=== PATIENT | female | born 1930 | race African-American/Black ===

== ENCOUNTER 2016-07-06 14:36 | Inpatient (IN) | payer MEDICARE, BC ==
[~2016-07-06] VITALS: Ht 167.6 cm; Wt 45.4 kg
[2016-07-06] MEDS ORDERED: POTASSIUM CHLO10 ME2 PO (14:41)
[2016-07-06] MEDS ORDERED: NITROGLYCERIN0.4 MG SL (14:41)
[2016-07-06] MEDS ORDERED: ATENOLOL25 MG ORAL (14:41)
[2016-07-06] MEDS ORDERED: FUROSEMIDE20 M1 ORAL (14:41)
[2016-07-06 14:59] VITALS: BP 124/48
--- NOTE | 2016-07-06 15:26 | Emergency Room Report ---
History of Present Illness General Chief Complaint: General Complaint Source: EMS Present Illness HPI Patient presents with reports of worsening decubitus ulcer Patient herself is nonverbal not able to provide any input I'm being told that the patient is sent in from home No reports of vomiting or diarrhea unknown regarding fevers Unknown duration of time The main location visible is in the sacral decubitus region Unknown regarding current care Allergies: Coded Allergies: No Known Allergies (Verified , 11/28/08) Patient History Limited by: medical condition Past Medical History: see triage record Pertinent Family History: unable to obtain Reviewed Nursing Documentation: PMH: Agreed, PSxH: Agreed Nursing Documentation-PMH Hx Cardiac Problems: Yes - [place] 04/2016 Hx Cerebrovascular Accident: Yes Review of Systems All Other Systems: limited - Other than the ones mentioned in the history of present illness all others are reviewed however they do stay limited due to the patient's mental status Physical Exam Vital Signs Date Time Temp Pulse Resp B/P Pulse Ox O2 Delivery O2 Flow Rate FiO2 07/06/16 14:35 99.9 74 16 102/49 97 Room Air Sp02 EP Interpretation: reviewed, normal General Appearance: no apparent distress Head: normocephalic, atraumatic Eyes: bilateral eye PERRL ENT: normal pharynx, no angioedema Neck: supple Respiratory: lungs clear, normal breath sounds Cardiovascular #1: regular rate, rhythm, no edema Gastrointestinal: non tender, soft Musculoskeletal: other - Patient appears bedbound and chronically debilitated Neurologic: responsive - To physical and verbal stimuli Skin: other - Area of scar and sacral decubitus ulcer large approximately 5 x 4 cm, there is an eschar appearance any foul smell Lymphatic: no adenopathy Medical Decision Making Diagnostic Impression: Primary Impression: Sacral decubitus ulcer, stage IV Additional Impression: Sepsis ER Course Patient's presentation is concerning Reports are that the patient has from home Has a very foul smell the lower back area with the ulcer in place Patient initiated on antibiotics White blood cell is elevated and patient also has Low sodium And at this time and in the for further inpatient care Labs Test 07/06/16 15:30 White Blood Count 19.8 K/UL (4.8-10.8) Red Blood Count 3.81 M/UL (4.20-5.40) Hemoglobin 10.7 G/DL (12.0-16.0) Hematocrit 34.0 % (37.0-47.0) Mean Corpuscular Volume 89 FL (80-99) Mean Corpuscular Hemoglobin 28.1 PG (27.0-31.0) Mean Corpuscular Hemoglobin Concent 31.5 G/DL (32.0-36.0) Red Cell Distribution Width 16.1 % (11.6-14.8) Platelet Count 436 K/UL (150-450) Mean Platelet Volume 6.2 FL (6.5-10.1) Neutrophils (%) (Auto) % (45.0-75.0) Lymphocytes (%) (Auto) % (20.0-45.0) Monocytes (%) (Auto) % (1.0-10.0) Eosinophils (%) (Auto) % (0.0-3.0) Basophils (%) (Auto) % (0.0-2.0) Differential Total Cells Counted 100 Neutrophils % (Manual) 89 % (45-75) Lymphocytes % (Manual) 7 % (20-45) Monocytes % (Manual) 3 % (1-10) Eosinophils % (Manual) 0 % (0-3) Basophils % (Manual) 0 % (0-2) Band Neutrophils 1 % (0-8) Platelet Estimate Adequate Platelet Morphology Normal Hypochromasia 1+ Anisocytosis 1+ Prothrombin Time 11.3 SEC (9.30-11.50) Prothromb Time International Ratio 1.1 (0.9-1.1) Activated Partial Thromboplast Time 28 SEC (23-33) Sodium Level 130 mEQ/L (135-145) Potassium Level 4.9 mEQ/L (3.4-4.9) Chloride Level 90 mEQ/L (98-107) Carbon Dioxide Level 25 mEQ/L (20-30) Anion Gap 15 (5-15) Blood Urea Nitrogen 15 mg/dL (7-23) Creatinine 0.5 mg/dL (0.5-0.9) Estimat Glomerular Filtration Rate mL/min (>60) Glucose Level 152 mg/dL (74-106) Lactic Acid Level 1.50 mmol/L (0.66-2.22) Calcium Level 8.9 mg/dL (8.6-10.2) Phosphorus Level 2.6 mg/dL (2.5-4.8) Magnesium Level 1.8 mg/dL (1.7-2.5) Total Bilirubin 0.3 mg/dL (0.0-1.2) Aspartate Amino Transf (AST/SGOT) 45 U/L (5-40) Alanine Aminotransferase (ALT/SGPT) 30 U/L (3-33) Alkaline Phosphatase 115 U/L (35-104) Total Creatine Kinase 21 U/L (26-140) Creatine Kinase MB < 1.5 ng/mL (< 3.8) Creatine Kinase MB Relative Index Troponin I < 0.30 ng/mL (<=0.30) Total Protein 6.2 g/dL (6.6-8.7) Albumin 2.3 g/dL (3.5-5.2) Globulin 3.9 g/dL Albumin/Globulin Ratio 0.5 (1.0-2.7) Rhythm Strip Diag. Results EP Interpretation: yes Rate: 77 Rhythm: NSR, no PVC's, no ectopy Chest X-Ray Diagnostic Results EP Interpretation: Yes Findings: no consolidation, no effusion, no pneumothorax Number of Views: 1 Last Vital Signs Date Time Temp Pulse Resp B/P Pulse Ox O2 Delivery O2 Flow Rate FiO2 07/06/16 14:59 87 16 124/48 97 Room Air 07/06/16 14:35 99.9 Status: improved Disposition: ADMITTED INPATIENT Condition: Serious BRIE NOWAK D.O. Jul 06, 2016 15:26
--- NOTE | 2016-07-06 15:31 | Diagnostic Imaging Report ---
Indication: Chest pain Technique: One view of the chest Comparison: none Findings: Patient is rotated to the left. Lungs and pleural spaces are clear. Heart size is normal Impression: Negative
[2016-07-06 15:57] LABS: MEAN CORPUSCULAR HEMOGLOBIN 28.1 PG (27.0-31.0); MEAN CORPUSCULAR HGB CONC 31.5 G/DL (32.0-36.0); MEAN CORPUSCULAR VOLUME 89 FL (80-99); MEAN PLATELET VOLUME 6.2 FL (6.5-10.1); PLATELET COUNT 436 K/UL (150-450); RED BLOOD COUNT 3.81 M/UL (4.20-5.40); RED CELL DISTRIBUTION WIDTH 16.1 % (11.6-14.8); WHITE BLOOD COUNT 19.8 K/UL (4.8-10.8)
[2016-07-06 16:00] LABS: INR 1.1 (0.9-1.1); PROTHROMBIN TIME 11.3 SEC (9.30-11.50)
[2016-07-06 16:08] LABS: TROPONIN I < 0.30 ng/mL (<=0.30)
[2016-07-06 16:22] LABS: ALANINE AMINOTRANSFERASE 30 U/L (3-33); ALBUMIN/GLOBULIN RATIO 0.5 (1.0-2.7); ANION GAP 15 (5-15); ASPARTATE AMINO TRANSFERASE 45 U/L (5-40); CALCIUM 8.9 mg/dL (8.6-10.2); CARBON DIOXIDE 25 mEQ/L (20-30); CHLORIDE 90 mEQ/L (98-107); CREATININE 0.5 mg/dL (0.5-0.9); HEMOLYSIS 13; MAGNESIUM 1.8 mg/dL (1.7-2.5); PHOSPHORUS 2.6 mg/dL (2.5-4.8); POTASSIUM 4.9 mEQ/L (3.4-4.9); SODIUM 130 mEQ/L (135-145); TOTAL PROTEIN 6.2 g/dL (6.6-8.7)
[2016-07-06 16:32] LABS: CKMB < 1.5 ng/mL (< 3.8)
[2016-07-06 16:39] LABS: BAND NEUTROPHILS % (MANUAL) 1 % (0-8); LYMPHOCYTES % (MANUAL) 7 % (20-45); NEUTROPHILS % (MANUAL) 89 % (45-75); TOTAL CELLS COUNTED 100
[2016-07-06 16:40] VITALS: BP 108/57
[2016-07-06 16:40] LABS: ANISOCYTOSIS 1+; BASOPHILS % (MANUAL) 0 % (0-2); EOSINOPHILS % (MANUAL) 0 % (0-3); HYPOCHROMASIA 1+; PLATELET ESTIMATE ADEQUATE; PLATELET MORPHOLOGY NORMAL
[2016-07-06] MEDS ORDERED: cefTRIAXone 1 GM in D5W 55 ML IVPB ONE (16:45)
[2016-07-06] MEDS ORDERED: Vancomycin 1gm inj IVPB ONE (16:45)
[2016-07-06] MEDS ORDERED: Vancomycin 1 GM in NS 275 ML IVPB ONE (16:45)
[2016-07-06] MEDS ORDERED: Vancomycin 500mg/D5W 110ml IVPB SCH ×2 (17:00)
--- NOTE | 2016-07-06 17:10 | Infectious Diseases Prog Note ---
Assessment/Plan Problems: (1) Sacral decubitus ulcer, stage IV Assessment & Plan: will send blood culture and start vancomycin, cefepime and flagyl empiric therapy for now, and get an MRI to rule out underlying osteomyelitis, check ESR. recommend wound care consult and plastic surgery for further management and skin flap in the future. (2) Sepsis Assessment & Plan: due to the above, will send blood culture and start wide spectrum antibiotics (3) CAD (coronary artery disease) Assessment & Plan: recommend cardiology consult (4) CVA (cerebral vascular accident) Assessment & Plan: stable , recommend neuro consult Subjective Allergies: Coded Allergies: No Known Allergies (Verified , 11/28/08) Objective Vital Signs Last 24 Hour Vital Signs Date Time Temp Pulse Resp B/P Pulse Ox O2 Delivery O2 Flow Rate FiO2 07/06/16 16:41 98.2 75 16 108/57 99 Room Air 07/06/16 16:40 98.2 75 16 108/57 99 Room Air 07/06/16 14:59 87 16 124/48 97 Room Air 07/06/16 14:35 99.9 74 16 102/49 97 Room Air Height (Feet): 5 Height (Inches): 6.00 Weight (Pounds): 100 Laboratory Tests Test 07/06/16 15:30 White Blood Count 19.8 K/UL (4.8-10.8) H Red Blood Count 3.81 M/UL (4.20-5.40) L Hemoglobin 10.7 G/DL (12.0-16.0) L Hematocrit 34.0 % (37.0-47.0) L Mean Corpuscular Volume 89 FL (80-99) Mean Corpuscular Hemoglobin 28.1 PG (27.0-31.0) Mean Corpuscular Hemoglobin Concent 31.5 G/DL (32.0-36.0) L Red Cell Distribution Width 16.1 % (11.6-14.8) H Platelet Count 436 K/UL (150-450) Mean Platelet Volume 6.2 FL (6.5-10.1) L Neutrophils (%) (Auto) % (45.0-75.0) Lymphocytes (%) (Auto) % (20.0-45.0) Monocytes (%) (Auto) % (1.0-10.0) Eosinophils (%) (Auto) % (0.0-3.0) Basophils (%) (Auto) % (0.0-2.0) Differential Total Cells Counted 100 Neutrophils % (Manual) 89 % (45-75) H Lymphocytes % (Manual) 7 % (20-45) L Monocytes % (Manual) 3 % (1-10) Eosinophils % (Manual) 0 % (0-3) Basophils % (Manual) 0 % (0-2) Band Neutrophils 1 % (0-8) Platelet Estimate Adequate Platelet Morphology Normal Hypochromasia 1+ Anisocytosis 1+ Prothrombin Time 11.3 SEC (9.30-11.50) Prothromb Time International Ratio 1.1 (0.9-1.1) Activated Partial Thromboplast Time 28 SEC (23-33) Sodium Level 130 mEQ/L (135-145) L Potassium Level 4.9 mEQ/L (3.4-4.9) Chloride Level 90 mEQ/L (98-107) L Carbon Dioxide Level 25 mEQ/L (20-30) Anion Gap 15 (5-15) Blood Urea Nitrogen 15 mg/dL (7-23) Creatinine 0.5 mg/dL (0.5-0.9) Estimat Glomerular Filtration Rate mL/min (>60) Glucose Level 152 mg/dL (74-106) H Lactic Acid Level 1.50 mmol/L (0.66-2.22) Calcium Level 8.9 mg/dL (8.6-10.2) Phosphorus Level 2.6 mg/dL (2.5-4.8) Magnesium Level 1.8 mg/dL (1.7-2.5) Total Bilirubin 0.3 mg/dL (0.0-1.2) Aspartate Amino Transf (AST/SGOT) 45 U/L (5-40) H Alanine Aminotransferase (ALT/SGPT) 30 U/L (3-33) Alkaline Phosphatase 115 U/L (35-104) H Total Creatine Kinase 21 U/L (26-140) L Creatine Kinase MB < 1.5 ng/mL (< 3.8) Creatine Kinase MB Relative Index Troponin I < 0.30 ng/mL (<=0.30) Total Protein 6.2 g/dL (6.6-8.7) L Albumin 2.3 g/dL (3.5-5.2) L Globulin 3.9 g/dL Albumin/Globulin Ratio 0.5 (1.0-2.7) L Current Medications Medications (Trade) Dose Ordered Sig/Abdirizak Route PRN Reason Start Time Stop Time Status Last Admin Dose Admin Ceftriaxone Sodium 1 gm/ Dextrose 55 ml @ 110 mls/hr ONCE ONCE IVPB 07/06/16 16:45 07/06/16 17:14 07/06/16 16:47 Vancomycin HCl/ Sodium Chloride (Vancomycin/ Sodium Chloride) 275 ml @ 183.708 mls/hr ONCE ONCE IVPB 07/06/16 16:45 07/06/16 18:14 07/06/16 16:47 Kaylah Sandy M.D. Jul 06, 2016 17:10
[2016-07-06] MEDS ORDERED: Mylanta II UD 30ml ORAL PRN (19:15)
[2016-07-06] MEDS ORDERED: LORazepam Inj 2mg/ml 1ml IV PRN (19:15)
[2016-07-06] MEDS ORDERED: Zolpidem 5mg tab ORAL PRN (19:15)
[2016-07-06] MEDS ORDERED: Morphine Sulfate 2mg/ml Inj IVP PRN (19:15)
[2016-07-06] MEDS ORDERED: Miralax 17gm pkt ORAL PRN (19:15)
[2016-07-06 20:00] VITALS: BP 136/59
[2016-07-06] MEDS: metroNIDAZOLE 500mg tab ORAL SCH (20:37)
[2016-07-06] MEDS: Cefepime 2gm/D5W 110ml IV SCH ×2 (20:37)
[2016-07-06] MEDS ORDERED: Cefepime HCl 1 GM in D5W 55 ML IVPB SCH (21:00)
[2016-07-06] MEDS ORDERED: Vancomycin 1 GM in D5W 275 ML IVPB SCH (21:00)
[2016-07-06] MEDS: Heparin 5000 units/ml inj SUBQ SCH (22:16)
[2016-07-06] MEDS: NovoLOG Insulin Flexpen SUBQ SCH (22:18)
--- NOTE | 2016-07-07 00:08 | Consultation ---
DATE OF CONSULTATION: HEMATOLOGY/ONCOLOGY CONSULTATION CONSULTING PHYSICIAN: Amandeep Saini M.D. ATTENDING PHYSICIAN: Claudia Diaz M.D. HISTORY OF PRESENT ILLNESS: Dear Dr. Diaz, Today, I had an opportunity to see one of your patients, . Sander Hernandez, who as you are aware 85-year-old delightful female with a past medical history remarkable for coronary artery disease, hypertension, history of CVA, sacral decubitus, and history of sepsis. The patient ended up to be admitted to [facility] for sacral decubitus ulcer, stage IV, sepsis, CVA, and coronary artery disease. During evaluation, it was found that the patient developed significant leukocytosis as well as anemia. My service was called to handle the blood dyscrasia. PAST MEDICAL HISTORY: 1. . 2. Sacral decubitus ulcer. 3. Sepsis. 4. Coronary artery disease. 5. Hypertension. 6. CVA. No cardiac medications. MEDICATIONS: 1. Vancomycin. 2. Tenormin. 3. NovoLog. 4. Flagyl. 5. Tylenol. 6. Morphine. 7. Zofran. FAMILY HISTORY: Noncontributory. SOCIAL HISTORY: No history of smoking. No history of alcohol abuse. No history of illicit drug use. REVIEW OF SYSTEMS: General Description: The patient is not in any significant distress. PHYSICAL EXAMINATION: VITAL SIGNS: T-max 97 degrees, respiratory rate 20, and heart rate 80. HEART: S1 and S2 regular. ABDOMEN: Soft and benign. No organomegaly present. Bowel sounds present. EXTREMITIES: No cyanosis, clubbing, or edema. LABORATORY DATA: Creatinine 0.5. Troponin is 0.3. Hematology showed WBC of 19.8, hemoglobin 10.7, hematocrit 34.0, and platelets 436,000. Coagulation showing at 1.1. IMPRESSION: 1. Leukocytosis . 2. Anemia of chronic disease. 3. Decreased hemoglobin and hematocrit, rule out gastrointestinal bleed. 4. Thrombocytosis, reactive. 5. Decubitus ulcer, stage IV. 6. Sepsis. 7. Coronary artery disease. 8. Hypertension. 9. Cerebrovascular accident. 10. Failure to thrive. 11. Malnutrition. RECOMMENDATIONS: 1. Watch count. 2. Watch coagulopathy. 3. Venous Doppler of the bilateral legs to rule out DVT. 4. Heparin 5000 units subcutaneously q.12 h. 5. Stool for occult blood. 6. Check iron studies. 7. PRBC transfusion p.r.n. basis. 8. Antibiotic IV. 9. ID followup. 10. Cardiology followup. 11. Neurology followup. 12. Skin care. 13. Nutrition. . Amandeep Saini MD DR: NADIA JOB#: [id number] CC:
[2016-07-07 04:00] VITALS: BP 117/55
[2016-07-07] MEDS: metroNIDAZOLE 500mg tab ORAL SCH ×3 (05:00→21:04)
[2016-07-07] MEDS: NovoLOG Insulin Flexpen SUBQ SCH ×4 (06:30→21:16)
[2016-07-07 06:51] LABS: MEAN CORPUSCULAR HEMOGLOBIN 28.3 PG (27.0-31.0); MEAN CORPUSCULAR HGB CONC 31.8 G/DL (32.0-36.0); MEAN CORPUSCULAR VOLUME 89 FL (80-99); MEAN PLATELET VOLUME 6.3 FL (6.5-10.1); PLATELET COUNT 394 K/UL (150-450); RED BLOOD COUNT 3.43 M/UL (4.20-5.40); RED CELL DISTRIBUTION WIDTH 16.5 % (11.6-14.8); WHITE BLOOD COUNT 14.1 K/UL (4.8-10.8)
[2016-07-07 07:29] LABS: HEMOLYSIS 4; IRON 14 ug/dL (37-145); TOTAL IRON BINDING CAPACITY 89 ug/dL (250-400)
[2016-07-07 07:32] LABS: ALANINE AMINOTRANSFERASE 26 U/L (3-33); ALBUMIN/GLOBULIN RATIO 0.5 (1.0-2.7); ANION GAP 14 (5-15); ASPARTATE AMINO TRANSFERASE 42 U/L (5-40); CALCIUM 8.7 mg/dL (8.6-10.2); CARBON DIOXIDE 24 mEQ/L (20-30); CHLORIDE 95 mEQ/L (98-107); CHOLESTEROL 93 mg/dL (< 200); CHOLESTEROL/HDL RATIO 3.9 (3.3-4.4); CREATININE 0.4 mg/dL (0.5-0.9); HEMOLYSIS 8; LDL CHOLESTEROL (CALC.) 51 mg/dL (60-99); POTASSIUM 4.5 mEQ/L (3.4-4.9); SODIUM 133 mEQ/L (135-145); TOTAL PROTEIN 5.6 g/dL (6.6-8.7)
[2016-07-07 07:35] LABS: FERRITIN 398 ng/mL (13-150)
[2016-07-07 08:00] VITALS: BP 129/60
[2016-07-07] MEDS: Heparin 5000 units/ml inj SUBQ SCH ×2 (09:29→20:04)
[2016-07-07] MEDS: Atenolol 25mg tab ORAL SCH (09:30)
[2016-07-07 11:29] LABS: BAND NEUTROPHILS % (MANUAL) 0 % (0-8); BASOPHILS % (MANUAL) 0 % (0-2); EOSINOPHILS % (MANUAL) 1 % (0-3); LYMPHOCYTES % (MANUAL) 6 % (20-45); NEUTROPHILS % (MANUAL) 90 % (45-75); PLATELET ESTIMATE ADEQUATE; PLATELET MORPHOLOGY NORMAL; TOTAL CELLS COUNTED 100
[2016-07-07 11:31] LABS: ANISOCYTOSIS 1+; HYPOCHROMASIA 1+
[2016-07-07 12:00] VITALS: BP 115/54
--- NOTE | 2016-07-07 15:33 | Wound Care Consultation ---
Wound Assessment Wound Assessment #1: Wound Present on Admission: Yes New Wound: No Status Change of Wound: No Wound Location Body Site Modif: mid Wound Location Body Site: sacral Wound Type: pressure ulcer Elisha Test: Does not Elisha Pressure Ulcer Stage: IV/unstageable Wound Thickness: Full Thickness Wound Length: 15.5 Wound Width: 9.0 Wound Depth: utd Percent of Wound Black/Brown: 100 Wound Drainage Description: Serosanguineous Wound Drainage Amount: Scant Wound Drainage Odor: None/Absent Tissue Surrounding Wound: Indurated Wound General Appearance: Blackened Wound Assessment #2: Wound Number: #2 Wound Present on Admission: Yes New Wound: No Status Change of Wound: No Wound Location Body Site Modif: right Wound Location Body Site: ischial tuberosity Wound Type: pressure ulcer Elisha Test: Does not Elisha Pressure Ulcer Stage: IV/unstageable Wound Thickness: Full Thickness Wound Length: 3.0 Wound Width: 2.5 Wound Depth: utd Percent of Wound Black/Brown: 100 Wound Drainage Description: Serosanguineous Wound Drainage Amount: Scant Wound Drainage Odor: None/Absent Tissue Surrounding Wound: Macerated Wound General Appearance: Blackened Wound Assessment #3: Wound Number: #3 Wound Present on Admission: Yes New Wound: No Status Change of Wound: No Wound Location Body Site Modif: left Wound Location Body Site: buttocks Wound Type: pressure ulcer Elisha Test: Does not Elisha Pressure Ulcer Stage: III Wound Thickness: Full Thickness Wound Length: 2.0 Wound Width: 2.0 Wound Depth: 0.3 Percent of Wound [place]/Red: 80 Percent of Wound Bed Yellow/Wh: 20 Wound Drainage Description: Serosanguineous Wound Drainage Amount: Scant Wound Drainage Odor: None/Absent Tissue Surrounding Wound: Macerated Wound General Appearance: Reddened Wound Assessment #4: Wound Number: #4 Wound Present on Admission: Yes New Wound: No Status Change of Wound: No Wound Location Body Site Modif: right Wound Location Body Site: heel Wound Type: pressure ulcer Elisha Test: Does not Elisha Pressure Ulcer Stage: IV/unstageable Wound Thickness: Full Thickness Wound Length: 4.0 Wound Width: 2.0 Wound Depth: utd Percent of Wound [place]/Red: 20 Percent of Wound Black/Brown: 60 Wound Drainage Amount: Scant Wound Drainage Odor: None/Absent Tissue Surrounding Wound: Denuded Wound General Appearance: Reddened Wound Assessment #5: Wound Number: #5 Wound Present on Admission: Yes New Wound: No Status Change of Wound: No Wound Location Body Site: perineal area Wound Type: chemical burn Elisha Test: Does not Elisha Wound Drainage Amount: None Wound Drainage Odor: None/Absent Tissue Surrounding Wound: Erythemic Wound General Appearance: Reddened Wound Comment #1 Sacral stage IV/unstageable pressure ulcer #2 Left buttock stage III pressure ulcer #3 Right ischial tuberosity stage IV/unstageable pressure ulcer #4 Right heel stage IV/unstageable pressure ulcer #5 Chemical burn on perineal area Recommendation -Local wound care per protocol -Consult for possible debridement of sacral area with black eschar -Optimize nutrition -Turn and reposition -Keep clean and dry -Offload both heels -Heel protector on both heels -Low air loss overlay mattress -Assess and f/u with MD for any changes IMTIAZ HINTON RN Jul 07, 2016 15:33
--- NOTE | 2016-07-07 15:48 | Diagnostic Imaging Report ---
Indications: Stage IV sacral decubitus ulcer. Technique: Sagittal T2-weighted fast spin-echo, coronal, sagittal, and axial T1-weighted fast spin-echo and STIR sequences of the sacrum and coccyx without IV gadolinium administration Findings: Comparison: None Increased marrow signal is present within the fourth and fifth sacral vertebrae on lateral view, questionably in the distal aspect of the third. It is also demonstrated within the first coccygeal vertebra which is displaced posteriorly. Remainder of the coccyx not definitely identified. Surrounding soft tissues are diffusely edematous. Small fluid collection adjacent to the distal sacrum and first coccygeal segment not excludable. Extension of inflammatory process/fluid collection into sacral spinal canal excludable. Circumscribed fluid and gas collections in the subcutaneous soft tissues of both buttock regions more superficially, 2 cm on the right and 2.5 cm on left. No additional skeletal foci of marrow signal change. L4-5 intervertebral disc narrowed with marginal osteophyte formation. Bilateral L5-S1 facet joints hypertrophied. Rectum is significantly distended by feces, up to 9 cm diameter. Some extension of the aforementioned soft tissue edema into presacral and perirectal spaces. Impression: Suspicion of osteomyelitis of the lower sacrum and first coccygeal segment. Coccyx distal to this not identified. Questionable small fluid collection/abscess adjacent to the sacrococcygeal junction. Extension of inflammatory process into sacral spinal canal indeterminate. Bilateral buttock subcutaneous gas and fluid collection suspicious for abscess is Rectal fecal distention Degenerative spondylosis
[2016-07-07 16:00] VITALS: BP 126/55
[2016-07-07] MEDS: Vancomycin 500mg/D5W 110ml IVPB SCH ×2 (17:48)
--- NOTE | 2016-07-07 18:22 | Infectious Diseases Prog Note ---
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, recommend surgical debridement with plastic surgery and bone for culture, continue wound care and off loading (3) Sepsis Assessment & Plan: due to the above, will send blood culture and start wide spectrum antibiotics (4) CAD (coronary artery disease) Assessment & Plan: recommend cardiology consult (5) CVA (cerebral vascular accident) Assessment & Plan: stable , recommend neuro consult Subjective ROS Limited/Unobtainable: Yes Allergies: Coded Allergies: No Known Allergies (Verified , 11/28/08) Subjective she is demented, lying in bed, alert, comfortable.afebrile Objective Vital Signs Last 24 Hour Vital Signs Date Time Temp Pulse Resp B/P Pulse Ox O2 Delivery O2 Flow Rate FiO2 07/07/16 16:00 98.2 66 20 126/55 100 Room Air 07/07/16 12:00 98.0 71 18 115/54 98 Room Air 07/07/16 09:30 85 120/57 07/07/16 08:00 97.2 81 18 129/60 98 Room Air 07/07/16 04:00 98.8 86 18 117/55 95 Room Air 07/06/16 20:00 97.9 77 20 136/59 Room Air Height (Feet): 5 Height (Inches): 6.00 Weight (Pounds): 100 General Appearance: WD/WN, no acute distress HEENT: normocephalic, atraumatic, anicteric Respiratory/Chest: chest wall non-tender, normal breath sounds, no respiratory distress, no accessory muscle use, decreased breath sounds Cardiovascular: normal peripheral pulses, normal rate, regular rhythm, no gallop/murmur Abdomen: normal bowel sounds, soft, non tender, no organomegaly, non distended , no mass Extremities: no cyanosis, no clubbing Skin: no rash, no lesions, ulcers Microbiology Date/Time Source Procedure Growth Status 07/06/16 22:30 Wound Gram Stain - Final Resulted 07/06/16 22:30 Wound Wound Culture Pending Resulted Laboratory Tests Test 07/07/16 05:00 White Blood Count 14.1 K/UL (4.8-10.8) H Red Blood Count 3.43 M/UL (4.20-5.40) L Hemoglobin 9.7 G/DL (12.0-16.0) L Hematocrit 30.6 % (37.0-47.0) L Mean Corpuscular Volume 89 FL (80-99) Mean Corpuscular Hemoglobin 28.3 PG (27.0-31.0) Mean Corpuscular Hemoglobin Concent 31.8 G/DL (32.0-36.0) L Red Cell Distribution Width 16.5 % (11.6-14.8) H Platelet Count 394 K/UL (150-450) Mean Platelet Volume 6.3 FL (6.5-10.1) L Neutrophils (%) (Auto) % (45.0-75.0) Lymphocytes (%) (Auto) % (20.0-45.0) Monocytes (%) (Auto) % (1.0-10.0) Eosinophils (%) (Auto) % (0.0-3.0) Basophils (%) (Auto) % (0.0-2.0) Differential Total Cells Counted 100 Neutrophils % (Manual) 90 % (45-75) H Lymphocytes % (Manual) 6 % (20-45) L Monocytes % (Manual) 3 % (1-10) Eosinophils % (Manual) 1 % (0-3) Basophils % (Manual) 0 % (0-2) Band Neutrophils 0 % (0-8) Platelet Estimate Adequate Platelet Morphology Normal Hypochromasia 1+ Anisocytosis 1+ Sodium Level 133 mEQ/L (135-145) L Potassium Level 4.5 mEQ/L (3.4-4.9) Chloride Level 95 mEQ/L (98-107) L Carbon Dioxide Level 24 mEQ/L (20-30) Anion Gap 14 (5-15) Blood Urea Nitrogen 13 mg/dL (7-23) Creatinine 0.4 mg/dL (0.5-0.9) L Estimat Glomerular Filtration Rate mL/min (>60) Glucose Level 101 mg/dL (74-106) Calcium Level 8.7 mg/dL (8.6-10.2) Iron Level 14 ug/dL (37-145) L Total Iron Binding Capacity 89 ug/dL (250-400) L Percent Iron Saturation 16 % (15-50) Unsaturated Iron Binding 75 ug/dL (112-346) L Ferritin 398 ng/mL (13-150) H Total Bilirubin 0.2 mg/dL (0.0-1.2) Aspartate Amino Transf (AST/SGOT) 42 U/L (5-40) H Alanine Aminotransferase (ALT/SGPT) 26 U/L (3-33) Alkaline Phosphatase 126 U/L (35-104) H Total Protein 5.6 g/dL (6.6-8.7) L Albumin 2.0 g/dL (3.5-5.2) L Globulin 3.6 g/dL Albumin/Globulin Ratio 0.5 (1.0-2.7) L Triglycerides Level 88 mg/dL (< 150) Cholesterol Level 93 mg/dL (< 200) LDL Cholesterol 51 mg/dL (60-99) L HDL Cholesterol 24 mg/dL (> 60) Cholesterol/HDL Ratio 3.9 (3.3-4.4) Thyroid Stimulating Hormone (TSH) 7.140 uIU/mL (0.300-4.500) Current Medications Medications (Trade) Dose Ordered Sig/Abdirizak Route PRN Reason Start Time Stop Time Status Last Admin Dose Admin Acetaminophen (Tylenol) 650 mg Q4H PRN ORAL fever 07/06/16 19:15 08/05/16 19:14 Al Hydroxide/Mg Hydroxide (Mylanta II) 30 ml Q6H PRN ORAL dyspepsia 07/06/16 19:15 08/05/16 19:14 Atenolol (Tenormin) 25 mg DAILY ORAL 07/07/16 09:00 08/06/16 08:59 07/07/16 09:30 Cefepime HCl 2 gm/ Dextrose 110 ml @ 220 mls/hr Q24H IV 07/06/16 20:00 07/13/16 19:59 07/06/16 20:37 Dextrose (Dextrose 50%) STAT PRN IV Hypoglycemia 07/06/16 19:15 08/05/16 19:14 Heparin Sodium (Porcine) 5000 units 5,000 units EVERY 12 HOURS SUBQ 07/06/16 22:00 08/05/16 21:59 07/07/16 09:29 Insulin Aspart (NovoLOG) BEFORE MEALS AND HS SUBQ 07/06/16 22:00 08/05/16 21:59 07/07/16 17:50 Lorazepam (Ativan 2mg/ml 1ml) 0.5 mg Q4H PRN IV For Anxiety 07/06/16 19:15 07/13/16 19:14 Metronidazole 500 mg 500 mg Q8HR ORAL 07/06/16 20:00 07/13/16 19:59 07/07/16 14:00 Morphine Sulfate (Morphine Sulfate) 1 mg EVERY 4 HOURS PRN IVP For Pain 07/06/16 19:15 07/13/16 19:14 Ondansetron HCl (Zofran) 4 mg Q6H PRN IVP Nausea & Vomiting 07/06/16 19:15 08/05/16 19:14 Polyethylene Glycol (Miralax) 17 gm HSPRN PRN ORAL Constipation 07/06/16 19:15 08/05/16 19:14 Sodium Chloride (Sodium Chloride 1000ml bag) 1,000 ml @ 60 mls/hr [id number] IV 07/06/16 23:30 08/05/16 23:29 07/06/16 23:30 Vancomycin HCl (Vanco rx to dose) 1 ea DAILY PRN MISC . 07/06/16 18:45 08/05/16 18:44 Vancomycin HCl/ Dextrose (Vancomycin/D5W) 110 ml @ 110 mls/hr Q24H IVPB 07/07/16 17:00 07/12/16 16:59 07/07/16 17:48 Zolpidem Tartrate (Ambien) 5 mg HSPRN PRN ORAL Insomnia 07/06/16 19:15 08/05/16 19:14 Kaylah Sandy M.D. Jul 07, 2016 18:22
--- NOTE | 2016-07-07 19:04 | Consultation ---
History of Present Illness General Date patient seen: Jul 07, 2016 Time patient seen: 18:51 Chief Complaint: General Complaint Referring physician: Joe Reason for Consultation: Sacral Ulcer Present Illness HPI Asked to evaluate this 85 yof for a sacral ulcer. She was admitted to [facility] from home yesterday for worsening sacral ulcer. She developed the ulcer several weeks ago when spending time in hospital recovering from an IN and stroke. She is bedridden due to the stroke. She has been home for the last 2 weeks and has had a home health nurse. She has been receiving medihoney at home. 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 History obtained from daughter and granddaughter. She has a h/o DM as well. Allergies: Coded Allergies: No Known Allergies (Verified , 11/28/08) Medication History Scheduled Atenolol* (Tenormin*), 25 MG ORAL DAILY, (Reported) Furosemide* (Lasix*), 20 MG ORAL DAILY, (Reported) Miscellaneous Medications Nitroglycerin (Nitroglycerin), 0.4 MG SL, (Reported) Potassium Chloride (Potassium Chloride), 10 MEQ PO, (Reported) Patient History Limited by: medical condition History Provided By: Family Member, Medical Record Healthcare decision maker Resuscitation status Full Code Advanced Directive on File Review of Systems Constitutional: Reports: weakness Eye: Reports: no symptoms Respiratory: Reports: no symptoms Gastrointestinal: Reports: no symptoms Genitourinary: Reports: incontinence Skin: Reports: see HPI Psychiatric: Reports: no symptoms Hematologic/Lymphatic: Reports: anemia Physical Exam General Appearance: no apparent distress Lines, tubes and drains: peripheral Respiratory/Chest: no respiratory distress Abdomen: soft Skin Exam: other - Large unstageable sacral ulcer with eschar present. Central aspect is soft and . Small amount of fluctuance. Periskin with no crepitus or erythema. Neurologic: motor weakness Musculoskeletal: atrophy Last 24 Hour Vital Signs Date Time Temp Pulse Resp B/P Pulse Ox O2 Delivery O2 Flow Rate FiO2 07/07/16 16:00 98.2 66 20 126/55 100 Room Air 07/07/16 12:00 98.0 71 18 115/54 98 Room Air 07/07/16 09:30 85 120/57 07/07/16 08:00 97.2 81 18 129/60 98 Room Air 07/07/16 04:00 98.8 86 18 117/55 95 Room Air 07/06/16 20:00 97.9 77 20 136/59 Room Air Intake and Output 07/06/16 07/07/16 19:00 07:00 Intake Total 0 ml 360 ml Balance 0 ml 360 ml Intake Oral 0 ml IV Total 360 ml # Voids 2 # Bowel Movements 2 Laboratory Tests Test 07/07/16 05:00 White Blood Count 14.1 K/UL (4.8-10.8) H Red Blood Count 3.43 M/UL (4.20-5.40) L Hemoglobin 9.7 G/DL (12.0-16.0) L Hematocrit 30.6 % (37.0-47.0) L Mean Corpuscular Volume 89 FL (80-99) Mean Corpuscular Hemoglobin 28.3 PG (27.0-31.0) Mean Corpuscular Hemoglobin Concent 31.8 G/DL (32.0-36.0) L Red Cell Distribution Width 16.5 % (11.6-14.8) H Platelet Count 394 K/UL (150-450) Mean Platelet Volume 6.3 FL (6.5-10.1) L Neutrophils (%) (Auto) % (45.0-75.0) Lymphocytes (%) (Auto) % (20.0-45.0) Monocytes (%) (Auto) % (1.0-10.0) Eosinophils (%) (Auto) % (0.0-3.0) Basophils (%) (Auto) % (0.0-2.0) Differential Total Cells Counted 100 Neutrophils % (Manual) 90 % (45-75) H Lymphocytes % (Manual) 6 % (20-45) L Monocytes % (Manual) 3 % (1-10) Eosinophils % (Manual) 1 % (0-3) Basophils % (Manual) 0 % (0-2) Band Neutrophils 0 % (0-8) Platelet Estimate Adequate Platelet Morphology Normal Hypochromasia 1+ Anisocytosis 1+ Sodium Level 133 mEQ/L (135-145) L Potassium Level 4.5 mEQ/L (3.4-4.9) Chloride Level 95 mEQ/L (98-107) L Carbon Dioxide Level 24 mEQ/L (20-30) Anion Gap 14 (5-15) Blood Urea Nitrogen 13 mg/dL (7-23) Creatinine 0.4 mg/dL (0.5-0.9) L Estimat Glomerular Filtration Rate mL/min (>60) Glucose Level 101 mg/dL (74-106) Calcium Level 8.7 mg/dL (8.6-10.2) Iron Level 14 ug/dL (37-145) L Total Iron Binding Capacity 89 ug/dL (250-400) L Percent Iron Saturation 16 % (15-50) Unsaturated Iron Binding 75 ug/dL (112-346) L Ferritin 398 ng/mL (13-150) H Total Bilirubin 0.2 mg/dL (0.0-1.2) Aspartate Amino Transf (AST/SGOT) 42 U/L (5-40) H Alanine Aminotransferase (ALT/SGPT) 26 U/L (3-33) Alkaline Phosphatase 126 U/L (35-104) H Total Protein 5.6 g/dL (6.6-8.7) L Albumin 2.0 g/dL (3.5-5.2) L Globulin 3.6 g/dL Albumin/Globulin Ratio 0.5 (1.0-2.7) L Triglycerides Level 88 mg/dL (< 150) Cholesterol Level 93 mg/dL (< 200) LDL Cholesterol 51 mg/dL (60-99) L HDL Cholesterol 24 mg/dL (> 60) Cholesterol/HDL Ratio 3.9 (3.3-4.4) Thyroid Stimulating Hormone (TSH) 7.140 uIU/mL (0.300-4.500) Microbiology Date/Time Source Procedure Growth Status 07/06/16 22:30 Wound Gram Stain - Final Resulted 07/06/16 22:30 Wound Wound Culture Pending Resulted Height (Feet): 5 Height (Inches): 6.00 Weight (Pounds): 100 Medications Current Medications Medications (Trade) Dose Ordered Sig/Abdirizak Route PRN Reason Start Time Stop Time Status Last Admin Dose Admin Acetaminophen (Tylenol) 650 mg Q4H PRN ORAL fever 07/06/16 19:15 08/05/16 19:14 Al Hydroxide/Mg Hydroxide (Mylanta II) 30 ml Q6H PRN ORAL dyspepsia 07/06/16 19:15 08/05/16 19:14 Atenolol (Tenormin) 25 mg DAILY ORAL 07/07/16 09:00 08/06/16 08:59 07/07/16 09:30 Cefepime HCl 2 gm/ Dextrose 110 ml @ 220 mls/hr Q24H IV 07/06/16 20:00 07/13/16 19:59 07/06/16 20:37 Dextrose (Dextrose 50%) STAT PRN IV Hypoglycemia 07/06/16 19:15 08/05/16 19:14 Heparin Sodium (Porcine) 5000 units 5,000 units EVERY 12 HOURS SUBQ 07/06/16 22:00 08/05/16 21:59 07/07/16 09:29 Insulin Aspart (NovoLOG) BEFORE MEALS AND HS SUBQ 07/06/16 22:00 08/05/16 21:59 07/07/16 17:50 Lorazepam (Ativan 2mg/ml 1ml) 0.5 mg Q4H PRN IV For Anxiety 07/06/16 19:15 07/13/16 19:14 Metronidazole 500 mg 500 mg Q8HR ORAL 07/06/16 20:00 07/13/16 19:59 07/07/16 14:00 Morphine Sulfate (Morphine Sulfate) 1 mg EVERY 4 HOURS PRN IVP For Pain 07/06/16 19:15 07/13/16 19:14 Ondansetron HCl (Zofran) 4 mg Q6H PRN IVP Nausea & Vomiting 07/06/16 19:15 08/05/16 19:14 Polyethylene Glycol (Miralax) 17 gm HSPRN PRN ORAL Constipation 07/06/16 19:15 08/05/16 19:14 Sodium Chloride (Sodium Chloride 1000ml bag) 1,000 ml @ 60 mls/hr [id number] IV 07/06/16 23:30 08/05/16 23:29 07/06/16 23:30 Vancomycin HCl (Vanco rx to dose) 1 ea DAILY PRN MISC . 07/06/16 18:45 08/05/16 18:44 Vancomycin HCl/ Dextrose (Vancomycin/D5W) 110 ml @ 110 mls/hr Q24H IVPB 07/07/16 17:00 07/12/16 16:59 07/07/16 17:48 Zolpidem Tartrate (Ambien) 5 mg HSPRN PRN ORAL Insomnia 07/06/16 19:15 08/05/16 19:14 Assessment/Plan Assessment/Plan Patient with large unstageable sacral ulcer. She has a leukocytosis although it is less than yesterday. She will need surgical debridement of the eschar with washout and possible bone biopsy. Concern is that the ulcer will worsen and she will become septic. She will need medical clearance due to her comorbidities and if not able t be cleared for anesthesia, then will need to do it under local anesthesia in the OR. If bone is exposed then will obtain biopsy to direct antibiotic management. Will also need low airloss mattress and aggressive offloading. Will need prealbumin level to assess nutrition levels. Discussed with family and explained that the first step is to prevent ulcer from making her sicker. Prognosis for healing this ulcer is poor given the size , comorbidities and the fact that she is bedridden. DEVANTE LE Jul 07, 2016 19:04
[2016-07-07 20:00] VITALS: BP 130/55
--- NOTE | 2016-07-07 21:00 | General Progress Note ---
Assessment/Plan Assessment/Plan IMPRESSION: 1. Leukocytosis 2/2 underlying infection, osteomyelitis v other cause 2. Anemia of chronic disease, decreased hemoglobin and hematocrit, rule out gastrointestinal bleed. Ferritin remains elevated 3. Thrombocytosis, reactive. 4. Decubitus ulcer, stage IV. 5. Sepsis. 6. Cerebrovascular accident. 7. Failure to thrive. 8. Malnutrition. RECOMMENDATIONS: 1. Watch count. 2. Watch coagulopathy. 3. Venous Doppler of the bilateral legs to rule out DVT. 4. Heparin 5000 units subcutaneously q.12 h. 5. Stool for occult blood. 6. Anemia workup has been reviewed 7. PRBC transfusion p.r.n. basis. 8. Antibiotic IV prn 9. Staff Thank you, Cristian Saini MD Subjective Constitutional: Reports: no symptoms HEENT: Reports: no symptoms Cardiovascular: Reports: no symptoms Respiratory: Reports: no symptoms Gastrointestinal/Abdominal: Reports: poor fluid intake Genitourinary: Reports: no symptoms Neurologic/Psychiatric: Reports: no symptoms Endocrine: Reports: no symptoms Hematologic/Lymphatic: Reports: anemia Allergies: Coded Allergies: No Known Allergies (Verified , 11/28/08) Subjective no events overnight, no fevers or chills, no night sweats Objective Last 24 Hour Vital Signs Date Time Temp Pulse Resp B/P Pulse Ox O2 Delivery O2 Flow Rate FiO2 07/07/16 16:00 98.2 66 20 126/55 100 Room Air 07/07/16 12:00 98.0 71 18 115/54 98 Room Air 07/07/16 09:30 85 120/57 07/07/16 08:00 97.2 81 18 129/60 98 Room Air 07/07/16 04:00 98.8 86 18 117/55 95 Room Air Intake and Output 07/06/16 07/07/16 19:00 07:00 Intake Total 0 ml 360 ml Balance 0 ml 360 ml Intake Oral 0 ml IV Total 360 ml # Voids 2 # Bowel Movements 2 Laboratory Tests 07/07/16 05:00: White Blood Count 14.1H, Red Blood Count 3.43L, Hemoglobin 9.7L, Hematocrit 30.6L, Mean Corpuscular Volume 89, Mean Corpuscular Hemoglobin 28.3, Mean Corpuscular Hemoglobin Concent 31.8L, Red Cell Distribution Width 16.5H, Platelet Count 394, Mean Platelet Volume 6.3L, Neutrophils (%) (Auto) , Lymphocytes (%) (Auto) , Monocytes (%) (Auto) , Eosinophils (%) (Auto) , Basophils (%) (Auto) , Differential Total Cells Counted 100, Neutrophils % ( Manual) 90H, Lymphocytes % (Manual) 6L, Monocytes % (Manual) 3, Eosinophils % ( Manual) 1, Basophils % (Manual) 0, Band Neutrophils 0, Platelet Estimate Adequate, Platelet Morphology Normal, Hypochromasia 1+, Anisocytosis 1+, Sodium Level 133L, Potassium Level 4.5, Chloride Level 95L, Carbon Dioxide Level 24, Anion Gap 14, Blood Urea Nitrogen 13, Creatinine 0.4L, Estimat Glomerular Filtration Rate , Glucose Level 101, Calcium Level 8.7, Iron Level 14L, Total Iron Binding Capacity 89L, Percent Iron Saturation 16, Unsaturated Iron Binding 75L, Ferritin 398H, Total Bilirubin 0.2, Aspartate Amino Transf (AST/SGOT) 42H, Alanine Aminotransferase (ALT/SGPT) 26, Alkaline Phosphatase 126H, Total Protein 5.6L, Albumin 2.0L, Globulin 3.6, Albumin/Globulin Ratio 0.5L, Triglycerides Level 88, Cholesterol Level 93, LDL Cholesterol 51L, HDL Cholesterol 24, Cholesterol/HDL Ratio 3.9, Thyroid Stimulating Hormone (TSH) 7.140H Height (Feet): 5 Height (Inches): 6.00 Weight (Pounds): 100 General Appearance: no apparent distress EENT: pharynx normal Neck: normal alignment Cardiovascular: regular rhythm Respiratory/Chest: chest wall non-tender Abdomen: non tender Extremities: non-tender Edema: 1+ Leg (L), 1+ Leg (R) Edema: mild edema Neurologic: alert Skin: warm/dry Cristian Saini Jul 07, 2016 21:00
[2016-07-07] MEDS: Cefepime 2gm/D5W 110ml IV SCH ×2 (21:04)
--- NOTE | 2016-07-07 21:26 | Consultation ---
History of Present Illness General Date patient seen: Jul 07, 2016 Chief Complaint: General Complaint Referring physician: Joe Reason for Consultation: inpatient management Present Illness HPI 85 year old female with hx of dementia, bed bound, senior care resident brought in with CC of worsening decubitus ulcer. Patient herself is nonverbal not able to provide any input, No reports of vomiting or diarrhea unknown regarding fevers Unknown duration of time, The main location visible is in the sacral decubitus region. Pt is admitted to evaluate for sepsis and treatment and possible debridement of decubiti ulcers. Allergies: Coded Allergies: No Known Allergies (Verified , 11/28/08) Medication History Scheduled Atenolol* (Tenormin*), 25 MG ORAL DAILY, (Reported) Furosemide* (Lasix*), 20 MG ORAL DAILY, (Reported) Miscellaneous Medications Nitroglycerin (Nitroglycerin), 0.4 MG SL, (Reported) Potassium Chloride (Potassium Chloride), 10 MEQ PO, (Reported) Patient History Healthcare decision maker Resuscitation status Full Code Advanced Directive on File Past Medical/Surgical History Past Medical/Surgical History: (1) Sacral decubitus ulcer, stage IV (2) Sepsis (3) CVA (cerebral vascular accident) (4) CAD (coronary artery disease) (5) Diabetes mellitus Physical Exam General Appearance: cachetic Lines, tubes and drains: peripheral HEENT: normocephalic, atraumatic Neck: non-tender, normal alignment Respiratory/Chest: chest wall non-tender, crackles/rales Breasts: no masses Cardiovascular/Chest: normal peripheral pulses, normal rate Abdomen: normal bowel sounds Genitourinary/Rectal: normal genital exam Extremities: normal range of motion, non-tender Skin Exam: rash Lymphatic: axillary (L) Musculoskeletal: atrophy Last 24 Hour Vital Signs Date Time Temp Pulse Resp B/P Pulse Ox O2 Delivery O2 Flow Rate FiO2 07/07/16 20:00 98.2 63 20 130/55 100 Room Air 07/07/16 16:00 98.2 66 20 126/55 100 Room Air 07/07/16 12:00 98.0 71 18 115/54 98 Room Air 07/07/16 09:30 85 120/57 07/07/16 08:00 97.2 81 18 129/60 98 Room Air 07/07/16 04:00 98.8 86 18 117/55 95 Room Air Intake and Output 07/06/16 07/07/16 19:00 07:00 Intake Total 0 ml 360 ml Balance 0 ml 360 ml Intake Oral 0 ml IV Total 360 ml # Voids 2 # Bowel Movements 2 Laboratory Tests Test 07/07/16 05:00 White Blood Count 14.1 K/UL (4.8-10.8) H Red Blood Count 3.43 M/UL (4.20-5.40) L Hemoglobin 9.7 G/DL (12.0-16.0) L Hematocrit 30.6 % (37.0-47.0) L Mean Corpuscular Volume 89 FL (80-99) Mean Corpuscular Hemoglobin 28.3 PG (27.0-31.0) Mean Corpuscular Hemoglobin Concent 31.8 G/DL (32.0-36.0) L Red Cell Distribution Width 16.5 % (11.6-14.8) H Platelet Count 394 K/UL (150-450) Mean Platelet Volume 6.3 FL (6.5-10.1) L Neutrophils (%) (Auto) % (45.0-75.0) Lymphocytes (%) (Auto) % (20.0-45.0) Monocytes (%) (Auto) % (1.0-10.0) Eosinophils (%) (Auto) % (0.0-3.0) Basophils (%) (Auto) % (0.0-2.0) Differential Total Cells Counted 100 Neutrophils % (Manual) 90 % (45-75) H Lymphocytes % (Manual) 6 % (20-45) L Monocytes % (Manual) 3 % (1-10) Eosinophils % (Manual) 1 % (0-3) Basophils % (Manual) 0 % (0-2) Band Neutrophils 0 % (0-8) Platelet Estimate Adequate Platelet Morphology Normal Hypochromasia 1+ Anisocytosis 1+ Sodium Level 133 mEQ/L (135-145) L Potassium Level 4.5 mEQ/L (3.4-4.9) Chloride Level 95 mEQ/L (98-107) L Carbon Dioxide Level 24 mEQ/L (20-30) Anion Gap 14 (5-15) Blood Urea Nitrogen 13 mg/dL (7-23) Creatinine 0.4 mg/dL (0.5-0.9) L Estimat Glomerular Filtration Rate mL/min (>60) Glucose Level 101 mg/dL (74-106) Calcium Level 8.7 mg/dL (8.6-10.2) Iron Level 14 ug/dL (37-145) L Total Iron Binding Capacity 89 ug/dL (250-400) L Percent Iron Saturation 16 % (15-50) Unsaturated Iron Binding 75 ug/dL (112-346) L Ferritin 398 ng/mL (13-150) H Total Bilirubin 0.2 mg/dL (0.0-1.2) Aspartate Amino Transf (AST/SGOT) 42 U/L (5-40) H Alanine Aminotransferase (ALT/SGPT) 26 U/L (3-33) Alkaline Phosphatase 126 U/L (35-104) H Total Protein 5.6 g/dL (6.6-8.7) L Albumin 2.0 g/dL (3.5-5.2) L Globulin 3.6 g/dL Albumin/Globulin Ratio 0.5 (1.0-2.7) L Triglycerides Level 88 mg/dL (< 150) Cholesterol Level 93 mg/dL (< 200) LDL Cholesterol 51 mg/dL (60-99) L HDL Cholesterol 24 mg/dL (> 60) Cholesterol/HDL Ratio 3.9 (3.3-4.4) Thyroid Stimulating Hormone (TSH) 7.140 uIU/mL (0.300-4.500) Microbiology Date/Time Source Procedure Growth Status 07/06/16 22:30 Wound Gram Stain - Final Resulted 07/06/16 22:30 Wound Wound Culture Pending Resulted Height (Feet): 5 Height (Inches): 6.00 Weight (Pounds): 100 Medications Current Medications Medications (Trade) Dose Ordered Sig/Abdirizak Route PRN Reason Start Time Stop Time Status Last Admin Dose Admin Acetaminophen (Tylenol) 650 mg Q4H PRN ORAL fever 07/06/16 19:15 08/05/16 19:14 Al Hydroxide/Mg Hydroxide (Mylanta II) 30 ml Q6H PRN ORAL dyspepsia 07/06/16 19:15 08/05/16 19:14 Atenolol (Tenormin) 25 mg DAILY ORAL 07/07/16 09:00 08/06/16 08:59 07/07/16 09:30 Cefepime HCl 2 gm/ Dextrose 110 ml @ 220 mls/hr Q24H IV 07/06/16 20:00 07/13/16 19:59 07/07/16 21:04 Dextrose (Dextrose 50%) STAT PRN IV Hypoglycemia 07/06/16 19:15 08/05/16 19:14 Heparin Sodium (Porcine) 5000 units 5,000 units EVERY 12 HOURS SUBQ 07/06/16 22:00 08/05/16 21:59 07/07/16 09:29 Insulin Aspart (NovoLOG) BEFORE MEALS AND HS SUBQ 07/06/16 22:00 08/05/16 21:59 07/07/16 21:16 Lorazepam (Ativan 2mg/ml 1ml) 0.5 mg Q4H PRN IV For Anxiety 07/06/16 19:15 07/13/16 19:14 Metronidazole 500 mg 500 mg Q8HR ORAL 07/06/16 20:00 07/13/16 19:59 07/07/16 21:04 Morphine Sulfate (Morphine Sulfate) 1 mg EVERY 4 HOURS PRN IVP For Pain 07/06/16 19:15 07/13/16 19:14 Ondansetron HCl (Zofran) 4 mg Q6H PRN IVP Nausea & Vomiting 07/06/16 19:15 08/05/16 19:14 Polyethylene Glycol (Miralax) 17 gm HSPRN PRN ORAL Constipation 07/06/16 19:15 08/05/16 19:14 Sodium Chloride (Sodium Chloride 1000ml bag) 1,000 ml @ 60 mls/hr [id number] IV 07/06/16 23:30 08/05/16 23:29 07/07/16 21:04 Vancomycin HCl (Vanco rx to dose) 1 ea DAILY PRN MISC . 07/06/16 18:45 08/05/16 18:44 Vancomycin HCl/ Dextrose (Vancomycin/D5W) 110 ml @ 110 mls/hr Q24H IVPB 07/07/16 17:00 07/12/16 16:59 07/07/16 17:48 Zolpidem Tartrate (Ambien) 5 mg HSPRN PRN ORAL Insomnia 07/06/16 19:15 08/05/16 19:14 Assessment/Plan Problem List: (1) Sepsis ICD Codes: A41.9 - Sepsis, unspecified organism SNOMED: 40746642 (2) Sacral decubitus ulcer, stage IV ICD Codes: L89.154 - Pressure ulcer of sacral region, stage 4 SNOMED: 495187956, 903289011 (3) Sacral osteomyelitis ICD Codes: M46.28 - Osteomyelitis of vertebra, sacral and sacrococcygeal region SNOMED: 744727843 (4) CVA (cerebral vascular accident) ICD Codes: I63.9 - Cerebral infarction, unspecified SNOMED: 968839514 (5) CAD (coronary artery disease) ICD Codes: I25.10 - Atherosclerotic heart disease of [place] coronary artery without angina pectoris SNOMED: 47118371 (6) Diabetes mellitus ICD Codes: E11.9 - Type 2 diabetes mellitus without complications SNOMED: 00479575 Assessment/Plan scott culture wound care swallow studies IV antibiotics sliding scale with insulin coverage IVÁN OCHOA Jul 07, 2016 21:26
--- NOTE | 2016-07-07 21:30 | Cardiology Progress Note ---
Assessment/Plan Assessment/Plan The patient is seen and examined, full consult note will be dictated. Objective Last 24 Hour Vital Signs Date Time Temp Pulse Resp B/P Pulse Ox O2 Delivery O2 Flow Rate FiO2 07/07/16 20:00 98.2 63 20 130/55 100 Room Air 07/07/16 16:00 98.2 66 20 126/55 100 Room Air 07/07/16 12:00 98.0 71 18 115/54 98 Room Air 07/07/16 09:30 85 120/57 07/07/16 08:00 97.2 81 18 129/60 98 Room Air 07/07/16 04:00 98.8 86 18 117/55 95 Room Air Intake and Output 07/06/16 07/07/16 19:00 07:00 Intake Total 0 ml 360 ml Balance 0 ml 360 ml Intake Oral 0 ml IV Total 360 ml # Voids 2 # Bowel Movements 2 Laboratory Tests Test 07/07/16 05:00 White Blood Count 14.1 K/UL (4.8-10.8) H Red Blood Count 3.43 M/UL (4.20-5.40) L Hemoglobin 9.7 G/DL (12.0-16.0) L Hematocrit 30.6 % (37.0-47.0) L Mean Corpuscular Volume 89 FL (80-99) Mean Corpuscular Hemoglobin 28.3 PG (27.0-31.0) Mean Corpuscular Hemoglobin Concent 31.8 G/DL (32.0-36.0) L Red Cell Distribution Width 16.5 % (11.6-14.8) H Platelet Count 394 K/UL (150-450) Mean Platelet Volume 6.3 FL (6.5-10.1) L Neutrophils (%) (Auto) % (45.0-75.0) Lymphocytes (%) (Auto) % (20.0-45.0) Monocytes (%) (Auto) % (1.0-10.0) Eosinophils (%) (Auto) % (0.0-3.0) Basophils (%) (Auto) % (0.0-2.0) Differential Total Cells Counted 100 Neutrophils % (Manual) 90 % (45-75) H Lymphocytes % (Manual) 6 % (20-45) L Monocytes % (Manual) 3 % (1-10) Eosinophils % (Manual) 1 % (0-3) Basophils % (Manual) 0 % (0-2) Band Neutrophils 0 % (0-8) Platelet Estimate Adequate Platelet Morphology Normal Hypochromasia 1+ Anisocytosis 1+ Sodium Level 133 mEQ/L (135-145) L Potassium Level 4.5 mEQ/L (3.4-4.9) Chloride Level 95 mEQ/L (98-107) L Carbon Dioxide Level 24 mEQ/L (20-30) Anion Gap 14 (5-15) Blood Urea Nitrogen 13 mg/dL (7-23) Creatinine 0.4 mg/dL (0.5-0.9) L Estimat Glomerular Filtration Rate mL/min (>60) Glucose Level 101 mg/dL (74-106) Calcium Level 8.7 mg/dL (8.6-10.2) Iron Level 14 ug/dL (37-145) L Total Iron Binding Capacity 89 ug/dL (250-400) L Percent Iron Saturation 16 % (15-50) Unsaturated Iron Binding 75 ug/dL (112-346) L Ferritin 398 ng/mL (13-150) H Total Bilirubin 0.2 mg/dL (0.0-1.2) Aspartate Amino Transf (AST/SGOT) 42 U/L (5-40) H Alanine Aminotransferase (ALT/SGPT) 26 U/L (3-33) Alkaline Phosphatase 126 U/L (35-104) H Total Protein 5.6 g/dL (6.6-8.7) L Albumin 2.0 g/dL (3.5-5.2) L Globulin 3.6 g/dL Albumin/Globulin Ratio 0.5 (1.0-2.7) L Triglycerides Level 88 mg/dL (< 150) Cholesterol Level 93 mg/dL (< 200) LDL Cholesterol 51 mg/dL (60-99) L HDL Cholesterol 24 mg/dL (> 60) Cholesterol/HDL Ratio 3.9 (3.3-4.4) Thyroid Stimulating Hormone (TSH) 7.140 uIU/mL (0.300-4.500) Microbiology Date/Time Source Procedure Growth Status 07/06/16 22:30 Wound Gram Stain - Final Resulted 07/06/16 22:30 Wound Wound Culture Pending Resulted RAGHAVENDRA PATEL Jul 07, 2016 21:30
--- NOTE | 2016-07-07 21:38 | Consultation ---
DATE OF CONSULTATION: INFECTIOUS DISEASE CONSULTATION CONSULTING PHYSICIAN: Kaylah Sandy M.D. REQUESTING PHYSICIAN: Claudia Diaz M.D. REASON FOR CONSULTATION: Large sacral decubitus ulcer with sepsis. Recommendation for antibiotics therapy. HISTORY OF PRESENT ILLNESS: The patient is an 85-year-old female, who was brought in to [facility] for worsening sacral decubitus ulcer. The patient has dementia and poor historian and cannot provide any history. History was mainly obtained from the medical records. The patient had sacral decubitus ulcer with an eschar stage IV. No drainage or foul smelling. She was found to have fever in the emergency room with temperature 99.9 degrees. Her white count was elevated up to 19.8. The patient received IV antibiotics and was admitted to the hospital for sepsis management and for further evaluation of her sacral decubitus ulcer and I was consulted by the primary provider for antibiotics recommendation and further management. PAST MEDICAL HISTORY: Significant for coronary artery disease status post [place] in 2016 and CVA. PAST SURGICAL HISTORY: Unknown. MEDICATIONS: The patient received vancomycin and cefepime. For the rest of her medications, please refer to MAR. ALLERGIES: She has no known drug allergy. SOCIAL HISTORY: The patient is under adult protective service. No recent drugs, tobacco, or alcohol. FAMILY HISTORY: Unable to obtain. REVIEW OF SYSTEMS: Unable to obtain. The patient is demented and cannot provide any history. PHYSICAL EXAMINATION: VITAL SIGNS: Temperature 98.2 degrees, pulse 75, respirations 16, blood pressure 108/57, and pulse oximetry 99% on room air. GENERAL: This is an elderly female, lying in bed, demented, nonverbal, cannot provide any history, and not in distress. HEENT: Normocephalic and atraumatic. Pupils are both reactive to light. Moist oral mucosa. No exudate. NECK: Supple. No lymphadenopathy. CARDIOVASCULAR: Regular rate and rhythm. No murmur or gallop. LUNGS: Clear bilaterally. No wheezing or rhonchi. Diminished breathing sounds at the bases. ABDOMEN: Soft. Nontender. Nondistended. Positive bowel sounds. No hepatosplenomegaly or ascites. EXTREMITIES: She had left heel skin break due to pressure. SKIN: She had large sacral decubitus ulcer with an eschar stage IV. No drainage with red borders. LABORATORY DATA: White count 19.8, hemoglobin 10.7, and platelet count 436,000. BUN of 15 and creatinine of 0.5. AST of 45 and ALT of 30. INR of 1.1. MICROBIOLOGY: Wound culture pending and blood culture pending. IMAGING: Chest x-ray was negative for any acute pathology. ASSESSMENT AND PLAN: 1. Sacral decubitus ulcer stage IV, with an eschar. We will send blood culture and start vancomycin, cefepime, and Flagyl empiric treatment for now. We will get an MRI to rule out underlying osteomyelitis and abscess. We will check sedimentation rate. Recommend wound care consult and plastic surgery for further management and evaluation for possible surgical debridement and skin flap in the future. 2. Sepsis. Due to the above, we will send blood culture and start wide spectrum antibiotic therapy. 3. Coronary artery disease. Recommend Cardiology consultation. 4. Cerebrovascular accident, stable. Recommend no other consult. Kaylah Sandy M.D. DR: CURTIS JOB#: [id number] CC: KAREN
--- NOTE | 2016-07-07 23:28 | History and Physical Report ---
DATE OF ADMISSION: 07/06/2016 HISTORY OF PRESENT ILLNESS: The patient is nonverbal, history is obtained from the daughter that is present at the bedside. According to the daughter, the patient has hip fracture, also had recent [place] as well as recent severely left hemiparesis all happened within the last two months. The patient has also had decubitus ulcer. The patient claims that the decubitus ulcer started from [facility]. The patient was recently at [facility] and the , the patient apparently came from home. So, before she was admitted to [facility] the patient came from home and was admitted for stage 4 sacral decubitus ulcer. Again, the patient is nonverbal, cannot give any history. PAST MEDICAL HISTORY: 1. CAD status post [place]. 2. Severely hemiparesis. 3. Stage 4 sacral decubitus ulcer. 4. Hypertension. 5. 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 PAST SURGICAL HISTORY: Right hip ORIF. MEDICATIONS: 1. Atenolol. 2. Lasix. 3. Potassium. FAMILY HISTORY: Does have diabetes and hypertension. SOCIAL HISTORY: Denies history of smoking, alcohol, or illicit drugs. REVIEW OF SYSTEMS: Unable to obtain. PHYSICAL EXAMINATION: VITAL SIGNS: Temperature 97.9 degrees, pulse 77, and blood pressure 136/59. HEENT: PERRLA. NECK: Supple. No lymphadenopathy. The patient has a facial droop, which is chronic according to the daughter. CHEST: Clear to auscultation. CARDIOVASCULAR: Regular rate and rhythm. GASTROINTESTINAL: Soft and nontender. No organomegaly. EXTREMITIES: No edema. Hemiparesis on the left. NEUROLOGIC: Does not follow the neurologic exam, but does respond to noxious stimuli. SKIN: The patient has stage 4 sacral decubitus and for the skin integrity/wound, please refer to the nursing notes for the detailed descriptions of all the issues at hand that relates to skin integrity. LABORATORY DATA: WBC of 19.8, hemoglobin 10.7, and platelets of 436,000. Sodium 130, potassium 4.9, BUN 15, creatinine 0.5, and glucose 152. ASSESSMENT AND PLAN: 1. Severe malnutrition. 2. Sacral decubitus. 3. Hyponatremia. PLAN: I have asked Dr. Howard, Dr. Sandy, and Dr. Garner to see the patient for the above-mentioned diagnoses and treatment. Dr. Howard will be consulted for the debridement on necrotic sacral decubitus issue with I and D and Dr. Sandy will take care of antibiotics, and Dr. Garner will be taking care of the hyponatremia. Claudia Diaz M.D. DR: VONDA JOB#: [id number] CC:
[2016-07-08] VITALS (11 sets, daily range): BP systolic 91–164; BP diastolic 43–76
[2016-07-08] MEDS: metroNIDAZOLE 500mg tab ORAL SCH ×3 (05:53→21:10)
[2016-07-08] MEDS: NovoLOG Insulin Flexpen SUBQ SCH ×4 (05:53→21:11)
[2016-07-08 07:08] LABS: BASOPHILS % (AUTO) 0.2 % (0.0-2.0); EOSINOPHILS % (AUTO) 0.9 % (0.0-3.0); LYMPHOCYTES % (AUTO) 12.2 % (20.0-45.0); MEAN CORPUSCULAR HEMOGLOBIN 28.5 PG (27.0-31.0); MEAN CORPUSCULAR VOLUME 89 FL (80-99); MEAN PLATELET VOLUME 6.6 FL (6.5-10.1); MONOCYTES % (AUTO) 7.8 % (1.0-10.0); PLATELET COUNT 409 K/UL (150-450); RED BLOOD COUNT 3.34 M/UL (4.20-5.40); RED CELL DISTRIBUTION WIDTH 15.9 % (11.6-14.8); WHITE BLOOD COUNT 11.3 K/UL (4.8-10.8)
[2016-07-08] MEDS: Atenolol 25mg tab ORAL SCH (08:59)
[2016-07-08] MEDS: Heparin 5000 units/ml inj SUBQ SCH ×2 (09:00→21:12)
--- NOTE | 2016-07-08 11:09 | General Progress Note ---
Assessment/Plan Problem List: (1) CAD (coronary artery disease) ICD Codes: I25.10 - Atherosclerotic heart disease of [place] coronary artery without angina pectoris SNOMED: 41524721 (2) CVA (cerebral vascular accident) ICD Codes: I63.9 - Cerebral infarction, unspecified SNOMED: 485747809 (3) Sepsis ICD Codes: A41.9 - Sepsis, unspecified organism SNOMED: 59922012 (4) Sacral osteomyelitis ICD Codes: M46.28 - Osteomyelitis of vertebra, sacral and sacrococcygeal region SNOMED: 579283214 (5) Sacral decubitus ulcer, stage IV ICD Codes: L89.154 - Pressure ulcer of sacral region, stage 4 SNOMED: 466873995, 973764515 Status: progressing Assessment/Plan sacral decu consulted dr petty clearance for I&d of sacral decub per dr chester Subjective ROS Limited/Unobtainable: Yes Allergies: Coded Allergies: No Known Allergies (Verified , 11/28/08) Objective Last 24 Hour Vital Signs Date Time Temp Pulse Resp B/P Pulse Ox O2 Delivery O2 Flow Rate FiO2 07/08/16 08:59 61 91/43 07/08/16 08:20 98.4 61 18 91/43 100 Room Air 07/08/16 04:00 98.2 64 20 108/51 97 Room Air 07/08/16 00:00 98.7 73 20 128/52 97 Room Air 07/07/16 20:00 98.2 63 20 130/55 100 Room Air 07/07/16 16:00 98.2 66 20 126/55 100 Room Air 07/07/16 12:00 98.0 71 18 115/54 98 Room Air Intake and Output 07/07/16 07/08/16 19:00 07:00 Intake Total 1340 ml 710 ml Balance 1340 ml 710 ml Intake Oral 720 ml IV Total 620 ml 710 ml # Voids 3 # Bowel Movements 1 Laboratory Tests 07/08/16 05:45: White Blood Count 11.3H, Red Blood Count 3.34L, Hemoglobin 9.5L, Hematocrit 29.7L, Mean Corpuscular Volume 89, Mean Corpuscular Hemoglobin 28.5, Mean Corpuscular Hemoglobin Concent 32.0, Red Cell Distribution Width 15.9H, Platelet Count 409, Mean Platelet Volume 6.6, Neutrophils (%) (Auto) 79.0H, Lymphocytes (%) (Auto) 12.2L, Monocytes (%) (Auto) 7.8, Eosinophils (%) (Auto) 0.9, Basophils (%) (Auto) 0.2, Prealbumin [Pending] Height (Feet): 5 Height (Inches): 6.00 Weight (Pounds): 100 General Appearance: confused EENT: PERRL/EOMI Neck: supple Cardiovascular: normal rate Respiratory/Chest: lungs clear Claudia Diaz MD Jul 08, 2016 11:09
--- NOTE | 2016-07-08 12:10 | Diagnostic Imaging Report ---
APPROVED REPORT CPT Code: 65062 Present Symptoms Comments: R/O DVT BILATERAL: Imaging reveals a patent deep venous system bilaterally. There is no evidence of thrombus within the femoral, popliteal or tibial segments. The greater saphenous veins are also within normal limits. Doppler indicates normal spontaneous flow within these segments.
[2016-07-08 14:44] LABS: BASOPHILS % (AUTO) 0.3 % (0.0-2.0); EOSINOPHILS % (AUTO) 0.7 % (0.0-3.0); LYMPHOCYTES % (AUTO) 9.4 % (20.0-45.0); MEAN CORPUSCULAR HEMOGLOBIN 27.9 PG (27.0-31.0); MEAN CORPUSCULAR HGB CONC 31.5 G/DL (32.0-36.0); MEAN CORPUSCULAR VOLUME 88 FL (80-99); MEAN PLATELET VOLUME 6.5 FL (6.5-10.1); MONOCYTES % (AUTO) 7.1 % (1.0-10.0); NEUTROPHILS % (AUTO) 82.6 % (45.0-75.0); PLATELET COUNT 407 K/UL (150-450); RED BLOOD COUNT 3.41 M/UL (4.20-5.40); RED CELL DISTRIBUTION WIDTH 16.2 % (11.6-14.8); WHITE BLOOD COUNT 11.9 K/UL (4.8-10.8)
[2016-07-08] MEDS ORDERED: Propofol 10mg/ml 20ml IV ONE (15:00)
[2016-07-08] MEDS ORDERED: LR 1000ml ONE (15:00)
[2016-07-08] MEDS ORDERED: NS Irrig 4000ml IRRIG ONE (15:00)
[2016-07-08] MEDS ORDERED: Lidocaine 1% MPF 10mg/ml 5ml ONE (15:00)
[2016-07-08] MEDS ORDERED: Lidocaine 1% Plain 30 ml INJ ONE (15:04)
[2016-07-08] MEDS ORDERED: Bacitracin 50000 Units Vial ONE (15:04)
--- NOTE | 2016-07-08 15:07 | Diagnostic Imaging Report ---
Indications: DYSPHAGIA Technique: Patient ingested multiple substances under the supervision of speech pathology. Video fluoroscopic recording performed. Total fluoroscopy time 2015 seconds. Total dose area product 0.79340 mGycm2 Comparison: none Findings: On the second swallow thin liquid barium, there is rajeev aspiration visualized prior to initiation of deglutition there is also multiple episodes of subglottic laryngeal penetration demonstrated. There is early pooling of nectar thick liquid barium in the vallecula. There is one episode of penetration of nectar thick liquid barium. Impression: Positive for aspiration of thin liquid barium, and penetration of nectar thick liquid barium Please refer to speech pathology report for more detailed analysis
--- NOTE | 2016-07-08 15:15 | Cardiology Report ---
APPROVED REPORT EKG Measurement Heart [id number] Normal sinus rhythm T wave abnormality, consider anterior ischemia Abnormal ECG
--- NOTE | 2016-07-08 15:20 | Infectious Diseases Prog Note ---
Assessment/Plan Problems: (1) Sacral osteomyelitis Assessment & Plan: with deep abscesses , need surgical eval for debriedment , will need 6 weeks of iv antibiotics, recommend bone culture to guide antibiotics choice (2) Sacral decubitus ulcer, stage IV Assessment & Plan: most likely the source of her sepsis , will continue vancomycin, cefepime and flagyl empiric therapy for now, MRI showed underlying sacral/coccyx osteomyelitis, with deep abscesses , recommend surgical debridement with plastic surgery and bone for culture, continue wound care and off loading (3) Sepsis Assessment & Plan: with gram positive cocci in clusture most likely staphylococcus , due to the above, needs source control with surgical debridement, await identification and susceptibility (4) CAD (coronary artery disease) Assessment & Plan: stable, continue cardiac meds, follow up with cardiology (5) CVA (cerebral vascular accident) Assessment & Plan: stable , follow up with neurology Subjective ROS Limited/Unobtainable: Yes Allergies: Coded Allergies: No Known Allergies (Verified , 11/28/08) Subjective she is demented, lying in bed, alert, comfortable.afebrile Objective Vital Signs Last 24 Hour Vital Signs Date Time Temp Pulse Resp B/P Pulse Ox O2 Delivery O2 Flow Rate FiO2 07/08/16 12:06 98.0 65 18 94/50 98 Room Air 07/08/16 08:59 61 91/43 07/08/16 08:20 98.4 61 18 91/43 100 Room Air 07/08/16 04:00 98.2 64 20 108/51 97 Room Air 07/08/16 00:00 98.7 73 20 128/52 97 Room Air 07/07/16 20:00 98.2 63 20 130/55 100 Room Air 07/07/16 16:00 98.2 66 20 126/55 100 Room Air Height (Feet): 5 Height (Inches): 6.00 Weight (Pounds): 100 General Appearance: WD/WN, no acute distress HEENT: normocephalic, atraumatic, anicteric, mucous membranes moist Respiratory/Chest: chest wall non-tender, normal breath sounds, no respiratory distress, no accessory muscle use Cardiovascular: normal peripheral pulses, normal rate, regular rhythm, no gallop/murmur Abdomen: normal bowel sounds, soft, non tender, no organomegaly, non distended , no mass, no scars Extremities: no cyanosis, no clubbing Skin: ulcers - large sacral decubitus wound with eschar. Microbiology Date/Time Source Procedure Growth Status 07/06/16 15:30 Blood Blood Culture - Preliminary Resulted 07/06/16 15:15 Blood Blood Culture - Preliminary Resulted 07/06/16 22:30 Wound Gram Stain - Final Resulted 07/06/16 22:30 Wound Culture - Preliminary Gram Negative Bacillus 1 Strep Species, Gamma-Hemolytic Resulted Laboratory Tests Test 07/08/16 05:45 07/08/16 13:30 07/08/16 14:20 White Blood Count 11.3 K/UL (4.8-10.8) H 11.9 K/UL (4.8-10.8) H Red Blood Count 3.34 M/UL (4.20-5.40) L 3.41 M/UL (4.20-5.40) L Hemoglobin 9.5 G/DL (12.0-16.0) L 9.5 G/DL (12.0-16.0) L Hematocrit 29.7 % (37.0-47.0) L 30.1 % (37.0-47.0) L Mean Corpuscular Volume 89 FL (80-99) 88 FL (80-99) Mean Corpuscular Hemoglobin 28.5 PG (27.0-31.0) 27.9 PG (27.0-31.0) Mean Corpuscular Hemoglobin Concent 32.0 G/DL (32.0-36.0) 31.5 G/DL (32.0-36.0) L Red Cell Distribution Width 15.9 % (11.6-14.8) H 16.2 % (11.6-14.8) H Platelet Count 409 K/UL (150-450) 407 K/UL (150-450) Mean Platelet Volume 6.6 FL (6.5-10.1) 6.5 FL (6.5-10.1) Neutrophils (%) (Auto) 79.0 % (45.0-75.0) H 82.6 % (45.0-75.0) H Lymphocytes (%) (Auto) 12.2 % (20.0-45.0) L 9.4 % (20.0-45.0) L Monocytes (%) (Auto) 7.8 % (1.0-10.0) 7.1 % (1.0-10.0) Eosinophils (%) (Auto) 0.9 % (0.0-3.0) 0.7 % (0.0-3.0) Basophils (%) (Auto) 0.2 % (0.0-2.0) 0.3 % (0.0-2.0) Prealbumin Pending Stool Occult Blood Pending Current Medications Medications (Trade) Dose Ordered Sig/Abdirizak Route PRN Reason Start Time Stop Time Status Last Admin Dose Admin Acetaminophen (Tylenol) 650 mg Q4H PRN ORAL fever 07/06/16 19:15 08/05/16 19:14 Al Hydroxide/Mg Hydroxide (Mylanta II) 30 ml Q6H PRN ORAL dyspepsia 07/06/16 19:15 08/05/16 19:14 Atenolol (Tenormin) 25 mg DAILY ORAL 07/07/16 09:00 08/06/16 08:59 07/07/16 09:30 Cefepime HCl 2 gm/ Dextrose 110 ml @ 220 mls/hr Q24H IV 07/06/16 20:00 07/13/16 19:59 07/07/16 21:04 Dextrose (Dextrose 50%) STAT PRN IV Hypoglycemia 07/06/16 19:15 08/05/16 19:14 Heparin Sodium (Porcine) 5000 units 5,000 units EVERY 12 HOURS SUBQ 07/06/16 22:00 08/05/16 21:59 07/07/16 09:29 Insulin Aspart (NovoLOG) BEFORE MEALS AND HS SUBQ 07/06/16 22:00 08/05/16 21:59 07/07/16 21:16 Lorazepam (Ativan 2mg/ml 1ml) 0.5 mg Q4H PRN IV For Anxiety 07/06/16 19:15 07/13/16 19:14 Metronidazole 500 mg 500 mg Q8HR ORAL 07/06/16 20:00 07/13/16 19:59 07/08/16 05:53 Morphine Sulfate (Morphine Sulfate) 1 mg EVERY 4 HOURS PRN IVP For Pain 07/06/16 19:15 07/13/16 19:14 Ondansetron HCl (Zofran) 4 mg Q6H PRN IVP Nausea & Vomiting 07/06/16 19:15 08/05/16 19:14 Polyethylene Glycol (Miralax) 17 gm HSPRN PRN ORAL Constipation 07/06/16 19:15 08/05/16 19:14 Sodium Chloride (Sodium Chloride 1000ml bag) 1,000 ml @ 60 mls/hr [id number] IV 07/06/16 23:30 08/05/16 23:29 07/07/16 21:04 Vancomycin HCl (Vanco rx to dose) 1 ea DAILY PRN MISC . 07/06/16 18:45 08/05/16 18:44 Vancomycin HCl/ Dextrose (Vancomycin/D5W) 110 ml @ 110 mls/hr Q24H IVPB 07/07/16 17:00 07/12/16 16:59 07/07/16 17:48 Zolpidem Tartrate (Ambien) 5 mg HSPRN PRN ORAL Insomnia 07/06/16 19:15 08/05/16 19:14 Kaylah Sandy M.D. Jul 08, 2016 15:20
--- NOTE | 2016-07-08 15:25 | Anethesia Preoperative Eval ---
Anesthesia Pre-op PMH/ROS General Date of Evaluation: Jul 08, 2016 Anesthesiologist: Ania ASA Score: ASA 4 Mallampati Score Class I : Soft palate, uvula, fauces, pillars visible Class II: Soft palate, uvula, fauces visible Class III: Soft palate, base of uvula visible Class IV: Only hard plate visible Mallampati Classification: Class III Surgeon: Anita Diagnosis: Sacral wound Surgical Procedure: Debridement Sacral Wound Anesthesia History: none Family History: no anesthesia problems Allergies: Coded Allergies: No Known Allergies (Verified , 11/28/08) Medications: see eMAR Past Medical History Cardiovascular: Reports: CAD - [place] 04/2016, HTN Pulmonary: Reports: other - Pneumonia Gastrointestinal/Genitourinary: Reports: GERD, other - UTI Neurologic/Psychiatric: Reports: CVA Endocrine: Reports: DM Hematology/Immune: Reports: anemia Anesthesia Pre-op Phys. Exam Physician Exam Last Vital Signs Date Time Temp Pulse Resp B/P Pulse Ox O2 Delivery O2 Flow Rate FiO2 07/08/16 12:06 98.0 65 18 94/50 98 Room Air Constitutional: NAD Neurologic: CN 2-12 intact Cardiovascular: RRR Respiratory: CTA Gastrointestinal: S/NT/ND Airway Exam Mallampati Score: Class III MO: limited ROM: limited Teeth: missing Anesthesia Pre-op A/P Labs Hematology Test 07/08/16 05:45 07/08/16 14:20 White Blood Count 11.3 K/UL (4.8-10.8) H 11.9 K/UL (4.8-10.8) H Red Blood Count 3.34 M/UL (4.20-5.40) L 3.41 M/UL (4.20-5.40) L Hemoglobin 9.5 G/DL (12.0-16.0) L 9.5 G/DL (12.0-16.0) L Hematocrit 29.7 % (37.0-47.0) L 30.1 % (37.0-47.0) L Mean Corpuscular Volume 89 FL (80-99) 88 FL (80-99) Mean Corpuscular Hemoglobin 28.5 PG (27.0-31.0) 27.9 PG (27.0-31.0) Mean Corpuscular Hemoglobin Concent 32.0 G/DL (32.0-36.0) 31.5 G/DL (32.0-36.0) L Red Cell Distribution Width 15.9 % (11.6-14.8) H 16.2 % (11.6-14.8) H Platelet Count 409 K/UL (150-450) 407 K/UL (150-450) Mean Platelet Volume 6.6 FL (6.5-10.1) 6.5 FL (6.5-10.1) Neutrophils (%) (Auto) 79.0 % (45.0-75.0) H 82.6 % (45.0-75.0) H Lymphocytes (%) (Auto) 12.2 % (20.0-45.0) L 9.4 % (20.0-45.0) L Monocytes (%) (Auto) 7.8 % (1.0-10.0) 7.1 % (1.0-10.0) Eosinophils (%) (Auto) 0.9 % (0.0-3.0) 0.7 % (0.0-3.0) Basophils (%) (Auto) 0.2 % (0.0-2.0) 0.3 % (0.0-2.0) Chemistry Test 07/08/16 05:45 Prealbumin Pending Risk Assessment & Plan Assessment: ASA 4 Plan: GA, BIS Status Change Before Surgery: No Pre-Antibiotics Drug: Already On Michele Jorge MD Jul 08, 2016 15:25
--- NOTE | 2016-07-08 15:35 | Pre-Procedure Note/Attestation ---
Pre-Procedure Note/Attestation Complete Prior to Procedure Planned Procedure: not applicable Procedure Narrative: Excisional debridement sacral ulcer, deep open bone biopsy sacrum Indications for Procedure Pre-Operative Diagnosis: Necrotic sacral ulcer, osteomyelitis Attestation I attest that I discussed the nature of the procedure; its benefits; risks and complications; and alternatives (and the risks and benefits of such alternatives ), prior to the procedure, with the patient (or the patient's legal national account representative). I attest that, if there was a reasonable possibility of needing a blood transfusion, the patient (or the patient's legal national account representative) was given the [facility] standardized written summary, pursuant to the [place]lyssia Blood Safety Act ([place] Health and Safety Code # 1645, as amended). I attest that I re-evaluated the patient just prior to the surgery and that there has been no change in the patient's H&P, except as documented below: DEVANTE LE Jul 08, 2016 15:35
[2016-07-08] MEDS ORDERED: Dakin's 0.25% (Half Strength) 16oz TOPIC ONE (16:02)
[2016-07-08] MEDS ORDERED: NS Irrig 1000ml IRRIG ONE (16:02)
[2016-07-08] MEDS ORDERED: Bupivacaine w/Epi 0.5% 30ml Vial INJ ONE (16:08)
[2016-07-08] MEDS ORDERED: Lidocaine 0.5% Epi 50 mL Vial ONE (16:10)
[2016-07-08] MEDS ORDERED: LR 1000ml 1,000 ML IVLG SCH (16:20)
--- NOTE | 2016-07-08 16:24 | Immediate Post-Op Evaluation ---
Immediate Post-Op Evalulation Immediate Post-Op Evalulation Procedure: Debridement Sacral Wound Date of Evaluation: Jul 08, 2016 Time of Evaluation: 17:17 IV Fluids: 500 LR Blood Products: 0 Estimated Blood Loss: 50 Urinary Output: 0 Blood Pressure Systolic: 145 Blood Pressure Diastolic: 76 Pulse Rate: 76 Respiratory Rate: 16 O2 Sat by Pulse Oximetry: 99 Temperature (Fahrenheit): 99.2 Pain Score (1-10): 2 Nausea: No Vomiting: No Complications Stable Patient Status: awake, reacts, patent, extubated, none Hydration Status: adequate Drug: ON Michele Jorge MD Jul 08, 2016 16:24
[2016-07-08] MEDS ORDERED: Labetalol 5mg/ml 20ml vial IV PRN (16:30)
[2016-07-08] MEDS ORDERED: Ketorolac 30mg Inj IV PRN (16:30)
[2016-07-08] MEDS ORDERED: Midazolam 2mg/2ml Inj IVP PRN (16:30)
[2016-07-08] MEDS ORDERED: Ketorolac 60mg Inj IV PRN (16:30)
[2016-07-08] MEDS ORDERED: Atropine Inj 1mg/10ml Syr IV PRN (16:30)
[2016-07-08] MEDS ORDERED: Norco 7.5mg/325mg tab ORAL PRN (16:30)
[2016-07-08] MEDS ORDERED: Meperidine 25mg/ml Inj IV PRN (16:30)
[2016-07-08] MEDS ORDERED: DiphenhydrAMINE 50mg/ml Inj IVP PRN (16:30)
[2016-07-08] MEDS ORDERED: Hydromorphone 0.5mg/0.5ml inj IVP PRN (16:30)
[2016-07-08] MEDS ORDERED: LORazepam Inj 2mg/ml 1ml IV PRN (16:30)
[2016-07-08] MEDS ORDERED: Metoclopramide 10mg/2ml Inj IVP PRN (16:30)
[2016-07-08] MEDS ORDERED: Norco 5mg/325mg tab ORAL PRN (16:30)
[2016-07-08] MEDS ORDERED: fentaNYL 100 mcg/2 mL IV PRN (16:30)
[2016-07-08] MEDS ORDERED: Oxycodone/Acetaminophen 5-325 ORAL PRN (16:30)
--- NOTE | 2016-07-08 17:00 | Brief Operative Note ---
Immediate Post Operative Note Operative Note Pre-op Diagnosis: Necrotic sacral ulcer, osteomyelitis Procedure: Sharp excisional debridement of necrotic sacral pressure ulcer., deep open bone biopsy and culture of sacrum. Post-op Diagnosis: same as pre-op Surgeon: Anita Anesthesiologist: Ania Anesthesia: general Specimen: yes Complications: none Condition: stable Fluids: 600cc Estimated Blood Loss: volume - 50cc Drains: none Implant(s) used?: No DEVANTE LE Jul 08, 2016 17:00
[2016-07-08] MEDS: Vancomycin 500mg/D5W 110ml IVPB SCH ×2 (18:33)
--- NOTE | 2016-07-08 18:47 | Cardiology Progress Note ---
Assessment/Plan Assessment/Plan 1. Severe with LORENA at 0.7 cm2, clear to proceed with surgery, risk of coronary artery events is considered to high, recommend hydration, keeping BP > 110/70, avoid using diuretics bhumika-operatively, avoid using potent vasodilators , prefer swan catheter during the operation to measure hemodynamics particularly if this is expected to be a long procedure. 2. Normal LV function with LVEF at 55%. Subjective Subjective No cardiac events. Objective Last 24 Hour Vital Signs Date Time Temp Pulse Resp B/P Pulse Ox O2 Delivery O2 Flow Rate FiO2 07/08/16 18:00 99.0 67 18 142/60 100 Nasal Cannula 2.0 07/08/16 17:45 70 18 140/60 100 Nasal Cannula 2.0 07/08/16 17:30 71 18 146/60 100 Nasal Cannula 2.0 07/08/16 17:16 72 18 164/70 98 Simple Mask 8.0 07/08/16 17:11 75 18 162/70 98 Simple Mask 8.0 07/08/16 17:06 99.2 76 18 145/76 98 Simple Mask 8.0 07/08/16 17:06 76 16 99 07/08/16 12:06 98.0 65 18 94/50 98 Room Air 07/08/16 08:59 61 91/43 07/08/16 08:20 98.4 61 18 91/43 100 Room Air 07/08/16 04:00 98.2 64 20 108/51 97 Room Air 07/08/16 00:00 98.7 73 20 128/52 97 Room Air 07/07/16 20:00 98.2 63 20 130/55 100 Room Air Intake and Output 07/07/16 07/08/16 19:00 07:00 Intake Total 1340 ml 770 ml Balance 1340 ml 770 ml Intake Oral 720 ml IV Total 620 ml 770 ml # Voids 3 # Bowel Movements 1 2D Echo: EF 55%, Severe LORENA 0.7 cm3, Mild AR, RVSP 29mmHg, Mild LVH Laboratory Tests Test 07/08/16 05:45 07/08/16 13:30 07/08/16 14:20 White Blood Count 11.3 K/UL (4.8-10.8) H 11.9 K/UL (4.8-10.8) H Red Blood Count 3.34 M/UL (4.20-5.40) L 3.41 M/UL (4.20-5.40) L Hemoglobin 9.5 G/DL (12.0-16.0) L 9.5 G/DL (12.0-16.0) L Hematocrit 29.7 % (37.0-47.0) L 30.1 % (37.0-47.0) L Mean Corpuscular Volume 89 FL (80-99) 88 FL (80-99) Mean Corpuscular Hemoglobin 28.5 PG (27.0-31.0) 27.9 PG (27.0-31.0) Mean Corpuscular Hemoglobin Concent 32.0 G/DL (32.0-36.0) 31.5 G/DL (32.0-36.0) L Red Cell Distribution Width 15.9 % (11.6-14.8) H 16.2 % (11.6-14.8) H Platelet Count 409 K/UL (150-450) 407 K/UL (150-450) Mean Platelet Volume 6.6 FL (6.5-10.1) 6.5 FL (6.5-10.1) Neutrophils (%) (Auto) 79.0 % (45.0-75.0) H 82.6 % (45.0-75.0) H Lymphocytes (%) (Auto) 12.2 % (20.0-45.0) L 9.4 % (20.0-45.0) L Monocytes (%) (Auto) 7.8 % (1.0-10.0) 7.1 % (1.0-10.0) Eosinophils (%) (Auto) 0.9 % (0.0-3.0) 0.7 % (0.0-3.0) Basophils (%) (Auto) 0.2 % (0.0-2.0) 0.3 % (0.0-2.0) Prealbumin Pending Stool Occult Blood Pending Microbiology Date/Time Source Procedure Growth Status 07/06/16 15:30 Blood Blood Culture - Preliminary Resulted 07/06/16 15:15 Blood Blood Culture - Preliminary Resulted 07/06/16 22:30 Wound Gram Stain - Final Resulted 07/06/16 22:30 Wound Culture - Preliminary Gram Negative Bacillus 1 Strep Species, Gamma-Hemolytic Resulted Objective HEENT: Normocephalic and atraumatic. Pupils are both reactive to light. Moist oral mucosa. No exudate. NECK: Negative JVD, B/L carotid bruit CARDIOVASCULAR: Regular rate and rhythm. 3/6 late ESM at LSB, no gallops or rubs. LUNGS: No wheezing or rhonchi. Diminished breathing sounds at the bases. ABDOMEN: Soft. Nontender. Nondistended. Positive bowel sounds. No hepatosplenomegaly or ascites. EXTREMITIES: She had left heel skin break, no edema, clubbing or cyanosis. RAGHAVENDRA PATEL Jul 08, 2016 18:47
--- NOTE | 2016-07-08 18:52 | General Progress Note ---
Assessment/Plan Assessment/Plan IMPRESSION: 1. Leukocytosis 2/2 underlying infection, osteomyelitis/cellulitis v other cause - now improved 2. Anemia of chronic disease, decreased hemoglobin and hematocrit, rule out gastrointestinal bleed. Ferritin is elevated 3. Thrombocytosis, reactive. 4. Decubitus ulcer, stage IV. 5. Sepsis. 6. Cerebrovascular accident. 7. Failure to thrive. 8. Malnutrition. RECOMMENDATIONS: 1. Watch count. 2. Transfuse to hgb >7 3. Venous Doppler of the bilateral legs to rule out DVT negative 4. Heparin 5000 units subcutaneously q.12 h. 5. Stool for occult blood. 6. Anemia workup has been reviewed 7. Does not need iron 8. Antibiotic IV prn 9. Staff Thank you, Cristian Saini MD Subjective Constitutional: Reports: no symptoms HEENT: Reports: no symptoms Cardiovascular: Reports: no symptoms Respiratory: Reports: no symptoms Gastrointestinal/Abdominal: Reports: poor appetite Genitourinary: Reports: no symptoms Neurologic/Psychiatric: Reports: no symptoms Endocrine: Reports: no symptoms Hematologic/Lymphatic: Reports: anemia Allergies: Coded Allergies: No Known Allergies (Verified , 11/28/08) Subjective demented, to have surgery today, no fevers or chills, no night sweats Objective Last 24 Hour Vital Signs Date Time Temp Pulse Resp B/P Pulse Ox O2 Delivery O2 Flow Rate FiO2 07/08/16 18:00 99.0 67 18 142/60 100 Nasal Cannula 2.0 07/08/16 17:45 70 18 140/60 100 Nasal Cannula 2.0 07/08/16 17:30 71 18 146/60 100 Nasal Cannula 2.0 07/08/16 17:16 72 18 164/70 98 Simple Mask 8.0 07/08/16 17:11 75 18 162/70 98 Simple Mask 8.0 07/08/16 17:06 99.2 76 18 145/76 98 Simple Mask 8.0 07/08/16 17:06 76 16 99 07/08/16 12:06 98.0 65 18 94/50 98 Room Air 07/08/16 08:59 61 91/43 07/08/16 08:20 98.4 61 18 91/43 100 Room Air 07/08/16 04:00 98.2 64 20 108/51 97 Room Air 07/08/16 00:00 98.7 73 20 128/52 97 Room Air 07/07/16 20:00 98.2 63 20 130/55 100 Room Air Intake and Output 07/07/16 07/08/16 19:00 07:00 Intake Total 1340 ml 770 ml Balance 1340 ml 770 ml Intake Oral 720 ml IV Total 620 ml 770 ml # Voids 3 # Bowel Movements 1 Laboratory Tests 07/08/16 05:45: White Blood Count 11.3H, Red Blood Count 3.34L, Hemoglobin 9.5L, Hematocrit 29.7L, Mean Corpuscular Volume 89, Mean Corpuscular Hemoglobin 28.5, Mean Corpuscular Hemoglobin Concent 32.0, Red Cell Distribution Width 15.9H, Platelet Count 409, Mean Platelet Volume 6.6, Neutrophils (%) (Auto) 79.0H, Lymphocytes (%) (Auto) 12.2L, Monocytes (%) (Auto) 7.8, Eosinophils (%) (Auto) 0.9, Basophils (%) (Auto) 0.2, Prealbumin [Pending] 07/08/16 13:30: Stool Occult Blood [Pending] 07/08/16 14:20: White Blood Count 11.9H, Red Blood Count 3.41L, Hemoglobin 9.5L, Hematocrit 30.1L, Mean Corpuscular Volume 88, Mean Corpuscular Hemoglobin 27.9, Mean Corpuscular Hemoglobin Concent 31.5L, Red Cell Distribution Width 16.2H, Platelet Count 407, Mean Platelet Volume 6.5, Neutrophils (%) (Auto) 82.6H, Lymphocytes (%) (Auto) 9.4L, Monocytes (%) (Auto) 7.1, Eosinophils (%) (Auto) 0.7, Basophils (%) (Auto) 0.3 Height (Feet): 5 Height (Inches): 6.00 Weight (Pounds): 100 General Appearance: no apparent distress EENT: TMs normal Neck: supple Cardiovascular: regular rhythm Respiratory/Chest: no respiratory distress Abdomen: non tender Extremities: non-tender Edema: 1+ Leg (L), 1+ Leg (R) Edema: mild edema Neurologic: alert Skin: warm/dry Cristian Saini Jul 08, 2016 18:52
[2016-07-08] MEDS: Cefepime 2gm/D5W 110ml IV SCH ×2 (21:10)
--- NOTE | 2016-07-08 22:28 | Pulmonology Progress Note ---
Assessment/Plan Assessment/Plan (1) Sepsis (2) Sacral decubitus ulcer, stage IV (3) Sacral osteomyelitis (4) CVA (cerebral vascular accident) (5) CAD (coronary artery disease) (6) Diabetes mellitus Assessment/Plan Iv antibiotics check cultures wound care tolerating diet check electrolytes All medications and treatment were reviewed.li Subjective ROS Limited/Unobtainable: Yes Interval Events: comfortable Allergies: Coded Allergies: No Known Allergies (Verified , 11/28/08) Objective Last 24 Hour Vital Signs Date Time Temp Pulse Resp B/P Pulse Ox O2 Delivery O2 Flow Rate FiO2 07/08/16 20:00 97.5 65 20 145/73 100 Nasal Cannula 2.0 07/08/16 18:00 99.0 67 18 142/60 100 Nasal Cannula 2.0 07/08/16 17:45 70 18 140/60 100 Nasal Cannula 2.0 07/08/16 17:30 71 18 146/60 100 Nasal Cannula 2.0 07/08/16 17:16 72 18 164/70 98 Simple Mask 8.0 07/08/16 17:11 75 18 162/70 98 Simple Mask 8.0 07/08/16 17:06 99.2 76 18 145/76 98 Simple Mask 8.0 07/08/16 17:06 76 16 99 07/08/16 12:06 98.0 65 18 94/50 98 Room Air 07/08/16 08:59 61 91/43 07/08/16 08:20 98.4 61 18 91/43 100 Room Air 07/08/16 04:00 98.2 64 20 108/51 97 Room Air 07/08/16 00:00 98.7 73 20 128/52 97 Room Air Intake and Output 07/07/16 07/08/16 19:00 07:00 Intake Total 1340 ml 770 ml Balance 1340 ml 770 ml Intake Oral 720 ml IV Total 620 ml 770 ml # Voids 3 # Bowel Movements 1 General Appearance: cachetic HEENT: normocephalic Respiratory/Chest: chest wall non-tender, lungs clear Cardiovascular: normal peripheral pulses, normal rate Abdomen: soft, non tender Extremities: no cyanosis Skin: no lesions Neurologic/Psychiatric: hand developer II-XII grossly normal Microbiology Date/Time Source Procedure Growth Status 07/06/16 15:30 Blood Blood Culture - Preliminary Resulted 07/06/16 15:15 Blood Blood Culture - Preliminary Resulted 07/06/16 22:30 Wound Gram Stain - Final Resulted 07/06/16 22:30 Wound Culture - Preliminary Gram Negative Bacillus 1 Strep Species, Gamma-Hemolytic Resulted Laboratory Tests 07/08/16 05:45: White Blood Count 11.3H, Red Blood Count 3.34L, Hemoglobin 9.5L, Hematocrit 29.7L, Mean Corpuscular Volume 89, Mean Corpuscular Hemoglobin 28.5, Mean Corpuscular Hemoglobin Concent 32.0, Red Cell Distribution Width 15.9H, Platelet Count 409, Mean Platelet Volume 6.6, Neutrophils (%) (Auto) 79.0H, Lymphocytes (%) (Auto) 12.2L, Monocytes (%) (Auto) 7.8, Eosinophils (%) (Auto) 0.9, Basophils (%) (Auto) 0.2, Prealbumin [Pending] 07/08/16 13:30: Stool Occult Blood [Pending] 07/08/16 14:20: White Blood Count 11.9H, Red Blood Count 3.41L, Hemoglobin 9.5L, Hematocrit 30.1L, Mean Corpuscular Volume 88, Mean Corpuscular Hemoglobin 27.9, Mean Corpuscular Hemoglobin Concent 31.5L, Red Cell Distribution Width 16.2H, Platelet Count 407, Mean Platelet Volume 6.5, Neutrophils (%) (Auto) 82.6H, Lymphocytes (%) (Auto) 9.4L, Monocytes (%) (Auto) 7.1, Eosinophils (%) (Auto) 0.7, Basophils (%) (Auto) 0.3 Current Medications Medications (Trade) Dose Ordered Sig/Abdirizak Route PRN Reason Start Time Stop Time Status Last Admin Dose Admin Acetaminophen (Tylenol) 650 mg Q4H PRN ORAL fever 07/06/16 19:15 08/05/16 19:14 Al Hydroxide/Mg Hydroxide (Mylanta II) 30 ml Q6H PRN ORAL dyspepsia 07/06/16 19:15 08/05/16 19:14 Atenolol (Tenormin) 25 mg DAILY ORAL 07/07/16 09:00 08/06/16 08:59 07/07/16 09:30 Cefepime HCl 2 gm/ Dextrose 110 ml @ 220 mls/hr Q24H IV 07/06/16 20:00 07/13/16 19:59 07/08/16 21:10 Dextrose (Dextrose 50%) STAT PRN IV Hypoglycemia 07/06/16 19:15 08/05/16 19:14 Heparin Sodium (Porcine) 5000 units 5,000 units EVERY 12 HOURS SUBQ 07/06/16 22:00 08/05/16 21:59 07/08/16 21:12 Insulin Aspart (NovoLOG) BEFORE MEALS AND HS SUBQ 07/06/16 22:00 08/05/16 21:59 07/08/16 21:11 Lorazepam (Ativan 2mg/ml 1ml) 0.5 mg Q4H PRN IV For Anxiety 07/06/16 19:15 07/13/16 19:14 Metronidazole 500 mg 500 mg Q8HR ORAL 07/06/16 20:00 07/13/16 19:59 07/08/16 21:10 Morphine Sulfate (Morphine Sulfate) 1 mg EVERY 4 HOURS PRN IVP For Pain 07/06/16 19:15 07/13/16 19:14 Ondansetron HCl (Zofran) 4 mg Q6H PRN IVP Nausea & Vomiting 07/06/16 19:15 08/05/16 19:14 Polyethylene Glycol (Miralax) 17 gm HSPRN PRN ORAL Constipation 07/06/16 19:15 08/05/16 19:14 Sodium Hypochlorite (Dakin's Half Strength) 1 applic DAILY TOPIC 07/09/16 09:00 08/08/16 08:59 Sodium Chloride (Sodium Chloride 1000ml bag) 1,000 ml @ 60 mls/hr [id number] IV 07/06/16 23:30 08/05/16 23:29 07/08/16 18:33 Vancomycin HCl (Vanco rx to dose) 1 ea DAILY PRN MISC . 07/06/16 18:45 08/05/16 18:44 Vancomycin HCl/ Dextrose (Vancomycin/D5W) 110 ml @ 110 mls/hr Q24H IVPB 07/07/16 17:00 07/12/16 16:59 07/08/16 18:33 Zolpidem Tartrate (Ambien) 5 mg HSPRN PRN ORAL Insomnia 07/06/16 19:15 08/05/16 19:14 IVÁN OCHOAb 23, 2017 22:28
--- NOTE | 2016-07-08 23:28 | Operative Note - Dictated ---
DATE OF OPERATION: 07/08/2016 SURGEON: Jaiden Howard M.D. ANESTHESIOLOGIST: Michele Jorge M.D. PREOPERATIVE DIAGNOSIS: Necrotic sacral pressure ulcer. POSTOPERATIVE DIAGNOSIS: Stage IV sacral pressure ulcer. ANESTHESIA: General anesthesia. PROCEDURE: Excisional debridement of necrotic sacral pressure ulcer, deep open bone biopsy of the sacrum. INDICATIONS: This is an 85-year-old female, who was seen in consultation in the hospital for a sacral pressure ulcer. She was noted to have a leukocytosis of 14,000 on the day of consult and on physical exam, was found to have a frankly necrotic sacral pressure ulcer with soft eschar and drainage from the ulcer as well. The decision was made that she would need a surgical debridement and discussion was had with the family who are the caregivers and power of attorneys to describe the procedure as well as the risks and the benefits. if the ulcer was left as is, she would naturally become very septic from it and once informed consent was obtained, she was scheduled for further surgery. OPERATIVE PROCEDURE: The patient was taken to the operating room and placed on the operating table in a supine position. Once general anesthesia was induced, she was placed on her left lateral decubitus position on a walton bag and once all pressure points were padded, the beanbag was inflated and her lower back and buttock area were prepped and draped in usual sterile fashion. A 30 mL of 0.5% lidocaine with 1:200,000 epinephrine was injected around the incision lines. At this point, using a #10 blade, sharp incision was made around the entire circumference of the ulcer and upon deepening this incision, purulent drainage was encountered. The dissection procedure to remove the entire eschar and necrotic tissue, which extended down to the sacral bone en block. This was done with electrocautery. Once the specimen was taken off the field, hemostasis carefully obtained and then the sacral bone, which was visible and palpable was then rongeured in several places for pathology for diagnosis of osteomyelitis as well as sent for aerobic and anaerobic culture to guide antibiotic treatment. At this point, 4 L of triple antibiotic solution of Ancef, gentamicin, and bacitracin were irrigated using a pulse lavage irrigation system. Following this, hemostasis was again obtained and there was no other necrotic tissue that was visible. The wound, which measured 14 x 16 x 2.8 cm, was then packed with a wet-to-dry and half-strength Dakin solution followed by 4x4s, ABDs, and foam tape. The patient was then placed back in the supine position and extubated and taken to the recovery room in stable condition. There were no complications. Estimated blood loss was minimal. The patient tolerated the procedure well. Jaiden Howard M.D. DR: KELI JOB#: [id number] CC:
[2016-07-09] VITALS: BP 123/52
[2016-07-09 04:00] VITALS: BP 117/49
[2016-07-09 05:36] LABS: BASOPHILS % (AUTO) 0.3 % (0.0-2.0); EOSINOPHILS % (AUTO) 1.1 % (0.0-3.0); LYMPHOCYTES % (AUTO) 17.5 % (20.0-45.0); MEAN CORPUSCULAR HEMOGLOBIN 27.9 PG (27.0-31.0); MEAN CORPUSCULAR HGB CONC 31.2 G/DL (32.0-36.0); MEAN CORPUSCULAR VOLUME 89 FL (80-99); MEAN PLATELET VOLUME 6.7 FL (6.5-10.1); NEUTROPHILS % (AUTO) 73.2 % (45.0-75.0); PLATELET COUNT 405 K/UL (150-450); RED BLOOD COUNT 3.27 M/UL (4.20-5.40); RED CELL DISTRIBUTION WIDTH 16.7 % (11.6-14.8); WHITE BLOOD COUNT 8.7 K/UL (4.8-10.8)
[2016-07-09] MEDS: metroNIDAZOLE 500mg tab ORAL SCH ×3 (05:53→21:02)
[2016-07-09] MEDS: NovoLOG Insulin Flexpen SUBQ SCH ×4 (06:26→21:05)
[2016-07-09 08:00] VITALS: BP 133/49
[2016-07-09] MEDS: Atenolol 25mg tab ORAL SCH (08:40)
[2016-07-09] MEDS: Dakin's 0.25% (Half Strength) 16oz TOPIC SCH (08:43)
[2016-07-09] MEDS: Heparin 5000 units/ml inj SUBQ SCH ×2 (08:44→21:05)
--- NOTE | 2016-07-09 09:14 | General Progress Note ---
Assessment/Plan Assessment/Plan IMPRESSION: 1. Leukocytosis 2/2 underlying infection, osteomyelitis/cellulitis v other cause - now improved 2. Anemia of chronic disease, decreased hemoglobin and hematocrit, rule out gi bleed. Ferritin remains elevated 3. Thrombocytosis, reactive process 4. Decubitus ulcer, stage IV. 5. Sepsis and septic shock 6. CVA 7. Failure to thrive. 8. Malnutrition. RECOMMENDATIONS: 1. Watch count. 2. Transfuse to hgb >7 3. Heparin 5000 units subcutaneously q.12 h. 4. Stool for occult blood is negative 5. Anemia workup has been reviewed 6. Does not need iron 7. Antibiotic IV prn 8. Staff Thank you, Cristian Saini MD Subjective Constitutional: Reports: no symptoms HEENT: Reports: no symptoms Cardiovascular: Reports: no symptoms Respiratory: Reports: no symptoms Gastrointestinal/Abdominal: Reports: no symptoms Genitourinary: Reports: no symptoms Neurologic/Psychiatric: Reports: anxiety Endocrine: Reports: no symptoms Hematologic/Lymphatic: Reports: anemia Allergies: Coded Allergies: No Known Allergies (Verified , 11/28/08) Subjective demented, no fevers or chills, no night sweats Objective Last 24 Hour Vital Signs Date Time Temp Pulse Resp B/P Pulse Ox O2 Delivery O2 Flow Rate FiO2 07/09/16 04:00 97.5 58 18 117/49 100 Nasal Cannula 2.0 07/09/16 00:00 97.7 61 18 123/52 100 Nasal Cannula 2.0 07/08/16 20:00 97.5 65 20 145/73 100 Nasal Cannula 2.0 07/08/16 18:00 99.0 67 18 142/60 100 Nasal Cannula 2.0 07/08/16 17:45 70 18 140/60 100 Nasal Cannula 2.0 07/08/16 17:30 71 18 146/60 100 Nasal Cannula 2.0 07/08/16 17:16 72 18 164/70 98 Simple Mask 8.0 07/08/16 17:11 75 18 162/70 98 Simple Mask 8.0 07/08/16 17:06 99.2 76 18 145/76 98 Simple Mask 8.0 07/08/16 17:06 76 16 99 07/08/16 12:06 98.0 65 18 94/50 98 Room Air Intake and Output 07/08/16 07/09/16 19:00 07:00 Intake Total 1110 ml 340 ml Output Total 200 ml 225 ml Balance 910 ml 115 ml IV Total 1110 ml 340 ml Output Urine Total 150 ml 225 ml Estimated Blood Loss 50 ml # Voids 5 # Bowel Movements 3 Laboratory Tests 07/08/16 13:30: Stool Occult Blood [Pending] 07/08/16 14:20: White Blood Count 11.9H, Red Blood Count 3.41L, Hemoglobin 9.5L, Hematocrit 30.1L, Mean Corpuscular Volume 88, Mean Corpuscular Hemoglobin 27.9, Mean Corpuscular Hemoglobin Concent 31.5L, Red Cell Distribution Width 16.2H, Platelet Count 407, Mean Platelet Volume 6.5, Neutrophils (%) (Auto) 82.6H, Lymphocytes (%) (Auto) 9.4L, Monocytes (%) (Auto) 7.1, Eosinophils (%) (Auto) 0.7, Basophils (%) (Auto) 0.3 07/09/16 03:50: White Blood Count 8.7, Red Blood Count 3.27L, Hemoglobin 9.1L, Hematocrit 29.1L , Mean Corpuscular Volume 89, Mean Corpuscular Hemoglobin 27.9, Mean Corpuscular Hemoglobin Concent 31.2L, Red Cell Distribution Width 16.7H, Platelet Count 405, Mean Platelet Volume 6.7, Neutrophils (%) (Auto) 73.2, Lymphocytes (%) (Auto) 17.5L, Monocytes (%) (Auto) 8.0, Eosinophils (%) (Auto) 1.1, Basophils (%) (Auto) 0.3 Height (Feet): 5 Height (Inches): 6.00 Weight (Pounds): 100 General Appearance: no apparent distress EENT: TMs normal Neck: supple Cardiovascular: regular rhythm Respiratory/Chest: lungs clear Abdomen: non tender Extremities: normal range of motion Edema: 1+ Leg (L), 1+ Leg (R) Edema: mild edema Neurologic: alert Skin: warm/dry Cristian Saini Jul 09, 2016 09:14
--- NOTE | 2016-07-09 11:14 | 48 Hour Post Anesthesia Eval ---
Post Anesthesia Evaluation Procedure: Debridement Sacral Wound Date of Evaluation: Jul 09, 2016 Time of Evaluation: 11:12 Blood Pressure Systolic: 133 0: 68 Pulse Rate: 74 Respiratory Rate: 22 Temperature (Fahrenheit): 97.4 O2 Sat by Pulse Oximetry: 98 Airway: patent Nausea: No Vomiting: No Pain Intensity: 2 Hydration Status: adequate Cardiopulmonary Status: stable Mental Status/LOC: patient returned to baseline Follow-up Care/Observations: n/a Post-Anesthesia Complications: none Follow-up care needed: N/A CHRISTINA MOSQUEDA M.D. Jul 09, 2016 11:14
[2016-07-09 12:00] VITALS: BP 119/52
--- NOTE | 2016-07-09 14:47 | General Progress Note ---
Assessment/Plan Problem List: (1) CAD (coronary artery disease) ICD Codes: I25.10 - Atherosclerotic heart disease of [place] coronary artery without angina pectoris SNOMED: 62955533 (2) CVA (cerebral vascular accident) ICD Codes: I63.9 - Cerebral infarction, unspecified SNOMED: 063375008 (3) Sepsis ICD Codes: A41.9 - Sepsis, unspecified organism SNOMED: 44642419 (4) Sacral osteomyelitis ICD Codes: M46.28 - Osteomyelitis of vertebra, sacral and sacrococcygeal region SNOMED: 316180296 (5) Sacral decubitus ulcer, stage IV ICD Codes: L89.154 - Pressure ulcer of sacral region, stage 4 SNOMED: 703436554, 423661779 Status: progressing Assessment/Plan sacral decu consulted dr petty i&d of infected sacral decub by dr petty iv abx per id Subjective ROS Limited/Unobtainable: Yes Constitutional: Reports: no symptoms Allergies: Coded Allergies: No Known Allergies (Verified , 11/28/08) Objective Last 24 Hour Vital Signs Date Time Temp Pulse Resp B/P Pulse Ox O2 Delivery O2 Flow Rate FiO2 07/09/16 12:00 97.7 59 18 119/52 100 Nasal Cannula 07/09/16 11:14 74 22 98 07/09/16 08:00 98.1 58 18 133/49 100 Nasal Cannula 07/09/16 04:00 97.5 58 18 117/49 100 Nasal Cannula 2.0 07/09/16 00:00 97.7 61 18 123/52 100 Nasal Cannula 2.0 07/08/16 20:00 97.5 65 20 145/73 100 Nasal Cannula 2.0 07/08/16 18:00 99.0 67 18 142/60 100 Nasal Cannula 2.0 07/08/16 17:45 70 18 140/60 100 Nasal Cannula 2.0 07/08/16 17:30 71 18 146/60 100 Nasal Cannula 2.0 07/08/16 17:16 72 18 164/70 98 Simple Mask 8.0 07/08/16 17:11 75 18 162/70 98 Simple Mask 8.0 07/08/16 17:06 99.2 76 18 145/76 98 Simple Mask 8.0 07/08/16 17:06 76 16 99 Intake and Output 07/08/16 07/09/16 19:00 07:00 Intake Total 1110 ml 340 ml Output Total 200 ml 225 ml Balance 910 ml 115 ml IV Total 1110 ml 340 ml Output Urine Total 150 ml 225 ml Estimated Blood Loss 50 ml # Voids 5 # Bowel Movements 3 Laboratory Tests 07/09/16 03:50: White Blood Count 8.7, Red Blood Count 3.27L, Hemoglobin 9.1L, Hematocrit 29.1L , Mean Corpuscular Volume 89, Mean Corpuscular Hemoglobin 27.9, Mean Corpuscular Hemoglobin Concent 31.2L, Red Cell Distribution Width 16.7H, Platelet Count 405, Mean Platelet Volume 6.7, Neutrophils (%) (Auto) 73.2, Lymphocytes (%) (Auto) 17.5L, Monocytes (%) (Auto) 8.0, Eosinophils (%) (Auto) 1.1, Basophils (%) (Auto) 0.3 07/09/16 14:00: Stool Occult Blood [Pending] Height (Feet): 5 Height (Inches): 6.00 Weight (Pounds): 100 EENT: PERRL/EOMI Neck: supple Cardiovascular: normal rate Respiratory/Chest: lungs clear Abdomen: soft Claudia Diaz MD Jul 09, 2016 14:47
[2016-07-09] MEDS ORDERED: Tubing IV Secondary IV ONE (15:21)
[2016-07-09 16:00] VITALS: BP 140/53
--- NOTE | 2016-07-09 17:08 | Infectious Diseases Prog Note ---
Assessment/Plan Problems: (1) Sacral osteomyelitis Assessment & Plan: with deep abscesses , had surgical debridement with bone biopsy for culture , will need 6 weeks of iv antibiotics. (2) Sacral decubitus ulcer, stage IV Assessment & Plan: most likely the source of her sepsis , will continue vancomycin, cefepime and flagyl empiric therapy for now, MRI showed underlying sacral/coccyx osteomyelitis, with deep abscesses , had excisional debridement of necrotic sacral pressure ulcer with deep open bone biopsy and culture , continue wound care and off loading (3) Sepsis Assessment & Plan: with gram positive cocci in clusture most likely staphylococcus , due to the above, needs source control with surgical debridement, await identification and susceptibility (4) CAD (coronary artery disease) Assessment & Plan: stable, continue cardiac meds, follow up with cardiology (5) CVA (cerebral vascular accident) Assessment & Plan: stable , follow up with neurology Subjective ROS Limited/Unobtainable: Yes Allergies: Coded Allergies: No Known Allergies (Verified , 11/28/08) Subjective she is demented, lying in bed, alert, comfortable.afebrile Objective Vital Signs Last 24 Hour Vital Signs Date Time Temp Pulse Resp B/P Pulse Ox O2 Delivery O2 Flow Rate FiO2 07/09/16 12:00 97.7 59 18 119/52 100 Nasal Cannula 07/09/16 11:14 74 22 98 07/09/16 08:00 98.1 58 18 133/49 100 Nasal Cannula 07/09/16 04:00 97.5 58 18 117/49 100 Nasal Cannula 2.0 07/09/16 00:00 97.7 61 18 123/52 100 Nasal Cannula 2.0 07/08/16 20:00 97.5 65 20 145/73 100 Nasal Cannula 2.0 07/08/16 18:00 99.0 67 18 142/60 100 Nasal Cannula 2.0 07/08/16 17:45 70 18 140/60 100 Nasal Cannula 2.0 07/08/16 17:30 71 18 146/60 100 Nasal Cannula 2.0 07/08/16 17:16 72 18 164/70 98 Simple Mask 8.0 07/08/16 17:11 75 18 162/70 98 Simple Mask 8.0 07/08/16 17:06 99.2 76 18 145/76 98 Simple Mask 8.0 07/08/16 17:06 76 16 99 Height (Feet): 5 Height (Inches): 6.00 Weight (Pounds): 100 General Appearance: WD/WN, no acute distress HEENT: normocephalic, atraumatic, anicteric, mucous membranes moist Respiratory/Chest: chest wall non-tender, lungs clear, normal breath sounds, no respiratory distress, no accessory muscle use Cardiovascular: normal peripheral pulses, normal rate, regular rhythm, no gallop/murmur, no JVD Abdomen: normal bowel sounds, soft, non tender, no organomegaly, non distended , no mass, no scars Extremities: no cyanosis Skin: ulcers Microbiology Date/Time Source Procedure Growth Status 07/06/16 22:30 Wound Gram Stain - Final Resulted 07/06/16 22:30 Wound Culture - Preliminary Gram Negative Bacillus 1 Gram Negative Bacillus 2 Streptococcus Species Resulted 07/08/16 21:00 Bone Gram Stain - Final Resulted 07/08/16 21:00 Bone Aerobic Culture Pending Resulted 07/08/16 21:00 Bone Anaerobic Culture Pending Resulted Laboratory Tests Test 07/09/16 03:50 07/09/16 14:00 07/09/16 15:45 White Blood Count 8.7 K/UL (4.8-10.8) Red Blood Count 3.27 M/UL (4.20-5.40) L Hemoglobin 9.1 G/DL (12.0-16.0) L Hematocrit 29.1 % (37.0-47.0) L Mean Corpuscular Volume 89 FL (80-99) Mean Corpuscular Hemoglobin 27.9 PG (27.0-31.0) Mean Corpuscular Hemoglobin Concent 31.2 G/DL (32.0-36.0) L Red Cell Distribution Width 16.7 % (11.6-14.8) H Platelet Count 405 K/UL (150-450) Mean Platelet Volume 6.7 FL (6.5-10.1) Neutrophils (%) (Auto) 73.2 % (45.0-75.0) Lymphocytes (%) (Auto) 17.5 % (20.0-45.0) L Monocytes (%) (Auto) 8.0 % (1.0-10.0) Eosinophils (%) (Auto) 1.1 % (0.0-3.0) Basophils (%) (Auto) 0.3 % (0.0-2.0) Stool Occult Blood Pending Vancomycin Level Trough 5.0 ug/mL (5.0-12.0) Current Medications Medications (Trade) Dose Ordered Sig/Abdirizak Route PRN Reason Start Time Stop Time Status Last Admin Dose Admin Acetaminophen (Tylenol) 650 mg Q4H PRN ORAL fever 07/06/16 19:15 08/05/16 19:14 Al Hydroxide/Mg Hydroxide (Mylanta II) 30 ml Q6H PRN ORAL dyspepsia 07/06/16 19:15 08/05/16 19:14 Atenolol (Tenormin) 25 mg DAILY ORAL 07/07/16 09:00 08/06/16 08:59 07/07/16 09:30 Cefepime HCl/ Dextrose (Maxipime/D5W) 110 ml @ 220 mls/hr Q24H IV 07/06/16 20:00 07/13/16 19:59 07/08/16 21:10 Dextrose (Dextrose 50%) STAT PRN IV Hypoglycemia 07/06/16 19:15 08/05/16 19:14 Heparin Sodium (Porcine) 5000 units 5,000 units EVERY 12 HOURS SUBQ 07/06/16 22:00 08/05/16 21:59 07/09/16 08:44 Insulin Aspart (NovoLOG) BEFORE MEALS AND HS SUBQ 07/06/16 22:00 08/05/16 21:59 07/08/16 21:11 Lorazepam (Ativan 2mg/ml 1ml) 0.5 mg Q4H PRN IV For Anxiety 07/06/16 19:15 07/13/16 19:14 Metronidazole 500 mg 500 mg Q8HR ORAL 07/06/16 20:00 07/13/16 19:59 07/09/16 14:11 Morphine Sulfate (Morphine Sulfate) 1 mg EVERY 4 HOURS PRN IVP For Pain 07/06/16 19:15 07/13/16 19:14 07/09/16 16:12 Ondansetron HCl (Zofran) 4 mg Q6H PRN IVP Nausea & Vomiting 07/06/16 19:15 08/05/16 19:14 Polyethylene Glycol (Miralax) 17 gm HSPRN PRN ORAL Constipation 07/06/16 19:15 08/05/16 19:14 Sodium Hypochlorite 1 applic 1 applic DAILY TOPIC 07/09/16 09:00 08/08/16 08:59 07/09/16 08:43 Sodium Chloride (Sodium Chloride 1000ml bag) 1,000 ml @ 60 mls/hr [id number] IV 07/06/16 23:30 08/05/16 23:29 07/08/16 18:33 Vancomycin HCl (Vanco rx to dose) 1 ea DAILY PRN MISC . 07/06/16 18:45 08/05/16 18:44 Vancomycin HCl 750 mg/Dextrose 275 ml @ 183.708 mls/hr ONCE ONCE IVPB 07/09/16 18:00 07/09/16 19:29 Vancomycin HCl/ Dextrose (Vancomycin/D5W) 110 ml @ 110 mls/hr Q12HR@0600,1800 IVPB 07/10/16 06:00 07/15/16 05:59 Zolpidem Tartrate (Ambien) 5 mg HSPRN PRN ORAL Insomnia 07/06/16 19:15 08/05/16 19:14 Kaylah Sandy M.D. Jul 09, 2016 17:08
[2016-07-09] MEDS ORDERED: Vancomycin 750mg/D5W 275ml IVPB ONE ×2 (18:00)
[2016-07-09 20:00] VITALS: BP 129/50
[2016-07-09] MEDS: Cefepime 2gm/D5W 110ml IV SCH ×2 (20:03)
--- NOTE | 2016-07-09 22:24 | Pulmonology Progress Note ---
Assessment/Plan Assessment/Plan Assessment/Plan ASSESSMENT sepsis sacral OM sacral decub st 4, POA with abscess s/p debridement of sacral decub anemia, iron deficiency severe protein calorie malnutrition Hx of CVA CAD severe HTN DM PLAN OF CARE Gentle IVF MRI sacral with suspicion of osteo abx, ID follows, will need total 4 weeks of abx till 08/10 as per ID repeated blood cx preliminary negative ( initial + SCON) Cardiac Echo evaluate heart chambers and wall motion Subjective ROS Limited/Unobtainable: No Constitutional: Reports: anorexia, fatigue, fever Neurologic: Reports: confusion, weakness Skin: Reports: rash, ulcer Allergies: Coded Allergies: No Known Allergies (Verified , 11/28/08) Objective Last 24 Hour Vital Signs Date Time Temp Pulse Resp B/P Pulse Ox O2 Delivery O2 Flow Rate FiO2 07/09/16 20:00 97.0 68 17 129/50 100 Room Air 07/09/16 16:00 96.6 60 17 140/53 100 Nasal Cannula 07/09/16 12:00 97.7 59 18 119/52 100 Nasal Cannula 07/09/16 11:14 74 22 98 07/09/16 08:00 98.1 58 18 133/49 100 Nasal Cannula 07/09/16 04:00 97.5 58 18 117/49 100 Nasal Cannula 2.0 07/09/16 00:00 97.7 61 18 123/52 100 Nasal Cannula 2.0 Intake and Output 07/08/16 07/09/16 19:00 07:00 Intake Total 1110 ml 340 ml Output Total 200 ml 225 ml Balance 910 ml 115 ml IV Total 1110 ml 340 ml Output Urine Total 150 ml 225 ml Estimated Blood Loss 50 ml # Voids 5 # Bowel Movements 3 General Appearance: no acute distress HEENT: normocephalic, atraumatic, PERRL Respiratory/Chest: chest wall non-tender, decreased breath sounds, accessory muscle use Breasts: no masses Cardiovascular: normal peripheral pulses, normal rate, regular rhythm, no JVD Abdomen: normal bowel sounds, soft, non tender, no organomegaly Genitourinary: normal external genitalia Skin: rash, lesions, ulcers Neurologic/Psychiatric: responsive, abnormal CN, disoriented Microbiology Date/Time Source Procedure Growth Status 07/06/16 22:30 Wound Gram Stain - Final Resulted 07/06/16 22:30 Wound Culture - Preliminary Gram Negative Bacillus 1 Gram Negative Bacillus 2 Streptococcus Species Resulted 07/08/16 21:00 Bone Gram Stain - Final Resulted 07/08/16 21:00 Bone Aerobic Culture Pending Resulted 07/08/16 21:00 Bone Anaerobic Culture Pending Resulted Laboratory Tests 07/09/16 03:50: White Blood Count 8.7, Red Blood Count 3.27L, Hemoglobin 9.1L, Hematocrit 29.1L , Mean Corpuscular Volume 89, Mean Corpuscular Hemoglobin 27.9, Mean Corpuscular Hemoglobin Concent 31.2L, Red Cell Distribution Width 16.7H, Platelet Count 405, Mean Platelet Volume 6.7, Neutrophils (%) (Auto) 73.2, Lymphocytes (%) (Auto) 17.5L, Monocytes (%) (Auto) 8.0, Eosinophils (%) (Auto) 1.1, Basophils (%) (Auto) 0.3 07/09/16 14:00: Stool Occult Blood [Pending] 07/09/16 15:45: Vancomycin Level Trough 5.0 Current Medications Medications (Trade) Dose Ordered Sig/Abdirizak Route PRN Reason Start Time Stop Time Status Last Admin Dose Admin Acetaminophen (Tylenol) 650 mg Q4H PRN ORAL fever 07/06/16 19:15 08/05/16 19:14 Al Hydroxide/Mg Hydroxide (Mylanta II) 30 ml Q6H PRN ORAL dyspepsia 07/06/16 19:15 08/05/16 19:14 Atenolol (Tenormin) 25 mg DAILY ORAL 07/07/16 09:00 08/06/16 08:59 07/07/16 09:30 Cefepime HCl/ Dextrose (Maxipime/D5W) 110 ml @ 220 mls/hr Q24H IV 07/06/16 20:00 07/13/16 19:59 07/09/16 20:03 Dextrose (Dextrose 50%) STAT PRN IV Hypoglycemia 07/06/16 19:15 08/05/16 19:14 Heparin Sodium (Porcine) 5000 units 5,000 units EVERY 12 HOURS SUBQ 07/06/16 22:00 08/05/16 21:59 07/09/16 21:05 Insulin Aspart (NovoLOG) BEFORE MEALS AND HS SUBQ 07/06/16 22:00 08/05/16 21:59 07/09/16 21:05 Lorazepam (Ativan 2mg/ml 1ml) 0.5 mg Q4H PRN IV For Anxiety 07/06/16 19:15 07/13/16 19:14 Metronidazole 500 mg 500 mg Q8HR ORAL 07/06/16 20:00 07/13/16 19:59 07/09/16 21:02 Morphine Sulfate (Morphine Sulfate) 1 mg EVERY 4 HOURS PRN IVP For Pain 07/06/16 19:15 07/13/16 19:14 07/09/16 16:12 Ondansetron HCl (Zofran) 4 mg Q6H PRN IVP Nausea & Vomiting 07/06/16 19:15 08/05/16 19:14 Polyethylene Glycol (Miralax) 17 gm HSPRN PRN ORAL Constipation 07/06/16 19:15 08/05/16 19:14 Sodium Hypochlorite 1 applic 1 applic DAILY TOPIC 07/09/16 09:00 08/08/16 08:59 07/09/16 08:43 Sodium Chloride (Sodium Chloride 1000ml bag) 1,000 ml @ 60 mls/hr [id number] IV 07/06/16 23:30 08/05/16 23:29 07/09/16 17:14 Vancomycin HCl (Vanco rx to dose) 1 ea DAILY PRN MISC . 07/06/16 18:45 08/05/16 18:44 Vancomycin HCl/ Dextrose (Vancomycin/D5W) 110 ml @ 110 mls/hr Q12HR@0600,1800 IVPB 07/10/16 06:00 07/15/16 05:59 Zolpidem Tartrate (Ambien) 5 mg HSPRN PRN ORAL Insomnia 07/06/16 19:15 08/05/16 19:14 IVÁN OCHOA Jul 09, 2016 22:24
[2016-07-10] VITALS: BP 136/63
--- NOTE | 2016-07-10 03:06 | Cardiology Report ---
APPROVED REPORT EKG Measurement Heart [id number] Normal sinus rhythm Nonspecific T wave abnormality Abnormal ECG
[2016-07-10 04:00] VITALS: BP_SYST 109; BP_SYST 130; BP_DIAS 51; BP_DIAS 70
[2016-07-10] MEDS: metroNIDAZOLE 500mg tab ORAL SCH ×3 (05:37→22:19)
[2016-07-10] MEDS: Vancomycin 500mg/D5W 110ml IVPB SCH ×4 (05:37→17:39)
[2016-07-10] MEDS: NovoLOG Insulin Flexpen SUBQ SCH ×4 (06:23→21:11)
[2016-07-10 08:17] VITALS: BP 105/54
[2016-07-10] MEDS: Atenolol 25mg tab ORAL SCH (09:00)
[2016-07-10] MEDS: Heparin 5000 units/ml inj SUBQ SCH ×2 (09:40→21:12)
--- NOTE | 2016-07-10 11:14 | General Progress Note ---
Assessment/Plan Problem List: (1) CAD (coronary artery disease) ICD Codes: I25.10 - Atherosclerotic heart disease of [place] coronary artery without angina pectoris SNOMED: 46741783 (2) CVA (cerebral vascular accident) ICD Codes: I63.9 - Cerebral infarction, unspecified SNOMED: 221565087 (3) Sepsis ICD Codes: A41.9 - Sepsis, unspecified organism SNOMED: 34764238 (4) Sacral osteomyelitis ICD Codes: M46.28 - Osteomyelitis of vertebra, sacral and sacrococcygeal region SNOMED: 932909235 (5) Sacral decubitus ulcer, stage IV ICD Codes: L89.154 - Pressure ulcer of sacral region, stage 4 SNOMED: 083107915, 940436453 Status: progressing Assessment/Plan sacral decu consulted dr petty s/p i&d of sacral decu osteomylitis sacrum abx per id needs snf placement Subjective ROS Limited/Unobtainable: Yes Allergies: Coded Allergies: No Known Allergies (Verified , 11/28/08) Objective Last 24 Hour Vital Signs Date Time Temp Pulse Resp B/P Pulse Ox O2 Delivery O2 Flow Rate FiO2 07/10/16 09:00 62 105/54 07/10/16 08:17 98.2 62 18 105/54 97 Nasal Cannula 2.0 07/10/16 04:00 97.4 66 18 130/70 100 Nasal Cannula 2.0 07/10/16 00:00 97.3 68 18 136/63 97 Nasal Cannula 2.0 07/09/16 20:00 97.0 68 17 129/50 100 Room Air 07/09/16 16:00 96.6 60 17 140/53 100 Nasal Cannula 07/09/16 12:00 97.7 59 18 119/52 100 Nasal Cannula 07/09/16 11:14 74 22 98 Intake and Output 07/09/16 07/10/16 19:00 07:00 Intake Total 120 ml 700 ml Output Total 550 ml 500 ml Balance -430 ml 200 ml Intake Oral 110 ml IV Total 120 ml 590 ml Output Urine Total 550 ml 500 ml # Bowel Movements 1 Laboratory Tests 07/09/16 14:00: Stool Occult Blood [Pending] 07/09/16 15:45: Vancomycin Level Trough 5.0 Height (Feet): 5 Height (Inches): 6.00 Weight (Pounds): 100 EENT: PERRL/EOMI Neck: supple Cardiovascular: normal rate Respiratory/Chest: lungs clear Abdomen: soft Claudia Diaz MD Jul 10, 2016 11:14
--- NOTE | 2016-07-10 11:24 | Wound Care Consultation ---
Wound Assessment Wound Assessment : Wound Present on Admission: Yes New Wound: No Status Change of Wound: No Wound Location Body Site Modif: mid Wound Location Body Site: sacral Wound Type: pressure ulcer Elisha Test: Does not Elisha Pressure Ulcer Stage: IV/unstageable Wound Thickness: Full Thickness Wound Length: 15.0 Wound Width: 16.0 Wound Depth: 2.8 Percent of Wound [place]/Red: 85 Percent of Wound Bed Yellow/Wh: 10 Percent of Wound Black/Brown: 5 Wound Drainage Description: Serosanguineous Wound Drainage Amount: Moderate Wound Drainage Odor: None/Absent Tissue Surrounding Wound: Erythemic Wound General Appearance: Reddened, Draining Wound Comment Reassessed this pt on 07/09/16 with RN who is taking care of the pt. Dr Howard on the case. S/p sharp excisional debridement of necrotic sacral pressure ulcer. Picture taken upon the first drg change. no s/s of infection noted. minimal bleeding noted. drg change done as ordered by MD. Recommendation -Monitor/assess for bleeding, s/s of infection or changes in color of the wound bed and f/u with MD in a timely manner. -Turn and reposition as ordered by MD -Low air loss mattress with AP -Optimize nutrition -Local wound care as ordered by IMTIAZ ACUNA RN Jul 10, 2016 11:24
[2016-07-10] MEDS: Dakin's 0.25% (Half Strength) 16oz TOPIC SCH (11:26)
[2016-07-10 12:00] VITALS: BP 159/71
--- NOTE | 2016-07-10 12:45 | Pulmonology Progress Note ---
Assessment/Plan Assessment/Plan Assessment/Plan Problems: (1) Sepsis (2) Sacral decubitus ulcer, stage IV (3) Sacral osteomyelitis (4) CVA (cerebral vascular accident) (5) CAD (coronary artery disease) (6) Diabetes mellitus Assessment/Plan Iv antibiotics check cultures wound care tolerating diet check electrolytes All medications and treatment were reviewed.li PRBC PRN Subjective ROS Limited/Unobtainable: Yes Constitutional: Reports: anorexia, fatigue, fever Neurologic: Reports: confusion, weakness Skin: Reports: rash, ulcer Allergies: Coded Allergies: No Known Allergies (Verified , 11/28/08) Objective Last 24 Hour Vital Signs Date Time Temp Pulse Resp B/P Pulse Ox O2 Delivery O2 Flow Rate FiO2 07/10/16 12:00 96.6 80 18 159/71 100 Nasal Cannula 2.0 07/10/16 09:00 62 105/54 07/10/16 08:17 98.2 62 18 105/54 97 Nasal Cannula 2.0 07/10/16 04:00 97.4 66 18 130/70 100 Nasal Cannula 2.0 07/10/16 00:00 97.3 68 18 136/63 97 Nasal Cannula 2.0 07/09/16 20:00 97.0 68 17 129/50 100 Room Air 07/09/16 16:00 96.6 60 17 140/53 100 Nasal Cannula Intake and Output 07/09/16 07/10/16 19:00 07:00 Intake Total 120 ml 700 ml Output Total 550 ml 500 ml Balance -430 ml 200 ml Intake Oral 110 ml IV Total 120 ml 590 ml Output Urine Total 550 ml 500 ml # Bowel Movements 1 General Appearance: no acute distress HEENT: normocephalic, atraumatic, PERRL Respiratory/Chest: chest wall non-tender, decreased breath sounds, accessory muscle use Breasts: no masses Cardiovascular: normal peripheral pulses, normal rate, regular rhythm, no JVD Abdomen: normal bowel sounds, soft, non tender, no organomegaly, non distended Genitourinary: normal external genitalia Skin: rash, lesions, ulcers Neurologic/Psychiatric: learning operations specialist II-XII grossly normal, responsive, disoriented Musculoskeletal: atrophy Microbiology Date/Time Source Procedure Growth Status 07/08/16 21:00 Bone Gram Stain - Final Resulted 07/08/16 21:00 Bone Aerobic Culture - Preliminary NO GROWTH AFTER 24 HOURS Resulted 07/08/16 21:00 Bone Anaerobic Culture Pending Resulted Laboratory Tests 07/09/16 14:00: Stool Occult Blood [Pending] 07/09/16 15:45: Vancomycin Level Trough 5.0 Current Medications Medications (Trade) Dose Ordered Sig/Abdirizak Route PRN Reason Start Time Stop Time Status Last Admin Dose Admin Acetaminophen (Tylenol) 650 mg Q4H PRN ORAL fever 07/06/16 19:15 08/05/16 19:14 Al Hydroxide/Mg Hydroxide (Mylanta II) 30 ml Q6H PRN ORAL dyspepsia 07/06/16 19:15 08/05/16 19:14 Atenolol (Tenormin) 25 mg DAILY ORAL 07/07/16 09:00 08/06/16 08:59 07/07/16 09:30 Cefepime HCl/ Dextrose (Maxipime/D5W) 110 ml @ 220 mls/hr Q24H IV 07/06/16 20:00 07/13/16 19:59 07/09/16 20:03 Dextrose (Dextrose 50%) STAT PRN IV Hypoglycemia 07/06/16 19:15 08/05/16 19:14 Heparin Sodium (Porcine) 5000 units 5,000 units EVERY 12 HOURS SUBQ 07/06/16 22:00 08/05/16 21:59 07/10/16 09:40 Insulin Aspart (NovoLOG) BEFORE MEALS AND HS SUBQ 07/06/16 22:00 08/05/16 21:59 07/10/16 12:25 Lorazepam (Ativan 2mg/ml 1ml) 0.5 mg Q4H PRN IV For Anxiety 07/06/16 19:15 07/13/16 19:14 Metronidazole 500 mg 500 mg Q8HR ORAL 07/06/16 20:00 07/13/16 19:59 07/10/16 05:37 Morphine Sulfate (Morphine Sulfate) 1 mg EVERY 4 HOURS PRN IVP For Pain 07/06/16 19:15 07/13/16 19:14 07/09/16 16:12 Ondansetron HCl (Zofran) 4 mg Q6H PRN IVP Nausea & Vomiting 07/06/16 19:15 08/05/16 19:14 Polyethylene Glycol (Miralax) 17 gm HSPRN PRN ORAL Constipation 07/06/16 19:15 08/05/16 19:14 Sodium Hypochlorite 1 applic 1 applic DAILY TOPIC 07/09/16 09:00 08/08/16 08:59 07/10/16 11:26 Sodium Chloride (Sodium Chloride 1000ml bag) 1,000 ml @ 60 mls/hr [id number] IV 07/06/16 23:30 08/05/16 23:29 07/09/16 17:14 Vancomycin HCl (Vanco rx to dose) 1 ea DAILY PRN MISC . 07/06/16 18:45 08/05/16 18:44 Vancomycin HCl/ Dextrose (Vancomycin/D5W) 110 ml @ 110 mls/hr Q12HR@0600,1800 IVPB 07/10/16 06:00 07/15/16 05:59 07/10/16 05:37 Zolpidem Tartrate (Ambien) 5 mg HSPRN PRN ORAL Insomnia 07/06/16 19:15 08/05/16 19:14 IVÁN OCHOA Jul 10, 2016 12:45
[2016-07-10 16:00] VITALS: BP 146/60
--- NOTE | 2016-07-10 17:57 | Cardiology Progress Note ---
Assessment/Plan Assessment/Plan 1. Severe with LORENA at 0.7 cm2, no perioperative cardiac complications, hemodynamically stable. 2. Normal LV function with LVEF at 55%. 3. Hypertension, increase atenolol to 50mg daily. 4. Anemia. Subjective Subjective No perioperative cardiac events. POD #2 Objective Last 24 Hour Vital Signs Date Time Temp Pulse Resp B/P Pulse Ox O2 Delivery O2 Flow Rate FiO2 07/10/16 12:00 96.6 80 18 159/71 100 Nasal Cannula 2.0 07/10/16 09:00 62 105/54 07/10/16 08:17 98.2 62 18 105/54 97 Nasal Cannula 2.0 07/10/16 04:00 97.4 66 18 130/70 100 Nasal Cannula 2.0 07/10/16 00:00 97.3 68 18 136/63 97 Nasal Cannula 2.0 07/09/16 20:00 97.0 68 17 129/50 100 Room Air Intake and Output 07/09/16 07/10/16 19:00 07:00 Intake Total 120 ml 700 ml Output Total 550 ml 500 ml Balance -430 ml 200 ml Intake Oral 110 ml IV Total 120 ml 590 ml Output Urine Total 550 ml 500 ml # Bowel Movements 1 2D Echo: EF 55%, Severe LORENA 0.7 cm3, Mild AR, RVSP 29mmHg, Mild LVH Microbiology Date/Time Source Procedure Growth Status 07/08/16 21:00 Bone Gram Stain - Final Resulted 07/08/16 21:00 Bone Aerobic Culture - Preliminary NO GROWTH AFTER 24 HOURS Resulted 07/08/16 21:00 Bone Anaerobic Culture Pending Resulted Objective HEENT: Normocephalic and atraumatic. Pupils are both reactive to light. Moist oral mucosa. No exudate. NECK: Negative JVD, B/L carotid bruit CARDIOVASCULAR: Regular rate and rhythm. 3/6 late ESM at LSB, no gallops or rubs. LUNGS: No wheezing or rhonchi. Diminished breathing sounds at the bases. ABDOMEN: Soft. Nontender. Nondistended. Positive bowel sounds. No hepatosplenomegaly or ascites. EXTREMITIES: She had left heel skin break, no edema, clubbing or cyanosis. RAGHAVENDRA PATEL Jul 10, 2016 17:57
--- NOTE | 2016-07-10 19:16 | General Progress Note ---
Assessment/Plan Assessment/Plan IMPRESSION: 1. Leukocytosis 2/2 underlying infection, osteomyelitis/cellulitis v other cause - now improved 2. Anemia of chronic disease, decreased hemoglobin and hematocrit, rule out gi bleed. Ferritin remains elevated 3. Thrombocytosis, reactive process 4. Decubitus ulcer, stage IV. 5. Sepsis and septic shock 6. CVA 7. Failure to thrive. 8. Malnutrition. RECOMMENDATIONS: 1. Watch count. 2. Transfuse to hgb >7 3. Heparin 5000 units subcutaneously q.12 h. 4. Stool for occult blood is negative 5. Anemia workup has been reviewed 6. Does not need iron 7. Antibiotic IV prn 8. Staff Leroy Saini MD Subjective Constitutional: Reports: no symptoms Cardiovascular: Reports: no symptoms Respiratory: Reports: no symptoms Gastrointestinal/Abdominal: Reports: no symptoms Genitourinary: Reports: no symptoms Neurologic/Psychiatric: Reports: no symptoms Endocrine: Reports: no symptoms Hematologic/Lymphatic: Reports: no symptoms Allergies: Coded Allergies: No Known Allergies (Verified , 11/28/08) Objective Last 24 Hour Vital Signs Date Time Temp Pulse Resp B/P Pulse Ox O2 Delivery O2 Flow Rate FiO2 07/10/16 16:00 97.7 18 146/60 100 Nasal Cannula 2.0 07/10/16 12:00 96.6 80 18 159/71 100 Nasal Cannula 2.0 07/10/16 09:00 62 105/54 07/10/16 08:17 98.2 62 18 105/54 97 Nasal Cannula 2.0 07/10/16 04:00 97.4 66 18 130/70 100 Nasal Cannula 2.0 07/10/16 00:00 97.3 68 18 136/63 97 Nasal Cannula 2.0 07/09/16 20:00 97.0 68 17 129/50 100 Room Air Intake and Output 07/09/16 07/10/16 19:00 07:00 Intake Total 120 ml 700 ml Output Total 550 ml 500 ml Balance -430 ml 200 ml Intake Oral 110 ml IV Total 120 ml 590 ml Output Urine Total 550 ml 500 ml # Bowel Movements 1 Height (Feet): 5 Height (Inches): 6.00 Weight (Pounds): 100 EENT: TMs normal Neck: supple Cardiovascular: regular rhythm Respiratory/Chest: lungs clear Abdomen: soft LEROY SAINI Jul 10, 2016 19:16
[2016-07-10 20:00] VITALS: BP 144/65
[2016-07-10] MEDS: Cefepime 2gm/D5W 110ml IV SCH ×2 (21:10)
[2016-07-11] VITALS (7 sets, daily range): BP systolic 121–133; BP diastolic 52–60
[2016-07-11] MEDS: metroNIDAZOLE 500mg tab ORAL SCH ×3 (05:58→21:42)
[2016-07-11] MEDS: Vancomycin 500mg/D5W 110ml IVPB SCH ×2 (06:10)
[2016-07-11] MEDS: NovoLOG Insulin Flexpen SUBQ SCH ×4 (06:16→20:35)
[2016-07-11 07:05] LABS: ANION GAP 11 (5-15); CALCIUM 8.4 mg/dL (8.6-10.2); CARBON DIOXIDE 26 mEQ/L (20-30); CHLORIDE 104 mEQ/L (98-107); CREATININE 0.3 mg/dL (0.5-0.9); HEMOLYSIS 2; POTASSIUM 4.5 mEQ/L (3.4-4.9); SODIUM 141 mEQ/L (135-145)
--- NOTE | 2016-07-11 08:01 | General Progress Note ---
Assessment/Plan Assessment/Plan IMPRESSION: 1. Leukocytosis 2/2 underlying infection, osteomyelitis/cellulitis v other cause - now improved 2. Anemia of chronic disease, decreased hemoglobin and hematocrit, rule out gi bleed. Ferritin remains elevated 3. Thrombocytosis, reactive process 4. Decubitus ulcer, stage IV. 5. Sepsis and septic shock 6. CVA 7. Failure to thrive. 8. Malnutrition. RECOMMENDATIONS: 1. Watch count. 2. Transfuse to hgb >7 3. Heparin 5000 units sq q.12 h. 4. Stool for occult blood is negative 5. Anemia workup has been reviewed 6. Does not need iron 7. Antibiotic IV prn 8. Staff Thank you, Cristian Saini MD Subjective Constitutional: Reports: no symptoms HEENT: Reports: no symptoms Cardiovascular: Reports: no symptoms Respiratory: Reports: no symptoms Gastrointestinal/Abdominal: Reports: no symptoms Genitourinary: Reports: no symptoms Neurologic/Psychiatric: Reports: no symptoms Endocrine: Reports: no symptoms Hematologic/Lymphatic: Reports: anemia Allergies: Coded Allergies: No Known Allergies (Verified , 11/28/08) Subjective demented, no fevers or chills Objective Last 24 Hour Vital Signs Date Time Temp Pulse Resp B/P Pulse Ox O2 Delivery O2 Flow Rate FiO2 07/11/16 04:00 97.6 70 18 129/54 100 Nasal Cannula 2.0 07/11/16 00:00 97.4 72 18 133/54 100 Nasal Cannula 2.0 07/10/16 20:00 98.2 82 18 144/65 100 Nasal Cannula 2.0 07/10/16 16:00 97.7 18 146/60 100 Nasal Cannula 2.0 07/10/16 12:00 96.6 80 18 159/71 100 Nasal Cannula 2.0 07/10/16 09:00 62 105/54 07/10/16 08:17 98.2 62 18 105/54 97 Nasal Cannula 2.0 Intake and Output 07/10/16 07/11/16 19:00 07:00 Intake Total 1130 ml 1030 ml Output Total 700 ml 1200 ml Balance 430 ml -170 ml Intake Oral 420 ml 500 ml IV Total 710 ml 530 ml Output Urine Total 700 ml 1200 ml Laboratory Tests 07/11/16 04:45: Vancomycin Level Trough 11.4 07/11/16 05:20: Sodium Level 141, Potassium Level 4.5, Chloride Level 104, Carbon Dioxide Level 26, Anion Gap 11, Blood Urea Nitrogen 10, Creatinine 0.3L, Estimat Glomerular Filtration Rate , Glucose Level 104, Calcium Level 8.4L Height (Feet): 5 Height (Inches): 6.00 Weight (Pounds): 100 General Appearance: no apparent distress EENT: TMs normal Neck: supple Cardiovascular: regular rhythm Respiratory/Chest: lungs clear Abdomen: no mass Extremities: non-tender Edema: 1+ Leg (L), 1+ Leg (R) Edema: mild edema Neurologic: alert Skin: warm/dry Cristian Saini Jul 11, 2016 08:01
[2016-07-11] MEDS: Dakin's 0.25% (Half Strength) 16oz TOPIC SCH (09:00)
[2016-07-11] MEDS: Atenolol 25mg tab ORAL SCH (09:54)
[2016-07-11] MEDS: Heparin 5000 units/ml inj SUBQ SCH ×2 (09:58→20:37)
--- NOTE | 2016-07-11 14:30 | Infectious Diseases Prog Note ---
Assessment/Plan Problems: (1) Sacral osteomyelitis Assessment & Plan: with deep abscesses , had surgical debridement with bone biopsy for culture , will need 6 weeks of iv antibiotics , pending bone culture results (2) Sacral decubitus ulcer, stage IV Assessment & Plan: most likely the source of her sepsis , will continue vancomycin, and switch cefepime and flagyl to zosyn to cover all her wound isolates , MRI showed underlying sacral/coccyx osteomyelitis, with deep abscesses , had excisional debridement of necrotic sacral pressure ulcer with deep open bone biopsy and culture , continue wound care and off loading (3) Sepsis Assessment & Plan: with gram positive cocci in clusture most likely staphylococcus , due to the above, had source control with surgical debridement , on vancomycin, will order echo to rule out vegetations, will treat with vancomycin for 4-6 weeks depending on the results of her echo (4) CAD (coronary artery disease) Assessment & Plan: stable, continue cardiac meds, follow up with cardiology (5) CVA (cerebral vascular accident) Assessment & Plan: stable , follow up with neurology Subjective ROS Limited/Unobtainable: Yes Allergies: Coded Allergies: No Known Allergies (Verified , 11/28/08) Subjective she is demented, lying in bed, alert, comfortable.afebrile Objective Vital Signs Last 24 Hour Vital Signs Date Time Temp Pulse Resp B/P Pulse Ox O2 Delivery O2 Flow Rate FiO2 07/11/16 12:00 97.2 67 18 128/60 100 Nasal Cannula 2.0 07/11/16 09:54 66 130/57 07/11/16 09:50 66 130/57 07/11/16 08:00 96.6 63 18 121/56 100 Nasal Cannula 2.0 07/11/16 04:00 97.6 70 18 129/54 100 Nasal Cannula 2.0 07/11/16 00:00 97.4 72 18 133/54 100 Nasal Cannula 2.0 07/10/16 20:00 98.2 82 18 144/65 100 Nasal Cannula 2.0 07/10/16 16:00 97.7 18 146/60 100 Nasal Cannula 2.0 Height (Feet): 5 Height (Inches): 6.00 Weight (Pounds): 100 General Appearance: WD/WN, no acute distress HEENT: normocephalic, atraumatic, anicteric, mucous membranes moist Respiratory/Chest: chest wall non-tender, lungs clear, normal breath sounds, no respiratory distress, no accessory muscle use Cardiovascular: normal peripheral pulses, normal rate, regular rhythm, no gallop/murmur Abdomen: normal bowel sounds, soft, non tender, no organomegaly, non distended , no mass Extremities: no cyanosis, no clubbing Skin: ulcers Microbiology Date/Time Source Procedure Growth Status 07/08/16 21:00 Bone Gram Stain - Final Resulted 07/08/16 21:00 Bone Aerobic Culture - Preliminary NO GROWTH AFTER 24 HOURS Resulted 07/08/16 21:00 Bone Anaerobic Culture Pending Resulted Laboratory Tests Test 07/11/16 04:45 07/11/16 05:20 Vancomycin Level Trough 11.4 ug/mL (5.0-12.0) Sodium Level 141 mEQ/L (135-145) Potassium Level 4.5 mEQ/L (3.4-4.9) Chloride Level 104 mEQ/L (98-107) Carbon Dioxide Level 26 mEQ/L (20-30) Anion Gap 11 (5-15) Blood Urea Nitrogen 10 mg/dL (7-23) Creatinine 0.3 mg/dL (0.5-0.9) L Estimat Glomerular Filtration Rate mL/min (>60) Glucose Level 104 mg/dL (74-106) Calcium Level 8.4 mg/dL (8.6-10.2) L Current Medications Medications (Trade) Dose Ordered Sig/Abdirizak Route PRN Reason Start Time Stop Time Status Last Admin Dose Admin Acetaminophen (Tylenol) 650 mg Q4H PRN ORAL fever 07/06/16 19:15 08/05/16 19:14 Al Hydroxide/Mg Hydroxide (Mylanta II) 30 ml Q6H PRN ORAL dyspepsia 07/06/16 19:15 08/05/16 19:14 Atenolol (Tenormin) 25 mg DAILY ORAL 07/07/16 09:00 08/06/16 08:59 07/11/16 09:54 Cefepime HCl/ Dextrose (Maxipime/D5W) 110 ml @ 220 mls/hr Q24H IV 07/06/16 20:00 07/13/16 19:59 07/10/16 21:10 Dextrose (Dextrose 50%) STAT PRN IV Hypoglycemia 07/06/16 19:15 08/05/16 19:14 Heparin Sodium (Porcine) 5000 units 5,000 units EVERY 12 HOURS SUBQ 07/06/16 22:00 08/05/16 21:59 07/11/16 09:58 Insulin Aspart (NovoLOG) BEFORE MEALS AND HS SUBQ 07/06/16 22:00 08/05/16 21:59 07/11/16 12:53 Lorazepam (Ativan 2mg/ml 1ml) 0.5 mg Q4H PRN IV For Anxiety 07/06/16 19:15 07/13/16 19:14 Metronidazole 500 mg 500 mg Q8HR ORAL 07/06/16 20:00 07/13/16 19:59 07/11/16 14:16 Morphine Sulfate (Morphine Sulfate) 1 mg EVERY 4 HOURS PRN IVP For Pain 07/06/16 19:15 07/13/16 19:14 07/09/16 16:12 Ondansetron HCl (Zofran) 4 mg Q6H PRN IVP Nausea & Vomiting 07/06/16 19:15 08/05/16 19:14 Polyethylene Glycol (Miralax) 17 gm HSPRN PRN ORAL Constipation 07/06/16 19:15 08/05/16 19:14 Sodium Hypochlorite 1 applic 1 applic DAILY TOPIC 07/09/16 09:00 08/08/16 08:59 07/10/16 11:26 Sodium Chloride (Sodium Chloride 1000ml bag) 1,000 ml @ 60 mls/hr [id number] IV 07/06/16 23:30 08/05/16 23:29 07/11/16 05:06 Vancomycin HCl (Vanco rx to dose) 1 ea DAILY PRN MISC . 07/06/16 18:45 08/05/16 18:44 Vancomycin HCl/ Dextrose (Vancomycin/D5W) 275 ml @ 183.708 mls/hr Q12H IVPB 07/11/16 18:00 07/16/16 17:59 Zolpidem Tartrate (Ambien) 5 mg HSPRN PRN ORAL Insomnia 07/06/16 19:15 08/05/16 19:14 Kaylah Sandy M.D. Jul 11, 2016 14:30
[2016-07-11] MEDS: Piperacillin/Tazobactam 3.375 GM in D5W 110 ML IVPB SCH ×2 (15:55→21:42)
[2016-07-11] MEDS: Vancomycin 750mg/D5W 275ml IVPB SCH ×2 (18:01)
--- NOTE | 2016-07-11 22:54 | Pulmonology Progress Note ---
Assessment/Plan Assessment/Plan Assessment/Plan Problems: (1) Sepsis (2) Sacral decubitus ulcer, stage IV (3) Sacral osteomyelitis (4) CVA (cerebral vascular accident) (5) CAD (coronary artery disease) (6) Diabetes mellitus Assessment/Plan Iv antibiotics check cultures wound care tolerating diet check electrolytes All medications and treatment were reviewed.li PRBC PRN Subjective ROS Limited/Unobtainable: No Constitutional: Reports: anorexia, fatigue Respiratory: Reports: dyspnea at rest, shortness of breath, sputum Allergies: Coded Allergies: No Known Allergies (Verified , 11/28/08) Objective Last 24 Hour Vital Signs Date Time Temp Pulse Resp B/P Pulse Ox O2 Delivery O2 Flow Rate FiO2 07/11/16 19:00 97.7 60 20 132/56 100 Nasal Cannula 3.0 07/11/16 16:00 96.8 58 20 126/52 100 Nasal Cannula 3.0 07/11/16 12:00 97.2 67 18 128/60 100 Nasal Cannula 2.0 07/11/16 09:54 66 130/57 07/11/16 09:50 66 130/57 07/11/16 08:00 96.6 63 18 121/56 100 Nasal Cannula 2.0 07/11/16 04:00 97.6 70 18 129/54 100 Nasal Cannula 2.0 07/11/16 00:00 97.4 72 18 133/54 100 Nasal Cannula 2.0 Intake and Output 07/10/16 07/11/16 19:00 07:00 Intake Total 1130 ml 1030 ml Output Total 700 ml 1200 ml Balance 430 ml -170 ml Intake Oral 420 ml 500 ml IV Total 710 ml 530 ml Output Urine Total 700 ml 1200 ml Objective General Appearance: cachetic Lines, tubes and drains: peripheral HEENT: normocephalic, atraumatic Neck: non-tender, normal alignment Respiratory/Chest: chest wall non-tender, crackles/rales Breasts: no masses Cardiovascular/Chest: normal peripheral pulses, normal rate Abdomen: normal bowel sounds Genitourinary/Rectal: normal genital exam Extremities: normal range of motion, non-tender Skin Exam: rash Lymphatic: axillary (L) Musculoskeletal: atrophy Laboratory Tests 07/11/16 04:45: Vancomycin Level Trough 11.4 07/11/16 05:20: Sodium Level 141, Potassium Level 4.5, Chloride Level 104, Carbon Dioxide Level 26, Anion Gap 11, Blood Urea Nitrogen 10, Creatinine 0.3L, Estimat Glomerular Filtration Rate , Glucose Level 104, Calcium Level 8.4L Current Medications Medications (Trade) Dose Ordered Sig/Abdirizak Route PRN Reason Start Time Stop Time Status Last Admin Dose Admin Acetaminophen (Tylenol) 650 mg Q4H PRN ORAL fever 07/06/16 19:15 08/05/16 19:14 Al Hydroxide/Mg Hydroxide (Mylanta II) 30 ml Q6H PRN ORAL dyspepsia 07/06/16 19:15 08/05/16 19:14 Atenolol (Tenormin) 25 mg DAILY ORAL 07/07/16 09:00 08/06/16 08:59 07/11/16 09:54 Dextrose (Dextrose 50%) STAT PRN IV Hypoglycemia 07/06/16 19:15 08/05/16 19:14 Heparin Sodium (Porcine) 5000 units 5,000 units EVERY 12 HOURS SUBQ 07/06/16 22:00 08/05/16 21:59 07/11/16 20:37 Insulin Aspart (NovoLOG) BEFORE MEALS AND HS SUBQ 07/06/16 22:00 08/05/16 21:59 07/11/16 20:35 Lorazepam (Ativan 2mg/ml 1ml) 0.5 mg Q4H PRN IV For Anxiety 07/06/16 19:15 07/13/16 19:14 Metronidazole (Flagyl) 500 mg Q8HR ORAL 07/06/16 20:00 07/13/16 19:59 07/11/16 21:42 Morphine Sulfate (Morphine Sulfate) 1 mg EVERY 4 HOURS PRN IVP For Pain 07/06/16 19:15 07/13/16 19:14 07/09/16 16:12 Ondansetron HCl (Zofran) 4 mg Q6H PRN IVP Nausea & Vomiting 07/06/16 19:15 08/05/16 19:14 Piperacillin Sod/ Tazobactam Sod/ Dextrose (Zosyn/D5W) 110 ml @ 27.5 mls/hr EVERY 8 HOURS IVPB 07/11/16 15:00 07/16/16 14:59 07/11/16 21:42 Polyethylene Glycol (Miralax) 17 gm HSPRN PRN ORAL Constipation 07/06/16 19:15 08/05/16 19:14 Sodium Hypochlorite 1 applic 1 applic DAILY TOPIC 07/09/16 09:00 08/08/16 08:59 07/10/16 11:26 Sodium Chloride (Sodium Chloride 1000ml bag) 1,000 ml @ 60 mls/hr [id number] IV 07/06/16 23:30 08/05/16 23:29 07/11/16 20:33 Vancomycin HCl (Vanco rx to dose) 1 ea DAILY PRN MISC . 07/06/16 18:45 08/05/16 18:44 Vancomycin HCl 750 mg/Dextrose 275 ml @ 183.708 mls/hr Q12H IVPB 07/11/16 18:00 07/16/16 17:59 07/11/16 18:01 Zolpidem Tartrate (Ambien) 5 mg HSPRN PRN ORAL Insomnia 07/06/16 19:15 08/05/16 19:14 IVÁN OCHOA Jul 11, 2016 22:55
--- NOTE | 2016-07-11 23:04 | Cardiology Progress Note ---
Assessment/Plan Assessment/Plan 1. Severe with LORENA at 0.7 cm2, no perioperative cardiac complications, hemodynamically stable. 2. Normal LV function with LVEF at 55%. 3. Hypertension continue atenolol. 4. Anemia. 5. Sacral osteomyelitis 6. CAD, Hx of mild IN, will consider ASA and statin. Subjective Subjective No perioperative cardiac events. POD #3 Objective Last 24 Hour Vital Signs Date Time Temp Pulse Resp B/P Pulse Ox O2 Delivery O2 Flow Rate FiO2 07/11/16 19:00 97.7 60 20 132/56 100 Nasal Cannula 3.0 07/11/16 16:00 96.8 58 20 126/52 100 Nasal Cannula 3.0 07/11/16 12:00 97.2 67 18 128/60 100 Nasal Cannula 2.0 07/11/16 09:54 66 130/57 07/11/16 09:50 66 130/57 07/11/16 08:00 96.6 63 18 121/56 100 Nasal Cannula 2.0 07/11/16 04:00 97.6 70 18 129/54 100 Nasal Cannula 2.0 07/11/16 00:00 97.4 72 18 133/54 100 Nasal Cannula 2.0 Intake and Output 07/10/16 07/11/16 19:00 07:00 Intake Total 1130 ml 1030 ml Output Total 700 ml 1200 ml Balance 430 ml -170 ml Intake Oral 420 ml 500 ml IV Total 710 ml 530 ml Output Urine Total 700 ml 1200 ml 2D Echo: EF 55%, Severe LORENA 0.7 cm3, Mild AR, RVSP 29mmHg, Mild LVH Laboratory Tests Test 07/11/16 04:45 07/11/16 05:20 Vancomycin Level Trough 11.4 ug/mL (5.0-12.0) Sodium Level 141 mEQ/L (135-145) Potassium Level 4.5 mEQ/L (3.4-4.9) Chloride Level 104 mEQ/L (98-107) Carbon Dioxide Level 26 mEQ/L (20-30) Anion Gap 11 (5-15) Blood Urea Nitrogen 10 mg/dL (7-23) Creatinine 0.3 mg/dL (0.5-0.9) L Estimat Glomerular Filtration Rate mL/min (>60) Glucose Level 104 mg/dL (74-106) Calcium Level 8.4 mg/dL (8.6-10.2) L Objective HEENT: Normocephalic and atraumatic. Pupils are both reactive to light. Moist oral mucosa. No exudate. NECK: Negative JVD, B/L carotid bruit CARDIOVASCULAR: Regular rate and rhythm. 3/6 late ESM at LSB, no gallops or rubs. LUNGS: No wheezing or rhonchi. Diminished breathing sounds at the bases. ABDOMEN: Soft. Nontender. Nondistended. Positive bowel sounds. No hepatosplenomegaly or ascites. EXTREMITIES: She had left heel skin break, no edema, clubbing or cyanosis, sacral decubitus RAGHAVENDRA PATEL Jul 11, 2016 23:04
[2016-07-12] VITALS: BP 114/44
[2016-07-12] MEDS: Vancomycin 750mg/D5W 275ml IVPB SCH ×4 (03:57→18:34)
[2016-07-12 04:00] VITALS: BP 147/63
[2016-07-12] MEDS: Dakin's 0.25% (Half Strength) 16oz TOPIC SCH (04:00)
[2016-07-12] MEDS: Piperacillin/Tazobactam 3.375 GM in D5W 110 ML IVPB SCH ×3 (05:26→21:12)
[2016-07-12] MEDS: metroNIDAZOLE 500mg tab ORAL SCH ×2 (05:30→14:03)
[2016-07-12] MEDS: NovoLOG Insulin Flexpen SUBQ SCH ×4 (06:13→21:12)
[2016-07-12 08:07] VITALS: BP 132/52
--- NOTE | 2016-07-12 09:03 | General Progress Note ---
Assessment/Plan Assessment/Plan IMPRESSION: 1. Leukocytosis 2/2 underlying infection, osteomyelitis/cellulitis v other cause - has now improved 2. Anemia of chronic disease, decreased hemoglobin and hematocrit, rule out gi bleed. Ferritin remains elevated 3. Thrombocytosis, reactive process 4. Decubitus ulcer, stage IV. 5. Sepsis and septic shock 6. CVA 7. Failure to thrive. 8. Malnutrition. RECOMMENDATIONS: 1. Watch count. 2. Transfuse to hgb >7 3. Heparin 5000 units sq q.12 h. 4. Stool for occult blood is negative 5. Anemia workup reviewed 6. Does not need iron 7. Antibiotic IV prn 8. Staff Thank you, Cristian Saini MD Subjective Constitutional: Reports: no symptoms HEENT: Reports: no symptoms Cardiovascular: Reports: no symptoms Respiratory: Reports: no symptoms Gastrointestinal/Abdominal: Reports: no symptoms Genitourinary: Reports: no symptoms Neurologic/Psychiatric: Reports: no symptoms Endocrine: Reports: unexplained weight gain Hematologic/Lymphatic: Reports: anemia Allergies: Coded Allergies: No Known Allergies (Verified , 11/28/08) Subjective stable, no fevers or chills Objective Last 24 Hour Vital Signs Date Time Temp Pulse Resp B/P Pulse Ox O2 Delivery O2 Flow Rate FiO2 07/12/16 08:07 97.2 57 18 132/52 100 Nasal Cannula 2.0 07/12/16 04:00 97.5 67 18 147/63 100 Nasal Cannula 2.0 07/12/16 00:00 97.7 61 18 114/44 100 Nasal Cannula 2.0 07/11/16 19:00 97.7 60 20 132/56 100 Nasal Cannula 3.0 07/11/16 16:00 96.8 58 20 126/52 100 Nasal Cannula 3.0 07/11/16 12:00 97.2 67 18 128/60 100 Nasal Cannula 2.0 07/11/16 09:54 66 130/57 07/11/16 09:50 66 130/57 Intake and Output 07/11/16 07/12/16 19:00 07:00 Intake Total 1521.208 ml 671.292 ml Output Total 700 ml 850 ml Balance 821.208 ml -178.708 ml Intake Oral 720 ml 220 ml IV Total 801.208 ml 451.292 ml Output Urine Total 700 ml 850 ml Height (Feet): 5 Height (Inches): 6.00 Weight (Pounds): 100 General Appearance: no apparent distress EENT: normal ENT inspection Neck: supple Cardiovascular: regular rhythm Respiratory/Chest: lungs clear Extremities: non-tender Edema: 1+ Leg (L), 1+ Leg (R) Edema: mild edema Neurologic: alert Skin: warm/dry Cristian Saini Jul 12, 2016 09:03
[2016-07-12] MEDS: Atenolol 25mg tab ORAL SCH (09:33)
[2016-07-12] MEDS: Heparin 5000 units/ml inj SUBQ SCH ×2 (09:35→21:16)
[2016-07-12 12:00] VITALS: BP 146/51
--- NOTE | 2016-07-12 13:17 | General Progress Note ---
Assessment/Plan Problem List: (1) CAD (coronary artery disease) ICD Codes: I25.10 - Atherosclerotic heart disease of [place] coronary artery without angina pectoris SNOMED: 00740615 (2) CVA (cerebral vascular accident) ICD Codes: I63.9 - Cerebral infarction, unspecified SNOMED: 990564395 (3) Sepsis ICD Codes: A41.9 - Sepsis, unspecified organism SNOMED: 18984110 (4) Sacral osteomyelitis ICD Codes: M46.28 - Osteomyelitis of vertebra, sacral and sacrococcygeal region SNOMED: 095169612 (5) Sacral decubitus ulcer, stage IV ICD Codes: L89.154 - Pressure ulcer of sacral region, stage 4 SNOMED: 980796826, 694114784 Status: progressing Assessment/Plan afebrile needs weeks of abx s/p i&d of sacral decu osteomylitis sacrum abx per id needs snf placement Subjective ROS Limited/Unobtainable: Yes Allergies: Coded Allergies: No Known Allergies (Verified , 11/28/08) Objective Last 24 Hour Vital Signs Date Time Temp Pulse Resp B/P Pulse Ox O2 Delivery O2 Flow Rate FiO2 07/12/16 12:00 97.8 62 18 146/51 100 Room Air 07/12/16 09:33 67 154/73 07/12/16 08:07 97.2 57 18 132/52 100 Nasal Cannula 2.0 07/12/16 04:00 97.5 67 18 147/63 100 Nasal Cannula 2.0 07/12/16 00:00 97.7 61 18 114/44 100 Nasal Cannula 2.0 07/11/16 19:00 97.7 60 20 132/56 100 Nasal Cannula 3.0 07/11/16 16:00 96.8 58 20 126/52 100 Nasal Cannula 3.0 Intake and Output 07/11/16 07/12/16 19:00 07:00 Intake Total 1521.208 ml 671.292 ml Output Total 700 ml 850 ml Balance 821.208 ml -178.708 ml Intake Oral 720 ml 220 ml IV Total 801.208 ml 451.292 ml Output Urine Total 700 ml 850 ml Height (Feet): 5 Height (Inches): 6.00 Weight (Pounds): 100 General Appearance: confused Cardiovascular: normal rate Respiratory/Chest: lungs clear Claudia Diaz MD Jul 12, 2016 13:17
[2016-07-12 16:00] VITALS: BP 134/42
--- NOTE | 2016-07-12 16:46 | Infectious Diseases Prog Note ---
Assessment/Plan Problems: (1) Sacral osteomyelitis Assessment & Plan: with deep abscesses , had surgical debridement with bone biopsy for culture , will need 6 weeks of iv antibiotics , pending bone culture results (2) Sacral decubitus ulcer, stage IV Assessment & Plan: most likely the source of her sepsis , will continue vancomycin, and switch cefepime and flagyl to zosyn to cover all her wound isolates , MRI showed underlying sacral/coccyx osteomyelitis, with deep abscesses , had excisional debridement of necrotic sacral pressure ulcer with deep open bone biopsy and culture , continue wound care and off loading (3) Sepsis Assessment & Plan: with gram positive cocci in clusture most likely staphylococcus , due to the above, had source control with surgical debridement , on vancomycin, will order echo to rule out vegetations, will treat with vancomycin for 4-6 weeks depending on the results of her echo (4) CAD (coronary artery disease) Assessment & Plan: stable, continue cardiac meds, follow up with cardiology (5) CVA (cerebral vascular accident) Assessment & Plan: stable , follow up with neurology Subjective ROS Limited/Unobtainable: Yes Allergies: Coded Allergies: No Known Allergies (Verified , 11/28/08) Subjective she was up in bed, demented, awake and alert, follows commands , afebrile Objective Vital Signs Last 24 Hour Vital Signs Date Time Temp Pulse Resp B/P Pulse Ox O2 Delivery O2 Flow Rate FiO2 07/12/16 12:00 97.8 62 18 146/51 100 Room Air 07/12/16 09:33 67 154/73 07/12/16 08:07 97.2 57 18 132/52 100 Nasal Cannula 2.0 07/12/16 04:00 97.5 67 18 147/63 100 Nasal Cannula 2.0 07/12/16 00:00 97.7 61 18 114/44 100 Nasal Cannula 2.0 07/11/16 19:00 97.7 60 20 132/56 100 Nasal Cannula 3.0 Height (Feet): 5 Height (Inches): 6.00 Weight (Pounds): 100 General Appearance: WD/WN, no acute distress HEENT: normocephalic, atraumatic, anicteric Respiratory/Chest: chest wall non-tender, lungs clear, normal breath sounds, no respiratory distress, no accessory muscle use Cardiovascular: normal peripheral pulses, normal rate, regular rhythm, no gallop/murmur Abdomen: normal bowel sounds, soft, non tender, no organomegaly, non distended Extremities: no cyanosis, no clubbing Skin: no rash, ulcers Laboratory Tests Test 07/12/16 12:30 Stool Occult Blood Pending Current Medications Medications (Trade) Dose Ordered Sig/Abdirizak Route PRN Reason Start Time Stop Time Status Last Admin Dose Admin Acetaminophen (Tylenol) 650 mg Q4H PRN ORAL fever 07/06/16 19:15 08/05/16 19:14 Al Hydroxide/Mg Hydroxide (Mylanta II) 30 ml Q6H PRN ORAL dyspepsia 07/06/16 19:15 08/05/16 19:14 Atenolol (Tenormin) 25 mg DAILY ORAL 07/07/16 09:00 08/06/16 08:59 07/12/16 09:33 Dextrose (Dextrose 50%) STAT PRN IV Hypoglycemia 07/06/16 19:15 08/05/16 19:14 Heparin Sodium (Porcine) 5000 units 5,000 units EVERY 12 HOURS SUBQ 07/06/16 22:00 08/05/16 21:59 07/12/16 09:35 Insulin Aspart (NovoLOG) BEFORE MEALS AND HS SUBQ 07/06/16 22:00 08/05/16 21:59 07/12/16 12:03 Lorazepam (Ativan 2mg/ml 1ml) 0.5 mg Q4H PRN IV For Anxiety 07/06/16 19:15 07/13/16 19:14 Metronidazole (Flagyl) 500 mg Q8HR ORAL 07/06/16 20:00 07/13/16 19:59 07/12/16 14:03 Morphine Sulfate (Morphine Sulfate) 1 mg EVERY 4 HOURS PRN IVP For Pain 07/06/16 19:15 07/13/16 19:14 07/09/16 16:12 Ondansetron HCl (Zofran) 4 mg Q6H PRN IVP Nausea & Vomiting 07/06/16 19:15 08/05/16 19:14 Piperacillin Sod/ Tazobactam Sod/ Dextrose (Zosyn/D5W) 110 ml @ 27.5 mls/hr EVERY 8 HOURS IVPB 07/11/16 15:00 07/16/16 14:59 07/12/16 14:03 Polyethylene Glycol (Miralax) 17 gm HSPRN PRN ORAL Constipation 07/06/16 19:15 08/05/16 19:14 Sodium Hypochlorite 1 applic 1 applic DAILY TOPIC 07/09/16 09:00 08/08/16 08:59 07/12/16 04:00 Sodium Chloride (Sodium Chloride 1000ml bag) 1,000 ml @ 60 mls/hr [id number] IV 07/06/16 23:30 08/05/16 23:29 07/11/16 20:33 Vancomycin HCl (Vanco rx to dose) 1 ea DAILY PRN MISC . 07/06/16 18:45 08/05/16 18:44 Vancomycin HCl 750 mg/Dextrose 275 ml @ 183.708 mls/hr Q12H IVPB 07/11/16 18:00 07/16/16 17:59 07/12/16 03:57 Zolpidem Tartrate (Ambien) 5 mg HSPRN PRN ORAL Insomnia 07/06/16 19:15 08/05/16 19:14 Kaylah Sandy M.D. Jul 12, 2016 16:46
--- NOTE | 2016-07-12 17:21 | Pulmonology Progress Note ---
Assessment/Plan Assessment/Plan Assessment/Plan Assessment/Plan ASSESSMENT sepsis sacral OM sacral decub st 4, POA with abscess s/p debridement of sacral decub anemia, iron deficiency severe protein calorie malnutrition Hx of CVA CAD severe HTN DM PLAN OF CARE MS floor IVF MRI sacral with suspicion of osteo abx, ID follows, blood cx ECHO ruled out vegetation bone biopsy Venous Duplex CXR O2 HHN prn Subjective Allergies: Coded Allergies: No Known Allergies (Verified , 11/28/08) Objective Last 24 Hour Vital Signs Date Time Temp Pulse Resp B/P Pulse Ox O2 Delivery O2 Flow Rate FiO2 07/12/16 12:00 97.8 62 18 146/51 100 Room Air 07/12/16 09:33 67 154/73 07/12/16 08:07 97.2 57 18 132/52 100 Nasal Cannula 2.0 07/12/16 04:00 97.5 67 18 147/63 100 Nasal Cannula 2.0 07/12/16 00:00 97.7 61 18 114/44 100 Nasal Cannula 2.0 07/11/16 19:00 97.7 60 20 132/56 100 Nasal Cannula 3.0 Intake and Output 07/11/16 07/12/16 19:00 07:00 Intake Total 1521.208 ml 671.292 ml Output Total 700 ml 850 ml Balance 821.208 ml -178.708 ml Intake Oral 720 ml 220 ml IV Total 801.208 ml 451.292 ml Output Urine Total 700 ml 850 ml Objective General Appearance: cachetic Lines, tubes and drains: peripheral HEENT: normocephalic, atraumatic Neck: non-tender, normal alignment Respiratory/Chest: chest wall non-tender, crackles/rales Breasts: no masses Cardiovascular/Chest: normal peripheral pulses, normal rate Abdomen: normal bowel sounds Genitourinary/Rectal: normal genital exam Extremities: normal range of motion, non-tender Skin Exam: rash Lymphatic: axillary (L) Musculoskeletal: atrophy Laboratory Tests 07/12/16 12:30: Stool Occult Blood [Pending] Current Medications Medications (Trade) Dose Ordered Sig/Abdirizak Route PRN Reason Start Time Stop Time Status Last Admin Dose Admin Acetaminophen (Tylenol) 650 mg Q4H PRN ORAL fever 07/06/16 19:15 08/05/16 19:14 Al Hydroxide/Mg Hydroxide (Mylanta II) 30 ml Q6H PRN ORAL dyspepsia 07/06/16 19:15 08/05/16 19:14 Atenolol (Tenormin) 25 mg DAILY ORAL 07/07/16 09:00 08/06/16 08:59 07/12/16 09:33 Dextrose (Dextrose 50%) STAT PRN IV Hypoglycemia 07/06/16 19:15 08/05/16 19:14 Heparin Sodium (Porcine) 5000 units 5,000 units EVERY 12 HOURS SUBQ 07/06/16 22:00 08/05/16 21:59 07/12/16 09:35 Insulin Aspart (NovoLOG) BEFORE MEALS AND HS SUBQ 07/06/16 22:00 08/05/16 21:59 07/12/16 12:03 Lorazepam (Ativan 2mg/ml 1ml) 0.5 mg Q4H PRN IV For Anxiety 07/06/16 19:15 07/13/16 19:14 Morphine Sulfate (Morphine Sulfate) 1 mg EVERY 4 HOURS PRN IVP For Pain 07/06/16 19:15 07/13/16 19:14 07/09/16 16:12 Ondansetron HCl (Zofran) 4 mg Q6H PRN IVP Nausea & Vomiting 07/06/16 19:15 08/05/16 19:14 Piperacillin Sod/ Tazobactam Sod/ Dextrose (Zosyn/D5W) 110 ml @ 27.5 mls/hr EVERY 8 HOURS IVPB 07/11/16 15:00 07/16/16 14:59 07/12/16 14:03 Polyethylene Glycol (Miralax) 17 gm HSPRN PRN ORAL Constipation 07/06/16 19:15 08/05/16 19:14 Sodium Hypochlorite 1 applic 1 applic DAILY TOPIC 07/09/16 09:00 08/08/16 08:59 07/12/16 04:00 Sodium Chloride (Sodium Chloride 1000ml bag) 1,000 ml @ 60 mls/hr [id number] IV 07/06/16 23:30 08/05/16 23:29 07/11/16 20:33 Vancomycin HCl (Vanco rx to dose) 1 ea DAILY PRN MISC . 07/06/16 18:45 08/05/16 18:44 Vancomycin HCl 750 mg/Dextrose 275 ml @ 183.708 mls/hr Q12H IVPB 07/11/16 18:00 07/16/16 17:59 07/12/16 03:57 Zolpidem Tartrate (Ambien) 5 mg HSPRN PRN ORAL Insomnia 07/06/16 19:15 08/05/16 19:14 IVÁN OCHOA Jul 12, 2016 17:21
--- NOTE | 2016-07-12 23:08 | Cardiology Progress Note ---
Assessment/Plan Assessment/Plan 1. Severe with LORENA at 0.7 cm2, no potent afterload reducers, preload dependent. 2. s/p sacral decubitus ulcer debridement. 3. Normal LV function with LVEF at 55%. 4. Hypertension continue atenolol. 5. Anemia. 6. Sacral osteomyelitis 7. CAD, Hx of mild VT, will consider ASA and statin. Subjective Subjective No perioperative cardiac events. POD #4 Objective Last 24 Hour Vital Signs Date Time Temp Pulse Resp B/P Pulse Ox O2 Delivery O2 Flow Rate FiO2 07/12/16 16:00 97.5 58 18 134/42 100 Nasal Cannula 2.0 07/12/16 12:00 97.8 62 18 146/51 100 Room Air 07/12/16 09:33 67 154/73 07/12/16 08:07 97.2 57 18 132/52 100 Nasal Cannula 2.0 07/12/16 04:00 97.5 67 18 147/63 100 Nasal Cannula 2.0 07/12/16 00:00 97.7 61 18 114/44 100 Nasal Cannula 2.0 Intake and Output 07/11/16 07/12/16 19:00 07:00 Intake Total 1521.208 ml 671.292 ml Output Total 700 ml 850 ml Balance 821.208 ml -178.708 ml Intake Oral 720 ml 220 ml IV Total 801.208 ml 451.292 ml Output Urine Total 700 ml 850 ml 2D Echo: EF 55%, Severe LORENA 0.7 cm3, Mild AR, RVSP 29mmHg, Mild LVH Laboratory Tests Test 07/12/16 12:30 07/12/16 17:19 Stool Occult Blood Pending Vancomycin Level Trough 15.8 ug/mL (5.0-12.0) H Objective HEENT: Normocephalic and atraumatic. Pupils are both reactive to light. Moist oral mucosa. No exudate. NECK: Negative JVD, B/L carotid bruit CARDIOVASCULAR: Regular rate and rhythm. 3/6 late ESM at LSB, no gallops or rubs. LUNGS: No wheezing or rhonchi. Diminished breathing sounds at the bases. ABDOMEN: Soft. Nontender. Nondistended. Positive bowel sounds. No hepatosplenomegaly or ascites. EXTREMITIES: She had left heel skin break, no edema, clubbing or cyanosis, sacral decubitus AMANDA,RAGHAVENDRA Jul 12, 2016 23:08
[2016-07-13] VITALS: BP 128/55
[2016-07-13 04:00] VITALS: BP 124/54
[2016-07-13] MEDS: Dakin's 0.25% (Half Strength) 16oz TOPIC SCH (04:10)
[2016-07-13] MEDS: Vancomycin 750mg/D5W 275ml IVPB SCH ×4 (05:02→21:31)
[2016-07-13] MEDS: Piperacillin/Tazobactam 3.375 GM in D5W 110 ML IVPB SCH ×3 (06:00→23:12)
[2016-07-13] MEDS: NovoLOG Insulin Flexpen SUBQ SCH ×4 (06:05→21:34)
[2016-07-13 07:56] VITALS: BP 124/49
[2016-07-13] MEDS: Atenolol 25mg tab ORAL SCH (09:00)
--- NOTE | 2016-07-13 09:37 | General Progress Note ---
Assessment/Plan Assessment/Plan IMPRESSION: 1. Leukocytosis 2/2 underlying infection, osteomyelitis/cellulitis v other cause - has currently improved 2. Anemia of chronic disease, decreased hemoglobin and hematocrit, rule out gi bleed. Ferritin remains elevated 3. Thrombocytosis, reactive process 4. Decubitus ulcer, stage IV. 5. Sepsis and septic shock 6. CVA 7. Failure to thrive. 8. Malnutrition. RECOMMENDATIONS: 1. Watch count. 2. Transfuse to hgb >7 3. Heparin 5000 units sq q12h 4. Stool for occult blood is negative 5. Anemia workup reviewed 6. Does not need iron 7. Antibiotic IV prn 8. Staff Thank you, Cristian Saini MD Subjective Constitutional: Reports: no symptoms HEENT: Reports: no symptoms Cardiovascular: Reports: no symptoms Respiratory: Reports: no symptoms Gastrointestinal/Abdominal: Reports: no symptoms Genitourinary: Reports: no symptoms Neurologic/Psychiatric: Reports: no symptoms Endocrine: Reports: no symptoms Hematologic/Lymphatic: Reports: anemia Allergies: Coded Allergies: No Known Allergies (Verified , 11/28/08) Subjective stable, no fevers or chills, no night sweats Objective Last 24 Hour Vital Signs Date Time Temp Pulse Resp B/P Pulse Ox O2 Delivery O2 Flow Rate FiO2 07/13/16 07:56 97.5 62 18 124/49 98 Room Air 07/13/16 04:00 98.1 67 18 124/54 97 Nasal Cannula 2.0 07/13/16 00:00 98.2 68 18 128/55 97 Room Air 07/12/16 16:00 97.5 58 18 134/42 100 Nasal Cannula 2.0 07/12/16 12:00 97.8 62 18 146/51 100 Room Air Intake and Output 07/12/16 07/13/16 16:59 04:59 Intake Total 1475.0 ml 980.000 ml Output Total 1350 ml 500 ml Balance 125.0 ml 480.000 ml Intake Oral 1060 ml 360 ml IV Total 415.0 ml 620.000 ml Output Urine Total 1350 ml 500 ml Laboratory Tests 07/12/16 12:30: Stool Occult Blood [Pending] 07/12/16 17:19: Vancomycin Level Trough 15.8H Height (Feet): 5 Height (Inches): 6.00 Weight (Pounds): 100 General Appearance: alert EENT: TMs normal Neck: supple Cardiovascular: normal rate Respiratory/Chest: lungs clear Abdomen: non tender Extremities: non-tender Edema: no edema noted Leg (L), no edema noted Leg (R) Edema: mild edema Neurologic: no motor/sensory deficits Skin: warm/dry Cristian Saini Jul 13, 2016 09:37
[2016-07-13] MEDS: Heparin 5000 units/ml inj SUBQ SCH ×2 (10:14→21:33)
--- NOTE | 2016-07-13 10:30 | Cardiology Report ---
APPROVED REPORT EXAM: Two-dimensional and M-mode echocardiogram with Doppler and color Doppler. INDICATION Aortic Valve Disease M-Mode DIMENSIONS IVSd1.2 (0.7-1.1cm)Left Atrium (MM)2.6 (1.6-4.0cm) LVDd3.9 (3.5-5.6cm)Aortic Root2.5 (2.0-3.7cm) PWd1.2 (0.7-1.1cm)Aortic Cusp Exc.1.0 (1.5-2.0cm) LVDs1.8 (2.5-4.0cm) PWs1.5 cm Normal left ventricular chamber size, systolic function and wall motion. Left ventricular ejection fraction estimated to be 50-55 %. Mild left ventricular hypertrophy. Small pericardial effusion. All other cardiac chamber sizes are within normal limits. Aortic valve calcification with decreased cusp excursion c/w severe aortic stenosis. Moderately thickened mitral valve leaflets with normal excursion. Severe mitral annulus and aortic root calcification. Pulmonic valve not well visualized. Normal tricuspid valve structure. IVC at normal size with physiologic collapse. A color flow and spectral Doppler study was performed and revealed: Mild to moderate aortic regurgitation. Peak aortic valve gradient of 64 mmHg and a mean of 38 mmHg. Aortic valve area 0.7 cm2 calculated by continuity equation. Trace mitral regurgitation. Mitral diastolic velocities suggest reduced left ventricular relaxation (Grade I). Mild tricuspid regurgitation. Tricuspid systolic velocities suggests peak right ventricular systolic pressure of 29 mmHg. No pulmonic regurgitation present.
--- NOTE | 2016-07-13 11:01 | General Progress Note ---
Assessment/Plan Problem List: (1) CAD (coronary artery disease) ICD Codes: I25.10 - Atherosclerotic heart disease of [place] coronary artery without angina pectoris SNOMED: 18532484 (2) CVA (cerebral vascular accident) ICD Codes: I63.9 - Cerebral infarction, unspecified SNOMED: 053765745 (3) Sepsis ICD Codes: A41.9 - Sepsis, unspecified organism SNOMED: 49369268 (4) Sacral osteomyelitis ICD Codes: M46.28 - Osteomyelitis of vertebra, sacral and sacrococcygeal region SNOMED: 065439380 (5) Sacral decubitus ulcer, stage IV ICD Codes: L89.154 - Pressure ulcer of sacral region, stage 4 SNOMED: 001995288, 170049226 Status: progressing Assessment/Plan reviewed chart and labs needs weeks of abx s/p i&d of sacral decu osteomylitis sacrum needs snf for iv abx Subjective ROS Limited/Unobtainable: Yes Constitutional: Reports: no symptoms Allergies: Coded Allergies: No Known Allergies (Verified , 11/28/08) Objective Last 24 Hour Vital Signs Date Time Temp Pulse Resp B/P Pulse Ox O2 Delivery O2 Flow Rate FiO2 07/13/16 09:00 58 124/49 07/13/16 07:56 97.5 62 18 124/49 98 Room Air 07/13/16 04:00 98.1 67 18 124/54 97 Nasal Cannula 2.0 07/13/16 00:00 98.2 68 18 128/55 97 Room Air 07/12/16 16:00 97.5 58 18 134/42 100 Nasal Cannula 2.0 07/12/16 12:00 97.8 62 18 146/51 100 Room Air Intake and Output 07/12/16 07/13/16 19:00 07:00 Intake Total 1430.0 ml 1360.000 ml Output Total 900 ml 1200 ml Balance 530.0 ml 160.000 ml Intake Oral 960 ml 460 ml IV Total 470.0 ml 900.000 ml Output Urine Total 900 ml 1200 ml Laboratory Tests 07/12/16 12:30: Stool Occult Blood [Pending] 07/12/16 17:19: Vancomycin Level Trough 15.8H Height (Feet): 5 Height (Inches): 6.00 Weight (Pounds): 100 EENT: PERRL/EOMI Neck: supple Cardiovascular: normal rate Respiratory/Chest: lungs clear Abdomen: soft Claudia Diaz MD Jul 13, 2016 11:01
[2016-07-13 12:00] VITALS: BP 116/57
[2016-07-13] MEDS ORDERED: Lidocaine 1% Plain 30 ml INJ ONE (14:00)
[2016-07-13] MEDS ORDERED: Heparin 2000 units/Ns 1000ml INJ ONE (14:00)
[2016-07-13] MEDS ORDERED: Sodium Bicarbonate 8.4% 50ml Inj IV ONE (14:00)
[2016-07-13 16:25] VITALS: BP 139/56
--- NOTE | 2016-07-13 16:35 | Infectious Diseases Prog Note ---
Assessment/Plan Problems: (1) Sacral osteomyelitis Assessment & Plan: with deep abscesses , S/P surgical debridement with bone biopsy culture grew streptococcus spp , will treat with zosyn for 6 weeks , need PICC line for fpc antibiotics therapy. continue local wound care and off loading .follow up with plastic surgery for possible flap closure in the future (2) Sacral decubitus ulcer, stage IV Assessment & Plan: most likely the source of her sepsis , on vancomycin, and zosyn to cover all her wound isolates , MRI showed underlying sacral/coccyx osteomyelitis, with deep abscesses , had excisional debridement of necrotic sacral pressure ulcer with deep open bone biopsy and culture , continue wound care and off loading , follow up with plastic surgery for possible flap closure in the future to prevent further contamination and recurrent infection (3) Sepsis Assessment & Plan: with coag negative staphylococcus , most likely from her sacral wound, had source control with surgical debridement, on vancomycin, echo ruled out vegetations, will treat with vancomycin for 4 weeks , and repeat blood culture to confirm clearance (4) CAD (coronary artery disease) Assessment & Plan: stable, continue cardiac meds, follow up with cardiology (5) CVA (cerebral vascular accident) Assessment & Plan: stable , follow up with neurology Subjective ROS Limited/Unobtainable: Yes Allergies: Coded Allergies: No Known Allergies (Verified , 11/28/08) Subjective she was lying in bed , comfortable, demented, awake and alert, follows commands , afebrile Objective Vital Signs Last 24 Hour Vital Signs Date Time Temp Pulse Resp B/P Pulse Ox O2 Delivery O2 Flow Rate FiO2 07/13/16 16:25 97.9 139/56 96 Room Air 07/13/16 12:00 97.7 60 18 116/57 99 Room Air 07/13/16 09:00 58 124/49 07/13/16 07:56 97.5 62 18 124/49 98 Room Air 07/13/16 04:00 98.1 67 18 124/54 97 Nasal Cannula 2.0 07/13/16 00:00 98.2 68 18 128/55 97 Room Air Height (Feet): 5 Height (Inches): 6.00 Weight (Pounds): 100 General Appearance: WD/WN, no acute distress HEENT: normocephalic, atraumatic, anicteric, mucous membranes moist Respiratory/Chest: chest wall non-tender, lungs clear, normal breath sounds, no respiratory distress, no accessory muscle use Cardiovascular: normal peripheral pulses, normal rate, regular rhythm, no gallop/murmur Abdomen: normal bowel sounds, soft, non tender, no organomegaly, non distended , no mass Extremities: no cyanosis, no clubbing Skin: no rash, ulcers Laboratory Tests Test 07/12/16 17:19 Vancomycin Level Trough 15.8 ug/mL (5.0-12.0) H Current Medications Medications (Trade) Dose Ordered Sig/Abdirizak Route PRN Reason Start Time Stop Time Status Last Admin Dose Admin Acetaminophen (Tylenol) 650 mg Q4H PRN ORAL fever 07/06/16 19:15 08/05/16 19:14 Al Hydroxide/Mg Hydroxide (Mylanta II) 30 ml Q6H PRN ORAL dyspepsia 07/06/16 19:15 08/05/16 19:14 Atenolol (Tenormin) 25 mg DAILY ORAL 07/07/16 09:00 08/06/16 08:59 07/12/16 09:33 Dextrose (Dextrose 50%) STAT PRN IV Hypoglycemia 07/06/16 19:15 08/05/16 19:14 Heparin Sodium (Porcine) 5000 units 5,000 units EVERY 12 HOURS SUBQ 07/06/16 22:00 08/05/16 21:59 07/13/16 10:14 Insulin Aspart (NovoLOG) BEFORE MEALS AND HS SUBQ 07/06/16 22:00 08/05/16 21:59 07/13/16 06:05 Lorazepam (Ativan 2mg/ml 1ml) 0.5 mg Q4H PRN IV For Anxiety 07/06/16 19:15 07/13/16 19:14 Morphine Sulfate (Morphine Sulfate) 1 mg EVERY 4 HOURS PRN IVP For Pain 07/06/16 19:15 07/13/16 19:14 07/09/16 16:12 Ondansetron HCl (Zofran) 4 mg Q6H PRN IVP Nausea & Vomiting 07/06/16 19:15 08/05/16 19:14 Piperacillin Sod/ Tazobactam Sod/ Dextrose (Zosyn/D5W) 110 ml @ 27.5 mls/hr EVERY 8 HOURS IVPB 07/11/16 15:00 07/16/16 14:59 07/13/16 14:25 Polyethylene Glycol (Miralax) 17 gm HSPRN PRN ORAL Constipation 07/06/16 19:15 08/05/16 19:14 Sodium Hypochlorite 1 applic 1 applic DAILY TOPIC 07/09/16 09:00 08/08/16 08:59 07/13/16 04:10 Sodium Chloride (Sodium Chloride 1000ml bag) 1,000 ml @ 60 mls/hr [id number] IV 07/06/16 23:30 08/05/16 23:29 07/11/16 20:33 Vancomycin HCl (Vanco rx to dose) 1 ea DAILY PRN MISC . 07/06/16 18:45 08/05/16 18:44 Vancomycin HCl 750 mg/Dextrose 275 ml @ 183.708 mls/hr Q12H IVPB 07/11/16 18:00 07/16/16 17:59 07/13/16 05:02 Zolpidem Tartrate (Ambien) 5 mg HSPRN PRN ORAL Insomnia 07/06/16 19:15 08/05/16 19:14 Kaylah Sandy M.D. Jul 13, 2016 16:35
[2016-07-13 20:00] VITALS: BP 155/82
--- NOTE | 2016-07-13 20:07 | General Progress Note ---
Assessment/Plan Status: stable Assessment/Plan Patient with large stage 4 sacral pressure ulcer. She has osteomyelitis and will need to be on long term care pharmacist antibiotics per ID. Main issue at this time is the poor nutrition. If she is not able to be fed orally, may need to consider feeding tube. Recommend database management specialist input to see how to optimize oral intake. Continue current dressings. If she is discharged home, will follow up at wound center at [place] in order to continue to manage her wound. No acute surgical intervention necessary at this time. Subjective Date patient seen: Jul 13, 2016 Time patient seen: 20:02 ROS Limited/Unobtainable: Yes Allergies: Coded Allergies: No Known Allergies (Verified , 11/28/08) Subjective Patient is POD#5 s/p excisional debridement of sacral ulcer and bone biopsy. Her bone biopsy was + for strep species and she is being followed by ID. Her prealbumin level is extremely low at 5. Objective Last 24 Hour Vital Signs Date Time Temp Pulse Resp B/P Pulse Ox O2 Delivery O2 Flow Rate FiO2 07/13/16 16:25 97.9 139/56 96 Room Air 07/13/16 12:00 97.7 60 18 116/57 99 Room Air 07/13/16 09:00 58 124/49 07/13/16 07:56 97.5 62 18 124/49 98 Room Air 07/13/16 04:00 98.1 67 18 124/54 97 Nasal Cannula 2.0 07/13/16 00:00 98.2 68 18 128/55 97 Room Air Intake and Output 07/12/16 07/13/16 19:00 07:00 Intake Total 1430.0 ml 1360.000 ml Output Total 900 ml 1200 ml Balance 530.0 ml 160.000 ml Intake Oral 960 ml 460 ml IV Total 470.0 ml 900.000 ml Output Urine Total 900 ml 1200 ml Height (Feet): 5 Height (Inches): 6.00 Weight (Pounds): 100 General Appearance: no apparent distress Abdomen: non tender, soft Skin: other - Stage 4 sacral ulcer with clean base. Bone exposed at the base. Granulation tissue beginning to form. No necrotic tissue visible. No purulent drainage. DEVANTE LE Jul 13, 2016 20:07
--- NOTE | 2016-07-13 22:32 | Pulmonology Progress Note ---
Assessment/Plan Assessment/Plan Assessment/Plan Assessment/Plan ASSESSMENT sepsis sacral OM sacral decub st 4, POA with abscess s/p debridement of sacral decub anemia, iron deficiency severe protein calorie malnutrition Hx of CVA CAD severe HTN DM PLAN OF CARE [facility] floor IVF MRI sacral with suspicion of osteo abx, ID follows, will need total 4 weeks of abx till 08/10 as per ID repeated blood cx preliminary negative ( initial + SCON) ECHO rule out vegetation bone biopsy Venous Duplex Subjective ROS Limited/Unobtainable: Yes Constitutional: Reports: anorexia, chills, fatigue, fever Allergies: Coded Allergies: No Known Allergies (Verified , 11/28/08) Objective Last 24 Hour Vital Signs Date Time Temp Pulse Resp B/P Pulse Ox O2 Delivery O2 Flow Rate FiO2 07/13/16 20:00 97.9 82 20 155/82 95 Room Air 07/13/16 16:25 97.9 139/56 96 Room Air 07/13/16 12:00 97.7 60 18 116/57 99 Room Air 07/13/16 09:00 58 124/49 07/13/16 07:56 97.5 62 18 124/49 98 Room Air 07/13/16 04:00 98.1 67 18 124/54 97 Nasal Cannula 2.0 07/13/16 00:00 98.2 68 18 128/55 97 Room Air Intake and Output 07/12/16 07/13/16 19:00 07:00 Intake Total 1430.0 ml 1360.000 ml Output Total 900 ml 1200 ml Balance 530.0 ml 160.000 ml Intake Oral 960 ml 460 ml IV Total 470.0 ml 900.000 ml Output Urine Total 900 ml 1200 ml General Appearance: no acute distress HEENT: normocephalic, atraumatic, PERRL Respiratory/Chest: chest wall non-tender, decreased breath sounds, accessory muscle use, crackles/rales, rhonchi Cardiovascular: normal peripheral pulses, normal rate, regular rhythm, no JVD Abdomen: normal bowel sounds, soft, non tender, no organomegaly Genitourinary: normal external genitalia Extremities: no cyanosis Skin: rash, lesions, ulcers 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, 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 Current Medications Medications (Trade) Dose Ordered Sig/Abdirizak Route PRN Reason Start Time Stop Time Status Last Admin Dose Admin Acetaminophen (Tylenol) 650 mg Q4H PRN ORAL fever 07/06/16 19:15 08/05/16 19:14 Al Hydroxide/Mg Hydroxide (Mylanta II) 30 ml Q6H PRN ORAL dyspepsia 07/06/16 19:15 08/05/16 19:14 Atenolol (Tenormin) 25 mg DAILY ORAL 07/07/16 09:00 08/06/16 08:59 07/12/16 09:33 Dextrose (Dextrose 50%) STAT PRN IV Hypoglycemia 07/06/16 19:15 08/05/16 19:14 Heparin Sodium (Porcine) 5000 units 5,000 units EVERY 12 HOURS SUBQ 07/06/16 22:00 08/05/16 21:59 07/13/16 21:33 Insulin Aspart (NovoLOG) BEFORE MEALS AND HS SUBQ 07/06/16 22:00 08/05/16 21:59 07/13/16 21:34 Ondansetron HCl (Zofran) 4 mg Q6H PRN IVP Nausea & Vomiting 07/06/16 19:15 08/05/16 19:14 Piperacillin Sod/ Tazobactam Sod 3.375 gm/Dextrose 110 ml @ 27.5 mls/hr EVERY 8 HOURS IVPB 07/11/16 15:00 07/16/16 14:59 07/13/16 14:25 Polyethylene Glycol (Miralax) 17 gm HSPRN PRN ORAL Constipation 07/06/16 19:15 08/05/16 19:14 Sodium Hypochlorite 1 applic 1 applic DAILY TOPIC 07/09/16 09:00 08/08/16 08:59 07/13/16 04:10 Sodium Chloride (Sodium Chloride 1000ml bag) 1,000 ml @ 60 mls/hr [id number] IV 07/06/16 23:30 08/05/16 23:29 07/13/16 21:32 Vancomycin HCl (Vanco rx to dose) 1 ea DAILY PRN MISC . 07/06/16 18:45 08/05/16 18:44 Vancomycin HCl 750 mg/Dextrose 275 ml @ 183.708 mls/hr Q12H IVPB 07/11/16 18:00 07/14/16 00:00 07/13/16 21:31 Vancomycin HCl/ Dextrose (Vancomycin/D5W) 275 ml @ 183.708 mls/hr Q12HR@0900,2100 IVPB 07/14/16 09:00 07/19/16 08:59 Zolpidem Tartrate (Ambien) 5 mg HSPRN PRN ORAL Insomnia 07/06/16 19:15 08/05/16 19:14 IVÁN OCHOA Jul 13, 2016 22:32
--- NOTE | 2016-07-13 23:53 | Cardiology Progress Note ---
Assessment/Plan Assessment/Plan 1. Severe with LORENA at 0.7 cm2. 2. s/p sacral decubitus ulcer debridement, POD #5, no perioperative cardiac events. 3. Normal LV function with LVEF at 55%. 4. Hypertension continue atenolol. 5. Anemia. 6. Sacral osteomyelitis 7. CAD, Hx of mild NM, will consider ASA and statin. Subjective Subjective No perioperative cardiac events. POD #5 Objective Last 24 Hour Vital Signs Date Time Temp Pulse Resp B/P Pulse Ox O2 Delivery O2 Flow Rate FiO2 07/13/16 20:00 97.9 82 20 155/82 95 Room Air 07/13/16 16:25 97.9 139/56 96 Room Air 07/13/16 12:00 97.7 60 18 116/57 99 Room Air 07/13/16 09:00 58 124/49 07/13/16 07:56 97.5 62 18 124/49 98 Room Air 07/13/16 04:00 98.1 67 18 124/54 97 Nasal Cannula 2.0 07/13/16 00:00 98.2 68 18 128/55 97 Room Air Intake and Output 07/12/16 07/13/16 19:00 07:00 Intake Total 1430.0 ml 1360.000 ml Output Total 900 ml 1200 ml Balance 530.0 ml 160.000 ml Intake Oral 960 ml 460 ml IV Total 470.0 ml 900.000 ml Output Urine Total 900 ml 1200 ml 2D Echo: EF 55%, Severe LORENA 0.7 cm3, Mild AR, RVSP 29mmHg, Mild LV Objective HEENT: Normocephalic and atraumatic. Pupils are both reactive to light. Moist oral mucosa. No exudate. NECK: Negative JVD, B/L carotid bruit CARDIOVASCULAR: Regular rate and rhythm. 3/6 late ESM at LSB, no gallops or rubs. LUNGS: No wheezing or rhonchi. Diminished breathing sounds at the bases. ABDOMEN: Soft. Nontender. Nondistended. Positive bowel sounds. No hepatosplenomegaly or ascites. EXTREMITIES: She had left heel skin break, no edema, clubbing or cyanosis, sacral decubitus RAGHAVENDRA PATEL Jul 13, 2016 23:53
[2016-07-14 04:00] VITALS: BP 164/68
[2016-07-14] MEDS: Dakin's 0.25% (Half Strength) 16oz TOPIC SCH (04:23)
[2016-07-14 05:30] VITALS: BP 150/60
[2016-07-14] MEDS: Piperacillin/Tazobactam 3.375 GM in D5W 110 ML IVPB SCH ×3 (06:03→22:41)
[2016-07-14] MEDS: NovoLOG Insulin Flexpen SUBQ SCH ×4 (06:09→21:45)
[2016-07-14 08:00] VITALS: BP 131/57
[2016-07-14] MEDS: Vancomycin 750mg/D5W 275ml IVPB SCH ×4 (08:09→21:37)
[2016-07-14] MEDS: Atenolol 25mg tab ORAL SCH (08:09)
[2016-07-14] MEDS: Heparin 5000 units/ml inj SUBQ SCH ×2 (08:10→21:45)
--- NOTE | 2016-07-14 08:29 | General Progress Note ---
Assessment/Plan Assessment/Plan IMPRESSION: 1. Leukocytosis 2/2 underlying infection, osteomyelitis/cellulitis v other cause - is improved, monitoring 2. Anemia of chronic disease, decreased hemoglobin and hematocrit, rule out gi bleed. Ferritin remains elevated 3. Thrombocytosis, reactive process 4. Decubitus ulcer, stage IV. 5. Sepsis and septic shock 6. CVA 7. Failure to thrive. 8. Malnutrition. RECOMMENDATIONS: 1. Watch count. 2. Transfuse to hgb >7 3. Heparin 5000 units sq q12h 4. Stool for occult blood is negative 5. Anemia workup reviewed 6. Does not need iron 7. Antibiotic IV prn 8. Staff Thank you, Cristian Saini MD Subjective Constitutional: Reports: no symptoms HEENT: Reports: no symptoms Cardiovascular: Reports: no symptoms Respiratory: Reports: no symptoms Gastrointestinal/Abdominal: Reports: poor appetite Genitourinary: Reports: no symptoms Neurologic/Psychiatric: Reports: no symptoms Endocrine: Reports: no symptoms Hematologic/Lymphatic: Reports: anemia Allergies: Coded Allergies: No Known Allergies (Verified , 11/28/08) Subjective stable, no fevers or chills, no night sweats reported Objective Last 24 Hour Vital Signs Date Time Temp Pulse Resp B/P Pulse Ox O2 Delivery O2 Flow Rate FiO2 07/14/16 08:09 72 150/60 07/14/16 05:30 150/60 07/14/16 04:00 98.2 72 18 164/68 97 Room Air 07/13/16 20:00 97.9 82 20 155/82 95 Room Air 07/13/16 16:25 97.9 139/56 96 Room Air 07/13/16 12:00 97.7 60 18 116/57 99 Room Air 07/13/16 09:00 58 124/49 Intake and Output 07/13/16 07/14/16 19:00 07:00 Intake Total 322.5 ml 695.000 ml Output Total 1100 ml 850 ml Balance -777.5 ml -155.000 ml Intake Oral 240 ml 120 ml IV Total 82.5 ml 575.000 ml Output Urine Total 1100 ml 850 ml # Bowel Movements 1 Height (Feet): 5 Height (Inches): 6.00 Weight (Pounds): 100 General Appearance: alert EENT: TMs normal Neck: supple Cardiovascular: normal rate Respiratory/Chest: lungs clear Abdomen: soft Extremities: non-tender Edema: 1+ Leg (L), 1+ Leg (R) Edema: mild edema Neurologic: alert Skin: warm/dry Cristian Saini Jul 14, 2016 08:29
[2016-07-14 12:00] VITALS: BP 137/62
--- NOTE | 2016-07-14 13:03 | General Progress Note ---
Assessment/Plan Problem List: (1) CAD (coronary artery disease) ICD Codes: I25.10 - Atherosclerotic heart disease of [place] coronary artery without angina pectoris SNOMED: 62157183 (2) CVA (cerebral vascular accident) ICD Codes: I63.9 - Cerebral infarction, unspecified SNOMED: 663618903 (3) Sepsis ICD Codes: A41.9 - Sepsis, unspecified organism SNOMED: 35552287 (4) Sacral osteomyelitis ICD Codes: M46.28 - Osteomyelitis of vertebra, sacral and sacrococcygeal region SNOMED: 775358012 (5) Sacral decubitus ulcer, stage IV ICD Codes: L89.154 - Pressure ulcer of sacral region, stage 4 SNOMED: 443870350, 215640572 Status: progressing Assessment/Plan osteomylitis sacral decubi&d need weeks of iv abx not safe to go home Subjective ROS Limited/Unobtainable: Yes Allergies: Coded Allergies: No Known Allergies (Verified , 11/28/08) Objective Last 24 Hour Vital Signs Date Time Temp Pulse Resp B/P Pulse Ox O2 Delivery O2 Flow Rate FiO2 07/14/16 08:09 72 150/60 07/14/16 08:00 96.4 64 17 131/57 100 Nasal Cannula 2.0 07/14/16 05:30 150/60 07/14/16 04:00 98.2 72 18 164/68 97 Room Air 07/13/16 20:00 97.9 82 20 155/82 95 Room Air 07/13/16 16:25 97.9 139/56 96 Room Air Intake and Output 07/13/16 07/14/16 19:00 07:00 Intake Total 322.5 ml 755.000 ml Output Total 1100 ml 850 ml Balance -777.5 ml -95.000 ml Intake Oral 240 ml 120 ml IV Total 82.5 ml 635.000 ml Output Urine Total 1100 ml 850 ml # Bowel Movements 1 Height (Feet): 5 Height (Inches): 6.00 Weight (Pounds): 100 General Appearance: confused Neck: supple Cardiovascular: normal rate Respiratory/Chest: lungs clear Claudia Diaz MD Jul 14, 2016 13:03
--- NOTE | 2016-07-14 15:45 | Infectious Diseases Prog Note ---
Assessment/Plan Problems: (1) Sacral osteomyelitis Assessment & Plan: with deep abscesses , S/P surgical debridement with bone biopsy culture grew streptococcus spp , will treat with zosyn for 6 weeks , EOT 08/19/16. continue local wound care and off loading .follow up with plastic surgery for possible flap closure in the future (2) Sacral decubitus ulcer, stage IV Assessment & Plan: most likely the source of her sepsis , on vancomycin, and zosyn to cover all her wound isolates , MRI showed underlying sacral/coccyx osteomyelitis, with deep abscesses , had excisional debridement of necrotic sacral pressure ulcer with deep open bone biopsy and culture , continue wound care and off loading , follow up with plastic surgery for possible flap closure in the future to prevent further contamination and recurrent infection (3) Sepsis Assessment & Plan: with coag negative staphylococcus , most likely from her sacral wound, had source control with surgical debridement, on vancomycin, echo ruled out vegetations, will treat with vancomycin for 4 weeks , and repeat blood culture to confirm clearance . EOT 08/10/16. (4) CAD (coronary artery disease) Assessment & Plan: stable, continue cardiac meds, follow up with cardiology (5) CVA (cerebral vascular accident) Assessment & Plan: stable , follow up with neurology Subjective ROS Limited/Unobtainable: Yes Allergies: Coded Allergies: No Known Allergies (Verified , 11/28/08) Subjective she was lying in bed , comfortable, awake and alert, follows commands , afebrile Objective Vital Signs Last 24 Hour Vital Signs Date Time Temp Pulse Resp B/P Pulse Ox O2 Delivery O2 Flow Rate FiO2 07/14/16 12:00 96.8 77 18 137/62 98 Nasal Cannula 2.0 07/14/16 08:09 72 150/60 07/14/16 08:00 96.4 64 17 131/57 100 Nasal Cannula 2.0 07/14/16 05:30 150/60 07/14/16 04:00 98.2 72 18 164/68 97 Room Air 07/13/16 20:00 97.9 82 20 155/82 95 Room Air 07/13/16 16:25 97.9 139/56 96 Room Air Height (Feet): 5 Height (Inches): 6.00 Weight (Pounds): 100 General Appearance: WD/WN, no acute distress HEENT: normocephalic, atraumatic, anicteric, mucous membranes moist Respiratory/Chest: chest wall non-tender, lungs clear, normal breath sounds, no respiratory distress, no accessory muscle use Cardiovascular: normal peripheral pulses, normal rate, regular rhythm, no gallop/murmur Abdomen: normal bowel sounds, soft, non tender, no organomegaly, non distended , no mass Extremities: no cyanosis, no clubbing Skin: no rash, no lesions, ulcers Current Medications Medications (Trade) Dose Ordered Sig/Abdirizak Route PRN Reason Start Time Stop Time Status Last Admin Dose Admin Acetaminophen (Tylenol) 650 mg Q4H PRN ORAL fever 07/06/16 19:15 08/05/16 19:14 Al Hydroxide/Mg Hydroxide (Mylanta II) 30 ml Q6H PRN ORAL dyspepsia 07/06/16 19:15 08/05/16 19:14 Atenolol (Tenormin) 25 mg DAILY ORAL 07/07/16 09:00 08/06/16 08:59 07/14/16 08:09 Dextrose (Dextrose 50%) STAT PRN IV Hypoglycemia 07/06/16 19:15 08/05/16 19:14 Heparin Sodium (Porcine) 5000 units 5,000 units EVERY 12 HOURS SUBQ 07/06/16 22:00 08/05/16 21:59 07/14/16 08:10 Insulin Aspart (NovoLOG) BEFORE MEALS AND HS SUBQ 07/06/16 22:00 08/05/16 21:59 07/14/16 11:41 Ondansetron HCl (Zofran) 4 mg Q6H PRN IVP Nausea & Vomiting 07/06/16 19:15 08/05/16 19:14 Piperacillin Sod/ Tazobactam Sod 3.375 gm/Dextrose 110 ml @ 27.5 mls/hr EVERY 8 HOURS IVPB 07/11/16 15:00 07/16/16 14:59 07/14/16 13:55 Polyethylene Glycol (Miralax) 17 gm HSPRN PRN ORAL Constipation 07/06/16 19:15 08/05/16 19:14 Sodium Hypochlorite 1 applic 1 applic DAILY TOPIC 07/09/16 09:00 08/08/16 08:59 07/14/16 04:23 Sodium Chloride (Sodium Chloride 1000ml bag) 1,000 ml @ 60 mls/hr [id number] 07/06/16 23:30 08/05/16 23:29 07/13/16 21:32 Vancomycin HCl (Vanco rx to dose) 1 ea DAILY PRN MISC . 07/06/16 18:45 08/05/16 18:44 Vancomycin HCl/ Dextrose (Vancomycin/D5W) 275 ml @ 183.708 mls/hr Q12HR@0900,2100 IVPB 07/14/16 09:00 07/19/16 08:59 07/14/16 08:09 Zolpidem Tartrate (Ambien) 5 mg HSPRN PRN ORAL Insomnia 07/06/16 19:15 08/05/16 19:14 Kaylah Sandy M.D. Jul 14, 2016 15:45
[2016-07-14 16:00] VITALS: BP 158/65
--- NOTE | 2016-07-14 16:11 | Diagnostic Imaging Report ---
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 The right upper extremity was prepped with alcohol. All elements of maximal sterile barrier technique were followed including usage of a cap, mask, sterile gown, sterile gloves, hand hygiene and a large sterile sheet. Sonographic evaluation of the upper extremity was performed demonstrating a patent and compressible brachial vein. Access was obtained under real-time ultrasound guidance and digital image was saved and archived. An .018 wire was introduced. Needle exchanged for a 5 [place] peel-away sheath. Measurements were obtained. A 5 [place] dual-lumen Power PICC line catheter was cut to 35 cm and introduced over the wire. Peel-away sheath and wire were removed.Catheter was secured to the skin using 2-0 Prolene suture. Both ports aspirate and flush easily. Fluoroscopic Images show distal tip in the superior vena cava. Impression: Successful placement of an upper extremity PICC line catheter
[2016-07-14 20:00] VITALS: BP 143/62
--- NOTE | 2016-07-14 23:06 | Cardiology Progress Note ---
Assessment/Plan Assessment/Plan 1. Severe with LORENA at 0.7 cm2. 2. s/p stage IV sacral decubitus with abscess formation debridement, POD #5, no perioperative cardiac events. 3. Normal LV function with LVEF at 55%. 4. Hypertension continue atenolol. 5. Anemia. 6. Sacral osteomyelitis 7. CAD, Hx of mild [place], will consider ASA and statin. Subjective Subjective No perioperative cardiac events. POD #6 Objective Last 24 Hour Vital Signs Date Time Temp Pulse Resp B/P Pulse Ox O2 Delivery O2 Flow Rate FiO2 07/14/16 20:00 97.0 60 21 143/62 100 Room Air 07/14/16 16:00 98.5 62 18 158/65 100 Room Air 07/14/16 12:00 96.8 77 18 137/62 98 Nasal Cannula 2.0 07/14/16 08:09 72 150/60 07/14/16 08:00 96.4 64 17 131/57 100 Nasal Cannula 2.0 07/14/16 05:30 150/60 07/14/16 04:00 98.2 72 18 164/68 97 Room Air Intake and Output 07/13/16 07/14/16 19:00 07:00 Intake Total 322.5 ml 755.000 ml Output Total 1100 ml 850 ml Balance -777.5 ml -95.000 ml Intake Oral 240 ml 120 ml IV Total 82.5 ml 635.000 ml Output Urine Total 1100 ml 850 ml # Bowel Movements 1 2D Echo: EF 55%, Severe LORENA 0.7 cm3, Mild AR, RVSP 29mmHg, Mild LV Objective HEENT: Normocephalic and atraumatic. Pupils are both reactive to light. Moist oral mucosa. No exudate. NECK: Negative JVD, B/L carotid bruit CARDIOVASCULAR: Regular rate and rhythm. 3/6 late ESM at LSB, no gallops or rubs. LUNGS: No wheezing or rhonchi. Diminished breathing sounds at the bases. ABDOMEN: Soft. Nontender. Nondistended. Positive bowel sounds. No hepatosplenomegaly or ascites. EXTREMITIES: She had left heel skin break, no edema, clubbing or cyanosis, sacral decubitus RAGHAVENDRA PATEL Jul 14, 2016 23:06
[2016-07-15] VITALS (7 sets, daily range): BP systolic 122–160; BP diastolic 47–74
[2016-07-15] MEDS: Piperacillin/Tazobactam 3.375 GM in D5W 110 ML IVPB SCH ×3 (05:00→21:13)
[2016-07-15] MEDS: NovoLOG Insulin Flexpen SUBQ SCH ×4 (06:04→20:44)
[2016-07-15] MEDS: Vancomycin 750mg/D5W 275ml IVPB SCH ×2 (09:05)
[2016-07-15] MEDS: Dakin's 0.25% (Half Strength) 16oz TOPIC SCH (09:06)
[2016-07-15] MEDS: Atenolol 25mg tab ORAL SCH (09:06)
[2016-07-15] MEDS: Heparin 5000 units/ml inj SUBQ SCH ×2 (09:14→20:44)
--- NOTE | 2016-07-15 13:10 | General Progress Note ---
Assessment/Plan Assessment/Plan IMPRESSION: 1. Leukocytosis 2/2 underlying infection, osteomyelitis/cellulitis v other cause - is improved, monitoring 2. Anemia of chronic disease, decreased hemoglobin and hematocrit, rule out gi bleed. Ferritin elevated 3. Thrombocytosis, reactive process 4. Decubitus ulcer, stage IV. 5. Sepsis and septic shock 6. CVA 7. Failure to thrive. 8. Malnutrition. RECOMMENDATIONS: 1. Watch count. 2. Transfuse to hgb >7 3. Heparin 5000 units sq q12h 4. Stool for occult blood is negative 5. Anemia workup reviewed 6. Does not need iron 7. Antibiotics IV prn 8. Staff Thank you, Cristian Saini MD Subjective Constitutional: Reports: no symptoms HEENT: Reports: no symptoms Cardiovascular: Reports: no symptoms Respiratory: Reports: no symptoms Gastrointestinal/Abdominal: Reports: no symptoms Genitourinary: Reports: no symptoms Neurologic/Psychiatric: Reports: no symptoms Endocrine: Reports: no symptoms Hematologic/Lymphatic: Reports: anemia Allergies: Coded Allergies: No Known Allergies (Verified , 11/28/08) Subjective stable, no fevers or chills, no night sweats have been reported Objective Last 24 Hour Vital Signs Date Time Temp Pulse Resp B/P Pulse Ox O2 Delivery O2 Flow Rate FiO2 07/15/16 11:44 97.1 67 18 124/58 100 Room Air 07/15/16 10:14 122/47 07/15/16 09:06 61 131/57 07/15/16 08:00 97.3 76 20 160/74 94 Room Air 07/15/16 03:58 97.7 61 18 131/57 99 Nasal Cannula 2.0 07/15/16 00:00 97.7 67 18 140/60 98 Nasal Cannula 2.0 07/14/16 20:00 97.0 60 21 143/62 100 Room Air 07/14/16 16:00 98.5 62 18 158/65 100 Room Air Intake and Output 07/14/16 07/15/16 19:00 07:00 Intake Total 1677.4 ml 1420.000 ml Output Total 900 ml 1950 ml Balance 777.4 ml -530.000 ml Intake Oral 720 ml 350 ml IV Total 957.4 ml 1070.000 ml Output Urine Total 900 ml 1950 ml # Voids 1 Height (Feet): 5 Height (Inches): 6.00 Weight (Pounds): 100 General Appearance: no apparent distress EENT: TMs normal Neck: supple Cardiovascular: regular rhythm Respiratory/Chest: lungs clear Abdomen: no mass Extremities: non-tender Edema: 1+ Leg (L), 1+ Leg (R) Edema: mild edema Neurologic: no motor/sensory deficits Skin: warm/dry Cristian Saini Jul 15, 2016 13:10
--- NOTE | 2016-07-15 14:49 | General Progress Note ---
Assessment/Plan Problem List: (1) CAD (coronary artery disease) ICD Codes: I25.10 - Atherosclerotic heart disease of [place] coronary artery without angina pectoris SNOMED: 37711384 (2) CVA (cerebral vascular accident) ICD Codes: I63.9 - Cerebral infarction, unspecified SNOMED: 044712306 (3) Sepsis ICD Codes: A41.9 - Sepsis, unspecified organism SNOMED: 38981445 (4) Sacral osteomyelitis ICD Codes: M46.28 - Osteomyelitis of vertebra, sacral and sacrococcygeal region SNOMED: 282998050 (5) Sacral decubitus ulcer, stage IV ICD Codes: L89.154 - Pressure ulcer of sacral region, stage 4 SNOMED: 089165423, 562061509 Status: progressing Assessment/Plan osteomylitis sacral decubi&d need weeks of iv abx not safe to go home needs snf however daughter refuses snf so have no choice but to send home w hh per request of dpoa dpoa is made aware of consuquences and pros and cons of patient going home and understands the consequences of patient going home however still insists on sending her home so will dc home w hh once cleared by id abx per id Subjective ROS Limited/Unobtainable: Yes Allergies: Coded Allergies: No Known Allergies (Verified , 11/28/08) Objective Last 24 Hour Vital Signs Date Time Temp Pulse Resp B/P Pulse Ox O2 Delivery O2 Flow Rate FiO2 07/15/16 11:44 97.1 67 18 124/58 100 Room Air 07/15/16 10:14 122/47 07/15/16 09:06 61 131/57 07/15/16 08:00 97.3 76 20 160/74 94 Room Air 07/15/16 03:58 97.7 61 18 131/57 99 Nasal Cannula 2.0 07/15/16 00:00 97.7 67 18 140/60 98 Nasal Cannula 2.0 07/14/16 20:00 97.0 60 21 143/62 100 Room Air 07/14/16 16:00 98.5 62 18 158/65 100 Room Air Intake and Output 07/14/16 07/15/16 19:00 07:00 Intake Total 1677.4 ml 1420.000 ml Output Total 900 ml 1950 ml Balance 777.4 ml -530.000 ml Intake Oral 720 ml 350 ml IV Total 957.4 ml 1070.000 ml Output Urine Total 900 ml 1950 ml # Voids 1 Height (Feet): 5 Height (Inches): 6.00 Weight (Pounds): 100 General Appearance: confused Cardiovascular: normal rate Respiratory/Chest: lungs clear Abdomen: soft Claudia Diaz MD Jul 15, 2016 14:49
[2016-07-15 16:57] LABS: BASOPHILS % (AUTO) 0.7 % (0.0-2.0); EOSINOPHILS % (AUTO) 1.8 % (0.0-3.0); LYMPHOCYTES % (AUTO) 18.5 % (20.0-45.0); MEAN CORPUSCULAR HEMOGLOBIN 27.5 PG (27.0-31.0); MEAN CORPUSCULAR HGB CONC 30.2 G/DL (32.0-36.0); MEAN CORPUSCULAR VOLUME 91 FL (80-99); MEAN PLATELET VOLUME 6.5 FL (6.5-10.1); MONOCYTES % (AUTO) 7.1 % (1.0-10.0); PLATELET COUNT 332 K/UL (150-450); RED BLOOD COUNT 2.97 M/UL (4.20-5.40); RED CELL DISTRIBUTION WIDTH 17.6 % (11.6-14.8); WHITE BLOOD COUNT 11.2 K/UL (4.8-10.8)
--- NOTE | 2016-07-15 17:10 | Infectious Diseases Prog Note ---
Assessment/Plan Problems: (1) Sacral osteomyelitis Assessment & Plan: with deep abscesses , S/P surgical debridement with bone biopsy culture grew Enterococcus Facium resistant to vancomycin , will switch to zyvox and treat her for 6 weeks , EOT 08/26/16. will treat with zosyn for 6 weeks , EOT 08/19/16. continue local wound care and off loading .follow up with plastic surgery for possible flap closure in the future (2) Sacral decubitus ulcer, stage IV Assessment & Plan: most likely the source of her sepsis , will switch vancomycin to zyvox for 6 weeks, and continue zosyn for 6 weeks to cover all her wound isolates , MRI showed underlying sacral/coccyx osteomyelitis, with deep abscesses , had excisional debridement of necrotic sacral pressure ulcer with deep open bone biopsy and culture , continue wound care and off loading , follow up with plastic surgery for possible flap closure in the future to prevent further contamination and recurrent infection (3) Sepsis Assessment & Plan: with coag negative staphylococcus , most likely from her sacral wound, had source control with surgical debridement, on vancomycin, echo ruled out vegetations, will treat with vancomycin for 4 weeks , and repeat blood culture to confirm clearance . EOT 08/10/16. (4) CAD (coronary artery disease) Assessment & Plan: stable, continue cardiac meds, follow up with cardiology (5) CVA (cerebral vascular accident) Assessment & Plan: stable , follow up with neurology Subjective ROS Limited/Unobtainable: Yes Allergies: Coded Allergies: No Known Allergies (Verified , 11/28/08) Subjective she was lying in bed , comfortable, awake and alert, follows commands , afebrile Objective Vital Signs Last 24 Hour Vital Signs Date Time Temp Pulse Resp B/P Pulse Ox O2 Delivery O2 Flow Rate FiO2 07/15/16 11:44 97.1 67 18 124/58 100 Room Air 07/15/16 10:14 122/47 07/15/16 09:06 61 131/57 07/15/16 08:00 97.3 76 20 160/74 94 Room Air 07/15/16 03:58 97.7 61 18 131/57 99 Nasal Cannula 2.0 07/15/16 00:00 97.7 67 18 140/60 98 Nasal Cannula 2.0 07/14/16 20:00 97.0 60 21 143/62 100 Room Air Height (Feet): 5 Height (Inches): 6.00 Weight (Pounds): 100 General Appearance: WD/WN, no acute distress HEENT: normocephalic, atraumatic, anicteric, mucous membranes moist Respiratory/Chest: chest wall non-tender, lungs clear, normal breath sounds, no respiratory distress Cardiovascular: normal peripheral pulses, normal rate, regular rhythm, no gallop/murmur Abdomen: normal bowel sounds, soft, non tender, no organomegaly, non distended , no mass, no scars Extremities: no cyanosis, no clubbing Skin: no rash, ulcers - sacral wound stage IV debrieded, with no skin erythema Microbiology Date/Time Source Procedure Growth Status 07/13/16 11:25 Blood Blood Culture - Preliminary NO GROWTH AFTER 24 HOURS Resulted 07/13/16 11:10 Blood Blood Culture - Preliminary NO GROWTH AFTER 24 HOURS Resulted Laboratory Tests Test 07/15/16 16:43 White Blood Count 11.2 K/UL (4.8-10.8) H Red Blood Count 2.97 M/UL (4.20-5.40) L Hemoglobin 8.2 G/DL (12.0-16.0) L Hematocrit 27.1 % (37.0-47.0) L Mean Corpuscular Volume 91 FL (80-99) Mean Corpuscular Hemoglobin 27.5 PG (27.0-31.0) Mean Corpuscular Hemoglobin Concent 30.2 G/DL (32.0-36.0) L Red Cell Distribution Width 17.6 % (11.6-14.8) H Platelet Count 332 K/UL (150-450) Mean Platelet Volume 6.5 FL (6.5-10.1) Neutrophils (%) (Auto) 72.0 % (45.0-75.0) Lymphocytes (%) (Auto) 18.5 % (20.0-45.0) L Monocytes (%) (Auto) 7.1 % (1.0-10.0) Eosinophils (%) (Auto) 1.8 % (0.0-3.0) Basophils (%) (Auto) 0.7 % (0.0-2.0) Current Medications Medications (Trade) Dose Ordered Sig/Abdirizak Route PRN Reason Start Time Stop Time Status Last Admin Dose Admin Acetaminophen (Tylenol) 650 mg Q4H PRN ORAL fever 07/06/16 19:15 08/05/16 19:14 Al Hydroxide/Mg Hydroxide (Mylanta II) 30 ml Q6H PRN ORAL dyspepsia 07/06/16 19:15 08/05/16 19:14 Atenolol (Tenormin) 25 mg DAILY ORAL 07/07/16 09:00 08/06/16 08:59 07/15/16 09:06 Dextrose (Dextrose 50%) STAT PRN IV Hypoglycemia 07/06/16 19:15 08/05/16 19:14 Heparin Sodium (Porcine) 5000 units 5,000 units EVERY 12 HOURS SUBQ 07/06/16 22:00 08/05/16 21:59 07/15/16 09:14 Insulin Aspart (NovoLOG) BEFORE MEALS AND HS SUBQ 07/06/16 22:00 08/05/16 21:59 07/15/16 11:38 Linezolid (Zyvox) 300 ml @ 300 mls/hr Q12HR IVPB 07/15/16 18:00 07/22/16 17:59 Ondansetron HCl (Zofran) 4 mg Q6H PRN IVP Nausea & Vomiting 07/06/16 19:15 08/05/16 19:14 Piperacillin Sod/ Tazobactam Sod 3.375 gm/Dextrose 110 ml @ 27.5 mls/hr EVERY 8 HOURS IVPB 07/11/16 15:00 07/16/16 14:59 07/15/16 13:40 Polyethylene Glycol (Miralax) 17 gm HSPRN PRN ORAL Constipation 07/06/16 19:15 08/05/16 19:14 Sodium Hypochlorite 1 applic 1 applic DAILY TOPIC 07/09/16 09:00 08/08/16 08:59 07/15/16 09:06 Sodium Chloride (Sodium Chloride 1000ml bag) 1,000 ml @ 60 mls/hr [id number] IV 07/06/16 23:30 08/05/16 23:29 07/14/16 23:00 Zolpidem Tartrate (Ambien) 5 mg HSPRN PRN ORAL Insomnia 07/06/16 19:15 08/05/16 19:14 Kaylah Sandy M.D. Jul 15, 2016 17:10
--- NOTE | 2016-07-15 17:13 | Pulmonology Progress Note ---
Assessment/Plan Problems: (1) Sepsis (2) Sacral decubitus ulcer, stage IV (3) Sacral osteomyelitis (4) CVA (cerebral vascular accident) (5) CAD (coronary artery disease) (6) Diabetes mellitus Assessment/Plan Iv antibiotics check cultures wound care tolerating diet check electrolytes All medications and treatment were reviewed.li Subjective ROS Limited/Unobtainable: No Interval Events: late note for 07/14, looks comfortable Allergies: Coded Allergies: No Known Allergies (Verified , 11/28/08) Objective Last 24 Hour Vital Signs Date Time Temp Pulse Resp B/P Pulse Ox O2 Delivery O2 Flow Rate FiO2 07/15/16 11:44 97.1 67 18 124/58 100 Room Air 07/15/16 10:14 122/47 07/15/16 09:06 61 131/57 07/15/16 08:00 97.3 76 20 160/74 94 Room Air 07/15/16 03:58 97.7 61 18 131/57 99 Nasal Cannula 2.0 07/15/16 00:00 97.7 67 18 140/60 98 Nasal Cannula 2.0 07/14/16 20:00 97.0 60 21 143/62 100 Room Air Intake and Output 07/14/16 07/15/16 19:00 07:00 Intake Total 1677.4 ml 1420.000 ml Output Total 900 ml 1950 ml Balance 777.4 ml -530.000 ml Intake Oral 720 ml 350 ml IV Total 957.4 ml 1070.000 ml Output Urine Total 900 ml 1950 ml # Voids 1 Objective General Appearance: cachetic Lines, tubes and drains: peripheral HEENT: normocephalic, atraumatic Neck: non-tender, normal alignment Respiratory/Chest: chest wall non-tender, crackles/rales Breasts: no masses Cardiovascular/Chest: normal peripheral pulses, normal rate Abdomen: normal bowel sounds Genitourinary/Rectal: normal genital exam Extremities: normal range of motion, non-tender Skin Exam: rash Lymphatic: axillary (L) Musculoskeletal: atrophy Microbiology Date/Time Source Procedure Growth Status 07/13/16 11:25 Blood Blood Culture - Preliminary NO GROWTH AFTER 24 HOURS Resulted 07/13/16 11:10 Blood Blood Culture - Preliminary NO GROWTH AFTER 24 HOURS Resulted Laboratory Tests 07/15/16 16:43: White Blood Count 11.2H, Red Blood Count 2.97L, Hemoglobin 8.2L, Hematocrit 27.1L, Mean Corpuscular Volume 91, Mean Corpuscular Hemoglobin 27.5, Mean Corpuscular Hemoglobin Concent 30.2L, Red Cell Distribution Width 17.6H, Platelet Count 332, Mean Platelet Volume 6.5, Neutrophils (%) (Auto) 72.0, Lymphocytes (%) (Auto) 18.5L, Monocytes (%) (Auto) 7.1, Eosinophils (%) (Auto) 1.8, Basophils (%) (Auto) 0.7 Current Medications Medications (Trade) Dose Ordered Sig/Abdirizak Route PRN Reason Start Time Stop Time Status Last Admin Dose Admin Acetaminophen (Tylenol) 650 mg Q4H PRN ORAL fever 07/06/16 19:15 08/05/16 19:14 Al Hydroxide/Mg Hydroxide (Mylanta II) 30 ml Q6H PRN ORAL dyspepsia 07/06/16 19:15 08/05/16 19:14 Atenolol (Tenormin) 25 mg DAILY ORAL 07/07/16 09:00 08/06/16 08:59 07/15/16 09:06 Dextrose (Dextrose 50%) STAT PRN IV Hypoglycemia 07/06/16 19:15 08/05/16 19:14 Heparin Sodium (Porcine) 5000 units 5,000 units EVERY 12 HOURS SUBQ 07/06/16 22:00 08/05/16 21:59 07/15/16 09:14 Insulin Aspart (NovoLOG) BEFORE MEALS AND HS SUBQ 07/06/16 22:00 08/05/16 21:59 07/15/16 11:38 Linezolid (Zyvox) 300 ml @ 300 mls/hr Q12HR IVPB 07/15/16 18:00 07/22/16 17:59 Ondansetron HCl (Zofran) 4 mg Q6H PRN IVP Nausea & Vomiting 07/06/16 19:15 08/05/16 19:14 Piperacillin Sod/ Tazobactam Sod 3.375 gm/Dextrose 110 ml @ 27.5 mls/hr EVERY 8 HOURS IVPB 07/11/16 15:00 07/16/16 14:59 07/15/16 13:40 Polyethylene Glycol (Miralax) 17 gm HSPRN PRN ORAL Constipation 07/06/16 19:15 08/05/16 19:14 Sodium Hypochlorite 1 applic 1 applic DAILY TOPIC 07/09/16 09:00 08/08/16 08:59 07/15/16 09:06 Sodium Chloride (Sodium Chloride 1000ml bag) 1,000 ml @ 60 mls/hr [id number] IV 07/06/16 23:30 08/05/16 23:29 07/14/16 23:00 Zolpidem Tartrate (Ambien) 5 mg HSPRN PRN ORAL Insomnia 07/06/16 19:15 08/05/16 19:14 IVÁN OCHOA Jul 15, 2016 17:13
--- NOTE | 2016-07-15 18:26 | Cardiology Progress Note ---
Assessment/Plan Assessment/Plan 1. Severe with LORENA at 0.7 cm2, stable, will discuss regarding TAVR 2. 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 3. Normal LV function with LVEF at 55%. 4. Hypertension continue atenolol. 5. Anemia. 6. Sacral osteomyelitis 7. CAD, Hx of mild [place], ASA and statin initiated, stool OB is negative. Subjective Subjective No perioperative cardiac events. POD #7 Objective Last 24 Hour Vital Signs Date Time Temp Pulse Resp B/P Pulse Ox O2 Delivery O2 Flow Rate FiO2 07/15/16 16:00 98.1 70 18 136/62 100 Room Air 07/15/16 11:44 97.1 67 18 124/58 100 Room Air 07/15/16 10:14 122/47 07/15/16 09:06 61 131/57 07/15/16 08:00 97.3 76 20 160/74 94 Room Air 07/15/16 03:58 97.7 61 18 131/57 99 Nasal Cannula 2.0 07/15/16 00:00 97.7 67 18 140/60 98 Nasal Cannula 2.0 07/14/16 20:00 97.0 60 21 143/62 100 Room Air Intake and Output 07/14/16 07/15/16 19:00 07:00 Intake Total 1677.4 ml 1420.000 ml Output Total 900 ml 1950 ml Balance 777.4 ml -530.000 ml Intake Oral 720 ml 350 ml IV Total 957.4 ml 1070.000 ml Output Urine Total 900 ml 1950 ml # Voids 1 2D Echo: EF 55%, Severe LORENA 0.7 cm3, Mild AR, RVSP 29mmHg, Mild LV Laboratory Tests Test 07/15/16 16:43 White Blood Count 11.2 K/UL (4.8-10.8) H Red Blood Count 2.97 M/UL (4.20-5.40) L Hemoglobin 8.2 G/DL (12.0-16.0) L Hematocrit 27.1 % (37.0-47.0) L Mean Corpuscular Volume 91 FL (80-99) Mean Corpuscular Hemoglobin 27.5 PG (27.0-31.0) Mean Corpuscular Hemoglobin Concent 30.2 G/DL (32.0-36.0) L Red Cell Distribution Width 17.6 % (11.6-14.8) H Platelet Count 332 K/UL (150-450) Mean Platelet Volume 6.5 FL (6.5-10.1) Neutrophils (%) (Auto) 72.0 % (45.0-75.0) Lymphocytes (%) (Auto) 18.5 % (20.0-45.0) L Monocytes (%) (Auto) 7.1 % (1.0-10.0) Eosinophils (%) (Auto) 1.8 % (0.0-3.0) Basophils (%) (Auto) 0.7 % (0.0-2.0) Microbiology Date/Time Source Procedure Growth Status 07/13/16 11:25 Blood Blood Culture - Preliminary NO GROWTH AFTER 24 HOURS Resulted 07/13/16 11:10 Blood Blood Culture - Preliminary NO GROWTH AFTER 24 HOURS Resulted Objective HEENT: Normocephalic and atraumatic. Pupils are both reactive to light. Moist oral mucosa. No exudate. NECK: Negative JVD, B/L carotid bruit CARDIOVASCULAR: Regular rate and rhythm. 3/6 late ESM at LSB, no gallops or rubs. LUNGS: No wheezing or rhonchi. Diminished breathing sounds at the bases. ABDOMEN: Soft. Nontender. Nondistended. Positive bowel sounds. No hepatosplenomegaly or ascites. EXTREMITIES: She had left heel skin break, no edema, clubbing or cyanosis, sacral decubitus RAGHAVENDRA PATEL Jul 15, 2016 18:26
[2016-07-15] MEDS: Aspirin EC 81mg tab ORAL SCH (20:42)
[2016-07-16] VITALS (7 sets, daily range): BP systolic 111–163; BP diastolic 49–84
[2016-07-16] MEDS: Piperacillin/Tazobactam 3.375 GM in D5W 110 ML IVPB SCH ×3 (04:57→22:51)
[2016-07-16] MEDS: NovoLOG Insulin Flexpen SUBQ SCH ×4 (06:11→21:39)
[2016-07-16] MEDS: Atenolol 25mg tab ORAL SCH (09:36)
[2016-07-16] MEDS: Aspirin EC 81mg tab ORAL SCH (09:36)
[2016-07-16] MEDS: Heparin 5000 units/ml inj SUBQ SCH ×2 (09:39→21:40)
[2016-07-16] MEDS: Dakin's 0.25% (Half Strength) 16oz TOPIC SCH (09:40)
--- NOTE | 2016-07-16 09:43 | General Progress Note ---
Assessment/Plan Assessment/Plan IMPRESSION: 1. Leukocytosis 2/2 underlying infection, osteomyelitis/cellulitis v other cause - has improved, monitoring 2. Anemia of chronic disease, decreased hemoglobin and hematocrit, rule out gi bleed. Ferritin elevated. Poor ability to sequester iron stores 3. Thrombocytosis, reactive process 4. Decubitus ulcer, stage IV. 5. Sepsis and septic shock 6. CVA 7. Failure to thrive. 8. Malnutrition. RECOMMENDATIONS: 1. Watch count. 2. Transfuse to hgb >7 3. Heparin 5000 units sq q12h 4. Stool for occult blood is negative 5. Anemia workup reviewed 6. Does not need iron 7. Antibiotics IV prn 8. Staff Thank you, Cristian Saini MD Subjective Constitutional: Reports: no symptoms HEENT: Reports: no symptoms Cardiovascular: Reports: no symptoms Respiratory: Reports: no symptoms Gastrointestinal/Abdominal: Reports: diarrhea Genitourinary: Reports: no symptoms Neurologic/Psychiatric: Reports: no symptoms Endocrine: Reports: no symptoms Hematologic/Lymphatic: Reports: anemia Allergies: Coded Allergies: No Known Allergies (Verified , 11/28/08) Subjective stable, no fevers or chills, no night sweats have been reported Objective Last 24 Hour Vital Signs Date Time Temp Pulse Resp B/P Pulse Ox O2 Delivery O2 Flow Rate FiO2 07/16/16 09:36 65 126/56 07/16/16 08:00 96.6 65 18 126/56 100 Room Air 07/16/16 03:51 98.2 68 18 111/58 100 Nasal Cannula 2.0 07/16/16 00:00 97.7 67 18 116/49 98 Nasal Cannula 2.0 07/15/16 20:00 97.0 73 19 136/62 99 Room Air 07/15/16 16:00 98.1 70 18 136/62 100 Room Air 07/15/16 11:44 97.1 67 18 124/58 100 Room Air 07/15/16 10:14 122/47 Intake and Output 07/15/16 07/16/16 18:59 06:59 Intake Total 1635.0 ml 947.5 ml Output Total 400 ml 1850 ml Balance 1235.0 ml -902.5 ml Intake Oral 770 ml 240 ml IV Total 865.0 ml 707.5 ml Output Urine Total 400 ml 1850 ml # Bowel Movements 1 2 Laboratory Tests 07/15/16 16:43: White Blood Count 11.2H, Red Blood Count 2.97L, Hemoglobin 8.2L, Hematocrit 27.1L, Mean Corpuscular Volume 91, Mean Corpuscular Hemoglobin 27.5, Mean Corpuscular Hemoglobin Concent 30.2L, Red Cell Distribution Width 17.6H, Platelet Count 332, Mean Platelet Volume 6.5, Neutrophils (%) (Auto) 72.0, Lymphocytes (%) (Auto) 18.5L, Monocytes (%) (Auto) 7.1, Eosinophils (%) (Auto) 1.8, Basophils (%) (Auto) 0.7 Height (Feet): 5 Height (Inches): 6.00 Weight (Pounds): 100 General Appearance: no apparent distress EENT: TMs normal Neck: normal inspection Cardiovascular: regular rhythm Respiratory/Chest: no respiratory distress Abdomen: soft Pelvis: normal rectal exam Extremities: non-tender Edema: 1+ Leg (L), 1+ Leg (R) Neurologic: alert Skin: warm/dry Cristian Saini Jul 16, 2016 09:43
--- NOTE | 2016-07-16 12:07 | General Progress Note ---
Assessment/Plan Problem List: (1) CAD (coronary artery disease) ICD Codes: I25.10 - Atherosclerotic heart disease of [place] coronary artery without angina pectoris SNOMED: 49207638 (2) CVA (cerebral vascular accident) ICD Codes: I63.9 - Cerebral infarction, unspecified SNOMED: 400153332 (3) Sepsis ICD Codes: A41.9 - Sepsis, unspecified organism SNOMED: 61127936 (4) Sacral osteomyelitis ICD Codes: M46.28 - Osteomyelitis of vertebra, sacral and sacrococcygeal region SNOMED: 163404604 (5) Sacral decubitus ulcer, stage IV ICD Codes: L89.154 - Pressure ulcer of sacral region, stage 4 SNOMED: 116138783, 529239260 Status: progressing Assessment/Plan osteomylitis sacral decubi&d need weeks of iv abx not safe to go home needs snf however daughter refuses snf so have no choice but to send home w hh per request of dpoa dpoa is made aware of consuquences and pros and cons of patient going home and understands the consequences of patient going home however still insists on sending her home so will dc home w hh once cleared by id abx per id i believe patient needs to go to snf for 6 weeks of iv abx Subjective ROS Limited/Unobtainable: Yes Allergies: Coded Allergies: No Known Allergies (Verified , 11/28/08) Objective Last 24 Hour Vital Signs Date Time Temp Pulse Resp B/P Pulse Ox O2 Delivery O2 Flow Rate FiO2 07/16/16 09:36 65 126/56 07/16/16 08:00 96.6 65 18 126/56 100 Room Air 07/16/16 03:51 98.2 68 18 111/58 100 Nasal Cannula 2.0 07/16/16 00:00 97.7 67 18 116/49 98 Nasal Cannula 2.0 07/15/16 20:00 97.0 73 19 136/62 99 Room Air 07/15/16 16:00 98.1 70 18 136/62 100 Room Air Intake and Output 07/15/16 07/16/16 19:00 07:00 Intake Total 1547.5 ml 1035.0 ml Output Total 400 ml 1850 ml Balance 1147.5 ml -815.0 ml Intake Oral 770 ml 240 ml IV Total 777.5 ml 795.0 ml Output Urine Total 400 ml 1850 ml # Bowel Movements 1 2 Laboratory Tests 07/15/16 16:43: White Blood Count 11.2H, Red Blood Count 2.97L, Hemoglobin 8.2L, Hematocrit 27.1L, Mean Corpuscular Volume 91, Mean Corpuscular Hemoglobin 27.5, Mean Corpuscular Hemoglobin Concent 30.2L, Red Cell Distribution Width 17.6H, Platelet Count 332, Mean Platelet Volume 6.5, Neutrophils (%) (Auto) 72.0, Lymphocytes (%) (Auto) 18.5L, Monocytes (%) (Auto) 7.1, Eosinophils (%) (Auto) 1.8, Basophils (%) (Auto) 0.7 Height (Feet): 5 Height (Inches): 6.00 Weight (Pounds): 100 General Appearance: confused Cardiovascular: normal rate Respiratory/Chest: lungs clear Abdomen: soft Claudia Diaz MD Jul 16, 2016 12:07
--- NOTE | 2016-07-16 12:38 | Pulmonology Progress Note ---
Assessment/Plan Assessment/Plan ASSESSMENT sepsis sacral OM sacral decub st 4, POA with abscess s/p debridement of sacral decub anemia, iron deficiency severe protein calorie malnutrition Hx of CVA CAD severe HTN DM PLAN OF CARE [facility] floor IVF MRI sacral with suspicion of osteo abx, ID follows, will need total 4 weeks of abx till 08/10 as per ID repeated blood cx preliminary negative ( initial + SCON) ECHO ruled out vegetation bone biopsy + Enterococci Venous Duplex BLE negative CXR negative O2 HHN prn ECHO with EF 50-55% and RVSP of 29 BP management with BB continue ASA BS management with SS of insulin strict aspiration precautions , diet as per ST recommendation monitor HH, transfuse prn heme follows stool OB x 3 negative PT/OT DVT prophylaxis bowel regimen pain management wound care as per surgery recommendation case discussed and evaluated by supervising physician Subjective Allergies: Coded Allergies: No Known Allergies (Verified , 11/28/08) Objective Last 24 Hour Vital Signs Date Time Temp Pulse Resp B/P Pulse Ox O2 Delivery O2 Flow Rate FiO2 07/16/16 09:36 65 126/56 07/16/16 08:00 96.6 65 18 126/56 100 Room Air 07/16/16 03:51 98.2 68 18 111/58 100 Nasal Cannula 2.0 07/16/16 00:00 97.7 67 18 116/49 98 Nasal Cannula 2.0 07/15/16 20:00 97.0 73 19 136/62 99 Room Air 07/15/16 16:00 98.1 70 18 136/62 100 Room Air Intake and Output 07/15/16 07/16/16 19:00 07:00 Intake Total 1547.5 ml 1035.0 ml Output Total 400 ml 1850 ml Balance 1147.5 ml -815.0 ml Intake Oral 770 ml 240 ml IV Total 777.5 ml 795.0 ml Output Urine Total 400 ml 1850 ml # Bowel Movements 1 2 Cardiovascular: other - RUE PICC intact Laboratory Tests 07/15/16 16:43: White Blood Count 11.2H, Red Blood Count 2.97L, Hemoglobin 8.2L, Hematocrit 27.1L, Mean Corpuscular Volume 91, Mean Corpuscular Hemoglobin 27.5, Mean Corpuscular Hemoglobin Concent 30.2L, Red Cell Distribution Width 17.6H, Platelet Count 332, Mean Platelet Volume 6.5, Neutrophils (%) (Auto) 72.0, Lymphocytes (%) (Auto) 18.5L, Monocytes (%) (Auto) 7.1, Eosinophils (%) (Auto) 1.8, Basophils (%) (Auto) 0.7 Current Medications Medications (Trade) Dose Ordered Sig/Abdirizak Route PRN Reason Start Time Stop Time Status Last Admin Dose Admin Acetaminophen (Tylenol) 650 mg Q4H PRN ORAL fever 07/06/16 19:15 08/05/16 19:14 07/15/16 20:47 Al Hydroxide/Mg Hydroxide (Mylanta II) 30 ml Q6H PRN ORAL dyspepsia 07/06/16 19:15 08/05/16 19:14 Aspirin (Ecotrin) 81 mg DAILY ORAL 07/15/16 20:00 08/14/16 19:59 07/16/16 09:36 Atenolol (Tenormin) 25 mg DAILY ORAL 07/07/16 09:00 08/06/16 08:59 07/16/16 09:36 Atorvastatin Calcium (Lipitor) 10 mg BEDTIME ORAL 07/15/16 21:00 08/14/16 20:59 07/15/16 20:42 Dextrose (Dextrose 50%) STAT PRN IV Hypoglycemia 07/06/16 19:15 08/05/16 19:14 Heparin Sodium (Porcine) 5000 units 5,000 units EVERY 12 HOURS SUBQ 07/06/16 22:00 08/05/16 21:59 07/16/16 09:39 Insulin Aspart (NovoLOG) BEFORE MEALS AND HS SUBQ 07/06/16 22:00 08/05/16 21:59 07/15/16 20:44 Linezolid (Zyvox) 300 ml @ 300 mls/hr Q12HR IVPB 07/15/16 18:00 07/22/16 17:59 07/16/16 09:36 Ondansetron HCl (Zofran) 4 mg Q6H PRN IVP Nausea & Vomiting 07/06/16 19:15 08/05/16 19:14 Piperacillin Sod/ Tazobactam Sod 3.375 gm/Dextrose 110 ml @ 27.5 mls/hr EVERY 8 HOURS IVPB 07/11/16 15:00 07/22/16 14:59 07/16/16 04:57 Polyethylene Glycol (Miralax) 17 gm HSPRN PRN ORAL Constipation 07/06/16 19:15 08/05/16 19:14 Sodium Hypochlorite 1 applic 1 applic DAILY TOPIC 07/09/16 09:00 08/08/16 08:59 07/16/16 09:40 Sodium Chloride (Sodium Chloride 1000ml bag) 1,000 ml @ 60 mls/hr [id number] IV 07/06/16 23:30 08/05/16 23:29 07/15/16 20:34 Zolpidem Tartrate (Ambien) 5 mg HSPRN PRN ORAL Insomnia 07/06/16 19:15 08/05/16 19:14 [facility]uloC[facility] CenterNiharika Rodriguez NP Jul 16, 2016 12:38
--- NOTE | 2016-07-16 15:14 | Pulmonology Progress Note ---
Assessment/Plan Assessment/Plan ASSESSMENT sepsis sacral OM sacral decub st 4, POA with abscess s/p debridement of sacral decub anemia, iron deficiency severe protein calorie malnutrition Hx of CVA CAD severe HTN DM PLAN OF CARE [facility] floor IVF MRI sacral with suspicion of osteo abx, ID follows, will need total 4 weeks of abx till 08/10 as per ID repeated blood cx preliminary negative ( initial + SCON) ECHO ruled out vegetation bone biopsy + Enterococci Venous Duplex BLE negative CXR negative O2 HHN prn ECHO with EF 50-55% and RVSP of 29 BP management with BB continue ASA BS management with SS of insulin strict aspiration precautions , diet as per ST recommendation monitor HH, transfuse prn heme follows stool OB x 3 negative PT/OT DVT prophylaxis bowel regimen pain management wound care as per surgery recommendation case discussed and evaluated by supervising physician Subjective Allergies: Coded Allergies: No Known Allergies (Verified , 11/28/08) Subjective leukocytosis resolved , afebrile pulse oximetry stable on RA no signs of respiratory distress Objective Last 24 Hour Vital Signs Date Time Temp Pulse Resp B/P Pulse Ox O2 Delivery O2 Flow Rate FiO2 07/16/16 12:00 96.6 63 18 143/62 100 Room Air 07/16/16 09:36 65 126/56 07/16/16 08:00 96.6 65 18 126/56 100 Room Air 07/16/16 03:51 98.2 68 18 111/58 100 Nasal Cannula 2.0 07/16/16 00:00 97.7 67 18 116/49 98 Nasal Cannula 2.0 07/15/16 20:00 97.0 73 19 136/62 99 Room Air 07/15/16 16:00 98.1 70 18 136/62 100 Room Air Intake and Output 07/15/16 07/16/16 19:00 07:00 Intake Total 1547.5 ml 1035.0 ml Output Total 400 ml 1850 ml Balance 1147.5 ml -815.0 ml Intake Oral 770 ml 240 ml IV Total 777.5 ml 795.0 ml Output Urine Total 400 ml 1850 ml # Bowel Movements 1 2 General Appearance: no acute distress, other - awake, cachectic, HEENT: normocephalic, atraumatic, anicteric Respiratory/Chest: lungs clear - with moderate air entry , no respiratory distress Cardiovascular: normal rate, regular rhythm Abdomen: normal bowel sounds, soft, non tender Extremities: no edema Neurologic/Psychiatric: abnormal gait, alert, other - awake, bedridden, spastic LE Musculoskeletal: atrophy - BLE Laboratory Tests 07/15/16 16:43: White Blood Count 11.2H, Red Blood Count 2.97L, Hemoglobin 8.2L, Hematocrit 27.1L, Mean Corpuscular Volume 91, Mean Corpuscular Hemoglobin 27.5, Mean Corpuscular Hemoglobin Concent 30.2L, Red Cell Distribution Width 17.6H, Platelet Count 332, Mean Platelet Volume 6.5, Neutrophils (%) (Auto) 72.0, Lymphocytes (%) (Auto) 18.5L, Monocytes (%) (Auto) 7.1, Eosinophils (%) (Auto) 1.8, Basophils (%) (Auto) 0.7 Current Medications Medications (Trade) Dose Ordered Sig/Abdirizak Route PRN Reason Start Time Stop Time Status Last Admin Dose Admin Acetaminophen (Tylenol) 650 mg Q4H PRN ORAL fever 07/06/16 19:15 08/05/16 19:14 07/15/16 20:47 Al Hydroxide/Mg Hydroxide (Mylanta II) 30 ml Q6H PRN ORAL dyspepsia 07/06/16 19:15 08/05/16 19:14 Aspirin (Ecotrin) 81 mg DAILY ORAL 07/15/16 20:00 08/14/16 19:59 07/16/16 09:36 Atenolol (Tenormin) 25 mg DAILY ORAL 07/07/16 09:00 08/06/16 08:59 07/16/16 09:36 Atorvastatin Calcium (Lipitor) 10 mg BEDTIME ORAL 07/15/16 21:00 08/14/16 20:59 07/15/16 20:42 Dextrose (Dextrose 50%) STAT PRN IV Hypoglycemia 07/06/16 19:15 08/05/16 19:14 Heparin Sodium (Porcine) 5000 units 5,000 units EVERY 12 HOURS SUBQ 07/06/16 22:00 08/05/16 21:59 07/16/16 09:39 Insulin Aspart (NovoLOG) BEFORE MEALS AND HS SUBQ 07/06/16 22:00 08/05/16 21:59 07/15/16 20:44 Linezolid (Zyvox) 300 ml @ 300 mls/hr Q12HR IVPB 07/15/16 18:00 07/22/16 17:59 07/16/16 09:36 Ondansetron HCl (Zofran) 4 mg Q6H PRN IVP Nausea & Vomiting 07/06/16 19:15 08/05/16 19:14 Piperacillin Sod/ Tazobactam Sod 3.375 gm/Dextrose 110 ml @ 27.5 mls/hr EVERY 8 HOURS IVPB 07/11/16 15:00 07/22/16 14:59 07/16/16 13:52 Polyethylene Glycol (Miralax) 17 gm HSPRN PRN ORAL Constipation 07/06/16 19:15 08/05/16 19:14 Sodium Hypochlorite 1 applic 1 applic DAILY TOPIC 07/09/16 09:00 08/08/16 08:59 07/16/16 09:40 Sodium Chloride (Sodium Chloride 1000ml bag) 1,000 ml @ 60 mls/hr [id number] IV 07/06/16 23:30 08/05/16 23:29 07/15/16 20:34 Zolpidem Tartrate (Ambien) 5 mg HSPRN PRN ORAL Insomnia 07/06/16 19:15 08/05/16 19:14 Bowen LopezNiharika washington NP Jul 16, 2016 15:14
--- NOTE | 2016-07-16 17:28 | Infectious Diseases Prog Note ---
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 will treat with zosyn to cover other isolates from her wounds for 6 weeks , EOT 08/19/16. continue local wound care and off loading .follow up with plastic surgery for possible flap closure in the future (2) Sacral decubitus ulcer, stage IV Assessment & Plan: most likely the source of her sepsis , will switch vancomycin to zyvox for 6 weeks, and continue zosyn for 6 weeks to cover all her wound isolates , MRI showed underlying sacral/coccyx osteomyelitis, with deep abscesses , had excisional debridement of necrotic sacral pressure ulcer with deep open bone biopsy and culture , continue wound care and off loading , follow up with plastic surgery for possible flap closure in the future to prevent further contamination and recurrent infection (3) Sepsis Assessment & Plan: with coag negative staphylococcus , most likely from her sacral wound, had source control with surgical debridement, now on zyvox , echo ruled out vegetations, will treat with vancomycin for 4 weeks , and repeated blood culture is negative which confirm clearance . EOT 08/10/16. (4) CAD (coronary artery disease) Assessment & Plan: stable, continue cardiac meds, follow up with cardiology (5) CVA (cerebral vascular accident) Assessment & Plan: stable , follow up with neurology Subjective ROS Limited/Unobtainable: Yes Allergies: Coded Allergies: No Known Allergies (Verified , 11/28/08) Subjective she was lying in bed , comfortable, awake and alert, follows commands , afebrile Objective Vital Signs Last 24 Hour Vital Signs Date Time Temp Pulse Resp B/P Pulse Ox O2 Delivery O2 Flow Rate FiO2 07/16/16 12:00 96.6 63 18 143/62 100 Room Air 07/16/16 09:36 65 126/56 07/16/16 08:00 96.6 65 18 126/56 100 Room Air 07/16/16 03:51 98.2 68 18 111/58 100 Nasal Cannula 2.0 07/16/16 00:00 97.7 67 18 116/49 98 Nasal Cannula 2.0 07/15/16 20:00 97.0 73 19 136/62 99 Room Air Height (Feet): 5 Height (Inches): 6.00 Weight (Pounds): 100 General Appearance: WD/WN, no acute distress HEENT: normocephalic, atraumatic, anicteric Respiratory/Chest: chest wall non-tender, lungs clear, normal breath sounds, no respiratory distress, no accessory muscle use Cardiovascular: normal peripheral pulses, normal rate, regular rhythm, no gallop/murmur Abdomen: normal bowel sounds, soft, non tender, no organomegaly, non distended , no mass, no scars Extremities: no cyanosis, no clubbing Skin: no rash, no lesions, ulcers Current Medications Medications (Trade) Dose Ordered Sig/Abdirizak Route PRN Reason Start Time Stop Time Status Last Admin Dose Admin Acetaminophen (Tylenol) 650 mg Q4H PRN ORAL fever 07/06/16 19:15 08/05/16 19:14 07/15/16 20:47 Al Hydroxide/Mg Hydroxide (Mylanta II) 30 ml Q6H PRN ORAL dyspepsia 07/06/16 19:15 08/05/16 19:14 Aspirin (Ecotrin) 81 mg DAILY ORAL 07/15/16 20:00 08/14/16 19:59 07/16/16 09:36 Atenolol (Tenormin) 25 mg DAILY ORAL 07/07/16 09:00 08/06/16 08:59 07/16/16 09:36 Atorvastatin Calcium (Lipitor) 10 mg BEDTIME ORAL 07/15/16 21:00 08/14/16 20:59 07/15/16 20:42 Dextrose (Dextrose 50%) STAT PRN IV Hypoglycemia 07/06/16 19:15 08/05/16 19:14 Heparin Sodium (Porcine) 5000 units 5,000 units EVERY 12 HOURS SUBQ 07/06/16 22:00 08/05/16 21:59 07/16/16 09:39 Insulin Aspart (NovoLOG) BEFORE MEALS AND HS SUBQ 07/06/16 22:00 08/05/16 21:59 07/16/16 17:10 Linezolid (Zyvox) 300 ml @ 300 mls/hr Q12HR IVPB 07/15/16 18:00 07/22/16 17:59 07/16/16 09:36 Ondansetron HCl (Zofran) 4 mg Q6H PRN IVP Nausea & Vomiting 07/06/16 19:15 08/05/16 19:14 Piperacillin Sod/ Tazobactam Sod 3.375 gm/Dextrose 110 ml @ 27.5 mls/hr EVERY 8 HOURS IVPB 07/11/16 15:00 07/22/16 14:59 07/16/16 13:52 Polyethylene Glycol (Miralax) 17 gm HSPRN PRN ORAL Constipation 07/06/16 19:15 08/05/16 19:14 Sodium Hypochlorite 1 applic 1 applic DAILY TOPIC 07/09/16 09:00 08/08/16 08:59 07/16/16 09:40 Sodium Chloride (Sodium Chloride 1000ml bag) 1,000 ml @ 60 mls/hr [id number] IV 07/06/16 23:30 08/05/16 23:29 07/16/16 17:09 Zolpidem Tartrate (Ambien) 5 mg HSPRN PRN ORAL Insomnia 07/06/16 19:15 08/05/16 19:14 Kaylah Sandy M.D. Jul 16, 2016 17:28
[2016-07-16] MEDS ORDERED: NS 275ml ONE (22:41)
[2016-07-17] VITALS: BP 141/59
[2016-07-17 00:58] VITALS: BP 141/59
[2016-07-17 04:00] VITALS: BP 150/60
[2016-07-17] MEDS: Piperacillin/Tazobactam 3.375 GM in D5W 110 ML IVPB SCH (05:06)
[2016-07-17] MEDS: NovoLOG Insulin Flexpen SUBQ SCH ×2 (06:30→13:34)
[2016-07-17] MEDS: Heparin 5000 units/ml inj SUBQ SCH (09:00)
[2016-07-17] MEDS: Aspirin EC 81mg tab ORAL SCH (09:56)
[2016-07-17] MEDS: Atenolol 25mg tab ORAL SCH (10:00)
[2016-07-17] MEDS: Dakin's 0.25% (Half Strength) 16oz TOPIC SCH (10:01)
[2016-07-17] MEDS ORDERED: ZOSYN 3.373.375 GM/1 IVPB (10:53)
[2016-07-17] MEDS ORDERED: VANCOMYCIN1 GM/2502 IVPB (11:01)
--- NOTE | 2016-07-17 11:38 | General Progress Note ---
Assessment/Plan Problem List: (1) CAD (coronary artery disease) ICD Codes: I25.10 - Atherosclerotic heart disease of [place] coronary artery without angina pectoris SNOMED: 30666651 (2) CVA (cerebral vascular accident) ICD Codes: I63.9 - Cerebral infarction, unspecified SNOMED: 144923179 (3) Sepsis ICD Codes: A41.9 - Sepsis, unspecified organism SNOMED: 50296540 (4) Sacral osteomyelitis ICD Codes: M46.28 - Osteomyelitis of vertebra, sacral and sacrococcygeal region SNOMED: 953799542 (5) Sacral decubitus ulcer, stage IV ICD Codes: L89.154 - Pressure ulcer of sacral region, stage 4 SNOMED: 959197021, 520184215 Status: progressing Assessment/Plan afebrile vitals stable sacral decub s/p i&d dc if ok w id i believe patient needs to go to snf for 6 weeks of iv abx Subjective ROS Limited/Unobtainable: Yes Constitutional: Reports: no symptoms Allergies: Coded Allergies: No Known Allergies (Verified , 11/28/08) Objective Last 24 Hour Vital Signs Date Time Temp Pulse Resp B/P Pulse Ox O2 Delivery O2 Flow Rate FiO2 07/17/16 10:00 60 134/56 07/17/16 04:00 97.7 66 20 150/60 100 Room Air 07/17/16 00:58 98.2 65 20 141/59 100 Room Air 07/17/16 00:00 97.9 67 18 141/59 97 Room Air 07/16/16 22:49 76 151/70 07/16/16 20:00 98.2 79 20 163/84 98 Room Air 07/16/16 16:00 97.2 77 18 155/65 100 Room Air 07/16/16 12:00 96.6 63 18 143/62 100 Room Air Intake and Output 07/16/16 07/17/16 19:00 07:00 Intake Total 1157.5 ml 950.0 ml Output Total 400 ml 1250 ml Balance 757.5 ml -300.0 ml Intake Oral 110 ml 240 ml IV Total 1047.5 ml 710.0 ml Output Urine Total 400 ml 1250 ml # Bowel Movements 1 1 Height (Feet): 5 Height (Inches): 6.00 Weight (Pounds): 100 EENT: PERRL/EOMI Neck: supple Cardiovascular: normal rate Respiratory/Chest: lungs clear Abdomen: soft Claudia Diaz MD Jul 17, 2016 11:38
[2016-07-17 12:00] VITALS: BP 134/69
--- NOTE | 2016-07-17 12:03 | Wound Care Consultation ---
Wound Assessment Wound Assessment #1: Wound Number: #1 Wound Present on Admission: Yes New Wound: No Status Change of Wound: No Wound Location Body Site Modif: mid Wound Location Body Site: sacral Wound Type: pressure ulcer Elisha Test: Does not Elisha Pressure Ulcer Stage: IV/unstageable Wound Thickness: Full Thickness Wound Length: 15.0 Wound Width: 16.0 Wound Depth: 2.8 Percent of Wound [place]/Red: 90 Percent of Wound Bed Yellow/Wh: 10 Wound Drainage Description: Serosanguineous Wound Drainage Amount: Moderate Wound Drainage Odor: None/Absent Tissue Surrounding Wound: Erythemic Wound General Appearance: Reddened, Draining Wound Assessment #2: Wound Number: #2 Wound Present on Admission: Yes New Wound: No Status Change of Wound: No Wound Location Body Site Modif: right Wound Location Body Site: heel Wound Type: pressure ulcer Elisha Test: Does not Elisha Pressure Ulcer Stage: IV/unstageable Wound Thickness: Full Thickness Wound Length: 2.0 Wound Width: 3.5 Wound Depth: utd Percent of Wound Black/Brown: 100 - dry adhered scab Wound Drainage Amount: None Wound Drainage Odor: None/Absent Tissue Surrounding Wound: Intact Wound General Appearance: Necrotic - dry adhered black/brown thick scab Wound Comment #1 sacral pressure ulcer stage IV/Unstageable. #2 Right heel stage IV/Unstageable. perineal area chemical burn and right ischial tuberosity site resolved. upon reassessment noted good progress to s/p debridement sacral site, wound bed red beefy, no odor, 90 pink, 10 scattered yellow slough. current treatment remains effective no further deterioration present, no maroon color present. right heel stage IV/unstageable noted dry adhered black /brown thick scab. no deterioration present , current treatment is effective. ELIZABETH THOMAS Jul 17, 2016 12:03
--- NOTE | 2016-07-17 12:43 | Consultation ---
Consult Note Consult Note asked to see for HTN Patient examined- data reviewed Assessment/Plan HTN labile- other: sepsis sacral Osteo Myelitis sacral decub st 4, POA with abscess s/p debridement of sacral decub anemia, iron deficiency severe protein calorie malnutrition Hx of CVA CAD severe HTN DM Plan: check UA add norvasc for BP and PRN Hydralazine check labs in MARTHA Chiang Jul 17, 2016 12:43
[2016-07-17] MEDS ORDERED: HydrALAZINE 25mg tab ORAL PRN (12:45)
[2016-07-17 13:36] VITALS: BP 134/69
[2016-07-17] MEDS ORDERED: NOVOLOG100 UNIT/5 SQ (14:32)
--- NOTE | 2016-07-17 18:12 | General Progress Note ---
Assessment/Plan Assessment/Plan IMPRESSION: 1. Leukocytosis 2/2 underlying infection, osteomyelitis/cellulitis v other cause - now improved 2. Anemia of chronic disease, decreased hemoglobin and hematocrit, rule out gi bleed. Ferritin remains elevated 3. Thrombocytosis, reactive process 4. Decubitus ulcer, stage IV. 5. Sepsis and septic shock 6. CVA 7. Failure to thrive. 8. Malnutrition. RECOMMENDATIONS: 1. Watch count. 2. Transfuse to hgb >7 3. Heparin 5000 units subcutaneously q.12 h. 4. Stool for occult blood is negative 5. Anemia workup has been reviewed 6. Does not need iron 7. Antibiotic IV prn 8. Staff Leroy Saini MD Subjective Constitutional: Reports: no symptoms HEENT: Reports: no symptoms Cardiovascular: Reports: no symptoms Respiratory: Reports: no symptoms Gastrointestinal/Abdominal: Reports: no symptoms Genitourinary: Reports: no symptoms Neurologic/Psychiatric: Reports: no symptoms Endocrine: Reports: no symptoms Hematologic/Lymphatic: Reports: no symptoms Allergies: Coded Allergies: No Known Allergies (Verified , 11/28/08) Objective Last 24 Hour Vital Signs Date Time Temp Pulse Resp B/P Pulse Ox O2 Delivery O2 Flow Rate FiO2 07/17/16 13:36 68 134/69 07/17/16 12:00 97.8 68 18 134/69 98 Room Air 07/17/16 10:00 60 134/56 07/17/16 04:00 97.7 66 20 150/60 100 Room Air 07/17/16 00:58 98.2 65 20 141/59 100 Room Air 07/17/16 00:00 97.9 67 18 141/59 97 Room Air 07/16/16 22:49 76 151/70 07/16/16 20:00 98.2 79 20 163/84 98 Room Air Intake and Output 07/16/16 07/17/16 19:00 07:00 Intake Total 1157.5 ml 950.0 ml Output Total 400 ml 1250 ml Balance 757.5 ml -300.0 ml Intake Oral 110 ml 240 ml IV Total 1047.5 ml 710.0 ml Output Urine Total 400 ml 1250 ml # Bowel Movements 1 1 Height (Feet): 5 Height (Inches): 6.00 Weight (Pounds): 100 General Appearance: no apparent distress, confused EENT: TMs normal Neck: normal alignment Cardiovascular: regular rhythm Respiratory/Chest: lungs clear Abdomen: soft Edema: no edema noted Arm (L), no edema noted Arm (R), no edema noted Leg (L), no edema noted Leg (R), no edema noted Pedal (L), no edema noted Pedal (R), no edema noted Generalized Edema: mild edema Lymphatic: normal anterior cervical (L), normal anterior cervical (R), normal axillary (L), normal axillary (R), normal inguinal (L), normal inguinal (R), normal other, normal posterior cervical (L), normal posterior cervical (R), normal submandibular (L), normal submandibular (R), normal supraclavicular (L), normal supraclavicular (R) LEROY SAINI Jul 17, 2016 18:11
--- NOTE | 2016-07-17 18:51 | Pulmonology Progress Note ---
Assessment/Plan Assessment/Plan ASSESSMENT sepsis sacral OM sacral decub st 4, POA with abscess s/p debridement of sacral decub anemia, iron deficiency severe protein calorie malnutrition Hx of CVA CAD severe HTN DM PLAN OF CARE [facility] floor IVF MRI sacral with suspicion of osteo abx, ID follows, will need total 4 weeks of abx till 08/10 as per ID repeated blood cx preliminary negative ( initial + SCON) ECHO ruled out vegetation bone biopsy + Enterococci Venous Duplex BLE negative CXR negative O2 HHN prn ECHO with EF 50-55% and RVSP of 29 BP management with BB continue ASA BS management with SS of insulin strict aspiration precautions , diet as per ST recommendation monitor HH, transfuse prn heme follows stool OB x 3 negative PT/OT DVT prophylaxis bowel regimen pain management wound care as per surgery recommendation case discussed and evaluated by supervising physician Subjective Allergies: Coded Allergies: No Known Allergies (Verified , 11/28/08) Subjective mild leukocytosis n, afebrile pulse oximetry stable on RA , no signs of respiratory distress Objective Last 24 Hour Vital Signs Date Time Temp Pulse Resp B/P Pulse Ox O2 Delivery O2 Flow Rate FiO2 07/17/16 13:36 68 134/69 07/17/16 12:00 97.8 68 18 134/69 98 Room Air 07/17/16 10:00 60 134/56 07/17/16 04:00 97.7 66 20 150/60 100 Room Air 07/17/16 00:58 98.2 65 20 141/59 100 Room Air 07/17/16 00:00 97.9 67 18 141/59 97 Room Air 07/16/16 22:49 76 151/70 07/16/16 20:00 98.2 79 20 163/84 98 Room Air Intake and Output 07/16/16 07/17/16 19:00 07:00 Intake Total 1157.5 ml 950.0 ml Output Total 400 ml 1250 ml Balance 757.5 ml -300.0 ml Intake Oral 110 ml 240 ml IV Total 1047.5 ml 710.0 ml Output Urine Total 400 ml 1250 ml # Bowel Movements 1 1 Objective General Appearance: no acute distress, other - awake, cachectic, HEENT: normocephalic, atraumatic, anicteric Respiratory/Chest: lungs clear - with moderate air entry , no respiratory distress Cardiovascular: normal rate, regular rhythm Abdomen: normal bowel sounds, soft, non tender Extremities: no edema Neurologic/Psychiatric: abnormal gait, alert, other - awake, bedridden, spastic LE Musculoskeletal: atrophy - BLE Current Medications Medications (Trade) Dose Ordered Sig/Abdirizak Route PRN Reason Start Time Stop Time Status Last Admin Dose Admin Acetaminophen (Tylenol) 650 mg Q4H PRN ORAL fever 07/06/16 19:15 08/05/16 19:14 07/15/16 20:47 Amlodipine Besylate (Norvasc) 2.5 mg DAILY ORAL 07/17/16 12:45 08/16/16 12:44 07/17/16 13:36 Aspirin (Ecotrin) 81 mg DAILY ORAL 07/15/16 20:00 08/14/16 19:59 07/17/16 09:56 Atenolol (Tenormin) 25 mg DAILY ORAL 07/07/16 09:00 08/06/16 08:59 07/17/16 10:00 Atorvastatin Calcium (Lipitor) 10 mg BEDTIME ORAL 07/15/16 21:00 08/14/16 20:59 07/16/16 21:38 Dextrose (Dextrose 50%) STAT PRN IV Hypoglycemia 07/06/16 19:15 08/05/16 19:14 Heparin Sodium (Porcine) 5000 units 5,000 units EVERY 12 HOURS SUBQ 07/06/16 22:00 08/05/16 21:59 07/17/16 09:00 Hydralazine HCl (Apresoline) 25 mg Q6H PRN ORAL BP over 160 syst 07/17/16 12:45 08/16/16 12:44 Insulin Aspart (NovoLOG) BEFORE MEALS AND HS SUBQ 07/06/16 22:00 08/05/16 21:59 07/17/16 13:34 Linezolid (Zyvox) 300 ml @ 300 mls/hr Q12HR IVPB 07/15/16 18:00 07/22/16 17:59 07/17/16 10:00 Ondansetron HCl (Zofran) 4 mg Q6H PRN IVP Nausea & Vomiting 07/06/16 19:15 08/05/16 19:14 Pantoprazole (Protonix) 40 mg DAILY ORAL 07/17/16 13:00 08/16/16 12:59 07/17/16 13:37 Piperacillin Sod/ Tazobactam Sod 3.375 gm/Dextrose 110 ml @ 27.5 mls/hr EVERY 8 HOURS IVPB 07/11/16 15:00 07/22/16 14:59 07/17/16 05:06 Polyethylene Glycol (Miralax) 17 gm HSPRN PRN ORAL Constipation 07/06/16 19:15 08/05/16 19:14 Sodium Hypochlorite 1 applic 1 applic DAILY TOPIC 07/09/16 09:00 08/08/16 08:59 07/17/16 10:01 Sodium Chloride (Sodium Chloride 1000ml bag) 1,000 ml @ 60 mls/hr [id number] IV 07/06/16 23:30 08/05/16 23:29 07/16/16 17:09 Zolpidem Tartrate (Ambien) 5 mg HSPRN PRN ORAL Insomnia 07/06/16 19:15 08/05/16 19:14 Bow[facility]uloUniversity [facility] NetworkNiharika Rodriguez NP Jul 17, 2016 18:51
--- NOTE | 2016-07-17 23:14 | Cardiology Progress Note ---
Assessment/Plan Assessment/Plan 1. Severe with LORENA at 0.7 cm2, stable, will discuss regarding TAVR 2. 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 3. Normal LV function with LVEF at 55%. 4. Hypertension continue atenolol. 5. Anemia. 6. Sacral osteomyelitis 7. CAD, Hx of mild OH, ASA and statin initiated, stool OB is negative. Subjective Subjective No perioperative cardiac events. POD # 9 Objective Last 24 Hour Vital Signs Date Time Temp Pulse Resp B/P Pulse Ox O2 Delivery O2 Flow Rate FiO2 07/17/16 13:36 68 134/69 07/17/16 12:00 97.8 68 18 134/69 98 Room Air 07/17/16 10:00 60 134/56 07/17/16 04:00 97.7 66 20 150/60 100 Room Air 07/17/16 00:58 98.2 65 20 141/59 100 Room Air 07/17/16 00:00 97.9 67 18 141/59 97 Room Air 07/16/16 22:49 76 151/70 Intake and Output 07/16/16 07/17/16 19:00 07:00 Intake Total 1157.5 ml 950.0 ml Output Total 400 ml 1250 ml Balance 757.5 ml -300.0 ml Intake Oral 110 ml 240 ml IV Total 1047.5 ml 710.0 ml Output Urine Total 400 ml 1250 ml # Bowel Movements 1 1 2D Echo: LVEF 55% Objective HEENT: Normocephalic and atraumatic. Pupils are both reactive to light. Moist oral mucosa. No exudate. NECK: Negative JVD, B/L carotid bruit CARDIOVASCULAR: Regular rate and rhythm. 3/6 late ESM at LSB, no gallops or rubs. LUNGS: No wheezing or rhonchi. Diminished breathing sounds at the bases. ABDOMEN: Soft. Nontender. Nondistended. Positive bowel sounds. No hepatosplenomegaly or ascites. EXTREMITIES: She had left heel skin break, no edema, clubbing or cyanosis, sacral decubitus RAGHAVENDRA PATEL Jul 17, 2016 23:14
[2016-07-19] MEDS ORDERED: LIPITOR80 MG ORAL (15:24)
[2016-07-19] MEDS ORDERED: ASPIR 8181 MG ORAL (15:24)
[2016-07-19] MEDS ORDERED: AMLODIPINE BES2.5 MG ORAL (15:24)
--- NOTE | 2016-07-19 15:25 | Discharge Summary ---
Discharge Summary Hospital Course Date of Admission Jul 06, 2016 at 15:45 Date of Discharge Jul 17, 2016 at 15:09 Admitting Diagnosis decubitus ulcers HPI Mary Boucher is a 85 year old female who was admitted on Jul 06, 2016 at 15: 45 for Decubitus Ulcers Hospital Course dc summary #[id number] Discharge Medications New Medications: Amlodipine Besylate* (Amlodipine Besylate*) 2.5 Mg Tablet 2.5 MG ORAL DAILY, #30 TAB Aspirin* (Aspir 81*) 81 Mg Tablet.dr 81 MG ORAL DAILY, #30 TAB Atorvastatin (Lipitor) 80 Mg Tablet 10 MG ORAL BEDTIME, #30 TAB 0 Refills Continued Medications: Atenolol* (Tenormin*) 25 Mg Tablet 25 MG ORAL DAILY, TAB Furosemide* (Lasix*) 20 Mg Tablet 20 MG ORAL DAILY, TAB Insulin Aspart (Novolog) 100 Unit/1 Ml Vial SQ BEFORE MEALS AND HS Nitroglycerin (Nitroglycerin) 0.4 Mg Tab.subl 0.4 MG SL, TAB Ejyfntkodudr-Ssfp-Vokjmedp,Iso (Zosyn 3.375 Gm Pre Mix-Bag) 3.375 Gm/50 Ml Froz.piggy 3.375 GM IVPB EVERY 8 HOURS, BAG Potassium Chloride (Potassium Chloride) 10 Meq Tab.er.prt 10 MEQ PO, TAB Vancomycin Hcl/D5w (Vancomycin-D5w 1 G/250 Ml) 1 Gm/250 Ml Plast..bag 750 MG IVPB Q12HR, BAG Discharge Condition Upon Discharge: stable Discharge Disposition Patient was discharged to Home with Home Health(06) Discharge Diagnoses: Bowen (Marilyn)Niharika NP Jul 19, 2016 15:25
--- NOTE | 2016-07-20 06:38 | Discharge Summary 2 SIG ---
DATE OF ADMISSION: 07/06/2016 DATE OF DISCHARGE: 07/17/2016 ADMITTING PHYSICIAN: Claudia Diaz M.D. REASON FOR ADMISSION: 85-year-old female with history of hypertension and diabetes, presented with a worsening decubitus ulcer. The patient herself nonverbal and was not able to provide any information. The patient was sent from home. No reported vomiting, diarrhea, or fevers. The patient has a sacral decubitus stage IV, getting worse. Workup in the emergency room revealed leukocytosis with white blood count was 19.8, anemia with hemoglobin 10.7, and hematocrit of 34. Sodium 130 and chloride 90. Lactic acid is within normal limits 1.5. Glucose was 152. Troponin was negative. EKG revealed normal sinus rhythm. No PVC. No ectopy. Chest x-ray revealed no consolidation or effusion. No pneumothorax. Septic workup initiated in the emergency room. The patient was started on empiric antibiotics and admitted for further management. ADMITTING DIAGNOSES: Include: 1. Sepsis. 2. Sacral decubitus stage IV, present on admission. 3. Anemia. 4. Severe protein-calorie malnutrition. 5. Diabetes. 6. Hypertension. HOSPITAL STAY: The patient admitted to the hospital. The patient started on empiric antibiotics. ID consult was requested. Plastic surgeon evaluation was requested. Blood culture initially with Staphylococcus coagulase-negative. Repeated blood cultures was negative. The patient was seen by Plastic surgeon. Subsequently undergone MRI of the sacral area, which was suspicious for osteomyelitis. The patient was on the IV fluids. Per ID, the patient will need total four weeks of antibiotics till 08/10/2016. PICC line was inserted prior to discharge. Echo ruled out vegetation. Bone biopsy revealed at enterococci. Venous duplex bilateral lower extremities was negative. Chest x-ray was negative. Supplemental oxygen and pulmonary toilet provided as needed. Echocardiogram revealed preserved ejection fraction of 50% to 55% and right ventricular systolic pressure of 29. Blood pressure was managed with beta-chel, initially was labile. Cathead Worker followed. Blind Aide was involved in managing labile blood pressure. Calcium channel chel was added to existing regimen as well as the hydralazine as needed. Blood pressure improved with current regimen. Per onshore diver, the patient with severe aortic stenosis and will benefit from total aortic valve replacement. Aspirin and statin were continued. Blood sugar was managed with sliding scale of insulin. Strict aspiration precautions were maintained. Diet as per speech therapist recommendation, the patient able to tolerate. Hemoglobin and hematocrit were monitored. Registered Private Duty Nurse followed. Remained at baseline, no irving for transfusion. Stool OB x3 was negative. The patient was working with physical and occupational therapists. DVT prophylaxis provided. Pain management provided. Bowel regimen instituted. Wound care provided as per the Plastic surgeon recommendation. DISCHARGE INSTRUCTIONS: The patient discharged home with a home health for wound care and IV antibiotics till 08/10/2016. DISCHARGE MEDICATIONS: See medication reconciliation list. DISCHARGE DIAGNOSES: 1. Sepsis. 2. Sacral osteomyelitis. 3. Sacral decubitus stage IV present on admission with abscess. 4. Status post debridement of sacral decubitus. 5. Iron-deficiency anemia. 6. Severe protein-calorie malnutrition. 7. Severe aortic stenosis. 8. History of cerebrovascular accident. 9. Coronary artery disease. 10. Hypertension. 11. Diabetes. Claudia Diaz M.D. I have been assigned to dictate discharge summary on this account and I was not involved in the patient's management. Niharika [facility] DR: Diana JOB#: [id number] CC: KAREN
--- NOTE | 2016-07-26 06:28 | Consultation ---
DATE OF CONSULTATION: 07/07/2016 CARDIOLOGY CONSULTATION: REFERRING PHYSICIAN: Claudia Diaz M.D. REASON FOR CONSULTATION: Management of heart murmur and Cardiology clearance for decubitus ulceration. HISTORY OF PRESENT ILLNESS: The patient is a very unfortunate 85-year-old female, who presented to the hospital with worsening of decubitus ulceration. The patient is transferred from home where she is taking care by her daughter. The patient herself is nonverbal. Therefore, history was obtained from the patient's daughter. At the time of arrival to the hospital, the patient's blood pressure was 102/49 mmHg and heart rate of 74. She was slightly febrile with temperature 99.9 degrees Fahrenheit and she was admitted to med/surg for further evaluation of the decubitus ulceration. PAST MEDICAL HISTORY: Includes coronary artery disease status post myocardial infarction in 2016, history of heart murmur, and history of cerebrovascular accident. PAST SURGICAL HISTORY: None. LIST OF MEDICATIONS: At home includes amlodipine 2.5 mg daily, aspirin 81 mg p.o. daily, atenolol 25 mg p.o. daily, atorvastatin 10 mg p.o. at nightly, Lasix 20 mg p.o. daily, NovoLog insulin, nitroglycerin 0.4 sublingual q. 5 minutes p.r.n. chest pain, Zosyn 3.375 g IV piggyback q.8 hours, potassium chloride 10 mEq p.o. daily, and vancomycin 750 mg IV piggyback q.12 hours. HABITS: The patient denies any tobacco, alcohol, or illicit drug use. REVIEW OF SYSTEMS: The patient is unfortunately nonverbal. The following review of systems is not from the patient directly. According to the patient's daughter, there is no history of chest pain or shortness of breath. There is history of heart murmur, but the patient's daughter is not clear about as she was recently admitted to another hospital and was told that she had mild heart attack. There was no intervention done at that time. PHYSICAL EXAMINATION: VITAL SIGNS: Blood pressure is 102/49, respirations 16, pulse 74, temperature 99.9 degrees Fahrenheit, and O2 saturation 97% on room air. HEENT: Atraumatic and normocephalic. Pupils are equal, round, and reactive to light and accommodation. Extraocular muscles intact . NECK: JVP is less than 5 cm. There are bilateral carotid bruits. Carotid upstroke is 1+ bilaterally. CVS: Normal S1, S2. A 3/6 ejection systolic murmur at the apex with radiation to both carotids. It appears to be late peaking. LUNGS: Clear to auscultation bilaterally. ABDOMEN: Soft, nontender, nondistended. No hepatosplenomegaly. Positive bowel sounds. There is a large sacral decubitus ulceration 5 x 4 cm presence of a sharp foul smelling odor. LABORATORY FINDINGS: WBC 19.8, hemoglobin 10.7, hematocrit 34.0, and platelet count 436,000 with left shift. Sodium was 130, potassium 4.9, chloride 90, bicarbonate 25, BUN of 15, creatinine 0.5, and glucose 152. Calcium is 8.9. Troponin I less than 0.3. INR is 1.1. Chest x-ray showed no acute cardiopulmonary disease. Normal cardiac silhouette. A 12-lead electrocardiogram shows sinus rhythm at a rate of 85 with T-wave abnormalities, consider anterior ischemia. ASSESSMENT AND PLAN: 1. The patient is a very unfortunate 85-year-old female, seen in Cardiology consultation at request of Dr. Diaz. The patient is expected to undergo surgical debridement of the sacral decubitus and bone biopsy by Dr. Howard. , the patient is seen in Cardiology consultation for preoperative cardiac clearance as well. We will like to obtain 2D echocardiography in view of late peaking ejection systolic murmur suspected severe aortic stenosis clinically. Further recommendation will be based on the result of the echocardiography. In the meantime, I would like to discontinue Lasix and continue the amlodipine and atenolol. 2. History of coronary artery disease status post myocardial infarction. According to the patient's daughter, the detail of which is unknown. Apparently, the patient did not have any intervention. We will continue medical therapy. A 12-lead electrocardiogram does not show T-wave changes on the ECG . 3. The first troponin level is within normal. 4. We will continue with serial troponin I and EKG of this patient. Currently, the patient is chest pain-free. I would like to thank, Dr. Diaz for allowing me to participate in care of this patient. Jose Samuel M.D. DR: Yoselin JOB#: [id number] CC:
== END 2016-07-17 15:09 | disposition home health service (06) | DRG 853 ==
LOC: EDBD 14:36 → EMR 15:11 → 4W 15:45 → EDBEDREQ 16:00
PROC: 0QB10ZX Excision of Sacrum, Open Approach, Diagnostic (ICD-10-PCS; principal; 2016-07-08 17:00)
PROC: 0QB10ZZ Excision of Sacrum, Open Approach (ICD-10-PCS; principal; 2016-07-08 17:00)
PROC: 02HV33Z Insertion of Infusion Device into Superior Vena Cava, Percutaneous Approach (ICD-10-PCS; 2016-07-14)
DX: A41.9 Sepsis, unspecified organism (principal); L89.154 Pressure ulcer of sacral region, stage 4; R65.21 Severe sepsis with septic shock; E43 Unspecified severe protein-calorie malnutrition; I96 Gangrene, not elsewhere classified; E11.9 Type 2 diabetes mellitus without complications; F03.90 Unspecified dementia, unspecified severity, without behavioral disturbance, psychotic disturbance, mood disturbance, and anxiety; I35.0 Nonrheumatic aortic (valve) stenosis; D63.8 Anemia in other chronic diseases classified elsewhere; M46.28 Osteomyelitis of vertebra, sacral and sacrococcygeal region; Z68.1 Body mass index [BMI] 19.9 or less, adult; D50.9 Iron deficiency anemia, unspecified; I10 Essential (primary) hypertension; I25.10 Atherosclerotic heart disease of native coronary artery without angina pectoris; Z86.73 Personal history of transient ischemic attack (TIA), and cerebral infarction without residual deficits; Z79.4 Long term (current) use of insulin; I25.2 Old myocardial infarction; K21.9 Gastro-esophageal reflux disease without esophagitis; R62.7 Adult failure to thrive
CPT/HCPCS: 36415; 36569; 71010; 72195; 74230; 76937; 80048; 80053; 80061; 80202; 82270; 82550; 82553; 82728; 82962; 83540; 83550; 83605; 83735; 84100; 84134; 84443; 84484; 85007; 85025; 85610; 85651; 85730; 86850; 86900; 86901; 86920; 87040; 87070; 87075; 87181; 87205; 93005; 93306; 93970; 94003; 94150; J1815

== ENCOUNTER 2016-07-26 08:55 | Outpatient (RCR) | payer MEDICARE, BC ==
[~2016-07-26] VITALS: Ht 157.5 cm; Wt 59.0 kg
[~2016-07-26 08:55] MED LIST: AMLODIPINE BES2.5 MG ORAL; ASPIR 8181 MG ORAL; ATENOLOL25 MG ORAL; FUROSEMIDE20 M1 ORAL; LIPITOR80 MG ORAL; NITROGLYCERIN0.4 MG SL; NOVOLOG100 UNIT/5 SQ; POTASSIUM CHLO10 ME2 PO; VANCOMYCIN1 GM/2502 IVPB; ZOSYN 3.373.375 GM/1 IVPB
[2016-07-29] MEDS ORDERED: Lidocaine 4% Top Soln 50ml TOPIC ONE (11:45)
== END 2016-08-13 | disposition home or self-care (01) ==
LOC: WCC 08:55
DX: L89.154 Pressure ulcer of sacral region, stage 4 (principal); L89.620 Pressure ulcer of left heel, unstageable; M46.28 Osteomyelitis of vertebra, sacral and sacrococcygeal region; E11.9 Type 2 diabetes mellitus without complications; I10 Essential (primary) hypertension; Z96.641 Presence of right artificial hip joint; Z79.82 Long term (current) use of aspirin
CPT/HCPCS: 11044; 11047; 97606

== ENCOUNTER 2016-08-18 14:30 | Outpatient (RCR) | payer MEDICARE, BC ==
[~2016-08-18] VITALS: Ht 157.5 cm; Wt 68.0 kg
[2016-09-09] MEDS ORDERED: Lidocaine HCl 2% Jelly 5ml Tube TOPIC ONE (11:30)
== END 2016-09-12 | disposition home or self-care (01) ==
LOC: WCC 14:30
DX: L89.154 Pressure ulcer of sacral region, stage 4 (principal); L89.620 Pressure ulcer of left heel, unstageable; M46.28 Osteomyelitis of vertebra, sacral and sacrococcygeal region; Z96.641 Presence of right artificial hip joint; E11.9 Type 2 diabetes mellitus without complications; I10 Essential (primary) hypertension; E46 Unspecified protein-calorie malnutrition; Z79.82 Long term (current) use of aspirin
CPT/HCPCS: 11044; 11047; 97606

== ENCOUNTER → 2016-09-09 | Outpatient (CLI) | payer MEDICARE, BC ==
--- NOTE | 2016-09-09 16:17 | Diagnostic Imaging Report ---
Indication: Sacral wound, possible osteomyelitis. Technique: Axial, sagittal, and coronal T1 fast spin echo, axial STIR, coronal and sagittal fast spin-echo IR images obtained of the pelvis. Comparison: Sacrum MRI dated 2 06/07/16 Findings: increased IR signal persists in the S3 and S4 sacral segments. Increased IR signal is also seen throughout the residual first and second coccygeal segments. The coccyx is not seen beyond this. The distal coccygeal segments appears somewhat smaller than on the previous exam, may have eroded somewhat in the interim. The T1 signal abnormality is equivocally slightly decreased as compared to prior study, however. There is now a sizable soft tissue defect in the retro-sacral midline, in the location of the previously demonstrated soft tissue gas bubbles. There is a large area of susceptibility artifact in the right hip region, presumably related to a hip prosthesis. Note that soft tissue signal is seen within the right acetabulum, and a susceptibility artifact extends posterior and cephalad and superficial to the acetabulum, suggesting dislocation of the prosthesis. No abnormal pelvic signal demonstrated. The coronal images demonstrate compression fracture deformities of the L3 and L4 vertebral bodies. No abnormal marrow signal is observed. The rectum is distended by stool, although slightly less so than previously. There is a Burton catheter within the bladder, which is nondistended. Impression: Soft tissue defect in the retro-sacral soft tissues in the area of previous gas bubbles. Likely reflects interim surgical debridement, but could represent progressive tissue loss related to sacral wound Persistent signal abnormality within S3, S4, and the residual coccygeal segments, consistent with ongoing osteomyelitis. There is suggestion of slight interim decrease in the T1 signal abnormality, but there overall appears to be progressive bone loss in this area. Evidence of rectal fecal impaction Evidence of old L3 and L4 vertebral body compression fractures Evidence of right hip prosthesis, probably dislocated. Plain radiographic correlation is recommended. Burton catheter
== END | disposition home or self-care (01) ==
LOC: MRI 10:13
DX: M86.9 Osteomyelitis, unspecified (principal); Z96.641 Presence of right artificial hip joint
CPT/HCPCS: 72195

== ENCOUNTER 2016-09-20 15:13 | Inpatient (IN) | payer MEDICARE, BC ==
[~2016-09-20] VITALS: Ht 157.5 cm; Wt 55.3 kg
--- NOTE | 2016-09-20 16:32 | Diagnostic Imaging Report ---
Indications: Chest pain Technique: Portable AP chest Findings: Comparison: 07/06/16 Linear/patchy opacities have developed in both lung bases. Blunting of the right costophrenic angle has developed. Left remain sharp. Cardiac silhouette remains upper limits of normal in size. Pulmonary vasculature remains within normal limits. PICC has been placed via right upper extremity, tip in region of superior vena cava. IMPRESSION: Development of pulmonary bibasal subsegmental atelectasis versus focal infiltrates Apparent development of small right pleural effusion, nonspecific Interval PICC placement, in good position
--- NOTE | 2016-09-20 17:01 | Emergency Room Report ---
History of Present Illness General Chief Complaint: General Complaint Source: Family Member Present Illness HPI 85-year-old female presents ED for evaluation. Family is at bedside states that patient was taken to [facility] yesterday because she was showing some labored breathing and had a clogged Burton catheter. Patient was to be admitted but family took her home AMA and wanted to bring her here. Upon arrival patient appears more lethargic than baseline. No signs of distress. patient has history of dementia and recent CVA. Patient also has a decubitus ulcer on the back which is currently being treated by wound care here. Denies chest pain. Denies fevers or chills. Denies nausea or vomiting. No other aggravating or relieving factors. Denies any other associated symptoms Allergies: Coded Allergies: No Known Allergies (Verified , 11/28/08) Patient History Past Medical History: DM, HTN, CVA/TIA Past Surgical History: none Pertinent Family History: none Social History: Denies: alcohol use, drug use, smoking Now: No Immunizations: UTD Reviewed Nursing Documentation: PMH: Agreed, PSxH: Agreed Nursing Documentation-PMH Past Medical History: No History, Except For Hx Cardiac Problems: Yes - WI 04/2016, hip fx with repai 04/2016 Hx Hypertension: Yes Hx Diabetes: Yes Hx Cancer: No Hx Cerebrovascular Accident: Yes - 05/2016 Review of Systems All Other Systems: negative except mentioned in HPI Physical Exam Vital Signs Date Time Temp Pulse Resp B/P Pulse Ox O2 Delivery O2 Flow Rate FiO2 09/20/16 15:24 97.0 77 25 106/48 98 Room Air Sp02 EP Interpretation: reviewed, normal General Appearance: lethargic, thin Head: normocephalic Eyes: bilateral eye PERRL, bilateral eye normal inspection ENT: hearing grossly normal, normal pharynx, no angioedema, normal voice Neck: full range of motion, supple/symm/no masses Respiratory: crackles Cardiovascular #1: regular rate, rhythm, no edema Gastrointestinal: normal bowel sounds, non tender, soft, non-distended, no guarding, no rebound Rectal: deferred Genitourinary: no CVA tenderness Musculoskeletal: normal inspection Neurologic: other - lethargic Psychiatric: other - lethargic Skin: normal inspection Lymphatic: normal inspection Procedures Critical Care Time Critical Care Time i. I feel this is a highly complex case requiring extensive working including EKG/Rhythm strip, Xray/CT/US, Blood/urine lab work, repeat exams while in ED, and administration of strong opiates/narcotics for pain control, admission to hospital or close patient follow up. Total time: 30 min bedside evaluation and treatment excludes procedures (EKG). Reason for critical care: Elevated troponin, pneumonia, sepsis Possible complications: hypotension, hypertension, WI, shock, arrhythmias, metabolic acidosis, end organ damage, respiratory failure. Interventions: Labs, IV fluids, EKG, chest x-ray, antibiotics, aspirin Course: Patient brought in for increasing shortness of breath x1 day. Was seen at [facility] today and left AMA. Leukocytosis, chest x-ray shows pneumonia. EKG shows repolarization changes in the anterior leads. Troponins elevated but discussed with [facility] and not deemed ST elevation. Given antibiotics. Given IV fluids. Given aspirin. Consultations: nursing staff, EMS, family Performed by: Dr Smith Tolerated well condition = critical j. because of unstable vital signs this patient had a condition that could potentially threaten life or limb. I feel this is a critical patient who required my full attention while patient was considered critical. Total Critical Care Time excluding procedures was greater than 35 minutes Medical Decision Making Diagnostic Impression: Primary Impression: Pneumonia Qualified Codes: J18.9 - Pneumonia, unspecified organism Additional Impressions: Sacral decubitus ulcer, stage IV NSTEMI (non-ST elevated myocardial infarction) UTI (urinary tract infection) Qualified Codes: N39.0 - Urinary tract infection, site not specified ER Course Hospital Course 85-year-old female presents ED for evaluation of increasing shortness of breath , weakness x1 day. Was seen at [facility] today and left AMA Differential diagnoses include: WI/unstable angina, contusion, muscle strain, PTX, rib fracture Clinical course Patient based on stretcher after initial history and physical I ordered labs, IV fluids, EKG, chest x-ray labs reviewed- noted leukocytosis, electrolytes ok, trop 0.38, UA + bacteria EKG-early repolarization, no evidence of ST elevation Chest x-ray- bilateral infiltrates Unclear when the symptoms started. Patient not endorsing chest pain. granddaughter states that she took patient to hospital around 1 AM Case discussed with [facility]- EKG likely repolarization changes versus ST elevation. Compared against prior EKGs from June which appeared similar. Higher-level care not indicated. Given aspirin, IVFs, antibiotics. Case discussed with Dr. Pace and he agreed to accept the patient to his service for further care and support I. I feel this is a highly complex case requiring extensive working including EKG/Rhythm strip, Xray/CT/US, Blood/urine lab work, repeat exams while in ED, and administration of strong opiates/narcotics for pain control, admission to hospital or close patient follow up. Diagnosis - NSTEMI, pneumonia, sacral decubitus ulcer, UTI admitted to [facility] in critical condition Labs Test 09/20/16 16:10 White Blood Count 19.4 K/UL (4.8-10.8) Red Blood Count 3.60 M/UL (4.20-5.40) Hemoglobin 9.9 G/DL (12.0-16.0) Hematocrit 30.5 % (37.0-47.0) Mean Corpuscular Volume 85 FL (80-99) Mean Corpuscular Hemoglobin 27.4 PG (27.0-31.0) Mean Corpuscular Hemoglobin Concent 32.3 G/DL (32.0-36.0) Red Cell Distribution Width 18.9 % (11.6-14.8) Platelet Count 531 K/UL (150-450) Mean Platelet Volume 6.4 FL (6.5-10.1) Neutrophils (%) (Auto) % (45.0-75.0) Lymphocytes (%) (Auto) % (20.0-45.0) Monocytes (%) (Auto) % (1.0-10.0) Eosinophils (%) (Auto) % (0.0-3.0) Basophils (%) (Auto) % (0.0-2.0) Differential Total Cells Counted 100 Neutrophils % (Manual) 87 % (45-75) Lymphocytes % (Manual) 6 % (20-45) Monocytes % (Manual) 7 % (1-10) Eosinophils % (Manual) 0 % (0-3) Basophils % (Manual) 0 % (0-2) Band Neutrophils 0 % (0-8) Platelet Estimate Increased Platelet Morphology Normal Hypochromasia 1+ Anisocytosis 1+ Prothrombin Time 11.4 SEC (9.30-11.50) Prothromb Time International Ratio 1.1 (0.9-1.1) Activated Partial Thromboplast Time 30 SEC (23-33) Urine Color Pale yellow Urine Appearance Slightly cloudy Urine pH 6 (4.5-8.0) Urine Specific [place] 1.015 (1.005-1.035) Urine Protein 2+ (NEGATIVE) Urine Glucose (UA) Negative (NEGATIVE) Urine Ketones Negative (NEGATIVE) Urine Occult Blood 5+ (NEGATIVE) Urine Nitrite Negative (NEGATIVE) Urine Bilirubin Negative (NEGATIVE) Urine Urobilinogen Normal MG/DL (0.0-1.0) Urine Leukocyte Esterase 3+ (NEGATIVE) Urine RBC 10-15 /HPF (0 - 2) Urine WBC 15-20 /HPF (0 - 2) Urine Squamous Epithelial Cells Few /LPF (NONE/OCC) Urine Amorphous Sediment Few /LPF (NONE) Urine Bacteria Moderate /HPF (NONE) Sodium Level 135 mEQ/L (135-145) Potassium Level 4.4 mEQ/L (3.4-4.9) Chloride Level 95 mEQ/L (98-107) Carbon Dioxide Level 25 mEQ/L (20-30) Anion Gap 15 (5-15) Blood Urea Nitrogen 19 mg/dL (7-23) Creatinine 0.6 mg/dL (0.5-0.9) Estimat Glomerular Filtration Rate mL/min (>60) Glucose Level 122 mg/dL (74-106) Lactic Acid Level 1.10 mmol/L (0.66-2.22) Calcium Level 8.9 mg/dL (8.6-10.2) Total Bilirubin 0.5 mg/dL (0.0-1.2) Aspartate Amino Transf (AST/SGOT) 16 U/L (5-40) Alanine Aminotransferase (ALT/SGPT) 7 U/L (3-33) Alkaline Phosphatase 93 U/L (35-104) Total Creatine Kinase 43 U/L (26-140) Creatine Kinase MB 1.7 ng/mL (< 3.8) Creatine Kinase MB Relative Index 3.9 Troponin I 0.38 ng/mL (<=0.30) Pro-B-Type Natriuretic Peptide 07791 pg/mL (0-450) Total Protein 6.2 g/dL (6.6-8.7) Albumin 2.6 g/dL (3.5-5.2) Globulin 3.6 g/dL Albumin/Globulin Ratio 0.7 (1.0-2.7) EKG Diagnostic Results Rate: normal Rhythm: NSR ST Segments: other - early repolarization ASA given to the pt in ED: Yes Rhythm Strip Diag. Results EP Interpretation: yes Rhythm: NSR, no PVC's, no ectopy Chest X-Ray Diagnostic Results EP Interpretation: No Findings: no pneumothorax, no acute cardiopulmonary disease, other - bilateral atelectasis vs infiltrates Number of Views: 1 Last Vital Signs Date Time Temp Pulse Resp B/P Pulse Ox O2 Delivery O2 Flow Rate FiO2 09/20/16 15:24 97.0 77 25 106/48 98 Room Air Status: improved Disposition: ADMITTED INPATIENT Condition: Serious EDER SMITH M.D. September 20, 2016 17:01
[2016-09-20 17:11] LABS: ALANINE AMINOTRANSFERASE 7 U/L (3-33); ALBUMIN/GLOBULIN RATIO 0.7 (1.0-2.7); ANION GAP 15 (5-15); ASPARTATE AMINO TRANSFERASE 16 U/L (5-40); CALCIUM 8.9 mg/dL (8.6-10.2); CARBON DIOXIDE 25 mEQ/L (20-30); CHLORIDE 95 mEQ/L (98-107); CREATININE 0.6 mg/dL (0.5-0.9); HEMOLYSIS 0; POTASSIUM 4.4 mEQ/L (3.4-4.9); SODIUM 135 mEQ/L (135-145); TOTAL PROTEIN 6.2 g/dL (6.6-8.7)
[2016-09-20 17:16] LABS: APPEARANCE,URINE SLIGHTLY CLOUDY; KETONES,URINE NEGATIVE (NEGATIVE); LEUKOCYTE ESTERASE ,URINE 3+ (NEGATIVE); MEAN CORPUSCULAR HEMOGLOBIN 27.4 PG (27.0-31.0); MEAN CORPUSCULAR HGB CONC 32.3 G/DL (32.0-36.0); MEAN CORPUSCULAR VOLUME 85 FL (80-99); MEAN PLATELET VOLUME 6.4 FL (6.5-10.1); NITRITE,URINE NEGATIVE (NEGATIVE); PH,URINE 6 (4.5-8.0); PLATELET COUNT 531 K/UL (150-450); PROTEIN,URINE 2+ (NEGATIVE); RED CELL DISTRIBUTION WIDTH 18.9 % (11.6-14.8); TROPONIN I 0.38 ng/mL (<=0.30); UROBILINOGEN,URINE NORMAL MG/DL (0.0-1.0); WHITE BLOOD COUNT 19.4 K/UL (4.8-10.8)
[2016-09-20 17:21] LABS: CKMB 1.7 ng/mL (< 3.8)
[2016-09-20 17:23] LABS: AMORPHOUS SEDIMENT,UR FEW /LPF; BACTERIA,URINE MODERATE /HPF; SQUAMOUS EPITHELIAL CELL,UR FEW /LPF (NONE/OCC); WBC,URINE 15-20 /HPF (0 - 2)
[2016-09-20] MEDS ORDERED: Azithromycin 500 MG in NS 275 ML IV ONE (17:45)
[2016-09-20] MEDS ORDERED: Piperacillin/Tazobactam 3.375 GM in NS 110 ML IV ONE (17:45)
[2016-09-20 17:52] LABS: ANISOCYTOSIS 1+; BAND NEUTROPHILS % (MANUAL) 0 % (0-8); BASOPHILS % (MANUAL) 0 % (0-2); EOSINOPHILS % (MANUAL) 0 % (0-3); HYPOCHROMASIA 1+; LYMPHOCYTES % (MANUAL) 6 % (20-45); NEUTROPHILS % (MANUAL) 87 % (45-75); PLATELET ESTIMATE INCREASED; PLATELET MORPHOLOGY NORMAL; TOTAL CELLS COUNTED 100
[2016-09-20] MEDS ORDERED: NS 110 ML ONE (17:57)
[2016-09-20] MEDS ORDERED: Zosyn 3.375gm inj ONE (17:57)
[2016-09-20] MEDS ORDERED: Azithromycin Inj IV ONE (18:38)
[2016-09-20] MEDS ORDERED: NS 275 ML ONE (18:38)
[2016-09-20] MEDS ORDERED: DuoNeb 0.5-3(2.5)mg/3ml neb HHN PRN (19:15)
[2016-09-20] MEDS ORDERED: Miralax 17gm pkt ORAL PRN (19:15)
[2016-09-20] MEDS ORDERED: Morphine Sulfate 2mg/ml Inj IVP PRN (19:15)
[2016-09-20] MEDS ORDERED: Nitroglycerin Subl 0.4mg tab (Bottle Of 25) SL PRN (19:15)
[2016-09-20] MEDS ORDERED: PANTOPRAZOLE SO40 MG ORAL (19:24)
[2016-09-20] MEDS ORDERED: LANTUS SOL100 UNIT/1 SUBQ (19:24)
[2016-09-20 19:30] VITALS: BP 105/55
[2016-09-20 20:11] LABS: INR 1.1 (0.9-1.1); PROTHROMBIN TIME 11.4 SEC (9.30-11.50)
[2016-09-20 21:00] VITALS: BP 96/57
[2016-09-20] MEDS: NovoLOG Insulin Flexpen SUBQ SCH (21:00)
[2016-09-20] MEDS ORDERED: CEFEPIME 22 GM/100 M IV (21:47)
[2016-09-20] MEDS: Cefepime HCl 2 GM in D5W 110 ML IV SCH ×2 (22:05→22:13)
[2016-09-20] MEDS: Heparin 5000 units/ml inj SUBQ SCH (22:13)
[2016-09-20] MEDS: Vancomycin 1 GM in D5W 275 ML IVPB SCH (22:15)
[2016-09-21] VITALS (7 sets, daily range): BP systolic 90–125; BP diastolic 49–66
[2016-09-21 06:05] LABS: MEAN CORPUSCULAR HEMOGLOBIN 25.7 PG (27.0-31.0); MEAN CORPUSCULAR HGB CONC 30.2 G/DL (32.0-36.0); MEAN CORPUSCULAR VOLUME 85 FL (80-99); MEAN PLATELET VOLUME 6.3 FL (6.5-10.1); PLATELET COUNT 501 K/UL (150-450); RED BLOOD COUNT 3.05 M/UL (4.20-5.40); RED CELL DISTRIBUTION WIDTH 20.2 % (11.6-14.8); WHITE BLOOD COUNT 15.9 K/UL (4.8-10.8)
[2016-09-21 06:28] LABS: ALANINE AMINOTRANSFERASE 7 U/L (3-33); ALBUMIN/GLOBULIN RATIO 0.6 (1.0-2.7); ANION GAP 15 (5-15); ASPARTATE AMINO TRANSFERASE 15 U/L (5-40); CALCIUM 8.8 mg/dL (8.6-10.2); CARBON DIOXIDE 24 mEQ/L (20-30); CHLORIDE 98 mEQ/L (98-107); CREATININE 0.4 mg/dL (0.5-0.9); HEMOLYSIS 1; SODIUM 137 mEQ/L (135-145); TOTAL PROTEIN 5.7 g/dL (6.6-8.7)
[2016-09-21] MEDS: NovoLOG Insulin Flexpen SUBQ SCH ×4 (06:39→22:14)
[2016-09-21 07:28] LABS: TROPONIN I < 0.30 ng/mL (<=0.30)
[2016-09-21] MEDS: Heparin 5000 units/ml inj SUBQ SCH ×2 (08:50→21:00)
[2016-09-21] MEDS ORDERED: Atenolol 25mg tab ORAL SCH (09:00)
[2016-09-21 09:06] LABS: MEAN CORPUSCULAR HEMOGLOBIN 25.1 PG (27.0-31.0); MEAN CORPUSCULAR HGB CONC 29.6 G/DL (32.0-36.0); MEAN CORPUSCULAR VOLUME 85 FL (80-99); MEAN PLATELET VOLUME 6.9 FL (6.5-10.1); PLATELET COUNT 505 K/UL (150-450); RED BLOOD COUNT 3.16 M/UL (4.20-5.40); RED CELL DISTRIBUTION WIDTH 19.3 % (11.6-14.8); WHITE BLOOD COUNT 12.7 K/UL (4.8-10.8)
[2016-09-21 09:44] LABS: BAND NEUTROPHILS % (MANUAL) 0 % (0-8); BASOPHILS % (MANUAL) 0 % (0-2); EOSINOPHILS % (MANUAL) 0 % (0-3); LYMPHOCYTES % (MANUAL) 14 % (20-45); NEUTROPHILS % (MANUAL) 73 % (45-75); PLATELET ESTIMATE ADEQUATE; TOTAL CELLS COUNTED 100
[2016-09-21 09:45] LABS: ANISOCYTOSIS 2+; HYPOCHROMASIA 3+; PLATELET MORPHOLOGY NORMAL
[2016-09-21 10:00] LABS: ANISOCYTOSIS 2+; BAND NEUTROPHILS % (MANUAL) 0 % (0-8); BASOPHILS % (MANUAL) 0 % (0-2); EOSINOPHILS % (MANUAL) 0 % (0-3); HYPOCHROMASIA 3+; LYMPHOCYTES % (MANUAL) 12 % (20-45); NEUTROPHILS % (MANUAL) 80 % (45-75); PLATELET ESTIMATE ADEQUATE; PLATELET MORPHOLOGY NORMAL; TOTAL CELLS COUNTED 100
[2016-09-21] MEDS ORDERED: NS 275ml ONE (10:16)
[2016-09-21] MEDS ORDERED: Tubing IV Secondary IV ONE (10:16)
--- NOTE | 2016-09-21 12:04 | Consultation ---
Consult Note Consult Note ID Dic# [id number] BALDEV DUTTON M.D. September 21, 2016 12:04
--- NOTE | 2016-09-21 12:08 | History and Physical ---
History of Present Illness General Date patient seen: September 21, 2016 Reason for Hospitalization: General Complaint Present Illness HPI 85-year-old female with hx of dementia, bed bound presented to [facility] for evaluation of labored breathing and had a clogged Burton catheter. Upon arrival to ER patient appeared more lethargic than baseline. No signs of distress. Patient also has a decubitus ulcer on the back which is currently being treated by wound care here. Pt was diagnosed to have sepsis with leukocytosis and increased troponin as well. She is admitted to [facility] for further evaluation. Allergies: Coded Allergies: No Known Allergies (Verified , 11/28/08) Medication History Scheduled Amlodipine Besylate* (Amlodipine Besylate*), 2.5 MG ORAL DAILY Aspirin* (Aspir 81*), 81 MG ORAL DAILY Atenolol* (Tenormin*), 25 MG ORAL DAILY, (Reported) Atorvastatin (Lipitor), 10 MG ORAL BEDTIME Furosemide* (Lasix*), 40 MG ORAL DAILY, (Reported) Insulin Aspart (Novolog), SQ BEFORE MEALS AND HS, (Reported) Insulin Glargine (Lantus), 0 SUBQ TID, (Reported) Pantoprazole* (Pantoprazole*), 40 MG ORAL BID, (Reported) Potassium Chloride (Potassium Chloride), 20 MEQ PO DAILY, (Reported) Miscellaneous Medications Cefepime Hcl/Dextrose, Iso-Osm (Cefepime 2 Gm Injection), 2 GM IV, (Reported) Nitroglycerin (Nitroglycerin), 0.4 MG SL, (Reported) Patient History Healthcare decision maker ROBERT JHAVERI- Resuscitation status Full Code Advanced Directive on File Past Medical/Surgical History Past Medical/Surgical History: (1) Advanced dementia (2) Sacral decubitus ulcer, stage IV (3) Diabetes mellitus (4) Sacral osteomyelitis Review of Systems All Other Systems: negative except mentioned in HPI Physical Exam General Appearance: WD/WN Lines, tubes and drains: peripheral HEENT: normocephalic, atraumatic Neck: non-tender, normal alignment Respiratory/Chest: chest wall non-tender, lungs clear Cardiovascular/Chest: normal peripheral pulses, regular rhythm Abdomen: normal bowel sounds Genitourinary/Rectal: normal genital exam Extremities: normal range of motion Last 24 Hour Vital Signs Date Time Temp Pulse Resp B/P Pulse Ox O2 Delivery O2 Flow Rate FiO2 09/21/16 09:00 89 94/63 09/21/16 09:00 89 94/63 09/21/16 08:15 88 09/21/16 08:11 97.4 89 20 94/63 100 Room Air 09/21/16 04:00 98.9 82 20 90/49 99 Room Air 09/21/16 04:00 98.9 82 20 90/49 99 Room Air 09/21/16 03:47 84 09/21/16 00:00 99.0 85 24 94/56 99 Room Air 85 09/20/16 23:48 82 09/20/16 21:00 99.7 80 22 96/57 96 Room Air 80 09/20/16 20:42 86 09/20/16 20:37 98.2 84 22 105/55 100 Room Air 09/20/16 19:30 98.2 84 22 105/55 100 Room Air 09/20/16 15:24 97.0 77 25 106/48 98 Room Air Intake and Output 09/20/16 09/21/16 19:00 07:00 Intake Total 1100 ml 518 ml Output Total 725 ml Balance 1100 ml -207 ml Intake Oral 225 ml IV Total 1100 ml 293 ml Output Urine Total 725 ml # Bowel Movements 3 Laboratory Tests Test 09/20/16 16:10 09/21/16 04:00 09/21/16 08:30 White Blood Count 19.4 K/UL (4.8-10.8) H 15.9 K/UL (4.8-10.8) H 12.7 K/UL (4.8-10.8) H Red Blood Count 3.60 M/UL (4.20-5.40) L 3.05 M/UL (4.20-5.40) L 3.16 M/UL (4.20-5.40) L Hemoglobin 9.9 G/DL (12.0-16.0) L 7.8 G/DL (12.0-16.0) L 7.9 G/DL (12.0-16.0) L Hematocrit 30.5 % (37.0-47.0) L 25.9 % (37.0-47.0) L 26.8 % (37.0-47.0) L Mean Corpuscular Volume 85 FL (80-99) 85 FL (80-99) 85 FL (80-99) Mean Corpuscular Hemoglobin 27.4 PG (27.0-31.0) 25.7 PG (27.0-31.0) L 25.1 PG (27.0-31.0) L Mean Corpuscular Hemoglobin Concent 32.3 G/DL (32.0-36.0) 30.2 G/DL (32.0-36.0) L 29.6 G/DL (32.0-36.0) L Red Cell Distribution Width 18.9 % (11.6-14.8) H 20.2 % (11.6-14.8) H 19.3 % (11.6-14.8) H Platelet Count 531 K/UL (150-450) H 501 K/UL (150-450) H 505 K/UL (150-450) H Mean Platelet Volume 6.4 FL (6.5-10.1) L 6.3 FL (6.5-10.1) L 6.9 FL (6.5-10.1) Neutrophils (%) (Auto) % (45.0-75.0) % (45.0-75.0) % (45.0-75.0) Lymphocytes (%) (Auto) % (20.0-45.0) % (20.0-45.0) % (20.0-45.0) Monocytes (%) (Auto) % (1.0-10.0) % (1.0-10.0) % (1.0-10.0) Eosinophils (%) (Auto) % (0.0-3.0) % (0.0-3.0) % (0.0-3.0) Basophils (%) (Auto) % (0.0-2.0) % (0.0-2.0) % (0.0-2.0) Differential Total Cells Counted 100 100 100 Neutrophils % (Manual) 87 % (45-75) H 80 % (45-75) H 73 % (45-75) Lymphocytes % (Manual) 6 % (20-45) L 12 % (20-45) L 14 % (20-45) L Monocytes % (Manual) 7 % (1-10) 8 % (1-10) 13 % (1-10) H Eosinophils % (Manual) 0 % (0-3) 0 % (0-3) 0 % (0-3) Basophils % (Manual) 0 % (0-2) 0 % (0-2) 0 % (0-2) Band Neutrophils 0 % (0-8) 0 % (0-8) 0 % (0-8) Platelet Estimate Increased H Adequate Adequate Platelet Morphology Normal Normal Normal Hypochromasia 1+ 3+ 3+ Anisocytosis 1+ 2+ 2+ Prothrombin Time 11.4 SEC (9.30-11.50) Prothromb Time International Ratio 1.1 (0.9-1.1) Activated Partial Thromboplast Time 30 SEC (23-33) Urine Color Pale yellow Urine Appearance Slightly cloudy Urine pH 6 (4.5-8.0) Urine Specific [place] 1.015 (1.005-1.035) Urine Protein 2+ (NEGATIVE) H Urine Glucose (UA) Negative (NEGATIVE) Urine Ketones Negative (NEGATIVE) Urine Occult Blood 5+ (NEGATIVE) H Urine Nitrite Negative (NEGATIVE) Urine Bilirubin Negative (NEGATIVE) Urine Urobilinogen Normal MG/DL (0.0-1.0) Urine Leukocyte Esterase 3+ (NEGATIVE) H Urine RBC 10-15 /HPF (0 - 2) H Urine WBC 15-20 /HPF (0 - 2) H Urine Squamous Epithelial Cells Few /LPF (NONE/OCC) Urine Amorphous Sediment Few /LPF (NONE) H Urine Bacteria Moderate /HPF (NONE) H Sodium Level 135 mEQ/L (135-145) 137 mEQ/L (135-145) Potassium Level 4.4 mEQ/L (3.4-4.9) 4.0 mEQ/L (3.4-4.9) Chloride Level 95 mEQ/L (98-107) L 98 mEQ/L (98-107) Carbon Dioxide Level 25 mEQ/L (20-30) 24 mEQ/L (20-30) Anion Gap 15 (5-15) 15 (5-15) Blood Urea Nitrogen 19 mg/dL (7-23) 20 mg/dL (7-23) Creatinine 0.6 mg/dL (0.5-0.9) 0.4 mg/dL (0.5-0.9) L Estimat Glomerular Filtration Rate mL/min (>60) mL/min (>60) Glucose Level 122 mg/dL (74-106) H 91 mg/dL (74-106) Lactic Acid Level 1.10 mmol/L (0.66-2.22) Calcium Level 8.9 mg/dL (8.6-10.2) 8.8 mg/dL (8.6-10.2) Total Bilirubin 0.5 mg/dL (0.0-1.2) 0.6 mg/dL (0.0-1.2) Aspartate Amino Transf (AST/SGOT) 16 U/L (5-40) 15 U/L (5-40) Alanine Aminotransferase (ALT/SGPT) 7 U/L (3-33) 7 U/L (3-33) Alkaline Phosphatase 93 U/L (35-104) 88 U/L (35-104) Total Creatine Kinase 43 U/L (26-140) Creatine Kinase MB 1.7 ng/mL (< 3.8) Creatine Kinase MB Relative Index 3.9 Troponin I 0.38 ng/mL (<=0.30) *H < 0.30 ng/mL (<=0.30) Pro-B-Type Natriuretic Peptide 24273 pg/mL (0-450) H Total Protein 6.2 g/dL (6.6-8.7) L 5.7 g/dL (6.6-8.7) L Albumin 2.6 g/dL (3.5-5.2) L 2.3 g/dL (3.5-5.2) L Globulin 3.6 g/dL 3.4 g/dL Albumin/Globulin Ratio 0.7 (1.0-2.7) L 0.6 (1.0-2.7) L Microbiology Date/Time Source Procedure Growth Status 09/20/16 16:10 Urine,Clean Catch Urine Culture - Preliminary NO GROWTH Resulted Height (Feet): 5 Height (Inches): 2.00 Weight (Pounds): 122 Medications Current Medications Medications (Trade) Dose Ordered Sig/Abdirizak Route PRN Reason Start Time Stop Time Status Last Admin Dose Admin Acetaminophen (Tylenol) 650 mg Q4H PRN ORAL fever 09/20/16 19:15 10/20/16 19:14 Albuterol/ Ipratropium 3 ml 3 ml Q4H PRN HHN Shortness of Breath 09/20/16 19:15 09/25/16 19:14 Amlodipine Besylate (Norvasc) 2.5 mg DAILY ORAL 09/22/16 09:00 10/22/16 08:59 Atenolol (Tenormin) 25 mg DAILY ORAL 09/22/16 09:00 10/22/16 08:59 Cefepime HCl 2 gm/ Dextrose 110 ml @ 220 mls/hr DAILY@2100 IV 09/20/16 21:00 09/27/16 20:59 09/20/16 22:05 Dextrose (Dextrose 50%) STAT PRN IV Hypoglycemia 09/20/16 19:15 10/20/16 19:14 Heparin Sodium (Porcine) (Heparin 5000 units/ml) 5,000 units EVERY 12 HOURS SUBQ 09/20/16 21:00 10/20/16 20:59 09/21/16 08:50 Insulin Aspart (NovoLOG) BEFORE MEALS AND HS SUBQ 09/20/16 21:00 10/20/16 20:59 09/21/16 06:39 Morphine Sulfate (Morphine Sulfate) 2 mg Q4H PRN IVP Moderate Pain (Pain Scale 4-6) 09/20/16 19:15 09/27/16 19:14 Nitroglycerin (Ntg) 0.4 mg Q4H PRN SL Prn Chest Pain 09/20/16 19:15 10/20/16 19:14 Ondansetron HCl (Zofran) 4 mg Q6H PRN IVP Nausea & Vomiting 09/20/16 19:15 10/20/16 19:14 Polyethylene Glycol (Miralax) 17 gm DAILYPRN PRN ORAL Constipation 09/20/16 19:15 10/20/16 19:14 Temazepam (Restoril) 15 mg HSPRN PRN ORAL Insomnia 09/20/16 19:15 09/27/16 19:14 Vancomycin HCl (Vanco rx to dose) 1 ea DAILY PRN MISC PRN RX PROTOCOL 09/20/16 20:45 10/20/16 20:44 Vancomycin HCl/ Dextrose (Vancomycin/D5W) 275 ml @ 183.3 mls/ hr Q24H IVPB 09/20/16 22:00 09/25/16 21:59 09/20/16 22:15 Assessment/Plan Problem List: (1) Sepsis ICD Codes: A41.9 - Sepsis, unspecified organism SNOMED: 61929206 (2) NSTEMI (non-ST elevated myocardial infarction) ICD Codes: I21.4 - Non-ST elevation (NSTEMI) myocardial infarction SNOMED: 622447476 (3) UTI (urinary tract infection) ICD Codes: N39.0 - Urinary tract infection, site not specified SNOMED: 13868838 Qualifiers: Qualified Codes: N39.0 - Urinary tract infection, site not specified (4) Diabetes mellitus ICD Codes: E11.9 - Type 2 diabetes mellitus without complications SNOMED: 98708851 (5) Advanced dementia ICD Codes: F03.90 - Unspecified dementia without behavioral disturbance SNOMED: 06683908 (6) Sacral decubitus ulcer, stage IV ICD Codes: L89.154 - Pressure ulcer of sacral region, stage 4 SNOMED: 982691946, 899700494 (7) CAD (coronary artery disease) ICD Codes: I25.10 - Atherosclerotic heart disease of [place] coronary artery without angina pectoris SNOMED: 30378960 (8) CVA (cerebral vascular accident) ICD Codes: I63.9 - Cerebral infarction, unspecified SNOMED: 457365060 Assessment/Plan IV antibiotics wound care check cultures ID evaluation swallow study dvt prophylaxis. IVÁN OCHOA September 21, 2016 12:08
--- NOTE | 2016-09-21 15:49 | Cardiology Report ---
APPROVED REPORT EKG Measurement Heart [id number] Normal sinus rhythm Normal ECG
--- NOTE | 2016-09-21 17:26 | Cardiology Progress Note ---
Assessment/Plan Assessment/Plan decub anemia aorti stenosis mod to sev pericardial effusion with friction rub dementia check enzym e echo and ekg dc [facility] [id number] Objective Last 24 Hour Vital Signs Date Time Temp Pulse Resp B/P Pulse Ox O2 Delivery O2 Flow Rate FiO2 09/21/16 16:09 97.9 89 20 101/61 100 Room Air 09/21/16 12:00 98.2 102 19 125/64 100 Room Air 09/21/16 11:49 99 09/21/16 09:00 89 94/63 09/21/16 09:00 89 94/63 09/21/16 08:15 88 09/21/16 08:11 97.4 89 20 94/63 100 Room Air 09/21/16 04:00 98.9 82 20 90/49 99 Room Air 09/21/16 04:00 98.9 82 20 90/49 99 Room Air 09/21/16 03:47 84 09/21/16 00:00 99.0 85 24 94/56 99 Room Air 85 09/20/16 23:48 82 09/20/16 21:00 99.7 80 22 96/57 96 Room Air 80 09/20/16 20:42 86 09/20/16 20:37 98.2 84 22 105/55 100 Room Air 09/20/16 19:30 98.2 84 22 105/55 100 Room Air Intake and Output 09/20/16 09/21/16 19:00 07:00 Intake Total 1100 ml 518 ml Output Total 725 ml Balance 1100 ml -207 ml Intake Oral 225 ml IV Total 1100 ml 293 ml Output Urine Total 725 ml # Bowel Movements 3 Laboratory Tests Test 09/21/16 04:00 09/21/16 08:30 White Blood Count 15.9 K/UL (4.8-10.8) H 12.7 K/UL (4.8-10.8) H Red Blood Count 3.05 M/UL (4.20-5.40) L 3.16 M/UL (4.20-5.40) L Hemoglobin 7.8 G/DL (12.0-16.0) L 7.9 G/DL (12.0-16.0) L Hematocrit 25.9 % (37.0-47.0) L 26.8 % (37.0-47.0) L Mean Corpuscular Volume 85 FL (80-99) 85 FL (80-99) Mean Corpuscular Hemoglobin 25.7 PG (27.0-31.0) L 25.1 PG (27.0-31.0) L Mean Corpuscular Hemoglobin Concent 30.2 G/DL (32.0-36.0) L 29.6 G/DL (32.0-36.0) L Red Cell Distribution Width 20.2 % (11.6-14.8) H 19.3 % (11.6-14.8) H Platelet Count 501 K/UL (150-450) H 505 K/UL (150-450) H Mean Platelet Volume 6.3 FL (6.5-10.1) L 6.9 FL (6.5-10.1) Neutrophils (%) (Auto) % (45.0-75.0) % (45.0-75.0) Lymphocytes (%) (Auto) % (20.0-45.0) % (20.0-45.0) Monocytes (%) (Auto) % (1.0-10.0) % (1.0-10.0) Eosinophils (%) (Auto) % (0.0-3.0) % (0.0-3.0) Basophils (%) (Auto) % (0.0-2.0) % (0.0-2.0) Differential Total Cells Counted 100 100 Neutrophils % (Manual) 80 % (45-75) H 73 % (45-75) Lymphocytes % (Manual) 12 % (20-45) L 14 % (20-45) L Monocytes % (Manual) 8 % (1-10) 13 % (1-10) H Eosinophils % (Manual) 0 % (0-3) 0 % (0-3) Basophils % (Manual) 0 % (0-2) 0 % (0-2) Band Neutrophils 0 % (0-8) 0 % (0-8) Platelet Estimate Adequate Adequate Platelet Morphology Normal Normal Hypochromasia 3+ 3+ Anisocytosis 2+ 2+ Sodium Level 137 mEQ/L (135-145) Potassium Level 4.0 mEQ/L (3.4-4.9) Chloride Level 98 mEQ/L (98-107) Carbon Dioxide Level 24 mEQ/L (20-30) Anion Gap 15 (5-15) Blood Urea Nitrogen 20 mg/dL (7-23) Creatinine 0.4 mg/dL (0.5-0.9) L Estimat Glomerular Filtration Rate mL/min (>60) Glucose Level 91 mg/dL (74-106) Calcium Level 8.8 mg/dL (8.6-10.2) Total Bilirubin 0.6 mg/dL (0.0-1.2) Aspartate Amino Transf (AST/SGOT) 15 U/L (5-40) Alanine Aminotransferase (ALT/SGPT) 7 U/L (3-33) Alkaline Phosphatase 88 U/L (35-104) Troponin I < 0.30 ng/mL (<=0.30) Total Protein 5.7 g/dL (6.6-8.7) L Albumin 2.3 g/dL (3.5-5.2) L Globulin 3.4 g/dL Albumin/Globulin Ratio 0.6 (1.0-2.7) L Microbiology Date/Time Source Procedure Growth Status 09/20/16 16:10 Urine,Clean Catch Urine Culture - Preliminary NO GROWTH Resulted SHAUN ARRINGTON September 21, 2016 17:26
[2016-09-21] MEDS: Cefepime HCl 2 GM in D5W 110 ML IV SCH (22:05)
[2016-09-21] MEDS: Vancomycin 1 GM in D5W 275 ML IVPB SCH (22:46)
--- NOTE | 2016-09-21 23:09 | Consultation ---
DATE OF CONSULTATION: INFECTIOUS DISEASE CONSULTATION CONSULTING PHYSICIAN: Harrison Gallardo M.D. REFERRING PHYSICIAN: Karla Pace M.D. REASON FOR CONSULTATION: Evaluation of the patient for pneumonia, also wound infection and history of osteomyelitis, antibiotic management. HISTORY OF PRESENT ILLNESS: The patient is an 85-year-old female with multiple medical problems who was admitted to this medical center due to shortness of breath. The patient was admitted to this medical center back in July for sacral decubitus, sacral osteomyelitis, and abscess. The patient underwent excision and debridement of the sacral pressure ulcer. The patient was continued on IV antibiotic for a total of six weeks (Zosyn and Zyvox). The patient now has been admitted due to shortness of breath. Infectious Disease consultation has been requested for further evaluation of the patient's antibiotic management. PAST MEDICAL HISTORY: 1. History of sacral decubitus/osteomyelitis (polymicrobial), status post six weeks of IV antibiotics as of July 2016. 2. History of CVA. 3. History of hypertension. 4. History of pneumonia. 5. History of sore throat. 6. Diabetes. MEDICATIONS: IV vancomycin and cefepime. ALLERGIES: No known drug allergies. SOCIAL HISTORY: Negative. The patient resides in a long-term. FAMILY HISTORY: Unavailable. REVIEW OF SYSTEMS: Unobtainable. PHYSICAL EXAMINATION: VITAL SIGNS: Temperature 99.4 degrees, blood pressure 94/63, pulse 89 and respiratory rate 18. HEENT: Mild pale conjunctivae. No icterus. NECK: No lymphadenopathy. CHEST: Coarse breathing sounds. HEART: S1 and S2. ABDOMEN: Soft and nontender. EXTREMITIES: The patient has multiple decubitus in the sacral and lower extremities, not grossly infected. NEUROLOGIC: Awake and lethargic. LABORATORY AND DIAGNOSTIC DATA: White blood cell at the time of admission was 19.4. Urinalysis shows 15-20 white blood cells, occult blood is negative. BUN 20 and creatinine 0.4. ALT, AST and alkaline phosphatase unremarkable. Chest x-ray shows atelectasis or focal infiltrate of bibasilar area. MRI of the pelvis back on 09/09/2016 shows presence of signal in the S3 and S4 and coccygeal areas suggestive of osteomyelitis and there is some improvement in the signal abnormality in T1. ASSESSMENT: The patient is an 85-year-old female who was admitted to this medical center due to shortness of breath and pneumonia. The patient was found to have leukocytosis and pyuria, possible urinary tract infection, pneumonia and bacteremia as the source of infection. The patient just completed six weeks of IV antibiotics as outpatient and repeat MRI findings could persist for several months. At this time, clinically there is no obvious source of wound infection. PLAN: 1. We will continue the patient on vancomycin and cefepime. 2. Monitor CBC. 3. Monitor BMP. 4. Monitor cultures (blood, sputum and urine). 5. Monitor chest x-ray. 6. Follow up with plastic surgeon on the condition of the wound and further care. 7. Continue wound care. 8. Based on the patient's clinical course and labs, we will do further recommendations. Thank you, Dr. Pace, for allowing me to participate in the care of this patient. I will follow the patient with you during this hospitalization. Harrison Gallardo M.D. DR: MANDA JOB#: [id number] CC:
--- NOTE | 2016-09-22 00:18 | Consultation ---
DATE OF CONSULTATION: 09/21/2016 CARDIOLOGY CONSULTATION CONSULTING PHYSICIAN: Salvador Oviedo M.D. REFERRING PHYSICIAN: Karla Pace M.D. REASON FOR REFERRAL: Abnormal cardiac enzymes. HISTORY OF PRESENT ILLNESS: This is an elderly female, who is somewhat of a poor historian. The patient's information is provided some from her and mainly from the chart. According to the chart, the patient has had a decubitus ulcer, was brought to the emergency room at [facility] reportedly for labored breathing, and a clogged Burton catheter. Upon arrival in the emergency room, she appeared to be more lethargic and . No signs of distress. She had a decubitus ulcer at the back, is currently being treated with the wound care center and there is concern of a possible sepsis, leukocytosis and minimally abnormal cardiac enzymes that was prompted to admission here. At the present time, the patient is awake and responsive. Denies any chest pain or shortness of breath. No PND or orthopnea. No palpitations. No dizziness. However, information she has provided, I am not sure how accurate that is. PAST MEDICAL HISTORY: Positive for history of coronary artery disease, status post myocardial infarction in 2002, history of heart murmur, history of cerebrovascular accident. Per report, dementia, decubitus ulcers, history of CVA, reactive thrombocytosis, failure to thrive, malnutrition, anemia of chronic disease, and thrombocytosis reactive. ALLERGIES: There is no allergy to medications. SOCIAL HISTORY: The patient does not have any history of alcohol or tobacco or drugs. FAMILY HISTORY: She lives at home. REVIEW OF SYSTEMS: Really unable to obtain. PHYSICAL EXAMINATION: GENERAL: The patient is an elderly female, in no apparent distress. Awake and responsive. NECK: Supple. No jugular venous distention. LUNGS: Appear to be rather clear to auscultation and percussion. CARDIAC: Regular rhythm is noted. There is a systolic ejection murmur at the apex radiating throughout the precordium, but towards the apex. The patient does have what appears to be pericardial friction rub. ABDOMEN: Soft and nontender. Positive bowel sounds. EXTREMITIES: There is no clubbing, cyanosis, or edema. NEUROLOGIC: She is awake and responsive and communicative, but not significantly communicating better. LABORATORY AND DIAGNOSTIC DATA: White count is 12.7, hemoglobin 7.9, which is lower than her previous levels back in the 9s. Sodium 137, potassium 4.0, chloride 98, bicarbonate 24, BUN of 20, creatinine 0.4, and a glucose of 91. Troponin was 0.38, subsequently it is less than 0.3. Albumin is down to 2.3. Coags INR 1.1 and a PTT of 30. Urinalysis shows 15 to 20 WBCs, 3+ leukocyte esterase, and 10 to 15 RBCs. A chest x-ray performed in the emergency room shows bilateral subsegmental atelectasis versus focal infiltrate, small right-sided pleural effusion, nonspecific. She had an echocardiogram performed back in 06/2016 showed ejection fraction of 50% to 55%, small pericardial effusion is noted, mild to moderate mitral regurgitation, peak aortic valve gradient of 64 and mean of 38, aortic valve area 0.7 at that time. Diastolic relaxation abnormalities noted at that time. Electrocardiogram showed normal sinus rhythm, no significant ST-T wave abnormalities. Does have some mild ST-segment elevation in V3 and V4 those were present on prior occasions as well.Assessment 1. Urinary tract infection. 2. Anemia of chronic disease possibly worse at the present time. 3. Decubitus ulcers. 4. Blocked Burton catheter. 5. Severe aortic stenosis. 6. Mitral regurgitation. 7. Pericardial effusion. PLAN: Dr. Pace, this patient was seen in cardiac consultation. The patient does have a pericardial friction rub. An echocardiogram will be repeated. An EKG will be repeated. Certainly, the second set of cardiac enzymes are negative. We will repeat the third set tomorrow morning and the patient's blood pressure is on the low side and she has significant aortic stenosis, based on the echocardiogram. I would hold off on administering the amlodipine that she is getting and possibly even the atenolol in light of the fact that she has a low blood pressure, but we will follow the patient along with you. Salvador Oviedo M.D. DR: BHARATI JOB#: [id number] CC:
[2016-09-22 04:00] VITALS: BP 100/61
[2016-09-22] MEDS: NovoLOG Insulin Flexpen SUBQ SCH ×4 (06:29→21:43)
[2016-09-22 08:00] VITALS: BP 104/60
[2016-09-22 08:05] LABS: TROPONIN I < 0.30 ng/mL (<=0.30)
[2016-09-22 08:06] LABS: BASOPHILS % (AUTO) 0.7 % (0.0-2.0); EOSINOPHILS % (AUTO) 0.5 % (0.0-3.0); LYMPHOCYTES % (AUTO) 21.2 % (20.0-45.0); MEAN CORPUSCULAR HEMOGLOBIN 26.2 PG (27.0-31.0); MEAN CORPUSCULAR VOLUME 85 FL (80-99); MEAN PLATELET VOLUME 6.8 FL (6.5-10.1); NEUTROPHILS % (AUTO) 68.7 % (45.0-75.0); PLATELET COUNT 444 K/UL (150-450); RED BLOOD COUNT 3.33 M/UL (4.20-5.40); RED CELL DISTRIBUTION WIDTH 18.5 % (11.6-14.8); WHITE BLOOD COUNT 9.3 K/UL (4.8-10.8)
[2016-09-22 08:15] LABS: ANION GAP 14 (5-15); CALCIUM 8.7 mg/dL (8.6-10.2); CARBON DIOXIDE 24 mEQ/L (20-30); CHLORIDE 99 mEQ/L (98-107); CREATININE 0.4 mg/dL (0.5-0.9); HEMOLYSIS 0; POTASSIUM 4.5 mEQ/L (3.4-4.9); SODIUM 137 mEQ/L (135-145)
[2016-09-22] MEDS ORDERED: Atenolol 25mg tab ORAL SCH ×2 (09:00)
[2016-09-22] MEDS: Heparin 5000 units/ml inj SUBQ SCH ×2 (10:26→21:41)
[2016-09-22 12:00] VITALS: BP 96/52
--- NOTE | 2016-09-22 14:36 | Pulmonology Progress Note ---
Assessment/Plan Problems: (1) Sepsis (2) NSTEMI (non-ST elevated myocardial infarction) (3) UTI (urinary tract infection) (4) Diabetes mellitus (5) Advanced dementia (6) Sacral decubitus ulcer, stage IV (7) CAD (coronary artery disease) (8) CVA (cerebral vascular accident) Assessment/Plan continue antibiotics check cultures swallow study noted sliding scale wound care f/u cardio recommendations Subjective ROS Limited/Unobtainable: No Constitutional: Reports: no symptoms HEENT: Repors: no symptoms Cardiovascular: Reports: no symptoms Allergies: Coded Allergies: No Known Allergies (Verified , 11/28/08) Objective Last 24 Hour Vital Signs Date Time Temp Pulse Resp B/P Pulse Ox O2 Delivery O2 Flow Rate FiO2 09/22/16 12:00 97.7 92 20 96/52 97 Room Air 09/22/16 10:22 86 104/60 09/22/16 08:00 97.3 86 19 104/60 99 Room Air 09/22/16 08:00 81 09/22/16 04:00 81 09/22/16 04:00 98.9 92 18 100/61 96 Room Air 09/22/16 00:00 91 09/21/16 23:57 98.5 94 18 116/66 99 Room Air 09/21/16 19:56 99.0 95 18 99/59 100 Room Air 09/21/16 19:31 95 09/21/16 16:09 97.9 89 20 101/61 100 Room Air 09/21/16 16:00 87 Intake and Output 09/21/16 09/22/16 19:00 07:00 Intake Total 480 ml Output Total 300 ml 600 ml Balance 180 ml -600 ml Intake Oral 480 ml Output Urine Total 300 ml 300 ml Stool Total 300 ml # Bowel Movements 2 General Appearance: WD/WN HEENT: normocephalic, atraumatic Respiratory/Chest: chest wall non-tender, lungs clear Breasts: no masses Cardiovascular: normal peripheral pulses, normal rate Abdomen: normal bowel sounds, soft, non tender 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 Complete 09/21/16 03:00 Indwelling Cath Urine Culture - Preliminary NO GROWTH AFTER 24 HOURS Resulted 09/20/16 16:10 Urine,Clean Catch Urine Culture - Preliminary NO GROWTH AFTER 24 HOURS Resulted 09/20/16 21:00 Sacral Wound Gram Stain - Final Resulted 09/20/16 21:00 Wound Culture - Preliminary Gram Negative Bacillus 1 Gram Negative Bacillus 2 Resulted Laboratory Tests 09/22/16 06:45: White Blood Count 9.3, Red Blood Count 3.33L, Hemoglobin 8.7L, Hematocrit 28.2L , Mean Corpuscular Volume 85, Mean Corpuscular Hemoglobin 26.2L, Mean Corpuscular Hemoglobin Concent 31.0L, Red Cell Distribution Width 18.5H, Platelet Count 444, Mean Platelet Volume 6.8, Neutrophils (%) (Auto) 68.7, Lymphocytes (%) (Auto) 21.2, Monocytes (%) (Auto) 9.0, Eosinophils (%) (Auto) 0.5, Basophils (%) (Auto) 0.7, Sodium Level 137, Potassium Level 4.5, Chloride Level 99, Carbon Dioxide Level 24, Anion Gap 14, Blood Urea Nitrogen 19, Creatinine 0.4L, Estimat Glomerular Filtration Rate , Glucose Level 89, Calcium Level 8.7, Troponin I < 0.30 Current Medications Medications (Trade) Dose Ordered Sig/Abdirizak Route PRN Reason Start Time Stop Time Status Last Admin Dose Admin Acetaminophen (Tylenol) 650 mg Q4H PRN ORAL fever 09/20/16 19:15 10/20/16 19:14 Albuterol/ Ipratropium 3 ml 3 ml Q4H PRN HHN Shortness of Breath 09/20/16 19:15 09/25/16 19:14 Atenolol (Tenormin) 12.5 mg DAILY ORAL 09/22/16 09:00 10/22/16 08:59 09/22/16 10:22 Atorvastatin Calcium (Lipitor) 10 mg BEDTIME ORAL 09/21/16 21:00 10/21/16 20:59 09/21/16 21:49 Cefepime HCl 2 gm/ Dextrose 110 ml @ 220 mls/hr DAILY@2100 IV 09/20/16 21:00 09/27/16 20:59 09/21/16 22:05 Dextrose (Dextrose 50%) STAT PRN IV Hypoglycemia 09/20/16 19:15 10/20/16 19:14 Heparin Sodium (Porcine) (Heparin 5000 units/ml) 5,000 units EVERY 12 HOURS SUBQ 09/20/16 21:00 10/20/16 20:59 09/22/16 10:26 Insulin Aspart (NovoLOG) BEFORE MEALS AND HS SUBQ 09/20/16 21:00 10/20/16 20:59 09/22/16 12:45 Morphine Sulfate (Morphine Sulfate) 2 mg Q4H PRN IVP Moderate Pain (Pain Scale 4-6) 09/20/16 19:15 09/27/16 19:14 Nitroglycerin (Ntg) 0.4 mg Q4H PRN SL Prn Chest Pain 09/20/16 19:15 10/20/16 19:14 Ondansetron HCl (Zofran) 4 mg Q6H PRN IVP Nausea & Vomiting 09/20/16 19:15 10/20/16 19:14 Polyethylene Glycol (Miralax) 17 gm DAILYPRN PRN ORAL Constipation 09/20/16 19:15 10/20/16 19:14 Temazepam (Restoril) 15 mg HSPRN PRN ORAL Insomnia 09/20/16 19:15 09/27/16 19:14 Vancomycin HCl (Vanco rx to dose) 1 ea DAILY PRN MISC PRN RX PROTOCOL 09/20/16 20:45 10/20/16 20:44 Vancomycin HCl/ Dextrose (Vancomycin/D5W) 275 ml @ 183.3 mls/ hr Q24H IVPB 09/20/16 22:00 09/25/16 21:59 09/21/16 22:46 IVÁN OCHOA September 22, 2016 14:36
[2016-09-22] MEDS ORDERED: Sterile Water Irrig 1000ml IRRIG ONE (15:16)
[2016-09-22] MEDS ORDERED: NS 275ml ONE (15:24)
[2016-09-22] MEDS ORDERED: Tubing Blood Filter IV ONE (15:24)
[2016-09-22 16:00] VITALS: BP 114/69
--- NOTE | 2016-09-22 16:20 | Wound Care Consultation ---
Wound Assessment Wound Assessment #1: Wound Present on Admission: Yes New Wound: No Status Change of Wound: No Wound Location Body Site Modif: left, lateral Wound Location Body Site: malleolus/ankle Wound Type: pressure ulcer Elisha Test: Does not Elisha Pressure Ulcer Stage: IV/unstageable Wound Thickness: Full Thickness Wound Length: 4.0 Wound Width: 3.5 Wound Depth: utd Percent of Wound Black/Brown: 100 Wound Drainage Amount: None Wound Drainage Odor: None/Absent Tissue Surrounding Wound: Intact Wound General Appearance: Blackened Wound Assessment #2: Wound Number: #2 Wound Present on Admission: Yes New Wound: No Status Change of Wound: No Wound Location Body Site Modif: left, mid, lateral Wound Location Body Site: foot Wound Type: pressure ulcer Elisha Test: Does not Elisha Pressure Ulcer Stage: deep tissue injury Wound Thickness: Full Thickness Wound Length: 1.5 Wound Width: 1.5 Wound Depth: utd Percent of Wound Black/Brown: 100 Wound Drainage Amount: None Wound Drainage Odor: None/Absent Tissue Surrounding Wound: Intact Wound Assessment #3: Wound Number: #3 Wound Present on Admission: Yes New Wound: No Status Change of Wound: No Wound Location Body Site Modif: left, lateral Wound Location Body Site: metatarsal head - 5th extending to 5th lateral toe Wound Type: pressure ulcer Elisha Test: Does not Elisha Pressure Ulcer Stage: deep tissue injury Wound Thickness: Full Thickness Wound Length: 2.5 Wound Width: 1.5 Wound Depth: utd Percent of Wound Black/Brown: 100 Wound Drainage Amount: None Wound Drainage Odor: None/Absent Tissue Surrounding Wound: Intact Wound General Appearance: Asymptomatic Wound Assessment #4: Wound Number: #4 Wound Present on Admission: Yes New Wound: No Status Change of Wound: No Wound Location Body Site Modif: right, medial, dorsal Wound Location Body Site: foot Wound Type: pressure ulcer Elisha Test: Does not Elisha Pressure Ulcer Stage: deep tissue injury - scattered DTIs Wound Thickness: Full Thickness Percent of Wound Black/Brown: 100 Wound Drainage Amount: None Wound Drainage Odor: None/Absent Tissue Surrounding Wound: Intact Wound General Appearance: Asymptomatic Wound Assessment #5: Wound Number: #5 Wound Present on Admission: Yes New Wound: No Status Change of Wound: No Wound Location Body Site Modif: right, medial Wound Location Body Site: malleolus/ankle Wound Type: pressure ulcer Elisha Test: Does not Elisha Pressure Ulcer Stage: deep tissue injury Wound Thickness: Full Thickness Wound Length: 2.5 Wound Width: 2.5 Wound Depth: utd Percent of Wound [place]/Red: 50 Percent of Wound Purple/Maroon: 50 Wound Drainage Odor: None/Absent Tissue Surrounding Wound: Intact Wound General Appearance: Asymptomatic Wound Assessment #6: Wound Number: #6 Wound Present on Admission: Yes New Wound: No Status Change of Wound: No Wound Location Body Site Modif: right Wound Location Body Site: heel Wound Type: pressure ulcer Elisha Test: Does not Elisha Pressure Ulcer Stage: IV/unstageable Wound Thickness: Full Thickness Wound Length: 4.5 Wound Width: 3.5 Wound Depth: utd Percent of Wound Black/Brown: 100 Wound Drainage Amount: None Wound Drainage Odor: None/Absent Tissue Surrounding Wound: Intact Wound General Appearance: Blackened Wound Assessment #7: Wound Number: #7 Wound Present on Admission: Yes New Wound: No Status Change of Wound: No Wound Location Body Site Modif: right, lateral Wound Location Body Site: metatarsal head - 1st Wound Type: pressure ulcer Elisha Test: Does not Elisha Pressure Ulcer Stage: deep tissue injury Wound Thickness: Full Thickness Wound Length: 2.5 Wound Width: 2.5 Wound Depth: utd Percent of Wound Purple/Maroon: 100 Wound Drainage Amount: None Wound Drainage Odor: None/Absent Tissue Surrounding Wound: Intact Wound General Appearance: Reddened Wound Assessment #8: Wound Number: #8 Wound Present on Admission: Yes New Wound: No Status Change of Wound: No Wound Location Body Site Modif: left Wound Location Body Site: heel Wound Type: pressure ulcer Elisha Test: Does not Elisha Pressure Ulcer Stage: deep tissue injury Wound Thickness: Full Thickness Wound Length: 1.5 Wound Width: 1.5 Wound Depth: utd Other Colors Identified: [place] brown Percentage Other Color: 100 Wound Drainage Amount: None Wound Drainage Odor: None/Absent Tissue Surrounding Wound: Intact Wound General Appearance: Asymptomatic Wound Assessment #9: Wound Number: #9 Wound Present on Admission: Yes New Wound: No Status Change of Wound: No Wound Location Body Site Modif: mid Wound Location Body Site: sacral Wound Type: pressure ulcer Elisha Test: Does not Elisha Pressure Ulcer Stage: IV/unstageable Wound Thickness: Full Thickness Wound Length: 11.5 Wound Width: 15.5 Wound Depth: 2.5 Percent of Wound [place]/Red: 80 Percent of Wound Bed Yellow/Wh: 10 Percent of Wound Purple/Maroon: 10 Wound Drainage Amount: Copious Wound Drainage Odor: None/Absent Tissue Surrounding Wound: Macerated Wound Undermining at 12:00: 1.5 Wound Undermining at 9:00: 2.5 Wound General Appearance: Draining, Bone Palpable Wound Comment #1 Left lateral malleolus unstageable pressure ulcer #2 Left lateral mid foot DTI pressure ulcer #3 Left [id number] metatarsal head DTI pressure ulcer #4 Left heel DTI pressure ulcer #5 Right medial dorsal foot scattered DTIs pressure ulcer #6 Right heel unstageable pressure ulcer #7 Right 1st metatarsal head DTI pressure ulcer #8 Sacral stage IV pressure ulcer #9 Right malleolus DTI pressure ulcer Recommendation -Local wound care as ordered by MD -Keep clean and dry -Turn and reposition -Offload both heels -Heel protector on both heels -Low air loss mattress -Optimize nutrition -Assess and f/u accordingly for any changes IMTIAZ HINTON RN September 22, 2016 16:20
--- NOTE | 2016-09-22 17:06 | Cardiology Report ---
APPROVED REPORT EKG Measurement Heart [id number] Normal sinus rhythm Nonspecific ST and T wave abnormality Abnormal ECG
[2016-09-22] MEDS ORDERED: Nitroglycerin Subl 0.4mg tab (Bottle Of 25) SL PRN (17:45)
[2016-09-22] MEDS ORDERED: Morphine Sulfate 2mg/ml Inj IVP PRN (18:00)
[2016-09-22] MEDS ORDERED: DuoNeb 0.5-3(2.5)mg/3ml neb HHN PRN (18:00)
[2016-09-22] MEDS ORDERED: Miralax 17gm pkt ORAL PRN (18:00)
[2016-09-22 19:42] VITALS: BP 93/55
--- NOTE | 2016-09-22 21:37 | Infectious Diseases Prog Note ---
Assessment/Plan Assessment/Plan :A The patient is an 85-year-old female Leukocytosis improving Pneumonia, Chest x-ray: atelectasis or focal infiltrate of bibasilar are History of sacral decubitus/osteomyelitis (polymicrobial), status post six weeks of IV antibiotics as of July 2016 MRI : 09/09/2016 : presence of signal in the S3 and S4 and coccygeal areas suggestive of osteomyelitis and there is some improvement in the signal abnormality in T1 Sacral decubitus,no gross evidence of infection Wnd cx " GNR ( colonizer ) NSTEMI History of CVA HTN Diabetes PLAN: Cont vancomycin and cefepime d# 2 Monitor CBC. Monitor BMP. Monitor cultures (blood, sputum and urine). Monitor chest x-ray. Continue wound care Subjective Allergies: Coded Allergies: No Known Allergies (Verified , 11/28/08) Subjective afebrile Objective Vital Signs Last 24 Hour Vital Signs Date Time Temp Pulse Resp B/P Pulse Ox O2 Delivery O2 Flow Rate FiO2 09/22/16 19:42 98.2 82 19 93/55 100 Room Air 09/22/16 16:00 97.0 86 20 114/69 98 Room Air 09/22/16 12:00 87 09/22/16 12:00 97.7 92 20 96/52 97 Room Air 09/22/16 10:22 86 104/60 09/22/16 08:00 97.3 86 19 104/60 99 Room Air 09/22/16 08:00 81 09/22/16 04:00 81 09/22/16 04:00 98.9 92 18 100/61 96 Room Air 09/22/16 00:00 91 09/21/16 23:57 98.5 94 18 116/66 99 Room Air Height (Feet): 5 Height (Inches): 2.00 Weight (Pounds): 122 HEENT: anicteric Respiratory/Chest: normal breath sounds Cardiovascular: normal peripheral pulses Abdomen: no organomegaly Microbiology Date/Time Source Procedure Growth Status 09/20/16 16:35 Blood Blood Culture - Preliminary NO GROWTH AFTER 24 HOURS Resulted 09/20/16 16:10 Blood Blood Culture - Preliminary NO GROWTH AFTER 24 HOURS Resulted 09/21/16 03:00 Sputum Gram Stain - Final Complete 09/21/16 03:00 Sputum Sputum Culture - Final CULTURE NOT PERFORMED ... Complete 09/21/16 03:00 Indwelling Cath Urine Culture - Preliminary NO GROWTH AFTER 24 HOURS Resulted 09/20/16 16:10 Urine,Clean Catch Urine Culture - Preliminary NO GROWTH AFTER 24 HOURS Resulted 09/20/16 21:00 Sacral Wound Gram Stain - Final Resulted 09/20/16 21:00 Wound Culture - Preliminary Gram Negative Bacillus 1 Gram Negative Bacillus 2 Resulted Laboratory Tests Test 09/22/16 06:45 09/22/16 21:00 White Blood Count 9.3 K/UL (4.8-10.8) Red Blood Count 3.33 M/UL (4.20-5.40) L Hemoglobin 8.7 G/DL (12.0-16.0) L Hematocrit 28.2 % (37.0-47.0) L Mean Corpuscular Volume 85 FL (80-99) Mean Corpuscular Hemoglobin 26.2 PG (27.0-31.0) L Mean Corpuscular Hemoglobin Concent 31.0 G/DL (32.0-36.0) L Red Cell Distribution Width 18.5 % (11.6-14.8) H Platelet Count 444 K/UL (150-450) Mean Platelet Volume 6.8 FL (6.5-10.1) Neutrophils (%) (Auto) 68.7 % (45.0-75.0) Lymphocytes (%) (Auto) 21.2 % (20.0-45.0) Monocytes (%) (Auto) 9.0 % (1.0-10.0) Eosinophils (%) (Auto) 0.5 % (0.0-3.0) Basophils (%) (Auto) 0.7 % (0.0-2.0) Sodium Level 137 mEQ/L (135-145) Potassium Level 4.5 mEQ/L (3.4-4.9) Chloride Level 99 mEQ/L (98-107) Carbon Dioxide Level 24 mEQ/L (20-30) Anion Gap 14 (5-15) Blood Urea Nitrogen 19 mg/dL (7-23) Creatinine 0.4 mg/dL (0.5-0.9) L Estimat Glomerular Filtration Rate mL/min (>60) Glucose Level 89 mg/dL (74-106) Calcium Level 8.7 mg/dL (8.6-10.2) Troponin I < 0.30 ng/mL (<=0.30) Vancomycin Level Trough Pending Current Medications Medications (Trade) Dose Ordered Sig/Abdirizak Route PRN Reason Start Time Stop Time Status Last Admin Dose Admin Acetaminophen (Tylenol) 650 mg Q4H PRN ORAL T>100.5 09/22/16 18:00 10/22/16 17:59 Albuterol/ Ipratropium (DuoNeb 0.5-3(2.5)mg/3ml) 3 ml Q4H PRN HHN Shortness of Breath 09/22/16 18:00 09/27/16 17:59 Atenolol (Tenormin) 12.5 mg DAILY ORAL 09/23/16 09:00 10/23/16 08:59 Atorvastatin Calcium (Lipitor) 10 mg BEDTIME ORAL 09/22/16 21:00 10/22/16 20:59 Cefepime HCl 2 gm/ Dextrose 110 ml @ 220 mls/hr DAILY@2100 IV 09/22/16 21:00 09/29/16 20:59 Dextrose (Dextrose 50%) STAT PRN IV Hypoglycemia 09/22/16 18:00 10/22/16 17:59 Heparin Sodium (Porcine) (Heparin 5000 units/ml) 5,000 units EVERY 12 HOURS SUBQ 09/22/16 21:00 10/22/16 20:59 Insulin Aspart (NovoLOG) BEFORE MEALS AND HS SUBQ 09/22/16 18:00 10/22/16 17:59 09/22/16 17:59 Morphine Sulfate (Morphine Sulfate) 2 mg Q4H PRN IVP Moderate Pain (Pain Scale 4-6) 09/22/16 18:00 09/29/16 17:59 Nitroglycerin (Ntg) 0.4 mg Q4H PRN SL Prn Chest Pain 09/22/16 17:45 10/22/16 17:44 Ondansetron HCl (Zofran) 4 mg Q6H PRN IVP Nausea & Vomiting 09/22/16 18:00 10/22/16 17:59 Polyethylene Glycol (Miralax) 17 gm DAILYPRN PRN ORAL Constipation 09/22/16 18:00 10/22/16 17:59 Temazepam (Restoril) 15 mg HSPRN PRN ORAL Insomnia 09/22/16 21:00 09/29/16 20:59 Vancomycin HCl (Vanco rx to dose) 1 ea DAILY PRN MISC PRN RX PROTOCOL 09/22/16 18:00 10/22/16 17:59 Vancomycin HCl/ Dextrose (Vancomycin/D5W) 275 ml @ 183.3 mls/ hr Q24H IVPB 09/22/16 22:00 09/27/16 21:59 BALDEV DUTTON M.D. September 22, 2016 21:37
[2016-09-22] MEDS: Cefepime HCl 2 GM in D5W 110 ML IV SCH (21:40)
[2016-09-22] MEDS ORDERED: Vancomycin 1 GM in D5W 275 ML IVPB SCH (22:00)
[2016-09-22 23:58] VITALS: BP 93/50
[2016-09-23 04:00] VITALS: BP 108/61
[2016-09-23] MEDS: NovoLOG Insulin Flexpen SUBQ SCH ×4 (06:02→20:59)
--- NOTE | 2016-09-23 07:44 | Cardiology Progress Note ---
Assessment/Plan Assessment/Plan 1. Urinary tract infection. 2. Anemia of chronic disease possibly worse at the present time. 3. Decubitus ulcers. 4. Blocked Burton catheter. 5. Severe aortic stenosis. 6. Mitral regurgitation. 7. Pericardial effusion bp bordelrine trop neg concern aboput possible osteo prelim echo showed samll effusion increaed ra pressure nad ef 45 with sig off bp meds Subjective ROS Limited/Unobtainable: Yes Objective Last 24 Hour Vital Signs Date Time Temp Pulse Resp B/P Pulse Ox O2 Delivery O2 Flow Rate FiO2 09/23/16 04:00 98.1 84 21 108/61 94 Room Air 09/22/16 23:58 97.7 85 18 93/50 94 Room Air 09/22/16 19:42 98.2 82 19 93/55 100 Room Air 09/22/16 16:00 97.0 86 20 114/69 98 Room Air 09/22/16 12:00 87 09/22/16 12:00 97.7 92 20 96/52 97 Room Air 09/22/16 10:22 86 104/60 09/22/16 08:00 97.3 86 19 104/60 99 Room Air 09/22/16 08:00 81 General Appearance: alert Cardiovascular: normal rate, systolic murmur Respiratory/Chest: lungs clear Abdomen: non tender, soft Intake and Output 09/22/16 09/23/16 19:00 07:00 Intake Total 220 ml Output Total 300 ml 575 ml Balance -80 ml -575 ml Intake Oral 220 ml Output Urine Total 300 ml 575 ml # Bowel Movements 1 Laboratory Tests Test 09/22/16 21:00 Vancomycin Level Trough 9.9 ug/mL (5.0-12.0) Microbiology Date/Time Source Procedure Growth Status 09/20/16 16:35 Blood Blood Culture - Preliminary NO GROWTH AFTER 48 HOURS Resulted 09/20/16 16:10 Blood Blood Culture - Preliminary NO GROWTH AFTER 48 HOURS Resulted 09/21/16 03:00 Sputum Gram Stain - Final Complete 09/21/16 03:00 Sputum Sputum Culture - Final CULTURE NOT PERFORMED ... Complete 09/21/16 03:00 Indwelling Cath Urine Culture - Preliminary NO GROWTH AFTER 24 HOURS Resulted 09/20/16 16:10 Urine,Clean Catch Urine Culture - Preliminary NO GROWTH AFTER 24 HOURS Resulted 09/21/16 00:30 Rectum VRE Culture - Final NO VANCOMYCIN RESISTANT ENTEROCOCCUS ... Complete 09/20/16 21:00 Sacral Wound Gram Stain - Final Resulted 09/20/16 21:00 Wound Culture - Preliminary Gram Negative Bacillus 1 Gram Negative Bacillus 2 Resulted SHAUN ARRINGTON September 23, 2016 07:44
[2016-09-23 08:20] VITALS: BP 101/55
[2016-09-23] MEDS: Atenolol 25mg tab ORAL SCH (08:23)
[2016-09-23] MEDS: Heparin 5000 units/ml inj SUBQ SCH ×2 (08:24→20:58)
--- NOTE | 2016-09-23 09:27 | Cardiology Report ---
APPROVED REPORT EXAM: Two-dimensional and M-mode echocardiogram with Doppler and color Doppler. INDICATION Chest Pain M-Mode DIMENSIONS IVSd1.0 (0.7-1.1cm)Left Atrium (MM)3.0 (1.6-4.0cm) LVDd5.0 (3.5-5.6cm)Aortic Root2.7 (2.0-3.7cm) PWd0.7 (0.7-1.1cm)Aortic Cusp Exc.0.9 (1.5-2.0cm) LVDs4.3 (2.5-4.0cm) PWs1.1 cm Normal left ventricular chamber size. Global left ventricular hypokinesis. Abnormal septal motion with septal hypokinesis. Left ventricular ejection fraction estimated to be 40 %. Mild left ventricular hypertrophy by 2-D. Small posterior pericardial effusion. Mild left atrial enlargement. Right cardiac chamber sizes are within normal limits. Aortic valve calcification with decreased cusp excursion c/w severe aortic stenosis. Heavily calcified mitral valve leaflets with reduced excursion. Mitral annulus and aortic root calcification. Pulmonic valve not well visualized. Normal tricuspid valve structure. IVC measured at 2.0 cm without physiologic collapse suggestive of increased RA pressure. A color flow and spectral Doppler study was performed and revealed: Mild aortic regurgitation. Peak aortic valve gradient of 65 mm Hg and a mean of 37 mmHg. Aortic valve area 0.7 cm2 calculated by continuity equation suggestive of severe aortic stenosis. Mild mitral regurgitation. Peak mitral valve diastolic gradient of 16 mmHg and a mean gradient of 6 mmHg with a calculated mitral valve area of 1.6 cm2 suggestive of mild mitral stenosis. Mitral diastolic velocities suggest reduced left ventricular relaxation c/w mild LV diastolic dysfunction (Grade I ). Moderate tricuspid regurgitation. Tricuspid systolic velocities suggests peak right ventricular systolic pressure of 46 mmHg, consistent with moderate pulmonary hypertension.
--- NOTE | 2016-09-23 10:50 | Infectious Diseases Prog Note ---
Assessment/Plan Assessment/Plan :A The patient is an 85-year-old female Leukocytosis, SP Pneumonia, Chest x-ray: atelectasis or focal infiltrate of bibasilar area History of sacral decubitus/osteomyelitis (polymicrobial), status post six weeks of IV antibiotics as of July 2016 MRI : 09/09/2016 : presence of signal in the S3 and S4 and coccygeal areas suggestive of osteomyelitis and there is some improvement in the signal abnormality in T1 Sacral decubitus,no gross evidence of infection Wnd cx " ESBL Kleb and P mirabilis ( colonizer ) NSTEMI History of CVA HTN Diabetes PLAN: Cont vancomycin and cefepime d# 3 / 7 Monitor CBC. Monitor BMP. Monitor cultures (blood). Monitor chest x-ray. Continue wound care Subjective Constitutional: Denies: anorexia, chills, drenching sweats, fatigue, fever, no symptoms, other Allergies: Coded Allergies: No Known Allergies (Verified , 11/28/08) Subjective afebrile Objective Vital Signs Last 24 Hour Vital Signs Date Time Temp Pulse Resp B/P Pulse Ox O2 Delivery O2 Flow Rate FiO2 09/23/16 08:23 78 101/55 09/23/16 08:20 97.7 78 20 101/55 99 Room Air 09/23/16 04:00 98.1 84 21 108/61 94 Room Air 09/22/16 23:58 97.7 85 18 93/50 94 Room Air 09/22/16 19:42 98.2 82 19 93/55 100 Room Air 09/22/16 16:00 97.0 86 20 114/69 98 Room Air 09/22/16 12:00 87 09/22/16 12:00 97.7 92 20 96/52 97 Room Air Height (Feet): 5 Height (Inches): 2.00 Weight (Pounds): 122 HEENT: atraumatic Respiratory/Chest: normal breath sounds Cardiovascular: regularly irregular Abdomen: no organomegaly Microbiology Date/Time Source Procedure Growth Status 09/20/16 16:35 Blood Blood Culture - Preliminary NO GROWTH AFTER 48 HOURS Resulted 09/20/16 16:10 Blood Blood Culture - Preliminary NO GROWTH AFTER 48 HOURS Resulted 09/21/16 03:00 Sputum Gram Stain - Final Complete 09/21/16 03:00 Sputum Sputum Culture - Final CULTURE NOT PERFORMED ... Complete 09/21/16 00:30 Nasal Nares Left MRSA Culture - Final NO METHICILLIN RESISTANT STAPH AUREUS... Complete 09/21/16 03:00 Indwelling Cath Urine Culture - Final NO GROWTH AFTER 48 HOURS Complete 09/20/16 16:10 Urine,Clean Catch Urine Culture - Final NO GROWTH AFTER 48 HOURS Complete 09/21/16 00:30 Rectum VRE Culture - Final NO VANCOMYCIN RESISTANT ENTEROCOCCUS ... Complete 09/20/16 21:00 Sacral Wound Gram Stain - Final Resulted 09/20/16 21:00 Wound Culture - Preliminary Klebsiella Pneumoniae Esbl Proteus Mirabilis Resulted Laboratory Tests Test 09/22/16 21:00 Vancomycin Level Trough 9.9 ug/mL (5.0-12.0) Current Medications Medications (Trade) Dose Ordered Sig/Abdirizak Route PRN Reason Start Time Stop Time Status Last Admin Dose Admin Acetaminophen (Tylenol) 650 mg Q4H PRN ORAL T>100.5 09/22/16 18:00 10/22/16 17:59 Albuterol/ Ipratropium (DuoNeb 0.5-3(2.5)mg/3ml) 3 ml Q4H PRN HHN Shortness of Breath 09/22/16 18:00 09/27/16 17:59 Atenolol (Tenormin) 12.5 mg DAILY ORAL 09/23/16 09:00 10/23/16 08:59 09/23/16 08:23 Atorvastatin Calcium (Lipitor) 10 mg BEDTIME ORAL 09/22/16 21:00 10/22/16 20:59 09/22/16 21:37 Cefepime HCl/ Dextrose (Maxipime/D5W) 110 ml @ 220 mls/hr DAILY@2100 IV 09/22/16 21:00 09/29/16 20:59 09/22/16 21:40 Dextrose (Dextrose 50%) STAT PRN IV Hypoglycemia 09/22/16 18:00 10/22/16 17:59 Heparin Sodium (Porcine) (Heparin 5000 units/ml) 5,000 units EVERY 12 HOURS SUBQ 09/22/16 21:00 10/22/16 20:59 09/23/16 08:24 Insulin Aspart (NovoLOG) BEFORE MEALS AND HS SUBQ 09/22/16 18:00 10/22/16 17:59 09/22/16 21:43 Morphine Sulfate (Morphine Sulfate) 2 mg Q4H PRN IVP Moderate Pain (Pain Scale 4-6) 09/22/16 18:00 09/29/16 17:59 Nitroglycerin (Ntg) 0.4 mg Q4H PRN SL Prn Chest Pain 09/22/16 17:45 10/22/16 17:44 Ondansetron HCl (Zofran) 4 mg Q6H PRN IVP Nausea & Vomiting 09/22/16 18:00 10/22/16 17:59 Polyethylene Glycol (Miralax) 17 gm DAILYPRN PRN ORAL Constipation 09/22/16 18:00 10/22/16 17:59 Temazepam (Restoril) 15 mg HSPRN PRN ORAL Insomnia 09/22/16 21:00 09/29/16 20:59 Vancomycin HCl 1 ea 1 ea DAILY PRN MISC PRN RX PROTOCOL 09/22/16 18:00 10/22/16 17:59 Vancomycin HCl/ Dextrose (Vancomycin/D5W) 275 ml @ 183.333 mls/hr Q24H IVPB 09/23/16 22:00 09/28/16 21:59 BALDEV DUTTON M.D. September 23, 2016 10:50
[2016-09-23 11:33] VITALS: BP 100/58
[2016-09-23] MEDS ORDERED: NS 275ml ONE (13:44)
[2016-09-23] MEDS ORDERED: Tubing IV Secondary IV ONE (13:44)
[2016-09-23 15:39] VITALS: BP 103/57
[2016-09-23 20:02] VITALS: BP 107/59
[2016-09-23] MEDS: Cefepime HCl 2 GM in D5W 110 ML IV SCH (20:56)
[2016-09-23] MEDS: Vancomycin 1250mg/D5W 275ml IVPB SCH ×2 (21:58)
--- NOTE | 2016-09-23 22:18 | Pulmonology Progress Note ---
Assessment/Plan Problems: (1) Sepsis (2) NSTEMI (non-ST elevated myocardial infarction) (3) UTI (urinary tract infection) (4) Diabetes mellitus (5) Advanced dementia (6) Sacral decubitus ulcer, stage IV (7) CAD (coronary artery disease) (8) CVA (cerebral vascular accident) Assessment/Plan continue antibiotics check cultures swallow study noted sliding scale wound care wbc decreasing anemia work up Subjective ROS Limited/Unobtainable: Yes Interval Events: looks comfortable Allergies: Coded Allergies: No Known Allergies (Verified , 11/28/08) Objective Last 24 Hour Vital Signs Date Time Temp Pulse Resp B/P Pulse Ox O2 Delivery O2 Flow Rate FiO2 09/23/16 20:02 97.9 72 16 107/59 100 Room Air 09/23/16 15:39 97.0 68 19 103/57 99 Room Air 09/23/16 11:33 97.7 72 18 100/58 99 Room Air 09/23/16 08:23 78 101/55 09/23/16 08:20 97.7 78 20 101/55 99 Room Air 09/23/16 04:00 98.1 84 21 108/61 94 Room Air 09/22/16 23:58 97.7 85 18 93/50 94 Room Air Intake and Output 09/22/16 09/23/16 19:00 07:00 Intake Total 220 ml Output Total 300 ml 575 ml Balance -80 ml -575 ml Intake Oral 220 ml Output Urine Total 300 ml 575 ml # Bowel Movements 1 Objective General Appearance: cachectic HEENT: normocephalic Respiratory/Chest: chest wall non-tender, lungs clear Cardiovascular: normal peripheral pulses, regular rhythm Abdomen: normal bowel sounds, soft, non tender Genitourinary: normal external genitalia Extremities: no cyanosis, no clubbing sacral decubiti Microbiology Date/Time Source Procedure Growth Status 09/21/16 03:00 Sputum Gram Stain - Final Complete 09/21/16 03:00 Sputum Sputum Culture - Final CULTURE NOT PERFORMED ... Complete 09/21/16 00:30 Nasal Nares Left MRSA Culture - Final NO METHICILLIN RESISTANT STAPH AUREUS... Complete 09/21/16 03:00 Indwelling Cath Urine Culture - Final NO GROWTH AFTER 48 HOURS Complete 09/21/16 00:30 Rectum VRE Culture - Final NO VANCOMYCIN RESISTANT ENTEROCOCCUS ... Complete Current Medications Medications (Trade) Dose Ordered Sig/Abdirizak Route PRN Reason Start Time Stop Time Status Last Admin Dose Admin Acetaminophen (Tylenol) 650 mg Q4H PRN ORAL T>100.5 09/22/16 18:00 10/22/16 17:59 Albuterol/ Ipratropium (DuoNeb 0.5-3(2.5)mg/3ml) 3 ml Q4H PRN HHN Shortness of Breath 09/22/16 18:00 09/27/16 17:59 Atenolol (Tenormin) 12.5 mg DAILY ORAL 09/23/16 09:00 10/23/16 08:59 09/23/16 08:23 Atorvastatin Calcium (Lipitor) 10 mg BEDTIME ORAL 09/22/16 21:00 10/22/16 20:59 09/23/16 20:57 Cefepime HCl/ Dextrose (Maxipime/D5W) 110 ml @ 220 mls/hr DAILY@2100 IV 09/22/16 21:00 09/29/16 20:59 09/23/16 20:56 Dextrose (Dextrose 50%) STAT PRN IV Hypoglycemia 09/22/16 18:00 10/22/16 17:59 Heparin Sodium (Porcine) (Heparin 5000 units/ml) 5,000 units EVERY 12 HOURS SUBQ 09/22/16 21:00 10/22/16 20:59 09/23/16 20:58 Insulin Aspart (NovoLOG) BEFORE MEALS AND HS SUBQ 09/22/16 18:00 10/22/16 17:59 09/23/16 20:59 Morphine Sulfate (Morphine Sulfate) 2 mg Q4H PRN IVP Moderate Pain (Pain Scale 4-6) 09/22/16 18:00 09/29/16 17:59 Nitroglycerin (Ntg) 0.4 mg Q4H PRN SL Prn Chest Pain 09/22/16 17:45 10/22/16 17:44 Ondansetron HCl (Zofran) 4 mg Q6H PRN IVP Nausea & Vomiting 09/22/16 18:00 10/22/16 17:59 Polyethylene Glycol (Miralax) 17 gm DAILYPRN PRN ORAL Constipation 09/22/16 18:00 10/22/16 17:59 Temazepam (Restoril) 15 mg HSPRN PRN ORAL Insomnia 09/22/16 21:00 09/29/16 20:59 Vancomycin HCl 1 ea 1 ea DAILY PRN MISC PRN RX PROTOCOL 09/22/16 18:00 10/22/16 17:59 Vancomycin HCl/ Dextrose (Vancomycin/D5W) 275 ml @ 183.333 mls/hr Q24H IVPB 09/23/16 22:00 09/28/16 21:59 09/23/16 21:58 IVÁN OCHOA September 23, 2016 22:18
[2016-09-24 00:51] VITALS: BP 108/60
[2016-09-24 04:30] VITALS: BP 98/53
[2016-09-24] MEDS: NovoLOG Insulin Flexpen SUBQ SCH ×4 (06:14→20:51)
[2016-09-24 07:14] LABS: INR 1.1 (0.9-1.1); PROTHROMBIN TIME 11.2 SEC (9.30-11.50)
[2016-09-24 07:18] LABS: BASOPHILS % (AUTO) 0.6 % (0.0-2.0); EOSINOPHILS % (AUTO) 1.8 % (0.0-3.0); LYMPHOCYTES % (AUTO) 24.6 % (20.0-45.0); MEAN CORPUSCULAR HEMOGLOBIN 26.4 PG (27.0-31.0); MEAN CORPUSCULAR HGB CONC 31.3 G/DL (32.0-36.0); MEAN CORPUSCULAR VOLUME 84 FL (80-99); MEAN PLATELET VOLUME 6.2 FL (6.5-10.1); MONOCYTES % (AUTO) 9.4 % (1.0-10.0); NEUTROPHILS % (AUTO) 63.6 % (45.0-75.0); PLATELET COUNT 407 K/UL (150-450); RED BLOOD COUNT 3.23 M/UL (4.20-5.40); RED CELL DISTRIBUTION WIDTH 18.8 % (11.6-14.8); WHITE BLOOD COUNT 8.1 K/UL (4.8-10.8)
[2016-09-24 07:49] VITALS: BP 104/55
[2016-09-24 08:35] LABS: ERYTHROCYTE SEDIMENTATION RATE 80 MM/HR (0-42); PATH BLOOD SMEAR/OMC SENT TO PATHOLOGIST
[2016-09-24] MEDS: Atenolol 25mg tab ORAL SCH (08:55)
[2016-09-24 09:00] LABS: RETICULOCYTE COUNT 1.1 % (0.0-2.0)
[2016-09-24] MEDS: Heparin 5000 units/ml inj SUBQ SCH ×2 (09:02→20:53)
[2016-09-24 10:01] LABS: ANISOCYTOSIS 1+; BAND NEUTROPHILS % (MANUAL) 0 % (0-8); BASOPHILS % (MANUAL) 0 % (0-2); EOSINOPHILS % (MANUAL) 1 % (0-3); HYPOCHROMASIA 1+; LYMPHOCYTES % (MANUAL) 24 % (20-45); NEUTROPHILS % (MANUAL) 66 % (45-75); PLATELET ESTIMATE ADEQUATE; PLATELET MORPHOLOGY NORMAL; TOTAL CELLS COUNTED 100
[2016-09-24 12:00] VITALS: BP 117/61
--- NOTE | 2016-09-24 15:41 | Pulmonology Progress Note ---
Assessment/Plan Problems: (1) Sepsis (2) NSTEMI (non-ST elevated myocardial infarction) (3) UTI (urinary tract infection) (4) Diabetes mellitus (5) Advanced dementia (6) Sacral decubitus ulcer, stage IV (7) CAD (coronary artery disease) (8) CVA (cerebral vascular accident) Assessment/Plan continue antibiotics check cultures swallow study noted sliding scale wound care wbc decreasing anemia work up Subjective Interval Events: awake, comfortable Allergies: Coded Allergies: No Known Allergies (Verified , 11/28/08) Objective Last 24 Hour Vital Signs Date Time Temp Pulse Resp B/P Pulse Ox O2 Delivery O2 Flow Rate FiO2 09/24/16 12:00 97.0 78 20 117/61 99 Room Air 09/24/16 08:55 68 104/55 09/24/16 07:49 96.8 68 19 104/55 98 Room Air 09/24/16 04:30 96.8 60 17 98/53 92 Nasal Cannula 2.0 09/24/16 00:51 97.9 72 15 108/60 99 Room Air 09/23/16 20:02 97.9 72 16 107/59 100 Room Air 09/23/16 15:39 97.0 68 19 103/57 99 Room Air Intake and Output 09/23/16 09/24/16 19:00 07:00 Intake Total 385.000 ml Output Total 452 ml 350 ml Balance -452 ml 35.000 ml IV Total 385.000 ml Output Urine Total 450 ml 350 ml Stool Total 2 ml # Bowel Movements 1 Objective General Appearance: cachectic HEENT: normocephalic Respiratory/Chest: chest wall non-tender, lungs clear Cardiovascular: normal peripheral pulses, regular rhythm Abdomen: normal bowel sounds, soft, non tender Genitourinary: normal external genitalia Extremities: no cyanosis, no clubbing sacral decubiti Laboratory Tests 09/24/16 05:00: White Blood Count 8.1, Red Blood Count 3.23L, Hemoglobin 8.5L, Hematocrit 27.2L , Mean Corpuscular Volume 84, Mean Corpuscular Hemoglobin 26.4L, Mean Corpuscular Hemoglobin Concent 31.3L, Red Cell Distribution Width 18.8H, Platelet Count 407, Mean Platelet Volume 6.2L, Neutrophils (%) (Auto) 63.6, Lymphocytes (%) (Auto) 24.6, Monocytes (%) (Auto) 9.4, Eosinophils (%) (Auto) 1.8, Basophils (%) (Auto) 0.6, Differential Total Cells Counted 100, Neutrophils % (Manual) 66, Lymphocytes % (Manual) 24, Monocytes % (Manual) 9, Eosinophils % (Manual) 1, Basophils % (Manual) 0, Band Neutrophils 0, Platelet Estimate Adequate, Platelet Morphology Normal, Hypochromasia 1+, Anisocytosis 1+ , Erythrocyte Sedimentation Rate 80H, Reticulocyte Count 1.1, Prothrombin Time 11.2, Prothromb Time International Ratio 1.1, Activated Partial Thromboplast Time 29, Iron Level 14L, Total Iron Binding Capacity 135L, Percent Iron Saturation 10L, Unsaturated Iron Binding 121, Lactate Dehydrogenase 167, Carcinoembryonic Antigen 1.7, Vitamin B12 Level 637, Folate [Pending] Current Medications Medications (Trade) Dose Ordered Sig/Abdirizak Route PRN Reason Start Time Stop Time Status Last Admin Dose Admin Acetaminophen (Tylenol) 650 mg Q4H PRN ORAL T>100.5 09/22/16 18:00 10/22/16 17:59 Albuterol/ Ipratropium (DuoNeb 0.5-3(2.5)mg/3ml) 3 ml Q4H PRN HHN Shortness of Breath 09/22/16 18:00 09/27/16 17:59 Atenolol (Tenormin) 12.5 mg DAILY ORAL 09/23/16 09:00 10/23/16 08:59 09/23/16 08:23 Atorvastatin Calcium (Lipitor) 10 mg BEDTIME ORAL 09/22/16 21:00 10/22/16 20:59 09/23/16 20:57 Cefepime HCl/ Dextrose (Maxipime/D5W) 110 ml @ 220 mls/hr DAILY@2100 IV 09/22/16 21:00 09/29/16 20:59 09/23/16 20:56 Dextrose (Dextrose 50%) STAT PRN IV Hypoglycemia 09/22/16 18:00 10/22/16 17:59 Heparin Sodium (Porcine) (Heparin 5000 units/ml) 5,000 units EVERY 12 HOURS SUBQ 09/22/16 21:00 10/22/16 20:59 09/24/16 09:02 Insulin Aspart (NovoLOG) BEFORE MEALS AND HS SUBQ 09/22/16 18:00 10/22/16 17:59 09/23/16 20:59 Morphine Sulfate (Morphine Sulfate) 2 mg Q4H PRN IVP Moderate Pain (Pain Scale 4-6) 09/22/16 18:00 09/29/16 17:59 Nitroglycerin (Ntg) 0.4 mg Q4H PRN SL Prn Chest Pain 09/22/16 17:45 10/22/16 17:44 Ondansetron HCl (Zofran) 4 mg Q6H PRN IVP Nausea & Vomiting 09/22/16 18:00 10/22/16 17:59 Polyethylene Glycol (Miralax) 17 gm DAILYPRN PRN ORAL Constipation 09/22/16 18:00 10/22/16 17:59 Temazepam (Restoril) 15 mg HSPRN PRN ORAL Insomnia 09/22/16 21:00 09/29/16 20:59 Vancomycin HCl 1 ea 1 ea DAILY PRN MISC PRN RX PROTOCOL 09/22/16 18:00 10/22/16 17:59 Vancomycin HCl/ Dextrose (Vancomycin/D5W) 275 ml @ 183.333 mls/hr Q24H IVPB 09/23/16 22:00 09/28/16 21:59 09/23/16 21:58 IVÁN OCHOA September 24, 2016 15:41
--- NOTE | 2016-09-24 15:58 | Consultation ---
Consult Note Consult Note HEMATOLOGY CONSULTATION NOTE REFERRING PHYSICIAN: Karla aPce M.D. REASON FOR CONSULTATION: Evaluation of a patient with anemia DOS: 09/24/16 HISTORY OF PRESENT ILLNESS: The patient is an 85-year-old female with multiple medical problems who was admitted to this medical center due to shortness of breath. The patient was admitted to this medical center back in July for sacral decubitus, sacral osteomyelitis, and abscess. The patient underwent excision and debridement of the sacral pressure ulcer. The patient was continued on IV antibiotic for a totalof six weeks (Zosyn and Zyvox). The patient now has been admitted due to shortness of breath. Infectious Disease consultation has been requested for further evaluation of the patient's antibiotic management. She was also noted to have a wbc elevation as well as anemia as noted in the EMR and hematology service was consulted for anemia evaluation. PAST MEDICAL HISTORY: 1. History of sacral decubitus/osteomyelitis (polymicrobial), status post six weeks of IV antibiotics as of July 2016. 2. History of CVA. 3. History of hypertension. 4. History of pneumonia. 5. History of sore throat. 6. Diabetes. MEDICATIONS: IV vancomycin and cefepime. ALLERGIES: No known drug allergies. SOCIAL HISTORY: Negative. The patient resides in a longterm. FAMILY HISTORY: Unavailable. REVIEW OF SYSTEMS: Unobtainable. PHYSICAL EXAMINATION: VITAL SIGNS: Temperature 99.4 degrees, blood pressure 94/63, pulse 89 and respiratory rate 18. HEENT: Mild pale conjunctivae. No icterus. NECK: No lymphadenopathy. CHEST: Coarse breathing sounds. HEART: S1 and S2. ABDOMEN: Soft and nontender. EXTREMITIES: The patient has multiple decubitus sacral area. NEUROLOGIC: Awake and lethargic. LABORATORY AND DIAGNOSTIC DATA: White blood cell at the time of admission was 19.4-->6.7. Occult blood negative. BUN 20 and creatinine 0.4. ALT, AST and alkaline phosphatase unremarkable. Chest x-ray shows atelectasis or focal infiltrate of bibasilar area. MRI of the pelvis back on 09/09/2016 shows presence of signal in the S3 and S4 and coccygeal areas suggestive of osteomyelitis and there is some improvement in the signal abnormality in T1. ASSESSMENT and RECS: # Anemia 2/2 chronic disease - evaluate with a anemia workup, will send for ferritin and TIBC is currently low. Folate is wnl. Peripheral smear pending. # Leukocytosis and pyuria, possible urinary tract infection/pneumonia # Thrombocytosis potentially related to underlying anemia # Shortness of breath and pneumonia. # Pneumonia - is on antibiotics as per ID service # History of sacral decubitus/osteomyelitis (polymicrobial), status post six weeks of IV antibiotics as of July 2016 # Osteomyelitis on MRI and there is some improvement in the signal abnormality in T1 # Sacral decubitus,no gross evidence of infection # Greatly appreciate consultation! Cristian Saini September 24, 2016 15:58
[2016-09-24 16:00] VITALS: BP 120/56
--- NOTE | 2016-09-24 16:38 | Infectious Diseases Prog Note ---
Assessment/Plan Assessment/Plan ASSESSMENT: 85-year-old female with: Probable PNA - SCx contaminated Chest x-ray: atelectasis or focal infiltrate of bibasilar area h/o sacral decubitus/osteomyelitis (polymicrobial), status post six weeks of IV antibiotics as of July 2016. Wnd cx ESBL Kleb and P mirabilis ( colonizer ) MRI : 09/09/2016 : presence of signal in the S3 and S4 and coccygeal areas suggestive of osteomyelitis and there is some improvement in the signal abnormality in T1 Leukocytosis - resolved, afebrile NSTEMI, EF 40% Severe History of CVA Diabetes NKDA Full Code PLAN: Cont vancomycin and cefepime d# 4 / 7 f/u final cultures Monitor CBC, temperatures Monitor BMP. Monitor chest x-ray. wound care Subjective Allergies: Coded Allergies: No Known Allergies (Verified , 11/28/08) Subjective remains afebrile Objective Vital Signs Last 24 Hour Vital Signs Date Time Temp Pulse Resp B/P Pulse Ox O2 Delivery O2 Flow Rate FiO2 09/24/16 12:00 97.0 78 20 117/61 99 Room Air 09/24/16 08:55 68 104/55 09/24/16 07:49 96.8 68 19 104/55 98 Room Air 09/24/16 04:30 96.8 60 17 98/53 92 Nasal Cannula 2.0 09/24/16 00:51 97.9 72 15 108/60 99 Room Air 09/23/16 20:02 97.9 72 16 107/59 100 Room Air Height (Feet): 5 Height (Inches): 2.00 Weight (Pounds): 122 Laboratory Tests Test 09/24/16 05:00 09/24/16 05:30 White Blood Count 8.1 K/UL (4.8-10.8) Red Blood Count 3.23 M/UL (4.20-5.40) L Hemoglobin 8.5 G/DL (12.0-16.0) L Hematocrit 27.2 % (37.0-47.0) L Mean Corpuscular Volume 84 FL (80-99) Mean Corpuscular Hemoglobin 26.4 PG (27.0-31.0) L Mean Corpuscular Hemoglobin Concent 31.3 G/DL (32.0-36.0) L Red Cell Distribution Width 18.8 % (11.6-14.8) H Platelet Count 407 K/UL (150-450) Mean Platelet Volume 6.2 FL (6.5-10.1) L Neutrophils (%) (Auto) 63.6 % (45.0-75.0) Lymphocytes (%) (Auto) 24.6 % (20.0-45.0) Monocytes (%) (Auto) 9.4 % (1.0-10.0) Eosinophils (%) (Auto) 1.8 % (0.0-3.0) Basophils (%) (Auto) 0.6 % (0.0-2.0) Differential Total Cells Counted 100 Neutrophils % (Manual) 66 % (45-75) Lymphocytes % (Manual) 24 % (20-45) Monocytes % (Manual) 9 % (1-10) Eosinophils % (Manual) 1 % (0-3) Basophils % (Manual) 0 % (0-2) Band Neutrophils 0 % (0-8) Platelet Estimate Adequate Platelet Morphology Normal Hypochromasia 1+ Anisocytosis 1+ Erythrocyte Sedimentation Rate 80 MM/HR (0-42) H Reticulocyte Count 1.1 % (0.0-2.0) Prothrombin Time 11.2 SEC (9.30-11.50) Prothromb Time International Ratio 1.1 (0.9-1.1) Activated Partial Thromboplast Time 29 SEC (23-33) Iron Level 14 ug/dL (37-145) L Total Iron Binding Capacity 135 ug/dL (250-400) L Percent Iron Saturation 10 % (15-50) L Unsaturated Iron Binding 121 ug/dL (112-346) Lactate Dehydrogenase 167 U/L (135-230) Carcinoembryonic Antigen 1.7 ng/mL Vitamin B12 Level 637 pg/mL (211-946) Folate Pending Haptoglobin Pending Ferritin Pending Thyroid Stimulating Hormone (TSH) Pending Current Medications Medications (Trade) Dose Ordered Sig/Abdirizak Route PRN Reason Start Time Stop Time Status Last Admin Dose Admin Acetaminophen (Tylenol) 650 mg Q4H PRN ORAL T>100.5 09/22/16 18:00 10/22/16 17:59 Albuterol/ Ipratropium (DuoNeb 0.5-3(2.5)mg/3ml) 3 ml Q4H PRN HHN Shortness of Breath 09/22/16 18:00 09/27/16 17:59 Atenolol (Tenormin) 12.5 mg DAILY ORAL 09/23/16 09:00 10/23/16 08:59 09/23/16 08:23 Atorvastatin Calcium (Lipitor) 10 mg BEDTIME ORAL 09/22/16 21:00 10/22/16 20:59 09/23/16 20:57 Cefepime HCl/ Dextrose (Maxipime/D5W) 110 ml @ 220 mls/hr DAILY@2100 IV 09/22/16 21:00 09/29/16 20:59 09/23/16 20:56 Dextrose (Dextrose 50%) STAT PRN IV Hypoglycemia 09/22/16 18:00 10/22/16 17:59 Heparin Sodium (Porcine) (Heparin 5000 units/ml) 5,000 units EVERY 12 HOURS SUBQ 09/22/16 21:00 10/22/16 20:59 09/24/16 09:02 Insulin Aspart (NovoLOG) BEFORE MEALS AND HS SUBQ 09/22/16 18:00 10/22/16 17:59 09/23/16 20:59 Morphine Sulfate (Morphine Sulfate) 2 mg Q4H PRN IVP Moderate Pain (Pain Scale 4-6) 09/22/16 18:00 09/29/16 17:59 Nitroglycerin (Ntg) 0.4 mg Q4H PRN SL Prn Chest Pain 09/22/16 17:45 10/22/16 17:44 Ondansetron HCl (Zofran) 4 mg Q6H PRN IVP Nausea & Vomiting 09/22/16 18:00 10/22/16 17:59 Polyethylene Glycol (Miralax) 17 gm DAILYPRN PRN ORAL Constipation 09/22/16 18:00 10/22/16 17:59 Temazepam (Restoril) 15 mg HSPRN PRN ORAL Insomnia 09/22/16 21:00 09/29/16 20:59 Vancomycin HCl 1 ea 1 ea DAILY PRN MISC PRN RX PROTOCOL 09/22/16 18:00 10/22/16 17:59 Vancomycin HCl/ Dextrose (Vancomycin/D5W) 275 ml @ 183.333 mls/hr Q24H IVPB 09/23/16 22:00 09/28/16 21:59 09/23/16 21:58 NILTON ANDERSON September 24, 2016 16:38
[2016-09-24 16:42] LABS: THYROID STIMULATING HORMONE 3.3 uIU/mL (0.300-4.500)
--- NOTE | 2016-09-24 18:39 | Cardiology Progress Note ---
Assessment/Plan Assessment/Plan 1. Urinary tract infection. 2. Anemia of chronic disease possibly worse at the present time. 3. Decubitus ulcers. 4. Blocked Burton catheter. 5. Severe aortic stenosis. 6. Mitral regurgitation. 7. Pericardial effusion bp ok trop neg concern aboput possible osteo p echo showed samll effusion increaed ra pressure nad ef 45 with sig , ef 40% Subjective ROS Limited/Unobtainable: Yes Objective Last 24 Hour Vital Signs Date Time Temp Pulse Resp B/P Pulse Ox O2 Delivery O2 Flow Rate FiO2 09/24/16 16:00 97.5 81 18 120/56 93 Room Air 09/24/16 12:00 97.0 78 20 117/61 99 Room Air 09/24/16 08:55 68 104/55 09/24/16 07:49 96.8 68 19 104/55 98 Room Air 09/24/16 04:30 96.8 60 17 98/53 92 Nasal Cannula 2.0 09/24/16 00:51 97.9 72 15 108/60 99 Room Air 09/23/16 20:02 97.9 72 16 107/59 100 Room Air General Appearance: no apparent distress Intake and Output 09/23/16 09/24/16 19:00 07:00 Intake Total 385.000 ml Output Total 452 ml 350 ml Balance -452 ml 35.000 ml IV Total 385.000 ml Output Urine Total 450 ml 350 ml Stool Total 2 ml # Bowel Movements 1 Laboratory Tests Test 09/24/16 05:00 09/24/16 05:30 White Blood Count 8.1 K/UL (4.8-10.8) Red Blood Count 3.23 M/UL (4.20-5.40) L Hemoglobin 8.5 G/DL (12.0-16.0) L Hematocrit 27.2 % (37.0-47.0) L Mean Corpuscular Volume 84 FL (80-99) Mean Corpuscular Hemoglobin 26.4 PG (27.0-31.0) L Mean Corpuscular Hemoglobin Concent 31.3 G/DL (32.0-36.0) L Red Cell Distribution Width 18.8 % (11.6-14.8) H Platelet Count 407 K/UL (150-450) Mean Platelet Volume 6.2 FL (6.5-10.1) L Neutrophils (%) (Auto) 63.6 % (45.0-75.0) Lymphocytes (%) (Auto) 24.6 % (20.0-45.0) Monocytes (%) (Auto) 9.4 % (1.0-10.0) Eosinophils (%) (Auto) 1.8 % (0.0-3.0) Basophils (%) (Auto) 0.6 % (0.0-2.0) Differential Total Cells Counted 100 Neutrophils % (Manual) 66 % (45-75) Lymphocytes % (Manual) 24 % (20-45) Monocytes % (Manual) 9 % (1-10) Eosinophils % (Manual) 1 % (0-3) Basophils % (Manual) 0 % (0-2) Band Neutrophils 0 % (0-8) Platelet Estimate Adequate Platelet Morphology Normal Hypochromasia 1+ Anisocytosis 1+ Erythrocyte Sedimentation Rate 80 MM/HR (0-42) H Reticulocyte Count 1.1 % (0.0-2.0) Prothrombin Time 11.2 SEC (9.30-11.50) Prothromb Time International Ratio 1.1 (0.9-1.1) Activated Partial Thromboplast Time 29 SEC (23-33) Iron Level 14 ug/dL (37-145) L Total Iron Binding Capacity 135 ug/dL (250-400) L Percent Iron Saturation 10 % (15-50) L Unsaturated Iron Binding 121 ug/dL (112-346) Lactate Dehydrogenase 167 U/L (135-230) Carcinoembryonic Antigen 1.7 ng/mL Vitamin B12 Level 637 pg/mL (211-946) Folate Pending Haptoglobin 243 mg/dL (30-200) H Ferritin 215 ng/mL (13-150) H Thyroid Stimulating Hormone (TSH) 3.300 uIU/mL (0.300-4.500) SHAUN ARRINGTON September 24, 2016 18:39
[2016-09-24 20:00] VITALS: BP 114/60
[2016-09-24] MEDS: Cefepime HCl 2 GM in D5W 110 ML IV SCH (20:51)
[2016-09-24] MEDS: Vancomycin 1250mg/D5W 275ml IVPB SCH ×2 (22:44)
[2016-09-25] VITALS: BP 116/63
[2016-09-25 04:00] VITALS: BP 112/55
[2016-09-25] MEDS: NovoLOG Insulin Flexpen SUBQ SCH ×4 (06:30→20:42)
[2016-09-25 08:29] VITALS: BP 123/61
[2016-09-25] MEDS: Atenolol 25mg tab ORAL SCH (08:36)
[2016-09-25] MEDS: Heparin 5000 units/ml inj SUBQ SCH ×2 (08:37→20:42)
[2016-09-25] MEDS ORDERED: Betadine 10% Oint 30gm TOPIC SCH (09:00)
[2016-09-25] MEDS: Betadine 4oz Bottle TOPIC SCH (11:35)
[2016-09-25 12:18] VITALS: BP 123/59
[2016-09-25 15:38] VITALS: BP 123/59
--- NOTE | 2016-09-25 16:54 | General Progress Note ---
Assessment/Plan Assessment/Plan ASSESSMENT and RECS: # Anemia 2/2 chronic disease - evaluate with a anemia workup, # Leukocytosis and pyuria, possible urinary tract infection/pneumonia # Thrombocytosis potentially related to underlying anemia # Shortness of breath and pneumonia. # Pneumonia - is on antibiotics as per ID service # History of sacral decubitus/osteomyelitis (polymicrobial), status post six weeks of IV antibiotics as of July 2016 # Osteomyelitis on MRI and there is some improvement in the signal abnormality in T1 # Sacral decubitus,no gross evidence of infection # Greatly appreciate consultation! Yeny Bernstein M.D. September 24, 2016 15:58 Subjective Constitutional: Reports: no symptoms HEENT: Reports: no symptoms Cardiovascular: Reports: no symptoms Respiratory: Reports: no symptoms Gastrointestinal/Abdominal: Reports: no symptoms Genitourinary: Reports: no symptoms Neurologic/Psychiatric: Reports: no symptoms Endocrine: Reports: no symptoms Hematologic/Lymphatic: Reports: no symptoms Allergies: Coded Allergies: No Known Allergies (Verified , 11/28/08) Objective Last 24 Hour Vital Signs Date Time Temp Pulse Resp B/P Pulse Ox O2 Delivery O2 Flow Rate FiO2 09/25/16 15:38 97.6 82 18 123/59 94 Room Air 09/25/16 12:18 97.6 82 18 123/59 94 Room Air 09/25/16 08:36 79 123/61 09/25/16 08:29 98.0 79 18 123/61 97 Room Air 09/25/16 04:00 97.7 75 18 112/55 96 Room Air 09/25/16 00:00 97.9 61 20 116/63 100 Room Air 09/24/16 20:00 97.7 63 18 114/60 99 Room Air Intake and Output 09/24/16 09/25/16 19:00 07:00 Intake Total 393.333 ml Output Total 500 ml 900 ml Balance -500 ml -506.667 ml Intake Oral 100 ml IV Total 293.333 ml Output Urine Total 500 ml 900 ml Laboratory Tests 09/24/16 20:52: Vancomycin Level Trough 13.9H Height (Feet): 5 Height (Inches): 2.00 Weight (Pounds): 122 General Appearance: alert EENT: TMs normal Neck: supple Cardiovascular: regular rhythm Respiratory/Chest: lungs clear Abdomen: soft Extremities: non-tender Edema: mild edema Neurologic: alert Skin: warm/dry Lymphatic: normal anterior cervical (L), normal anterior cervical (R), normal axillary (L), normal axillary (R), normal inguinal (L), normal inguinal (R), normal other, normal posterior cervical (L), normal posterior cervical (R), normal submandibular (L), normal submandibular (R), normal supraclavicular (L), normal supraclavicular (R) LEROY ABDUL September 25, 2016 16:54
[2016-09-25 20:00] VITALS: BP 140/73
--- NOTE | 2016-09-25 20:27 | Infectious Diseases Prog Note ---
Assessment/Plan Assessment/Plan ASSESSMENT: 85-year-old female with: Probable PNA - SCx contaminated Chest x-ray: atelectasis or focal infiltrate of bibasilar area h/o sacral decubitus/osteomyelitis (polymicrobial), status post six weeks of IV antibiotics as of July 2016. Wnd cx ESBL Kleb and P mirabilis ( colonizer ) MRI : 09/09/2016 : presence of signal in the S3 and S4 and coccygeal areas suggestive of osteomyelitis and there is some improvement in the signal abnormality in T1 Leukocytosis - resolved, afebrile NSTEMI, EF 40% Severe History of CVA Diabetes NKDA Full Code PLAN: Cont vancomycin and cefepime d# 5 / f/u final cultures Monitor CBC, temperatures Monitor BMP. Monitor chest x-ray. wound care Subjective Allergies: Coded Allergies: No Known Allergies (Verified , 11/28/08) Subjective remains afebrile Objective Vital Signs Last 24 Hour Vital Signs Date Time Temp Pulse Resp B/P Pulse Ox O2 Delivery O2 Flow Rate FiO2 09/25/16 15:38 97.6 82 18 123/59 94 Room Air 09/25/16 12:18 97.6 82 18 123/59 94 Room Air 09/25/16 08:36 79 123/61 09/25/16 08:29 98.0 79 18 123/61 97 Room Air 09/25/16 04:00 97.7 75 18 112/55 96 Room Air 09/25/16 00:00 97.9 61 20 116/63 100 Room Air Height (Feet): 5 Height (Inches): 2.00 Weight (Pounds): 122 General Appearance: no acute distress Respiratory/Chest: no respiratory distress Cardiovascular: normal rate, regular rhythm Abdomen: normal bowel sounds, soft, non tender, non distended Laboratory Tests Test 09/24/16 20:52 Vancomycin Level Trough 13.9 ug/mL (5.0-12.0) H Current Medications Medications (Trade) Dose Ordered Sig/Abdirizak Route PRN Reason Start Time Stop Time Status Last Admin Dose Admin Acetaminophen (Tylenol) 650 mg Q4H PRN ORAL T>100.5 09/22/16 18:00 10/22/16 17:59 Albuterol/ Ipratropium (DuoNeb 0.5-3(2.5)mg/3ml) 3 ml Q4H PRN HHN Shortness of Breath 09/22/16 18:00 09/27/16 17:59 Atenolol (Tenormin) 12.5 mg DAILY ORAL 09/23/16 09:00 10/23/16 08:59 09/23/16 08:23 Atorvastatin Calcium (Lipitor) 10 mg BEDTIME ORAL 09/22/16 21:00 10/22/16 20:59 09/24/16 20:51 Cefepime HCl/ Dextrose (Maxipime/D5W) 110 ml @ 220 mls/hr DAILY@2100 IV 09/22/16 21:00 09/29/16 20:59 09/24/16 20:51 Dextrose (Dextrose 50%) STAT PRN IV Hypoglycemia 09/22/16 18:00 10/22/16 17:59 Heparin Sodium (Porcine) (Heparin 5000 units/ml) 5,000 units EVERY 12 HOURS SUBQ 09/22/16 21:00 10/22/16 20:59 09/25/16 08:37 Insulin Aspart (NovoLOG) BEFORE MEALS AND HS SUBQ 09/22/16 18:00 10/22/16 17:59 09/25/16 17:15 Morphine Sulfate (Morphine Sulfate) 2 mg Q4H PRN IVP Moderate Pain (Pain Scale 4-6) 09/22/16 18:00 09/29/16 17:59 Nitroglycerin (Ntg) 0.4 mg Q4H PRN SL Prn Chest Pain 09/22/16 17:45 10/22/16 17:44 Ondansetron HCl (Zofran) 4 mg Q6H PRN IVP Nausea & Vomiting 09/22/16 18:00 10/22/16 17:59 Polyethylene Glycol (Miralax) 17 gm DAILYPRN PRN ORAL Constipation 09/22/16 18:00 10/22/16 17:59 Povidone Iodine (Betadine Marilyn) 1 applic DAILY TOPIC 09/25/16 11:00 10/25/16 10:59 09/25/16 11:35 Temazepam (Restoril) 15 mg HSPRN PRN ORAL Insomnia 09/22/16 21:00 09/29/16 20:59 Vancomycin HCl 1 ea 1 ea DAILY PRN MISC PRN RX PROTOCOL 5/10/17 18:00 10/22/16 17:59 Vancomycin HCl/ Dextrose (Vancomycin/D5W) 275 ml @ 183.333 mls/hr Q24H IVPB 09/23/16 22:00 09/28/16 21:59 09/24/16 22:44 NILTON ANDERSON September 25, 2016 20:27
[2016-09-25] MEDS: Cefepime HCl 2 GM in D5W 110 ML IV SCH (20:37)
--- NOTE | 2016-09-25 21:38 | Cardiology Progress Note ---
Assessment/Plan Assessment/Plan severe elevated troponin stable at present time Subjective Subjective the patient denies dyspena and SOB Objective Last 24 Hour Vital Signs Date Time Temp Pulse Resp B/P Pulse Ox O2 Delivery O2 Flow Rate FiO2 09/25/16 20:00 97.1 93 20 140/73 91 Room Air 09/25/16 15:38 97.6 82 18 123/59 94 Room Air 09/25/16 12:18 97.6 82 18 123/59 94 Room Air 09/25/16 08:36 79 123/61 09/25/16 08:29 98.0 79 18 123/61 97 Room Air 09/25/16 04:00 97.7 75 18 112/55 96 Room Air 09/25/16 00:00 97.9 61 20 116/63 100 Room Air General Appearance: alert, lethargic EENT: PERRL/EOMI Neck: supple Rhythm: SB Cardiovascular: bradycardia, systolic murmur Respiratory/Chest: decreased breath sounds Abdomen: soft Intake and Output 09/24/16 09/25/16 19:00 07:00 Intake Total 393.333 ml Output Total 500 ml 900 ml Balance -500 ml -506.667 ml Intake Oral 100 ml IV Total 293.333 ml Output Urine Total 500 ml 900 ml NADIYA GUILLEN September 25, 2016 21:38
[2016-09-25] MEDS: Vancomycin 1250mg/D5W 275ml IVPB SCH ×2 (21:51)
--- NOTE | 2016-09-25 22:42 | Pulmonology Progress Note ---
Assessment/Plan Problems: (1) Sepsis (2) NSTEMI (non-ST elevated myocardial infarction) (3) UTI (urinary tract infection) (4) Diabetes mellitus (5) Advanced dementia (6) Sacral decubitus ulcer, stage IV (7) CAD (coronary artery disease) (8) CVA (cerebral vascular accident) Assessment/Plan continue antibiotics, cefepime check cultures swallow study noted sliding scale wound care wbc decreasing anemia work up Subjective ROS Limited/Unobtainable: No Interval Events: awake, comfortable Allergies: Coded Allergies: No Known Allergies (Verified , 11/28/08) Objective Last 24 Hour Vital Signs Date Time Temp Pulse Resp B/P Pulse Ox O2 Delivery O2 Flow Rate FiO2 09/25/16 21:36 100 Room Air 09/25/16 20:00 97.1 93 20 140/73 91 Room Air 09/25/16 15:38 97.6 82 18 123/59 94 Room Air 09/25/16 12:18 97.6 82 18 123/59 94 Room Air 09/25/16 08:36 79 123/61 09/25/16 08:29 98.0 79 18 123/61 97 Room Air 09/25/16 04:00 97.7 75 18 112/55 96 Room Air 09/25/16 00:00 97.9 61 20 116/63 100 Room Air Intake and Output 09/24/16 09/25/16 19:00 07:00 Intake Total 393.333 ml Output Total 500 ml 900 ml Balance -500 ml -506.667 ml Intake Oral 100 ml IV Total 293.333 ml Output Urine Total 500 ml 900 ml Objective General Appearance: cachectic HEENT: normocephalic Respiratory/Chest: chest wall non-tender, lungs clear Cardiovascular: normal peripheral pulses, regular rhythm Abdomen: normal bowel sounds, soft, non tender Genitourinary: normal external genitalia Extremities: no cyanosis, no clubbing sacral decubiti Current Medications Medications (Trade) Dose Ordered Sig/Abdirizak Route PRN Reason Start Time Stop Time Status Last Admin Dose Admin Acetaminophen (Tylenol) 650 mg Q4H PRN ORAL T>100.5 09/22/16 18:00 10/22/16 17:59 Albuterol/ Ipratropium (DuoNeb 0.5-3(2.5)mg/3ml) 3 ml Q4H PRN HHN Shortness of Breath 09/22/16 18:00 09/27/16 17:59 Atenolol (Tenormin) 12.5 mg DAILY ORAL 09/23/16 09:00 10/23/16 08:59 09/23/16 08:23 Atorvastatin Calcium (Lipitor) 10 mg BEDTIME ORAL 09/22/16 21:00 10/22/16 20:59 09/25/16 20:37 Cefepime HCl/ Dextrose (Maxipime/D5W) 110 ml @ 220 mls/hr DAILY@2100 IV 09/22/16 21:00 09/29/16 20:59 09/25/16 20:37 Dextrose (Dextrose 50%) STAT PRN IV Hypoglycemia 09/22/16 18:00 10/22/16 17:59 Heparin Sodium (Porcine) (Heparin 5000 units/ml) 5,000 units EVERY 12 HOURS SUBQ 09/22/16 21:00 10/22/16 20:59 09/25/16 20:42 Insulin Aspart (NovoLOG) BEFORE MEALS AND HS SUBQ 09/22/16 18:00 10/22/16 17:59 09/25/16 20:42 Morphine Sulfate (Morphine Sulfate) 2 mg Q4H PRN IVP Moderate Pain (Pain Scale 4-6) 09/22/16 18:00 09/29/16 17:59 Nitroglycerin (Ntg) 0.4 mg Q4H PRN SL Prn Chest Pain 09/22/16 17:45 10/22/16 17:44 Ondansetron HCl (Zofran) 4 mg Q6H PRN IVP Nausea & Vomiting 09/22/16 18:00 10/22/16 17:59 Polyethylene Glycol (Miralax) 17 gm DAILYPRN PRN ORAL Constipation 09/22/16 18:00 10/22/16 17:59 Povidone Iodine (Betadine Marilyn) 1 applic DAILY TOPIC 09/25/16 11:00 10/25/16 10:59 09/25/16 11:35 Temazepam (Restoril) 15 mg HSPRN PRN ORAL Insomnia 09/22/16 21:00 09/29/16 20:59 Vancomycin HCl 1 ea 1 ea DAILY PRN MISC PRN RX PROTOCOL 09/22/16 18:00 6/9/17 17:59 Vancomycin HCl/ Dextrose (Vancomycin/D5W) 275 ml @ 183.333 mls/hr Q24H IVPB 09/23/16 22:00 09/28/16 21:59 09/25/16 21:51 IVÁN OCHOA September 25, 2016 22:42
[2016-09-26] VITALS (7 sets, daily range): BP systolic 101–143; BP diastolic 49–78
[2016-09-26] MEDS: NovoLOG Insulin Flexpen SUBQ SCH ×4 (06:30→20:07)
[2016-09-26] MEDS: Atenolol 25mg tab ORAL SCH (08:16)
[2016-09-26] MEDS: Betadine 4oz Bottle TOPIC SCH (08:17)
[2016-09-26] MEDS: Heparin 5000 units/ml inj SUBQ SCH ×2 (08:17→20:33)
--- NOTE | 2016-09-26 13:36 | General Progress Note ---
Assessment/Plan Assessment/Plan ASSESSMENT and RECS: # Anemia 2/2 chronic disease - evaluate with a anemia workup, has been reviewed , ESR is 80, retic 1.1, ferritin >100, tibc is low which is consistent with anemia of chronic disease, will continue to treat underlying cause # Leukocytosis and pyuria, possible urinary tract infection/pneumonia - has improved # Thrombocytosis potentially related to underlying anemia # Shortness of breath and pneumonia. On abx # Pneumonia - is on antibiotics as per ID service # History of sacral decubitus/osteomyelitis (polymicrobial), status post six weeks of IV antibiotics as of July 2016 # Osteomyelitis on MRI and there is some improvement in the signal abnormality in T1 # Sacral decubitus,no gross evidence of infection # Greatly appreciate consultation! Subjective Constitutional: Reports: no symptoms Cardiovascular: Reports: no symptoms Respiratory: Reports: no symptoms Gastrointestinal/Abdominal: Reports: no symptoms Genitourinary: Reports: no symptoms Neurologic/Psychiatric: Reports: no symptoms Endocrine: Reports: no symptoms Hematologic/Lymphatic: Reports: anemia Allergies: Coded Allergies: No Known Allergies (Verified , 11/28/08) Subjective stable no events to report Objective Last 24 Hour Vital Signs Date Time Temp Pulse Resp B/P Pulse Ox O2 Delivery O2 Flow Rate FiO2 09/26/16 12:00 97.2 88 20 133/66 95 Room Air 09/26/16 08:16 77 110/59 09/26/16 08:00 98.0 79 18 129/78 100 Room Air 09/26/16 04:00 97.2 86 18 125/63 95 Room Air 09/26/16 00:00 97.0 91 18 143/78 94 Room Air 09/25/16 21:36 100 Room Air 09/25/16 20:00 97.1 93 20 140/73 91 Room Air 09/25/16 15:38 97.6 82 18 123/59 94 Room Air Intake and Output 09/25/16 09/26/16 19:00 07:00 Intake Total 1080 ml 565.000 ml Output Total 850 ml 600 ml Balance 230 ml -35.000 ml Intake Oral 1080 ml 180 ml IV Total 385.000 ml Output Urine Total 850 ml 600 ml # Voids 1 # Bowel Movements 2 Height (Feet): 5 Height (Inches): 2.00 Weight (Pounds): 122 General Appearance: alert EENT: TMs normal Cardiovascular: regular rhythm Respiratory/Chest: normal breath sounds Abdomen: non tender Extremities: normal inspection Edema: no edema noted Leg (L), no edema noted Leg (R) Edema: mild edema Neurologic: alert Skin: warm/dry Cristian Saini September 26, 2016 13:36
--- NOTE | 2016-09-26 18:30 | Infectious Diseases Prog Note ---
Assessment/Plan Assessment/Plan ASSESSMENT: 85-year-old female with: Probable PNA - SCx contaminated Chest x-ray: atelectasis or focal infiltrate of bibasilar area h/o sacral decubitus/osteomyelitis (polymicrobial), status post six weeks of IV antibiotics as of July 2016. Wnd cx ESBL Kleb and P mirabilis ( colonizer ) MRI : 09/09/2016 : presence of signal in the S3 and S4 and coccygeal areas suggestive of osteomyelitis and there is some improvement in the signal abnormality in T1 Leukocytosis - resolved, afebrile NSTEMI, EF 40% Severe History of CVA Diabetes NKDA Full Code PLAN: Cont vancomycin and cefepime d# 6 / 7 f/u final cultures Monitor CBC, temperatures Monitor BMP. Monitor chest x-ray. wound care Subjective Allergies: Coded Allergies: No Known Allergies (Verified , 11/28/08) Subjective remains afebrile appears comfortable Objective Vital Signs Last 24 Hour Vital Signs Date Time Temp Pulse Resp B/P Pulse Ox O2 Delivery O2 Flow Rate FiO2 09/26/16 16:00 97.5 77 18 128/68 97 Room Air 09/26/16 12:00 97.2 88 20 133/66 95 Room Air 09/26/16 08:16 77 110/59 09/26/16 08:00 98.0 79 18 129/78 100 Room Air 09/26/16 04:00 97.2 86 18 125/63 95 Room Air 09/26/16 00:00 97.0 91 18 143/78 94 Room Air 09/25/16 21:36 100 Room Air 09/25/16 20:00 97.1 93 20 140/73 91 Room Air Height (Feet): 5 Height (Inches): 2.00 Weight (Pounds): 122 General Appearance: no acute distress Respiratory/Chest: no respiratory distress Cardiovascular: normal rate, regular rhythm Abdomen: normal bowel sounds, soft, non tender, non distended Current Medications Medications (Trade) Dose Ordered Sig/Abdirizak Route PRN Reason Start Time Stop Time Status Last Admin Dose Admin Acetaminophen (Tylenol) 650 mg Q4H PRN ORAL T>100.5 09/22/16 18:00 10/22/16 17:59 Albuterol/ Ipratropium (DuoNeb 0.5-3(2.5)mg/3ml) 3 ml Q4H PRN HHN Shortness of Breath 09/22/16 18:00 09/27/16 17:59 Atenolol (Tenormin) 12.5 mg DAILY ORAL 09/23/16 09:00 10/23/16 08:59 09/26/16 08:16 Atorvastatin Calcium (Lipitor) 10 mg BEDTIME ORAL 09/22/16 21:00 10/22/16 20:59 09/25/16 20:37 Cefepime HCl/ Dextrose (Maxipime/D5W) 110 ml @ 220 mls/hr DAILY@2100 IV 09/22/16 21:00 09/29/16 20:59 09/25/16 20:37 Dextrose (Dextrose 50%) STAT PRN IV Hypoglycemia 09/22/16 18:00 10/22/16 17:59 Heparin Sodium (Porcine) (Heparin 5000 units/ml) 5,000 units EVERY 12 HOURS SUBQ 09/22/16 21:00 10/22/16 20:59 09/26/16 08:17 Insulin Aspart (NovoLOG) BEFORE MEALS AND HS SUBQ 09/22/16 18:00 10/22/16 17:59 09/26/16 16:29 Morphine Sulfate (Morphine Sulfate) 2 mg Q4H PRN IVP Moderate Pain (Pain Scale 4-6) 09/22/16 18:00 09/29/16 17:59 Nitroglycerin (Ntg) 0.4 mg Q4H PRN SL Prn Chest Pain 09/22/16 17:45 10/22/16 17:44 Ondansetron HCl (Zofran) 4 mg Q6H PRN IVP Nausea & Vomiting 09/22/16 18:00 10/22/16 17:59 Polyethylene Glycol (Miralax) 17 gm DAILYPRN PRN ORAL Constipation 09/22/16 18:00 10/22/16 17:59 09/26/16 11:28 Povidone Iodine (Betadine Marilyn) 1 applic DAILY TOPIC 09/25/16 11:00 10/25/16 10:59 09/26/16 08:17 Temazepam (Restoril) 15 mg HSPRN PRN ORAL Insomnia 09/22/16 21:00 09/29/16 20:59 Vancomycin HCl 1 ea 1 ea DAILY PRN MISC PRN RX PROTOCOL 09/22/16 18:00 10/22/16 17:59 Vancomycin HCl/ Dextrose (Vancomycin/D5W) 275 ml @ 183.333 mls/hr Q24H IVPB 09/23/16 22:00 09/28/16 21:59 09/25/16 21:51 NILTON ANDERSON September 26, 2016 18:30
[2016-09-26] MEDS: Cefepime HCl 2 GM in D5W 110 ML IV SCH (20:30)
[2016-09-26] MEDS: Vancomycin 1250mg/D5W 275ml IVPB SCH ×2 (21:13)
--- NOTE | 2016-09-26 22:14 | Pulmonology Progress Note ---
Assessment/Plan Problems: (1) Sepsis (2) NSTEMI (non-ST elevated myocardial infarction) (3) UTI (urinary tract infection) (4) Diabetes mellitus (5) Advanced dementia (6) Sacral decubitus ulcer, stage IV (7) CAD (coronary artery disease) (8) CVA (cerebral vascular accident) Assessment/Plan continue antibiotics as per ID no new cultures cultures tolerating diet sliding scale wound care wbc decreasing anemia work up dc planning Subjective ROS Limited/Unobtainable: No Interval Events: d/w pt daughter at bed site Allergies: Coded Allergies: No Known Allergies (Verified , 11/28/08) Objective Last 24 Hour Vital Signs Date Time Temp Pulse Resp B/P Pulse Ox O2 Delivery O2 Flow Rate FiO2 09/26/16 20:00 97.9 74 18 101/49 95 Room Air 09/26/16 19:46 97.5 09/26/16 16:00 97.5 77 18 128/68 97 Room Air 09/26/16 12:00 97.2 88 20 133/66 95 Room Air 09/26/16 08:16 77 110/59 09/26/16 08:00 98.0 79 18 129/78 100 Room Air 09/26/16 04:00 97.2 86 18 125/63 95 Room Air 09/26/16 00:00 97.0 91 18 143/78 94 Room Air Intake and Output 09/25/16 09/26/16 19:00 07:00 Intake Total 1080 ml 565.000 ml Output Total 850 ml 600 ml Balance 230 ml -35.000 ml Intake Oral 1080 ml 180 ml IV Total 385.000 ml Output Urine Total 850 ml 600 ml # Voids 1 # Bowel Movements 2 Objective General Appearance: cachectic HEENT: normocephalic Respiratory/Chest: chest wall non-tender, lungs clear Cardiovascular: normal peripheral pulses, regular rhythm Abdomen: normal bowel sounds, soft, non tender Genitourinary: normal external genitalia Extremities: no cyanosis, no clubbing sacral decubiti Current Medications Medications (Trade) Dose Ordered Sig/Abdirizak Route PRN Reason Start Time Stop Time Status Last Admin Dose Admin Acetaminophen (Tylenol) 650 mg Q4H PRN ORAL T>100.5 09/22/16 18:00 10/22/16 17:59 09/26/16 18:47 Albuterol/ Ipratropium (DuoNeb 0.5-3(2.5)mg/3ml) 3 ml Q4H PRN HHN Shortness of Breath 09/22/16 18:00 09/27/16 17:59 Atenolol (Tenormin) 12.5 mg DAILY ORAL 09/23/16 09:00 10/23/16 08:59 09/26/16 08:16 Atorvastatin Calcium (Lipitor) 10 mg BEDTIME ORAL 09/22/16 21:00 10/22/16 20:59 09/26/16 20:30 Cefepime HCl/ Dextrose (Maxipime/D5W) 110 ml @ 220 mls/hr DAILY@2100 IV 09/22/16 21:00 09/29/16 20:59 09/26/16 20:30 Dextrose (Dextrose 50%) STAT PRN IV Hypoglycemia 09/22/16 18:00 10/22/16 17:59 Heparin Sodium (Porcine) (Heparin 5000 units/ml) 5,000 units EVERY 12 HOURS SUBQ 09/22/16 21:00 10/22/16 20:59 09/26/16 20:33 Insulin Aspart (NovoLOG) BEFORE MEALS AND HS SUBQ 09/22/16 18:00 10/22/16 17:59 09/26/16 16:29 Morphine Sulfate (Morphine Sulfate) 2 mg Q4H PRN IVP Moderate Pain (Pain Scale 4-6) 09/22/16 18:00 09/29/16 17:59 Nitroglycerin (Ntg) 0.4 mg Q4H PRN SL Prn Chest Pain 09/22/16 17:45 10/22/16 17:44 Ondansetron HCl (Zofran) 4 mg Q6H PRN IVP Nausea & Vomiting 09/22/16 18:00 10/22/16 17:59 Polyethylene Glycol (Miralax) 17 gm DAILYPRN PRN ORAL Constipation 09/22/16 18:00 10/22/16 17:59 09/26/16 11:28 Povidone Iodine (Betadine Marilyn) 1 applic DAILY TOPIC 09/25/16 11:00 10/25/16 10:59 09/26/16 08:17 Temazepam (Restoril) 15 mg HSPRN PRN ORAL Insomnia 09/22/16 21:00 09/29/16 20:59 Vancomycin HCl 1 ea 1 ea DAILY PRN MISC PRN RX PROTOCOL 09/22/16 18:00 10/22/16 17:59 Vancomycin HCl/ Dextrose (Vancomycin/D5W) 275 ml @ 183.333 mls/hr Q24H IVPB 09/23/16 22:00 09/28/16 21:59 09/26/16 21:13 IVÁN OCHOA September 26, 2016 22:14
[2016-09-27 04:00] VITALS: BP 104/52
[2016-09-27] MEDS: NovoLOG Insulin Flexpen SUBQ SCH ×4 (06:07→20:53)
[2016-09-27 06:24] LABS: INR 1.2 (0.9-1.1); PROTHROMBIN TIME 11.8 SEC (9.30-11.50)
[2016-09-27 06:30] LABS: ALANINE AMINOTRANSFERASE 10 U/L (3-33); ALBUMIN/GLOBULIN RATIO 0.6 (1.0-2.7); ANION GAP 10 (5-15); ASPARTATE AMINO TRANSFERASE 17 U/L (5-40); CALCIUM 8.9 mg/dL (8.6-10.2); CARBON DIOXIDE 27 mEQ/L (20-30); CHLORIDE 103 mEQ/L (98-107); CREATININE 0.3 mg/dL (0.5-0.9); HEMOLYSIS 0; MAGNESIUM 1.8 mg/dL (1.7-2.5); PHOSPHORUS 2.3 mg/dL (2.5-4.8); POTASSIUM 4.5 mEQ/L (3.4-4.9); SODIUM 140 mEQ/L (135-145); TOTAL PROTEIN 5.5 g/dL (6.6-8.7)
[2016-09-27 07:11] LABS: BASOPHILS % (AUTO) 0.7 % (0.0-2.0); EOSINOPHILS % (AUTO) 2.1 % (0.0-3.0); LYMPHOCYTES % (AUTO) 29.4 % (20.0-45.0); MEAN CORPUSCULAR HEMOGLOBIN 26.6 PG (27.0-31.0); MEAN CORPUSCULAR HGB CONC 31.4 G/DL (32.0-36.0); MEAN CORPUSCULAR VOLUME 85 FL (80-99); MEAN PLATELET VOLUME 6.4 FL (6.5-10.1); MONOCYTES % (AUTO) 9.8 % (1.0-10.0); PLATELET COUNT 446 K/UL (150-450); RED BLOOD COUNT 3.45 M/UL (4.20-5.40); RED CELL DISTRIBUTION WIDTH 18.8 % (11.6-14.8); WHITE BLOOD COUNT 8.1 K/UL (4.8-10.8)
[2016-09-27 08:00] VITALS: BP 110/64
[2016-09-27] MEDS: Atenolol 25mg tab ORAL SCH (08:11)
[2016-09-27] MEDS: Betadine 4oz Bottle TOPIC SCH (08:52)
[2016-09-27] MEDS: Heparin 5000 units/ml inj SUBQ SCH ×2 (08:52→20:52)
--- NOTE | 2016-09-27 09:23 | Infectious Diseases Prog Note ---
Assessment/Plan Assessment/Plan ASSESSMENT: 85-year-old female with: Probable PNA - SCx contaminated Chest x-ray: atelectasis or focal infiltrate of bibasilar area h/o sacral decubitus/osteomyelitis (polymicrobial), status post six weeks of IV antibiotics as of July 2016. Wnd cx ESBL Kleb and P mirabilis ( colonizer ) MRI : 09/09/2016 : presence of signal in the S3 and S4 and coccygeal areas suggestive of osteomyelitis and there is some improvement in the signal abnormality in T1 Leukocytosis - resolved, afebrile NSTEMI, EF 40% Severe History of CVA Diabetes NKDA Full Code PLAN: DC vancomycin and cefepime d# 7 / Monitor CBC, temperatures Monitor BMP. Monitor chest x-ray. wound care Subjective Constitutional: Denies: anorexia, chills, drenching sweats, fatigue, fever, no symptoms, other Allergies: Coded Allergies: No Known Allergies (Verified , 11/28/08) Subjective afebrile Objective Vital Signs Last 24 Hour Vital Signs Date Time Temp Pulse Resp B/P Pulse Ox O2 Delivery O2 Flow Rate FiO2 09/27/16 08:11 64 110/64 09/27/16 08:00 97.0 69 18 110/64 98 Room Air 09/27/16 04:00 97.6 74 18 104/52 98 Room Air 09/26/16 23:31 97.3 76 18 106/55 99 Room Air 09/26/16 20:00 97.9 74 18 101/49 95 Room Air 09/26/16 19:46 97.5 09/26/16 16:00 97.5 77 18 128/68 97 Room Air 09/26/16 12:00 97.2 88 20 133/66 95 Room Air Height (Feet): 5 Height (Inches): 2.00 Weight (Pounds): 122 HEENT: anicteric Respiratory/Chest: no respiratory distress Cardiovascular: no gallop/murmur Abdomen: no organomegaly Laboratory Tests Test 09/27/16 05:05 09/27/16 06:07 White Blood Count 8.1 K/UL (4.8-10.8) Red Blood Count 3.45 M/UL (4.20-5.40) L Hemoglobin 9.2 G/DL (12.0-16.0) L Hematocrit 29.2 % (37.0-47.0) L Mean Corpuscular Volume 85 FL (80-99) Mean Corpuscular Hemoglobin 26.6 PG (27.0-31.0) L Mean Corpuscular Hemoglobin Concent 31.4 G/DL (32.0-36.0) L Red Cell Distribution Width 18.8 % (11.6-14.8) H Platelet Count 446 K/UL (150-450) Mean Platelet Volume 6.4 FL (6.5-10.1) L Neutrophils (%) (Auto) 58.0 % (45.0-75.0) Lymphocytes (%) (Auto) 29.4 % (20.0-45.0) Monocytes (%) (Auto) 9.8 % (1.0-10.0) Eosinophils (%) (Auto) 2.1 % (0.0-3.0) Basophils (%) (Auto) 0.7 % (0.0-2.0) Prothrombin Time 11.8 SEC (9.30-11.50) H Prothromb Time International Ratio 1.2 (0.9-1.1) H Activated Partial Thromboplast Time 30 SEC (23-33) Sodium Level 140 mEQ/L (135-145) Potassium Level 4.5 mEQ/L (3.4-4.9) Chloride Level 103 mEQ/L (98-107) Carbon Dioxide Level 27 mEQ/L (20-30) Anion Gap 10 (5-15) Blood Urea Nitrogen 16 mg/dL (7-23) Creatinine 0.3 mg/dL (0.5-0.9) L Estimat Glomerular Filtration Rate mL/min (>60) Glucose Level 72 mg/dL (74-106) L Calcium Level 8.9 mg/dL (8.6-10.2) Phosphorus Level 2.3 mg/dL (2.5-4.8) L Magnesium Level 1.8 mg/dL (1.7-2.5) Total Bilirubin 0.2 mg/dL (0.0-1.2) Aspartate Amino Transf (AST/SGOT) 17 U/L (5-40) Alanine Aminotransferase (ALT/SGPT) 10 U/L (3-33) Alkaline Phosphatase 95 U/L (35-104) Total Protein 5.5 g/dL (6.6-8.7) L Albumin 2.2 g/dL (3.5-5.2) L Globulin 3.3 g/dL Albumin/Globulin Ratio 0.6 (1.0-2.7) L Stool Occult Blood Negative (NEGATIVE) Current Medications Medications (Trade) Dose Ordered Sig/Abdirizak Route PRN Reason Start Time Stop Time Status Last Admin Dose Admin Acetaminophen (Tylenol) 650 mg Q4H PRN ORAL T>100.5 09/22/16 18:00 10/22/16 17:59 09/26/16 18:47 Albuterol/ Ipratropium (DuoNeb 0.5-3(2.5)mg/3ml) 3 ml Q4H PRN HHN Shortness of Breath 09/22/16 18:00 09/27/16 17:59 Atenolol (Tenormin) 12.5 mg DAILY ORAL 09/23/16 09:00 10/23/16 08:59 09/26/16 08:16 Atorvastatin Calcium (Lipitor) 10 mg BEDTIME ORAL 09/22/16 21:00 10/22/16 20:59 09/26/16 20:30 Cefepime HCl/ Dextrose (Maxipime/D5W) 110 ml @ 220 mls/hr DAILY@2100 IV 09/22/16 21:00 09/29/16 20:59 09/26/16 20:30 Dextrose (Dextrose 50%) STAT PRN IV Hypoglycemia 09/22/16 18:00 10/22/16 17:59 Heparin Sodium (Porcine) (Heparin 5000 units/ml) 5,000 units EVERY 12 HOURS SUBQ 09/22/16 21:00 10/22/16 20:59 09/27/16 08:52 Insulin Aspart (NovoLOG) BEFORE MEALS AND HS SUBQ 09/22/16 18:00 10/22/16 17:59 09/26/16 16:29 Morphine Sulfate (Morphine Sulfate) 2 mg Q4H PRN IVP Moderate Pain (Pain Scale 4-6) 09/22/16 18:00 09/29/16 17:59 Nitroglycerin (Ntg) 0.4 mg Q4H PRN SL Prn Chest Pain 09/22/16 17:45 10/22/16 17:44 Ondansetron HCl (Zofran) 4 mg Q6H PRN IVP Nausea & Vomiting 09/22/16 18:00 10/22/16 17:59 Polyethylene Glycol (Miralax) 17 gm DAILYPRN PRN ORAL Constipation 09/22/16 18:00 10/22/16 17:59 09/26/16 11:28 Povidone Iodine (Betadine Marilyn) 1 applic DAILY TOPIC 09/25/16 11:00 10/25/16 10:59 09/27/16 08:52 Temazepam (Restoril) 15 mg HSPRN PRN ORAL Insomnia 09/22/16 21:00 09/29/16 20:59 Vancomycin HCl 1 ea 1 ea DAILY PRN MISC PRN RX PROTOCOL 09/22/16 18:00 10/22/16 17:59 Vancomycin HCl/ Dextrose (Vancomycin/D5W) 275 ml @ 183.333 mls/hr Q24H IVPB 09/23/16 22:00 09/28/16 21:59 09/26/16 21:13 BALDEV DUTTON M.D. September 27, 2016 09:23
[2016-09-27 12:10] VITALS: BP 108/65
--- NOTE | 2016-09-27 12:37 | General Progress Note ---
Assessment/Plan Assessment/Plan ASSESSMENT and RECS: # Anemia 2/2 chronic disease - evaluate with a anemia workup, has been reviewed , ESR is 80, retic 1.1, ferritin >100, tibc is low which is consistent with anemia of chronic disease, will continue to treat underlying cause # Leukocytosis and pyuria, possible urinary tract infection/pneumonia - has improved # Thrombocytosis potentially related to underlying anemia, monitor closely # Shortness of breath and pneumonia. On abx # Pneumonia - is on antibiotics as per ID service # History of sacral decubitus/osteomyelitis (polymicrobial), status post six weeks of IV antibiotics as of July 2016 # Osteomyelitis on MRI and there is some improvement in the signal abnormality in T1 # Sacral decubitus,no gross evidence of infection # Greatly appreciate consultation! Subjective Constitutional: Reports: no symptoms HEENT: Reports: no symptoms Cardiovascular: Reports: no symptoms Respiratory: Reports: no symptoms Gastrointestinal/Abdominal: Reports: poor fluid intake Genitourinary: Reports: no symptoms Neurologic/Psychiatric: Reports: no symptoms Endocrine: Reports: no symptoms Hematologic/Lymphatic: Reports: anemia Allergies: Coded Allergies: No Known Allergies (Verified , 11/28/08) Subjective stable no events to report, no fevers or chills Objective Last 24 Hour Vital Signs Date Time Temp Pulse Resp B/P Pulse Ox O2 Delivery O2 Flow Rate FiO2 09/27/16 12:10 97.0 68 18 108/65 98 Nasal Cannula 2.0 09/27/16 08:11 64 110/64 09/27/16 08:00 97.0 69 18 110/64 98 Room Air 09/27/16 04:00 97.6 74 18 104/52 98 Room Air 09/26/16 23:31 97.3 76 18 106/55 99 Room Air 09/26/16 20:00 97.9 74 18 101/49 95 Room Air 09/26/16 19:46 97.5 09/26/16 16:00 97.5 77 18 128/68 97 Room Air Intake and Output 09/26/16 09/27/16 19:00 07:00 Intake Total 696.666 ml Output Total 1350 ml Balance -653.334 ml Intake Oral 220 ml IV Total 476.666 ml Output Urine Total 1350 ml # Bowel Movements 1 Laboratory Tests 09/27/16 05:05: White Blood Count 8.1, Red Blood Count 3.45L, Hemoglobin 9.2L, Hematocrit 29.2L , Mean Corpuscular Volume 85, Mean Corpuscular Hemoglobin 26.6L, Mean Corpuscular Hemoglobin Concent 31.4L, Red Cell Distribution Width 18.8H, Platelet Count 446, Mean Platelet Volume 6.4L, Neutrophils (%) (Auto) 58.0, Lymphocytes (%) (Auto) 29.4, Monocytes (%) (Auto) 9.8, Eosinophils (%) (Auto) 2.1, Basophils (%) (Auto) 0.7, Prothrombin Time 11.8H, Prothromb Time International Ratio 1.2H, Activated Partial Thromboplast Time 30, Sodium Level 140, Potassium Level 4.5, Chloride Level 103, Carbon Dioxide Level 27, Anion Gap 10, Blood Urea Nitrogen 16, Creatinine 0.3L, Estimat Glomerular Filtration Rate , Glucose Level 72L, Calcium Level 8.9, Phosphorus Level 2.3L, Magnesium Level 1.8, Total Bilirubin 0.2, Aspartate Amino Transf (AST/SGOT) 17, Alanine Aminotransferase (ALT/SGPT) 10, Alkaline Phosphatase 95, Total Protein 5.5L, Albumin 2.2L, Globulin 3.3, Albumin/Globulin Ratio 0.6L 09/27/16 06:07: Stool Occult Blood Negative Height (Feet): 5 Height (Inches): 2.00 Weight (Pounds): 122 General Appearance: alert Neck: normal alignment Cardiovascular: regular rhythm Respiratory/Chest: normal breath sounds Extremities: non-tender Edema: 1+ Leg (L), 1+ Leg (R) Neurologic: oriented x 3 Skin: normal pigmentation Cristian Saini September 27, 2016 12:37
[2016-09-27 15:51] VITALS: BP 117/60
[2016-09-27 20:00] VITALS: BP 118/59
[2016-09-27] MEDS: Cefepime HCl 2 GM in D5W 110 ML IV SCH (20:51)
[2016-09-27] MEDS: Vancomycin 1250mg/D5W 275ml IVPB SCH ×2 (21:57)
[2016-09-27] MEDS ORDERED: NS 275ml ONE (22:40)
[2016-09-27] MEDS ORDERED: Tubing IV Secondary IV ONE (22:40)
--- NOTE | 2016-09-27 22:47 | Pulmonology Progress Note ---
Assessment/Plan Problems: (1) Sepsis (2) NSTEMI (non-ST elevated myocardial infarction) (3) UTI (urinary tract infection) (4) Diabetes mellitus (5) Advanced dementia (6) Sacral decubitus ulcer, stage IV (7) CAD (coronary artery disease) (8) CVA (cerebral vascular accident) Assessment/Plan continue antibiotics as per ID finishing abx no new cultures cultures tolerating diet sliding scale wound care wbc decreasing anemia work up dc planning Subjective ROS Limited/Unobtainable: No Interval Events: dong better Allergies: Coded Allergies: No Known Allergies (Verified , 11/28/08) Objective Last 24 Hour Vital Signs Date Time Temp Pulse Resp B/P Pulse Ox O2 Delivery O2 Flow Rate FiO2 09/27/16 20:00 97.7 81 19 118/59 98 Room Air 09/27/16 15:51 97.0 77 18 117/60 98 Room Air 09/27/16 12:10 97.0 68 18 108/65 98 Nasal Cannula 2.0 09/27/16 08:11 64 110/64 09/27/16 08:00 97.0 69 18 110/64 98 Room Air 09/27/16 04:00 97.6 74 18 104/52 98 Room Air 09/26/16 23:31 97.3 76 18 106/55 99 Room Air Intake and Output 09/26/16 09/27/16 19:00 07:00 Intake Total 696.666 ml Output Total 1350 ml Balance -653.334 ml Intake Oral 220 ml IV Total 476.666 ml Output Urine Total 1350 ml # Bowel Movements 1 Objective General Appearance: cachectic HEENT: normocephalic Respiratory/Chest: chest wall non-tender, lungs clear Cardiovascular: normal peripheral pulses, regular rhythm Abdomen: normal bowel sounds, soft, non tender Genitourinary: normal external genitalia Extremities: no cyanosis, no clubbing sacral decubiti Laboratory Tests 09/27/16 05:05: White Blood Count 8.1, Red Blood Count 3.45L, Hemoglobin 9.2L, Hematocrit 29.2L , Mean Corpuscular Volume 85, Mean Corpuscular Hemoglobin 26.6L, Mean Corpuscular Hemoglobin Concent 31.4L, Red Cell Distribution Width 18.8H, Platelet Count 446, Mean Platelet Volume 6.4L, Neutrophils (%) (Auto) 58.0, Lymphocytes (%) (Auto) 29.4, Monocytes (%) (Auto) 9.8, Eosinophils (%) (Auto) 2.1, Basophils (%) (Auto) 0.7, Prothrombin Time 11.8H, Prothromb Time International Ratio 1.2H, Activated Partial Thromboplast Time 30, Sodium Level 140, Potassium Level 4.5, Chloride Level 103, Carbon Dioxide Level 27, Anion Gap 10, Blood Urea Nitrogen 16, Creatinine 0.3L, Estimat Glomerular Filtration Rate , Glucose Level 72L, Calcium Level 8.9, Phosphorus Level 2.3L, Magnesium Level 1.8, Total Bilirubin 0.2, Aspartate Amino Transf (AST/SGOT) 17, Alanine Aminotransferase (ALT/SGPT) 10, Alkaline Phosphatase 95, Total Protein 5.5L, Albumin 2.2L, Globulin 3.3, Albumin/Globulin Ratio 0.6L 09/27/16 06:07: Stool Occult Blood Negative Current Medications Medications (Trade) Dose Ordered Sig/Abdirizak Route PRN Reason Start Time Stop Time Status Last Admin Dose Admin Acetaminophen (Tylenol) 650 mg Q4H PRN ORAL T>100.5 09/22/16 18:00 10/22/16 17:59 09/26/16 18:47 Atenolol (Tenormin) 12.5 mg DAILY ORAL 09/23/16 09:00 10/23/16 08:59 09/26/16 08:16 Atorvastatin Calcium (Lipitor) 10 mg BEDTIME ORAL 09/22/16 21:00 10/22/16 20:59 09/27/16 20:51 Cefepime HCl/ Dextrose (Maxipime/D5W) 110 ml @ 220 mls/hr DAILY@2100 IV 09/22/16 21:00 09/27/16 23:00 09/27/16 20:51 Dextrose (Dextrose 50%) STAT PRN IV Hypoglycemia 09/22/16 18:00 10/22/16 17:59 Heparin Sodium (Porcine) (Heparin 5000 units/ml) 5,000 units EVERY 12 HOURS SUBQ 09/22/16 21:00 10/22/16 20:59 09/27/16 20:52 Insulin Aspart (NovoLOG) BEFORE MEALS AND HS SUBQ 09/22/16 18:00 10/22/16 17:59 09/27/16 11:50 Morphine Sulfate (Morphine Sulfate) 2 mg Q4H PRN IVP Moderate Pain (Pain Scale 4-6) 09/22/16 18:00 09/29/16 17:59 Nitroglycerin (Ntg) 0.4 mg Q4H PRN SL Prn Chest Pain 09/22/16 17:45 10/22/16 17:44 Ondansetron HCl (Zofran) 4 mg Q6H PRN IVP Nausea & Vomiting 09/22/16 18:00 10/22/16 17:59 Polyethylene Glycol (Miralax) 17 gm DAILYPRN PRN ORAL Constipation 09/22/16 18:00 10/22/16 17:59 09/26/16 11:28 Povidone Iodine (Betadine Marilyn) 1 applic DAILY TOPIC 09/25/16 11:00 10/25/16 10:59 09/27/16 08:52 Temazepam (Restoril) 15 mg HSPRN PRN ORAL Insomnia 09/22/16 21:00 09/29/16 20:59 Vancomycin HCl 1 ea 1 ea DAILY PRN MISC PRN RX PROTOCOL 09/22/16 18:00 09/27/16 23:00 Vancomycin HCl/ Dextrose (Vancomycin/D5W) 275 ml @ 183.333 mls/hr Q24H IVPB 09/23/16 22:00 09/27/16 23:00 09/27/16 21:57 IVÁN OCHOA September 27, 2016 22:47
[2016-09-28] VITALS: BP 120/69
[2016-09-28 04:00] VITALS: BP 119/68
[2016-09-28] MEDS: NovoLOG Insulin Flexpen SUBQ SCH ×2 (06:06→12:22)
[2016-09-28 08:09] VITALS: BP 113/60
[2016-09-28] MEDS: Atenolol 25mg tab ORAL SCH (09:00)
[2016-09-28] MEDS: Betadine 4oz Bottle TOPIC SCH (09:13)
[2016-09-28] MEDS: Heparin 5000 units/ml inj SUBQ SCH (09:15)
--- NOTE | 2016-09-28 10:17 | Infectious Diseases Prog Note ---
Assessment/Plan Assessment/Plan ASSESSMENT: 85-year-old female with: Probable PNA - SCx contaminated SP Rx Chest x-ray: atelectasis or focal infiltrate of bibasilar area h/o sacral decubitus/osteomyelitis (polymicrobial), status post six weeks of IV antibiotics as of July 2016. Wnd cx ESBL Kleb and P mirabilis ( colonizer ) MRI : 09/09/2016 : presence of signal in the S3 and S4 and coccygeal areas suggestive of osteomyelitis and there is some improvement in the signal abnormality in T1 Leukocytosis - resolved, afebrile NSTEMI, EF 40% Severe History of CVA Diabetes NKDA Full Code PLAN: Monitor pt off of AB Rx ( 09/27 SP vancomycin and cefepime d# ) Monitor CBC, temperatures Monitor BMP. Monitor chest x-ray. wound care Subjective Constitutional: Denies: anorexia, chills, drenching sweats, fatigue, fever, no symptoms, other Allergies: Coded Allergies: No Known Allergies (Verified , 11/28/08) Subjective afebrile Objective Vital Signs Last 24 Hour Vital Signs Date Time Temp Pulse Resp B/P Pulse Ox O2 Delivery O2 Flow Rate FiO2 09/28/16 09:00 75 113/60 09/28/16 08:09 97.9 75 20 113/60 98 Room Air 09/28/16 04:00 98.1 80 17 119/68 99 Room Air 09/28/16 00:00 97.7 81 19 120/69 100 Room Air 09/27/16 20:00 97.7 81 19 118/59 98 Room Air 09/27/16 15:51 97.0 77 18 117/60 98 Room Air 09/27/16 12:10 97.0 68 18 108/65 98 Nasal Cannula 2.0 Height (Feet): 5 Height (Inches): 2.00 Weight (Pounds): 122 HEENT: atraumatic Respiratory/Chest: no respiratory distress Cardiovascular: regular rhythm Abdomen: no organomegaly Current Medications Medications (Trade) Dose Ordered Sig/Abdirizak Route PRN Reason Start Time Stop Time Status Last Admin Dose Admin Acetaminophen (Tylenol) 650 mg Q4H PRN ORAL T>100.5 09/22/16 18:00 10/22/16 17:59 09/26/16 18:47 Atenolol (Tenormin) 12.5 mg DAILY ORAL 09/23/16 09:00 10/23/16 08:59 09/26/16 08:16 Atorvastatin Calcium (Lipitor) 10 mg BEDTIME ORAL 09/22/16 21:00 10/22/16 20:59 09/27/16 20:51 Dextrose (Dextrose 50%) STAT PRN IV Hypoglycemia 09/22/16 18:00 10/22/16 17:59 Heparin Sodium (Porcine) (Heparin 5000 units/ml) 5,000 units EVERY 12 HOURS SUBQ 09/22/16 21:00 10/22/16 20:59 09/28/16 09:15 Insulin Aspart (NovoLOG) BEFORE MEALS AND HS SUBQ 09/22/16 18:00 10/22/16 17:59 09/27/16 11:50 Morphine Sulfate (Morphine Sulfate) 2 mg Q4H PRN IVP Moderate Pain (Pain Scale 4-6) 09/22/16 18:00 09/29/16 17:59 Nitroglycerin (Ntg) 0.4 mg Q4H PRN SL Prn Chest Pain 09/22/16 17:45 10/22/16 17:44 Ondansetron HCl (Zofran) 4 mg Q6H PRN IVP Nausea & Vomiting 09/22/16 18:00 10/22/16 17:59 Polyethylene Glycol (Miralax) 17 gm DAILYPRN PRN ORAL Constipation 09/22/16 18:00 10/22/16 17:59 09/26/16 11:28 Povidone Iodine (Betadine Marilyn) 1 applic DAILY TOPIC 09/25/16 11:00 10/25/16 10:59 09/28/16 09:13 Temazepam (Restoril) 15 mg HSPRN PRN ORAL Insomnia 09/22/16 21:00 09/29/16 20:59 BALDEV DUTTON M.D. September 28, 2016 10:17
[2016-09-28 12:00] VITALS: BP 105/57
--- NOTE | 2016-09-28 17:52 | General Progress Note ---
Assessment/Plan Assessment/Plan ASSESSMENT and RECS: # Anemia 2/2 chronic disease - evaluate with a anemia workup, has been reviewed , ESR is 80, retic 1.1, ferritin >100, tibc is low which is consistent with anemia of chronic disease, will continue to treat underlying cause # Leukocytosis and pyuria, possible urinary tract infection/pneumonia - has improved # Thrombocytosis potentially related to underlying anemia, monitor closely # Shortness of breath and pneumonia. On abx # Pneumonia - is on antibiotics as per ID service # History of sacral decubitus/osteomyelitis (polymicrobial), status post six weeks of IV antibiotics as of July 2016 # Osteomyelitis on MRI and there is some improvement in the signal abnormality in T1 # Sacral decubitus,no gross evidence of infection # Greatly appreciate consultation! Subjective Constitutional: Reports: no symptoms HEENT: Reports: no symptoms Cardiovascular: Reports: no symptoms Respiratory: Reports: no symptoms Gastrointestinal/Abdominal: Reports: no symptoms Genitourinary: Reports: no symptoms Neurologic/Psychiatric: Reports: no symptoms Hematologic/Lymphatic: Reports: anemia Allergies: Coded Allergies: No Known Allergies (Verified , 11/28/08) Subjective stable no events to report, no fevers or chills noted Objective Last 24 Hour Vital Signs Date Time Temp Pulse Resp B/P Pulse Ox O2 Delivery O2 Flow Rate FiO2 09/28/16 12:00 97.9 78 20 105/57 97 Room Air 09/28/16 09:00 75 113/60 09/28/16 08:09 97.9 75 20 113/60 98 Room Air 09/28/16 04:00 98.1 80 17 119/68 99 Room Air 09/28/16 00:00 97.7 81 19 120/69 100 Room Air 09/27/16 20:00 97.7 81 19 118/59 98 Room Air Intake and Output 09/27/16 09/28/16 18:59 06:59 Intake Total 480 ml 385.000 ml Output Total 850 ml 1000 ml Balance -370 ml -615.000 ml Intake Oral 480 ml IV Total 385.000 ml Output Urine Total 850 ml 1000 ml Height (Feet): 5 Height (Inches): 2.00 Weight (Pounds): 122 General Appearance: alert EENT: TMs normal Neck: supple Cardiovascular: regular rhythm Respiratory/Chest: normal breath sounds Abdomen: no mass Extremities: normal inspection Edema: 1+ Leg (L), 1+ Leg (R) Edema: mild edema Neurologic: alert Skin: warm/dry Cristian Saini September 28, 2016 17:52
--- NOTE | 2016-09-28 22:30 | Pulmonology Progress Note ---
Assessment/Plan Problems: (1) Sepsis (2) NSTEMI (non-ST elevated myocardial infarction) (3) UTI (urinary tract infection) (4) Diabetes mellitus (5) Advanced dementia (6) Sacral decubitus ulcer, stage IV (7) CAD (coronary artery disease) (8) CVA (cerebral vascular accident) Assessment/Plan continue antibiotics as per ID finishing abx no new cultures cultures tolerating diet sliding scale wound care wbc decreasing anemia work up dc planning Subjective Allergies: Coded Allergies: No Known Allergies (Verified , 11/28/08) Objective Last 24 Hour Vital Signs Date Time Temp Pulse Resp B/P Pulse Ox O2 Delivery O2 Flow Rate FiO2 09/28/16 12:00 97.9 78 20 105/57 97 Room Air 09/28/16 09:00 75 113/60 09/28/16 08:09 97.9 75 20 113/60 98 Room Air 09/28/16 04:00 98.1 80 17 119/68 99 Room Air 09/28/16 00:00 97.7 81 19 120/69 100 Room Air Intake and Output 09/27/16 09/28/16 19:00 07:00 Intake Total 480 ml 385.000 ml Output Total 850 ml 1000 ml Balance -370 ml -615.000 ml Intake Oral 480 ml IV Total 385.000 ml Output Urine Total 850 ml 1000 ml Objective General Appearance: cachectic HEENT: normocephalic Respiratory/Chest: chest wall non-tender, lungs clear Cardiovascular: normal peripheral pulses, regular rhythm Abdomen: normal bowel sounds, soft, non tender Genitourinary: normal external genitalia Extremities: no cyanosis, no clubbing sacral decubiti IVÁN OCOHA September 28, 2016 22:30
--- NOTE | 2016-09-30 11:01 | Discharge Summary ---
Discharge Summary Hospital Course Date of Admission September 20, 2016 at 17:17 Date of Discharge September 28, 2016 at 14:45 Admitting Diagnosis PNA/ NSTEMI HPI Mary Boucher is a 85 year old female who was admitted on September 20, 2016 at 17:17 for Pneumonia, Nstemi Hospital Course [id number] Discharge Discharge Disposition Patient was discharged to Home with Home Health(06) Discharge Diagnoses: Lilian Friedman NP September 30, 2016 11:01
--- NOTE | 2016-10-01 01:31 | Discharge Summary 2 SIG ---
DATE OF ADMISSION: 09/20/2016 DATE OF DISCHARGE: 09/28/2016 CONSULTANTS: 1. Salvador Oviedo M.D. 2. Cristian Saini M.D. 3. Harrison Gallardo M.D. BRIEF HOSPITAL COURSE: The patient is an 85-year-old female with history of dementia and is bed-bound, presented to [facility] ED for evaluation of labored breathing and had a clogged Burton catheter. Upon arrival to ED, the patient appeared more lethargic than baseline and also had decubitus ulcer on the back, which is being treated by [facility]. On evaluation at ED, labs showed leukocytosis. WBC was elevated to 19. Troponin was elevated to 0.38. Urinalysis showed infection. Chest x-ray showed presence of bilateral infiltrates. EKG was done showed polarization changes versus ST elevation. She was given aspirin and was pancultured and was started on empiric antibiotics. The patient was admitted to [facility]. Dr. Oviedo was consulted. The patient was admitted for non-ST elevated DE and sepsis. Dr. Oviedo was consulted. On evaluation, the patient has pericardial friction rub. Echocardiogram showed an ejection fraction of 45% with significant aortic stenosis. There was septal hypokinesis and a small posterior pericardial effusion with severe aortic stenosis and calcified mitral valve leaflets and pulmonary hypertension. She was also followed by Infectious Disease specialist for evaluation of leukocytosis, pyuria, urinary tract infection, pneumonia and bacteremia. The patient has just completed 6 weeks of IV antibiotic Zyvox and Zosyn as an outpatient. She was continued on vancomycin and cefepime. The wound culture showed growth of Klebsiella, ESBL, Proteus and Pseudomonas. Sputum culture sent was contaminated. She completed 7 days of IV vancomycin and cefepime and was then taken off antibiotic treatment. Dr. Saini was consulted for evaluation of anemia. Blood count dropped to 7.8. She was given one unit of packed RBC transfusion. Anemia workup was done. Ferritin was elevated. TIBC is low. Reticulocyte count is 1.1. ESR was 18. Peripheral smear showed normocytic normochromic anemia with no morphologic changes seen. She came in with multiple pressure ulcer on the sacral area and lower extremities. She was given local wound care with frequent turning and offloading. She finished the antibiotics and WBC normalized. She was discharged home with home health to continue wound care. FINAL DIAGNOSES: 1. Sepsis. 2. Non-ST elevated myocardial infarction. 3. Urinary tract infection. 4. Diabetes mellitus. 5. Advanced dementia. 6. Multiple decubitus ulcer on sacral and lower extremities, present on admission. 7. Coronary artery disease. 8. Old cerebrovascular accident. 9. Severe aortic stenosis. 10. Bed-bound/functional quadriplegia. Karla Pace M.D. I have been assigned to dictate discharge summary on this account and I was not involved in the patient's management. Lilian Friedman N.P. DR: KERRY JOB#: [id number] CC:
== END 2016-09-28 14:45 | disposition home health service (06) | DRG 871 ==
LOC: EMR 17:00 → 2W 17:17 → EDBEDREQ 17:23 → EDBEDREQSVC 17:23 → EDBEDREQ 17:41 → 2W 20:11 → 2E 09-21 13:07 → 4W 09-22 17:59
PROC: 30233N1 Transfusion of Nonautologous Red Blood Cells into Peripheral Vein, Percutaneous Approach (ICD-10-PCS; principal; 2016-09-21)
DX: A41.9 Sepsis, unspecified organism (principal); I21.4 Non-ST elevation (NSTEMI) myocardial infarction; G82.50 Quadriplegia, unspecified; L89.154 Pressure ulcer of sacral region, stage 4; J18.9 Pneumonia, unspecified organism; F03.90 Unspecified dementia, unspecified severity, without behavioral disturbance, psychotic disturbance, mood disturbance, and anxiety; N39.0 Urinary tract infection, site not specified; I31.3 Pericardial effusion (noninflammatory); L89.520 Pressure ulcer of left ankle, unstageable; E11.9 Type 2 diabetes mellitus without complications; D47.3 Essential (hemorrhagic) thrombocythemia; M86.9 Osteomyelitis, unspecified; D63.8 Anemia in other chronic diseases classified elsewhere; I25.10 Atherosclerotic heart disease of native coronary artery without angina pectoris; Z79.4 Long term (current) use of insulin; Z86.73 Personal history of transient ischemic attack (TIA), and cerebral infarction without residual deficits; I10 Essential (primary) hypertension; I25.2 Old myocardial infarction; I35.0 Nonrheumatic aortic (valve) stenosis; I34.0 Nonrheumatic mitral (valve) insufficiency; L89.890 Pressure ulcer of other site, unstageable; L89.610 Pressure ulcer of right heel, unstageable
CPT/HCPCS: 36415; 71010; 80048; 80053; 80202; 81003; 82270; 82378; 82550; 82553; 82607; 82728; 82746; 82962; 83010; 83540; 83550; 83605; 83615; 83735; 83880; 84100; 84443; 84484; 85007; 85025; 85044; 85060; 85610; 85651; 85730; 86850; 86900; 86901; 86920; 87040; 87070; 87081; 87086; 87181; 87205; 93005; 93306; A4246; J1815

== ENCOUNTER 2016-10-06 12:24 | Outpatient (RCR) | payer MEDICARE, BC ==
[~2016-10-06 12:24] MED LIST changes: +CEFEPIME 22 GM/100 M IV; +LANTUS SOL100 UNIT/1 SUBQ; +PANTOPRAZOLE SO40 MG ORAL
== END 2016-10-13 | disposition home or self-care (01) ==
LOC: WCC 12:24
DX: L89.154 Pressure ulcer of sacral region, stage 4 (principal); L89.620 Pressure ulcer of left heel, unstageable; M46.28 Osteomyelitis of vertebra, sacral and sacrococcygeal region; Z96.641 Presence of right artificial hip joint; E11.9 Type 2 diabetes mellitus without complications; I10 Essential (primary) hypertension; Z79.82 Long term (current) use of aspirin
CPT/HCPCS: 11044; 11047; 97606

== ENCOUNTER 2016-10-18 11:00 | Outpatient (RCR) | payer MEDICARE, BC ==
[~2016-10-18] VITALS: Ht 157.5 cm; Wt 59.0 kg
[2016-10-22] MEDS ORDERED: Lidocaine HCl 2% Jelly 5ml Tube TOPIC ONE (14:30)
--- NOTE | 2016-10-26 01:45 | Consultation ---
DATE OF CONSULTATION: INFECTIOUS DISEASE CONSULTATION: REASON FOR CONSULTATION: Sacral osteomyelitis with Pseudomonas aeruginosa due to large sacral wound stage IV and recommendation for antibiotics treatment for her osteomyelitis. REQUESTING PHYSICIAN: Jaiden Howard M.D. HISTORY OF PRESENT ILLNESS: The patient is an 85-year-old female with past medical history significant for coronary artery disease status post [place] in 2016 and CVA, who developed sacral wound due to prolonged hospital stay was admitted to [facility] in June of this year due to large sacral decubitus ulcer and complicated with sepsis. The patient had surgical debridement of her sacral wound with bone culture was positive for enterococcus faecium resistant to vancomycin. Her wound at that time grew multiple organisms including E. coli, VRE Providencia stuartii, Klebsiella pneumoniae ESBL, and Pseudomonas aeruginosa, so she was started on Zosyn empiric treatment to cover all her isolate and Zyvox to treat her enterococcus faecium osteomyelitis for six weeks. She completed her course of treatment and did well after that. The patient was admitted again in September of this year due to pneumonia and she was treated with IV vancomycin and cefepime by the admitting provider with Infectious Disease recommendation, which was done by Dr. Paulina Terry. The patient had wound culture at that time during her hospital stay, which grew Pseudomonas aeruginosa again and ESBL Klebsiella pneumoniae, but she was not treated for her wound infection or possible osteomyelitis since it was felt a colonizer by the Infectious Disease who saw her. The patient's wound got worse after she was discharged home and she was evaluated by plastic surgery, Dr. Howard who has done bone biopsy from the sacrum and the culture grew pansensitive Pseudomonas aeruginosa and pathology was positive for osteomyelitis, so I was consulted by the plastic surgeon, Dr. Howard for antibiotics treatment for her osteomyelitis due to Pseudomonas aeruginosa. As of note, the patient is a poor historian cannot provide good history. History was mainly obtained from the medical records and daughter at the bedside. PAST MEDICAL HISTORY: Significant for coronary artery disease status post [place] in 2016 and CVA. PAST SURGICAL HISTORY: She had sacral wound debridement done by plastic surgeon in June. MEDICATIONS: Please refer to the MAR for further details on her medication. ALLERGIES: She has no known drug allergy. SOCIAL HISTORY: She lives home with her daughter. No recent drugs, tobacco, or alcohol. FAMILY HISTORY: Not contributory. REVIEW OF SYSTEMS: A 12-point system reviewed were all negative apart from the one I mentioned above in my History and Physical. PHYSICAL EXAMINATION: VITAL SIGNS: Temperature 97.8 degrees, pulse 68, respirations 18, blood pressure 134/69, and saturation 98% on room air. GENERAL: The patient is an elderly female, malnourished, paraplegic, lying in bed, alert, not in distress. HEENT: Normocephalic and atraumatic. Pupils are reactive to light equally. Moist oral mucosa. No exudate. NECK: Supple. No lymphadenopathy. CARDIOVASCULAR: Regular rate and rhythm. No murmur. LUNGS: Clear bilaterally. No wheezing or rhonchi. ABDOMEN: Soft, nontender, and nondistended. Positive bowel sounds. No hepatosplenomegaly. No ascites. EXTREMITIES: No edema or cyanosis. Muscle atrophy. Multiple pressure wounds on her feet and large sacral pressure wound stage IV with undermining. She has good granulation tissue at the base with exposed sacrum . No pus or foul smelling. LABORATORY AND DIAGNOSTIC DATA: None done recent. Microbiology, bone culture on 07/08/2016 grew enterococcus faecium vancomycin-resistant. Wound culture on 07/06/2016 grew E. coli enterococcus faecalis, VRE Providencia stuartii, Klebsiella pneumoniae ESBL, and Pseudomonas aeruginosa. Blood culture in June grew Staph species coag-negative. Bone biopsy culture showed Pseudomonas aeruginosa pansensitive only isolate from the bone culture. Imaging, none done recently . ASSESSMENT AND RECOMMENDATION: 1. 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 We will start patient on cefepime 2 g intravenous every 8 hours for six week course of antibiotics treatment to improve her chance of recovery. Recommend offloading and nutritional support. The patient may need a skin flap to cover her wound to prevent further contamination and recurrent infection and osteomyelitis. Plan of care was discussed with the daughter at the bedside and plastic surgeon. All agreed on the plan. 2. Large sacral wound stage IV. Recommend offloading and aggressive wound care. May need wound VAC to protect her wound from contamination and recurrent infection. Wound care service is following. 3. Coronary artery disease. 4. Old cerebrovascular accident. Continue medication. Follow up with primary care as needed. Thank you for the consult. Isam Mawas, M.D. DR: Sharon JOB#: [id number] CC: KAREN
[2016-10-27] MEDS ORDERED: Lidocaine HCl 2% Jelly 5ml Tube TOPIC ONE (15:45)
== END 2016-11-12 | disposition home or self-care (01) ==
LOC: WCC 11:00
DX: L89.154 Pressure ulcer of sacral region, stage 4 (principal); M46.28 Osteomyelitis of vertebra, sacral and sacrococcygeal region; L89.620 Pressure ulcer of left heel, unstageable; L89.520 Pressure ulcer of left ankle, unstageable; Z96.641 Presence of right artificial hip joint; E11.9 Type 2 diabetes mellitus without complications; I10 Essential (primary) hypertension
CPT/HCPCS: 11043; 11044; 11046; 11047; 20245; 87070; 87181; 87205

== ENCOUNTER 2016-10-26 14:31 | Outpatient (CLI) | payer MEDICARE, BC ==
[~2016-10-26] VITALS: Ht 160 cm; Wt 47.6 kg
[~2016-10-26 14:31] MED LIST changes: +Heparin 2000 units/Ns 1000ml IV ONE
[2016-10-26] MEDS ORDERED: Lidocaine 1% Plain 30 ml INJ ONE (15:00)
--- NOTE | 2016-10-26 16:13 | Diagnostic Imaging Report ---
Indications: Long-term central IV access required for intravenous therapy Technique: The procedure indications, risks, and alternatives were explained to the patient's family who understands and gives consent to proceed. Strict aseptic technique was utilized, including hand washing, use of hat and mask, use of sterile gown and gloves, sterile ultrasound gel and probe cover, prepping of right arm skin with 2% chlorhexidine solution, and application of full-body sterile barrier over this area. Skin and subcutaneous soft tissues were infiltrated with 1% lidocaine and sodium bicarbonate. A small dermatotomy was made, through which the larger of two patent, adequate size right brachial veins was punctured percutaneously under direct sonographic guidance with a 21-gauge needle. Exchange was made over a 0.018 inch guidewire for a 5 Cypriot peel-away sheath. A Xquva Power-PICC 5 Cypriot dual lumen central venous catheter was cut to appropriate length, then advanced through the sheath over the guidewire under direct fluoroscopic guidance into the superior vena cava. Guidewire and sheath were removed. Both catheter ports were aspirated, then flushed with heparinized saline. Final image was obtained. Catheter was secured the skin with adhesive dressing. Patient tolerated procedure well without immediate complications. Total fluoroscopy time: 0.3 minutes. Dose-area product: 4.5 dGy-cm2 Findings: Final image demonstrates tip of the central venous catheter at the level of superior vena cava-right atrial junction, 32 cm in from the skin. Both ports aspirate and flush freely. IMPRESSION:? Placement of peripherally inserted central venous catheter via right brachial vein, working well.
== END 2016-10-26 16:31 | disposition home or self-care (01) ==
LOC: RAD 14:31
DX: M86.9 Osteomyelitis, unspecified (principal); Z79.899 Other long term (current) drug therapy
CPT/HCPCS: 36569; 76937; J1644; J2001